=== PATIENT | male | born 1935 | race Caucasian/White ===

== ENCOUNTER → 2016-07-23 | Outpatient (CLI) | payer MEDICARE, BC ==
[2016-07-23 14:28] LABS: INR 2.2 (<1.1)
== END | disposition home or self-care (01) ==
LOC: LABWHC1 14:07
PROVIDERS: ATTEND Internal Medicine Cardiovascular Disease
DX: I48.91 Unspecified atrial fibrillation (principal)
CPT/HCPCS: 36415; 85610

== ENCOUNTER → 2016-08-02 | Outpatient (CLI) | payer MEDICARE, BC ==
--- NOTE | 2016-08-02 09:42 | US ---
EXAMINATION TYPE: US renals and bladder DATE OF EXAM: 08/02/2016 9:26 AM COMPARISON: NONE CLINICAL HISTORY: R31.9 hematuria. EXAM MEASUREMENTS: Right Kidney: 11.2 x 6.1 x 5.9 cm Left Kidney: 9.7 x 4.7 x 5.2 cm Right Kidney: 2 cysts seen small lower pole measuring 0.8 x 0.7 x 0.8 cm and upper pole measuring 1.2 x 1.3 x 1.3 cm Left Kidney: No hydronephrosis or masses seen, not well visualized due to surrounding bowel gas Bladder: wnl Bilateral Jets seen: Yes There is a 1.3 cm simple appearing cyst in the upper pole of the right kidney. There is an exophytic 8 mm lesion arising from the mid to lower pole of the right kidney. This does not meet the requiremen ts of a simple cyst. IMPRESSION: 1. 8MM EXOPHYTIC LESION ARISING FROM THE MID TO LOWER POLE OF THE RIGHT KIDNEY. THIS SHOULD BE FURTHE R ASSESSED WITH CT OR MR. 2. 1.3 CM SIMPLE APPEARING CYST ARISING FROM THE UPPER POLE OF THE RIGHT KIDNEY.
== END | disposition home or self-care (01) ==
LOC: RADUSMAIN 08:50
PROVIDERS: ATTEND Family Medicine
DX: N28.1 Cyst of kidney, acquired (principal); N28.9 Disorder of kidney and ureter, unspecified
CPT/HCPCS: 76770

== ENCOUNTER → 2016-08-15 | Outpatient (CLI) | payer MEDICARE, BC ==
[2016-08-15 12:04] LABS: INR 3.2 (<1.1); Prothrombin Time 31.2 sec (9.0-12.0)
--- NOTE | 2016-08-15 13:51 | CT ---
EXAMINATION TYPE: CT abdomen wo/w con DATE OF EXAM: 08/15/2016 1:32 PM COMPARISON: Renal ultrasound August 02, 2016. HISTORY: Renal mass CT DLP: 1319.10 mGycm, Automated Exposure Control for Dose Reduction was Utilized. CONTRAST: CT scan of the abdomen and pelvis is performed without oral and without and with IV Contrast, patient injected with 100 ml mL of Visipaque 320. FINDINGS: LUNG BASES: Elevated left hemidiaphragm is noted. There is cardiomegaly with moderate biatrial dilata tion. There is partial visualization of right-sided pacemaker/defibrillator wires. There is dense thr ee-vessel coronary artery calcification. LIVER/GB: No significant abnormality is appreciated. PANCREAS: Some diffuse fat replaced atrophy of the pancreas is seen. SPLEEN: Single small calcification inferior lateral spleen is presumed benign on axial image 21 serie s 5. ADRENALS: No significant abnormality is seen. KIDNEYS: Noncontrast images show 3-4 calculi scattered throughout right kidney measuring up to 5 mm i n size coronal image 90 lower pole level. There are approximately 5 calculi scattered throughout left kidney measuring up to 4 mm in size. Postcontrast images show symmetric cortical medullary uptake wi th slightly poorly visualized excretion bilaterally. No hydronephrosis is evident bilaterally. There is a simple appearing 1 cm cyst laterally upper to mid pole level right kidney on axial image 35 seri es 9 confirmed. No additional suspicious solid or cystic mass in right kidney is seen. Exophytically from the posterior lateral aspect of the left kidney which was felt to reflect shadowing from overlyi ng bowel gas there is a lesion measuring 4.1 x 3.5 cm on axial image 36 x 4.9 cm in craniocaudal dime nsion on coronal image 112, lesion has peripheral rim soft tissue density with central fat and soft t issue density consistent with angiomyolipoma. BOWEL: No significant abnormality is seen. LYMPH NODES: No greater than 1cm abdominal lymph nodes are appreciated. OSSEOUS STRUCTURES: There is multilevel spurring in the visualized thoracolumbar spine. Spine is stra ightened on sagittal images. There is spinal canal stenosis at L3-L4 level on axial image 47. There i s disc space narrowing L4-L5 and L5-S1 levels with grade 1 retrolisthesis of L4 on L5 and L5 on S1 no olivia. OTHER: There is moderate calcified atherosclerotic change of aorta extending into abdominal and pelvi c branch vessels IMPRESSION: No worrisome mass in right kidney. There is exophytic 4.9 cm mass posterior lateral left kidney consistent with angiomyolipoma. Though benign consider surgical or endovascular referral due t o size as there is increased risk for bleed/rupture.
== END | disposition home or self-care (01) ==
LOC: RADCTMAIN 10:59
PROVIDERS: ATTEND Family Medicine
DX: N28.89 Other specified disorders of kidney and ureter (principal)
CPT/HCPCS: 82565; 84520; 85610; 74170; 36415; Q9967

== ENCOUNTER → 2018-03-17 | Outpatient (CLI) | payer MEDICARE ==
[2018-03-17 17:14] LABS: HCT 38.2 % (39.0-53.0); HGB 12.8 gm/dL (13.0-17.5); MCH 34.5 pg (25.0-35.0); MCHC 33.4 g/dL (31.0-37.0); MCV 103.1 fL (80.0-100.0); Macrocytosis Slight; Mean Platelet Volume 8.1; Platelet Count 128 k/uL (150-450); RBC 3.71 m/uL (4.30-5.90); RDW 15.1 % (11.5-15.5); WBC 4.4 k/uL (3.8-10.6)
[2018-03-17 17:31] LABS: INR 2.9 (<1.2)
[2018-03-17 17:37] LABS: Potassium 5.6 mmol/L (3.5-5.1)
== END | disposition home or self-care (01) ==
LOC: LABPAT 16:32
PROVIDERS: ATTEND Internal Medicine Cardiovascular Disease
DX: Z01.812 Encounter for preprocedural laboratory examination (principal); I48.2 Chronic atrial fibrillation; I10 Essential (primary) hypertension; E78.2 Mixed hyperlipidemia
CPT/HCPCS: 80051; 82565; 84520; 85027; 85610

== ENCOUNTER → 2018-03-30 | Outpatient (CLI) | payer MEDICARE ==
[2018-03-30 12:23] LABS: HCT 35.2 % (39.0-53.0); HGB 11.5 gm/dL (13.0-17.5); MCH 34.1 pg (25.0-35.0); MCHC 32.7 g/dL (31.0-37.0); MCV 104.2 fL (80.0-100.0); Macrocytosis Moderate; Mean Platelet Volume 7.6; Platelet Count 132 k/uL (150-450); RBC 3.38 m/uL (4.30-5.90); RDW 15.5 % (11.5-15.5); WBC 5.5 k/uL (3.8-10.6)
[2018-03-30 12:24] LABS: Appearance,Urine Clear (Clear); Bilirubin,Urine Negative (Negative); Blood,Urine Negative (Negative); Color,Urine Yellow; Glucose,Urine (UA) Negative (Negative); Ketones,Urine Negative (Negative); Leukocyte Esterase,Urine Negative (Negative); Nitrite,Urine Negative (Negative); Protein,Urine Trace (Negative); Urobilinogen,Urine <2.0 mg/dL (<2.0)
[2018-03-30 16:19] LABS: Albumin 4.4 g/dL (3.80-4.90); Albumin/Globulin Ratio 2.32 (1.20-2.10); Anion Gap 7.4 mmol/L (4.00-12.00); Calcium 9.7 mg/dL (8.7-10.3); Carbon Dioxide 22.6 mmol/L (21.6-31.8); Globulin 1.9 g/dL (1.6-3.3); Phosphorus 2.6 mg/dL (2.4-5.1); Potassium 4.4 mmol/L (3.5-5.5); Total Bilirubin 1.2 mg/dL (0.3-1.2); Total Protein 6.3 g/dL (6.2-8.2)
== END ==
LOC: LABWHC1 11:40
PROVIDERS: ATTEND Internal Medicine Nephrology
DX: D64.9 Anemia, unspecified (principal); N39.0 Urinary tract infection, site not specified; E83.39 Other disorders of phosphorus metabolism
CPT/HCPCS: 36415; 80053; 81003; 84100; 85027

== ENCOUNTER → 2018-04-15 | Outpatient (CLI) | payer MEDICARE | END | disposition home or self-care (01) | LOC: LABPAT 13:18 | PROVIDERS: ATTEND Internal Medicine Cardiovascular Disease | DX: Z53.9 Procedure and treatment not carried out, unspecified reason (principal) ==

== ENCOUNTER → 2018-04-15 | Outpatient (CLI) | payer MEDICARE ==
[2018-04-15 14:01] LABS: Basophils % (A) 0 %; Eosinophils # (A) 0.1 k/uL (0-0.7); Eosinophils % (A) 2 %; HCT 36.7 % (39.0-53.0); HGB 11.6 gm/dL (13.0-17.5); Lymphocytes # (A) 0.4 k/uL (1.0-4.8); Lymphocytes % (A) 14 %; MCH 33.5 pg (25.0-35.0); MCHC 31.8 g/dL (31.0-37.0); MCV 105.3 fL (80.0-100.0); Macrocytosis Moderate; Mean Platelet Volume 7.6; Monocytes # (A) 0.3 k/uL (0-1.0); Monocytes % (A) 8 %; Neutrophils # (A) 2.4 k/uL (1.3-7.7); Neutrophils % (A) 73 %; RBC 3.48 m/uL (4.30-5.90); RDW 15.4 % (11.5-15.5); WBC 3.2 k/uL (3.8-10.6)
[2018-04-15 14:20] LABS: Platelet Count 95 k/uL (150-450)
[2018-04-15 14:44] LABS: Appearance,Urine Clear (Clear); Bilirubin,Urine Negative (Negative); Blood,Urine Negative (Negative); Color,Urine Yellow; Glucose,Urine (UA) Negative (Negative); Ketones,Urine Negative (Negative); Leukocyte Esterase,Urine Negative (Negative); Nitrite,Urine Negative (Negative); PH, Urine 5.5 (5.0-8.0); Protein,Urine Trace (Negative); Specific Gravity,Urine 1.008 (1.001-1.035); Urobilinogen,Urine <2.0 mg/dL (<2.0)
[2018-04-15 20:11] LABS: Anion Gap 12.6 mmol/L (4.00-12.00); Calcium 9.8 mg/dL (8.7-10.3); Carbon Dioxide 20.4 mmol/L (21.6-31.8)
[2018-04-15 20:12] LABS: Iron Saturation 10.68 (15.00-50.00); Protein, Total 6.1 g/dL (6.2-8.2)
[2018-04-15 20:13] LABS: Albumin 4.5 g/dL (3.80-4.90); Magnesium 1.8 mg/dL (1.5-2.4); Phosphorus 3.3 mg/dL (2.4-5.1); Uric Acid 4.9 mg/dL (3.7-8.7)
[2018-04-15 20:21] LABS: Vitamin D 25 Hydroxy 39.4 ng/mL (30.0-100.0)
[2018-04-15 21:22] LABS: Creatinine,Urine Random 55.7 mg/dL
[2018-04-15 21:58] LABS: Total Protein,Urine Random 29.1 mg/dL (0.0-13.5)
[2018-04-16 14:06] LABS: Albumin 3.67 g/dL (3.80-4.90); Gamma Globulin 0.69 g/dL (0.70-1.50)
== END | disposition home or self-care (01) ==
LOC: LABWHC1 13:26
PROVIDERS: ATTEND Internal Medicine Nephrology
DX: N18.3 Chronic kidney disease, stage 3 (moderate) (principal); D63.1 Anemia in chronic kidney disease; M10.9 Gout, unspecified; E55.9 Vitamin D deficiency, unspecified
CPT/HCPCS: 36415; 80048; 81003; 82040; 82306; 82570; 82728; 83540; 83550; 83735; 83970; 84100; 84156; 84165; 84550; 85025; 86335

== ENCOUNTER → 2018-04-20 | Outpatient (CLI) | payer MEDICARE ==
--- NOTE | 2018-04-20 16:46 | US ---
EXAMINATION TYPE: US kidneys/renal and bladder DATE OF EXAM: 04/20/2018 COMPARISON: CT 08/15/2016, US 08/02/2016 CLINICAL HISTORY: 83-year-old male N198.3 chronic kidney disease stage 3. TECHNIQUE: Multiple sonographic images of the kidneys and bladder are obtained. FINDINGS: EXAM MEASUREMENTS: Right Kidney: 11.3 x 6.0 x 6.3 cm with 2 cysts, largest in the upper pole measures 1.4 cm. Left Kidney: 9.1 x 4.3 x 5.7 cm with a lower pole cyst measuring 1.9 cm. Psychiatry Teacher notes: Difficu lt visualization due to surrounding bowel gas. Unable to visualize the exophytic angiomyolipoma as se en on prior CT There is no hydronephrosis on either side. Bladder: wnl Bilateral Jets seen: No IMPRESSION: 1. No hydronephrosis. Renal measurements as above. 2. 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
== END | disposition home or self-care (01) ==
LOC: RADUSWWP 14:42
PROVIDERS: ATTEND Internal Medicine Nephrology
DX: N18.3 Chronic kidney disease, stage 3 (moderate) (principal)
CPT/HCPCS: 76770

== ENCOUNTER 2018-04-24 06:29 | Day surgery (SDC) | payer MEDICARE ==
[2018-04-22 16:27] VITALS: BMI 27.1
[~2018-04-24 06:29] MED LIST: ALPRAZolam 0.25 MG TAB PO PRN; ALPRAZolam 0.5 MG TAB PO PRN; NITROGLYCERIN SL TABS 0.4 MG TAB SUBLINGUAL PRN; SODIUM CHLORIDE 0.9% 1,000 ML in EMPTY BAG 1 BAG IV ONE
[2018-04-24] MEDS ORDERED: ASPIRIN 325 MG TAB PO ONE (07:00)
[2018-04-24] MEDS ORDERED: ATORVASTATIN 80 MG TAB PO ONE (07:00)
[2018-04-24] MEDS ORDERED: SODIUM CHLORIDE 0.9% 1,000 ML IV ONE (07:08)
[2018-04-24 07:40] LABS: Glucose,Whole Blood 96 mg/dL (75-99)
[2018-04-24] MEDS ORDERED: LIDOCAINE 1% INJ 10MG/ML (20 ML MDV) ONE (07:42)
[2018-04-24 07:46] VITALS: TEMP 97.7
[2018-04-24] MEDS ORDERED: fentaNYL (PF) 50 MCG/ML 2 ML AMP ONE (07:56)
[2018-04-24 08:01] LABS: INR 1.3 (<1.2); Prothrombin Time 13.2 sec (9.0-12.0)
[2018-04-24 08:02] LABS: Basophils % (A) 1 %; Eosinophils # (A) 0.3 k/uL (0-0.7); Eosinophils % (A) 5 %; HCT 37.1 % (39.0-53.0); HGB 12.3 gm/dL (13.0-17.5); Lymphocytes # (A) 1.2 k/uL (1.0-4.8); Lymphocytes % (A) 22 %; MCH 34.6 pg (25.0-35.0); MCHC 33.2 g/dL (31.0-37.0); MCV 104.2 fL (80.0-100.0); Macrocytosis Moderate; Monocytes # (A) 0.4 k/uL (0-1.0); Monocytes % (A) 8 %; Neutrophils # (A) 3.4 k/uL (1.3-7.7); Neutrophils % (A) 62 %; RBC 3.56 m/uL (4.30-5.90); RDW 15.3 % (11.5-15.5); WBC 5.4 k/uL (3.8-10.6)
[2018-04-24 08:05] LABS: Platelet Count 179 k/uL (150-450)
[2018-04-24] MEDS ORDERED: MIDAZOLAM 2 MG/2 ML VIAL IV ONE (08:08)
[2018-04-24] MEDS ORDERED: fentaNYL (PF) 50 MCG/ML 2 ML AMP IV ONE (08:08)
[2018-04-24] MEDS ORDERED: LIDOCAINE 1% INJ 10MG/ML (20 ML MDV) SQ ONE (08:11)
[2018-04-24 08:14] LABS: Calcium 10.6 mg/dL (8.4-10.2); Potassium 4.7 mmol/L (3.5-5.1)
[2018-04-24] MEDS ORDERED: IOPAMIDOL-370 125ML BTL INJ ONE (08:40)
[2018-04-24] MEDS ORDERED: RX INFO: IV CONTRAST WAS GIVEN 1 EACH MISC MISCELLANE PRN (08:55)
[2018-04-24] MEDS ORDERED: SODIUM CHLORIDE 0.9% 1,000 ML IV SCH (09:00)
[2018-04-24] MEDS ORDERED: VERAPAMIL 2.5 MG/ML 2 ML AMP ONE (09:09)
[2018-04-24 10:43] VITALS: BP 139/66; RESP 18
[2018-04-24 18:15] VITALS: PULSE 60
--- NOTE | 2018-04-25 11:54 | P.CARDCATH ---
Date of Procedure: 04/25/18 Preoperative Diagnosis: positive stress test and symptoms of chest pain and fatigue Postoperative Diagnosis: multivessel coronary artery disease with critical lesions in the circumflex and also distal RCA with moderate disease in the mid LAD Procedure(s) Performed: left heart catheterization without left ventriculography Operative Findings: HISTORY: This is a 83-year-old gentleman with history of chronic atrial fibrillation who was recently evaluated by stress test. Because of symptoms of chest pain and fatigue. Patient was found to have evidence of ischemia and advised to have cardiac catheterization. Patient also has renal failure with creatinine up to 2.1. However creatinine has improved to 1.4 before the procedure. CONSENT:I have discussed the risks, benefits and alternative therapies for the above-mentioned procedure and for both sedation/analgesia as well as necessary blood product administration, if indicated, as they pertain to this patient. The patient has indicated understanding and acceptance of the risks and procedures discussed. [] PROCEDURE: Patient was brought to the lab in a fasting state. Patient was given some IV sedation. The right groin is infiltrated with lidocaine and right femoral artery was entered using Seldinger technique. A 6-Arabic catheter was left in place and selective coronary arteriography was performed. Patient tolerated the procedure well. Femoral angiogram was performed and Angio-Seal was notapplied for hemostasis. Manual compression was applied for hemostasis No immediate complications were noted and patient was transferred to [facility] in a stable condition Conscious Sedation: Versed 0.5mg Fentanyl 12.5 g Duration 20minutes HEMODYNAMICS: The aortic pressure is about 140/70. The left ventricular end- diastolic pressure is 8-12. There was no gradient across the aortic valve SELECTIVE CORONARY ARTERIOGRAPHY: LEFT MAIN: Entire left coronary system and dried: The system is heavily calcified.left main coronary artery has mild diffuse disease THE LEFT ANTERIOR DESCENDING CORONARY ARTERY:this is a moderate caliber vessel with heavy calcification and diffuse plaque. There is moderate disease in the mid LAD with about 50-60% stenosis. THE LEFT CIRCUMFLEX AND IS CORONARY ARTERY: This is a relatively this small caliber vessel. There appears to be about 70percent stenosis of the proximal circumflex THE RIGHT CORONARY ARTERY: this is a good caliber vessel with multiple lesions. There is heavily calcified, ectatic lesion in the mid LAD, followed by multiple lesions in the distal RCA with critical lesion before bifurcation into PDA and PLV. The vessel is heavily calcified LEFT VENTRICULOGRAPHY: not performed FINAL IMPRESSION:Multivessel disease with critical lesions in the mid and distal RCA, probably critical lesion in the proximal circumflex and moderate disease in the mid LAD. Entire coronary system is heavily calcified. PLAN: Maximal medical therapy. Dr. Weaver evaluated the patient and would like to bring back patient for atherectomy and stent placement of the mid and distal RCA. PROGNOSIS: guarded
== END 2018-04-24 14:12 | disposition home or self-care (01) ==
LOC: CATHCVL 06:29
PROVIDERS: ATTEND Internal Medicine Cardiovascular Disease
DX: I25.10 Atherosclerotic heart disease of native coronary artery without angina pectoris (principal); I48.2 Chronic atrial fibrillation; E78.00 Pure hypercholesterolemia, unspecified; E78.5 Hyperlipidemia, unspecified; I10 Essential (primary) hypertension; Z82.49 Family history of ischemic heart disease and other diseases of the circulatory system; Z72.0 Tobacco use; Z79.01 Long term (current) use of anticoagulants; Z79.899 Other long term (current) drug therapy; Z95.0 Presence of cardiac pacemaker
CPT/HCPCS: 93458; 80048; 85025; 85610; C1894; C1769 ×2; J2250; J2001; J3010; Q9967

== ENCOUNTER → 2018-04-27 | Outpatient (CLI) | payer MEDICARE ==
[2018-04-27 17:49] LABS: Anion Gap 10.4 mmol/L (4.00-12.00); Calcium 9.9 mg/dL (8.7-10.3); Carbon Dioxide 22.6 mmol/L (21.6-31.8); Potassium 4.7 mmol/L (3.5-5.5)
== END ==
LOC: LABWHC1 08:39
PROVIDERS: ATTEND Internal Medicine Cardiovascular Disease
DX: I25.10 Atherosclerotic heart disease of native coronary artery without angina pectoris (principal); I48.2 Chronic atrial fibrillation
CPT/HCPCS: 36415; 80048

== ENCOUNTER 2018-04-29 21:06 | Emergency (ER) | payer MEDICARE ==
--- NOTE | 2018-04-29 21:17 | ED ---
Neuro HPI - General Stated Complaint: CVA Time Seen by Provider: 04/29/18 21:11 - History of Present Illness Is the patient presenting with stroke symptoms?: Yes Last Known Well Date: 04/29/18 Last Known Well Time: 20:40 Initial Comments: Is an 83-year-old male with a history of Afib, CAD status post heart cath last week on Coumadin who presents to the ED for right-sided weakness. Per EMS the were called around 8 PM for right-sided deficits. Upon their arrival at 840 the patient had no symptoms and was going to refuse transport however at that time the patient suddenly had return of his right-sided weakness and he was brought to the emergency department. In route the patient had a blood sugar of 170. Blood pressure was 140/70. He did not take his night dose of warfarin per the EMS providers. The patient is unable to provide any history secondary to severe aphasia. - Related Data Home Medications: Home Medications Medication Instructions Recorded Confirmed Allopurinol [Zyloprim] 300 mg PO DAILY 01/27/14 04/29/18 Multivitamins, Thera [Multivitamin 1 tab PO DAILY 01/27/14 04/29/18 (formulary)] Warfarin [Coumadin] 5 mg PO TUSA 01/27/14 04/29/18 Warfarin [Coumadin] 7.5 mg PO SUMOWETHFR 01/27/14 04/29/18 Cholecalciferol (Vitamin D3) 2,000 unit PO DAILY 04/22/18 04/29/18 [Vitamin D3] Fish Oil/Dha/Epa [Fish Oil 1,200 1 cap PO BID 04/22/18 04/29/18 mg Fish Oil] Metoprolol Succinate [Toprol Xl] 100 mg PO DAILY 04/22/18 04/29/18 Atorvastatin Calcium [Lipitor] 20 mg PO HS 04/24/18 04/29/18 Previous Rx's Medication Instructions Recorded amLODIPine BESYLATE [Norvasc] 5 mg PO DAILY #30 tab 01/28/14 Isosorbide Mononitrate ER [Imdur] 15 mg PO DAILY #30 dose 04/24/18 Nitroglycerin Sl Tabs [Nitrostat] 0.4 mg SUBLINGUAL Q5M PRN #25 tab 04/24/18 Allergies/Adverse Reactions: Allergies Allergy/AdvReac Type Severity Reaction Status Date / Time No Known Allergies Allergy Verified 04/29/18 21:26 Review of Systems ROS Statement: Those systems with pertinent positive or pertinent negative responses have been documented in the HPI. ROS Other: All systems not noted in ROS Statement are negative. Stroke MDM - Lab Data Result diagrams: 04/29/18 21:11 04/29/18 21:11 Lab Results 04/29/18 04/29/18 04/29/18 Range/Units 21:10 21:11 21:11 WBC 4.9 (3.8-10.6) k/uL RBC 3.51 L (4.30-5.90) m/uL Hgb 12.2 L (13.0-17.5) gm/dL Hct 36.7 L (39.0-53.0) % MCV 104.5 H (80.0-100.0) fL MCH 34.8 (25.0-35.0) pg MCHC 33.3 (31.0-37.0) g/dL RDW 15.5 (11.5-15.5) % Plt Count 189 (150-450) k/uL Neutrophils % 63 % Lymphocytes % 21 % Monocytes % 8 % Eosinophils % 4 % Basophils % 1 % Neutrophils # 3.1 (1.3-7.7) k/uL Lymphocytes # 1.0 (1.0-4.8) k/uL Monocytes # 0.4 (0-1.0) k/uL Eosinophils # 0.2 (0-0.7) k/uL Basophils # 0.0 (0-0.2) k/uL Macrocytosis Moderate Sodium (137-145) mmol/L Potassium (3.5-5.1) mmol/L Chloride (98-107) mmol/L Carbon Dioxide (22-30) mmol/L Anion Gap mmol/L BUN (9-20) mg/dL Creatinine (0.66-1.25) mg/dL Est GFR (CKD-EPI)AfAm (>60 ml/min/1.73 sqM) Est GFR (CKD-EPI)NonAf (>60 ml/min/1.73 sqM) Glucose (74-99) mg/dL POC Glucose (mg/dL) 157 H (75-99) mg/dL POC Glu Health Assistant ID Dania Kerr Calcium (8.4-10.2) mg/dL Total Bilirubin (0.2-1.3) mg/dL AST (17-59) U/L ALT (21-72) U/L Alkaline Phosphatase (38-126) U/L Total Creatine Kinase 92 (55-170) U/L Total Protein (6.3-8.2) g/dL Albumin (3.5-5.0) g/dL 04/29/18 Range/Units 21:11 WBC (3.8-10.6) k/uL RBC (4.30-5.90) m/uL Hgb (13.0-17.5) gm/dL Hct (39.0-53.0) % MCV (80.0-100.0) fL MCH (25.0-35.0) pg MCHC (31.0-37.0) g/dL RDW (11.5-15.5) % Plt Count (150-450) k/uL Neutrophils % % Lymphocytes % % Monocytes % % Eosinophils % % Basophils % % Neutrophils # (1.3-7.7) k/uL Lymphocytes # (1.0-4.8) k/uL Monocytes # (0-1.0) k/uL Eosinophils # (0-0.7) k/uL Basophils # (0-0.2) k/uL Macrocytosis Sodium 140 (137-145) mmol/L Potassium 4.6 (3.5-5.1) mmol/L Chloride 107 (98-107) mmol/L Carbon Dioxide 24 (22-30) mmol/L Anion Gap 9 mmol/L BUN 36 H (9-20) mg/dL Creatinine 1.28 H (0.66-1.25) mg/dL Est GFR (CKD-EPI)AfAm 59 (>60 ml/min/1.73 sqM) Est GFR (CKD-EPI)NonAf 51 (>60 ml/min/1.73 sqM) Glucose 129 H (74-99) mg/dL POC Glucose (mg/dL) (75-99) mg/dL POC Glu Health Assistant ID Calcium 10.2 (8.4-10.2) mg/dL Total Bilirubin 0.9 (0.2-1.3) mg/dL AST 37 (17-59) U/L ALT 44 (21-72) U/L Alkaline Phosphatase 143 H (38-126) U/L Total Creatine Kinase (55-170) U/L Total Protein 7.2 (6.3-8.2) g/dL Albumin 4.4 (3.5-5.0) g/dL - NIH Stroke Scale 1a. Level of Consciousness: (0) alert 1b. LOC Questions: (2) answers no questions correctly 1c. LOC Commands: (1) performs 1 task correctly 2. Best Gaze: (1) partial gaze palsy 3. Visual: (1) partial hemianopia 4. Facial Palsy: (2) partial paralysis 5a. Motor Arm Left: (0) no drift 5b. Motor Arm Right: (3) no gravity effort 6a. Motor Leg Left: (0) no drift 6b. Motor Leg Right: (3) no gravity effort 7. Limb Ataxia: (0) absent 8. Sensory: (0) normal 9. Best Language: (2) severe aphasia 10. Dysarthria: (1) mild/moderate dysarthria 11. Extinction/Inattention: (1) visual/tactile inattention Past Medical History Past Medical History: Atrial Fibrillation, Cancer, COPD, Hyperlipidemia, Hypertension, Osteoarthritis (OA), Renal Disease, Sleep Apnea/CPAP/BIPAP, Syncope Additional Past Medical History / Comment(s): PT CAME TO ER WITH SYNCOPAL AND NEAR SYNCOPAL EPISODES. PT HAD STRESS TEST YESTERDAY IN [facility] OFFICE AND WHEN HE SAT UP HE "PASSED OUT" X 2. HE WAS TOLD HE COMPLETED STRESS TEST AND IT WAS. NEGATIVE . THIS AM (0200) HE GOT OUT OF BED TO URINATE AND HAD 2 NEAR SYNCOPAL EPISODES. HE FELL BUT LANDED ON HIS BED. HE THEN LAID IN BED AND HAD 2 MORE NEAR SYNCOPAL EPISODES. PT HAS PACEMAKER DUE. TO BRADYCARDA. SKIN CA, KIDNEY STONES, PT HAS SLEEP APNEA AND HAS A CPAP MACHINE IN JUST THE LAST 2 MONTHS. History of Any Multi-Drug Resistant Organisms: None Reported Past Surgical History: Hernia Repair, Orthopedic Surgery, Pacemaker Additional Past Surgical History / Comment(s): R GROIN HERNIA REPAIR. bilateral knee replacement, pacemaker WITH NEWEST DEVICE CHANGE IN 2009. Past Anesthesia/Blood Transfusion Reactions: No Reported Reaction Type of Cardiac Device: Permanent Pacemaker Device Placement Date:: 2009 Smoking Status: Never smoker - Past Family History Father Family Medical History: Cancer, CVA/TIA, Diabetes Mellitus Additional Family Medical History / Comment(s): FATHER OF LUNG CANCER AT AGE 82YRS. Mother Family Medical History: Coronary Artery Disease (CAD) Additional Family Medical History / Comment(s): MOTHER AT AGE 72 YRS. Course Vital Signs 04/29/18 04/29/18 04/29/18 21:09 21:10 21:23 Pulse Rate 63 64 59 L Respiratory 20 20 20 Rate Blood Pressure 143/79 132/74 O2 Sat by Pulse 97 97 Oximetry 04/29/18 04/29/18 21:30 21:40 Pulse Rate 60 60 Respiratory 7 L 7 L Rate Blood Pressure 132/74 136/72 O2 Sat by Pulse 97 Oximetry - Reevaluation(s) Reevaluation #1: 04/29/18 21:37 EKG showing ventricular paced rhythm at a rate of 60. There is no abnormal ST 7 changes or T-wave inversions. QTC is 464. No ectopy. Reevaluation #2: 04/29/18 21:[address] Malhotra on the phone who identified a left MCA clot. States that he is candidate for thrombectomy. Wanted me to set up transfer immediately to [facility] intermixed TPA in the event that the INR was subtherapeutic. There is going to be a delay in TPA administration due to waiting for coagulation studies to return. Dr. Jones accepted the transfer at [facility] 04/29/18 21:41 Reevaluation #3: 04/29/18 21:41 Lab called and stated there is not enough blood in the tube to run the coagulation studies. Redraw sent down to lab. Reevaluation #4: 04/29/18 21:53 I spoke with lab and they stated there was given another 25-30 minutes before we had the coags back. I spoke again with Dr. Malhotra who recommended transferring the patient right now with the TPA dose in hand and they can administer the TPA when he removed arrived at their facility if the INR is subtherapeutic. The patient will be transported right now. Disposition Clinical Impression: Acute CVA (cerebrovascular accident) Disposition: OTHER INSTITUTION NOT DEFINED Condition: Critical Referrals: None,Stated [REFERRING] - 1-2 days - Out of Hospital Transfer - Req. Specs Out of Hospital Transfer - Requested Specifics: Other Emergency Center ([facility])
[2018-04-29 21:25] LABS: Basophils % (A) 1 %; Eosinophils # (A) 0.2 k/uL (0-0.7); Eosinophils % (A) 4 %; HCT 36.7 % (39.0-53.0); HGB 12.2 gm/dL (13.0-17.5); Lymphocytes % (A) 21 %; MCH 34.8 pg (25.0-35.0); MCHC 33.3 g/dL (31.0-37.0); MCV 104.5 fL (80.0-100.0); Macrocytosis Moderate; Monocytes # (A) 0.4 k/uL (0-1.0); Monocytes % (A) 8 %; Neutrophils # (A) 3.1 k/uL (1.3-7.7); Neutrophils % (A) 63 %; Platelet Count 189 k/uL (150-450); RBC 3.51 m/uL (4.30-5.90); RDW 15.5 % (11.5-15.5); WBC 4.9 k/uL (3.8-10.6)
[2018-04-29 21:35] LABS: Albumin 4.4 g/dL (3.5-5.0); Calcium 10.2 mg/dL (8.4-10.2); Potassium 4.6 mmol/L (3.5-5.1); Total Bilirubin 0.9 mg/dL (0.2-1.3); Total Protein 7.2 g/dL (6.3-8.2)
[2018-04-29] MEDS ORDERED: ALTEPLASE 73 MG in EMPTY BAG 1 BAG IV STA (21:37)
[2018-04-29] MEDS ORDERED: ALTEPLASE BOLUS 8 MG in EMPTY SYRINGE 1 SYR IV STA (21:37)
--- NOTE | 2018-04-29 21:44 | CT ---
EXAMINATION TYPE: CT brain wo con for TPA DATE OF EXAM: 04/29/2018 COMPARISON: 01/27/2014 HISTORY: Neuro deficits. CT DLP: 1481 mGycm Automated exposure control for dose reduction was used. FINDINGS: There is cerebral cortical atrophy. There is no mass effect nor midline shift. There is no sign of in tracranial hemorrhage. The calvarium is intact. There is minimal mucosal thickening in the right side ethmoid sinus. IMPRESSION: CEREBRAL ATROPHY. NO ACUTE INTRACRANIAL ABNORMALITY. NO CHANGE.
[2018-04-29 21:52] LABS: Glucose,Whole Blood 157 mg/dL (75-99)
[2018-04-29 21:55] LABS: Creatine Kinase MB 1.1 ng/mL (0.0-2.4); Troponin I 0.019 ng/mL (0.000-0.034)
--- NOTE | 2018-04-29 21:57 | XR ---
EXAMINATION TYPE: XR chest 1V portable DATE OF EXAM: 04/29/2018 COMPARISON: 02/22/2015 HISTORY: Syncope TECHNIQUE: Single frontal view of the chest is obtained. FINDINGS: There is no heart failure nor confluent pneumonic infiltrate. There is some atelectasis at the left lung base. Heart is enlarged. There is left axillary pacemaker with the lead tip in the rig ht ventricle. There are chest leads. IMPRESSION: Cardiomegaly. No heart failure. There is new atelectasis at the left lung base compared to old exam.
[2018-04-29 22:02] VITALS: BP 146/85; PULSE 87; RESP 20
--- NOTE | 2018-04-29 22:35 | CT ---
EXAMINATION TYPE: CT angio head neck DATE OF EXAM: 04/29/2018 HISTORY: Neuro deficits. COMPARISON: None CT DLP: 384.6 mGycm. Automated Exposure Control for Dose Reduction was Utilized. TECHNIQUE: CTA scan of the neck is performed with IV Contrast, patient injected with 65ml mL of Isov ue 370, axial images are obtained, coronal and sagittal reformatted images are reviewed. Three-D luis alberto nstructed images are created on an independent workstation and reviewed. FINDINGS: There are 3-D post processed images. There is normal branching pattern of the great vessels on the aortic arch. There is bilateral arteria l flow in the subclavian arteries. There is arterial flow in both vertebral arteries which are fairly symmetric. There is arterial flow in the common internal and external carotid arteries bilaterally. There is atherosclerotic plaque at the origin right internal carotid artery without significant narro wing. There is similar change at the origin left internal carotid artery. There is no evidence of car otid or vertebral artery aneurysm or dissection. There is arterial flow in the anterior middle and posterior cerebral arteries. There is arterial flow in the vertebrobasilar artery system. There is no definite flow in the posterior communicating arter ies. There is termination of the proximal left middle cerebral artery proximal to the sylvian fissure . There is diminished arterial flow in the left sylvian fissure compared to the right. There is no mass effect. There is no evidence of intracranial aneurysm or neovascularity. There is normal contrast opacification of the venous sinuses. 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 No evidence of hemodynamic stenosis in the neck. No evidence of aneurysm or neovascularity.
== END 2018-04-29 21:59 | disposition other institution (70) ==
LOC: SUPCPDRO 21:06 → EC 21:06
DX: I63.9 Cerebral infarction, unspecified (principal); R29.717 NIHSS score 17; I48.91 Unspecified atrial fibrillation; E78.5 Hyperlipidemia, unspecified; I10 Essential (primary) hypertension; M19.90 Unspecified osteoarthritis, unspecified site; G47.30 Sleep apnea, unspecified; Z95.0 Presence of cardiac pacemaker; Z85.828 Personal history of other malignant neoplasm of skin; Z96.653 Presence of artificial knee joint, bilateral; Z82.3 Family history of stroke; Z79.01 Long term (current) use of anticoagulants; Z79.899 Other long term (current) drug therapy
CPT/HCPCS: 36415; 93005; 80053; 82550; 82553; 84484; 85025; 71045; 70496; 70450; 70498; 99291; Q9967

== ENCOUNTER → 2018-10-15 | Outpatient (CLI) | payer MEDICARE ==
[2018-10-15 14:24] LABS: Basophils % (A) 0 %; Eosinophils # (A) 0.1 k/uL (0-0.7); Eosinophils % (A) 3 %; HCT 33.7 % (39.0-53.0); HGB 10.7 gm/dL (13.0-17.5); Lymphocytes # (A) 0.8 k/uL (1.0-4.8); Lymphocytes % (A) 17 %; MCHC 31.8 g/dL (31.0-37.0); MCV 103.8 fL (80.0-100.0); Macrocytosis Moderate; Mean Platelet Volume 7.3; Monocytes # (A) 0.3 k/uL (0-1.0); Monocytes % (A) 8 %; Neutrophils % (A) 69 %; Platelet Count 148 k/uL (150-450); RBC 3.25 m/uL (4.30-5.90); WBC 4.4 k/uL (3.8-10.6)
[2018-10-15 14:25] LABS: Appearance,Urine Clear (Clear); Bacteria,Urine Rare /hpf; Bilirubin,Urine Negative (Negative); Blood,Urine Negative (Negative); Color,Urine Yellow; Glucose,Urine (UA) Negative (Negative); Hyaline Casts,Urine 1 /lpf (0-2); Ketones,Urine Negative (Negative); Leukocyte Esterase,Urine Negative (Negative); Nitrite,Urine Negative (Negative); Protein,Urine 1+ (Negative); Specific Gravity,Urine 1.013 (1.001-1.035); Squamous Epithelial Cell,Urine <1 /hpf (0-4); Urobilinogen,Urine <2.0 mg/dL (<2.0); WBC,Urine <1 /hpf (0-5)
[2018-10-15 18:56] LABS: Iron Saturation 23.85 (15.00-50.00)
[2018-10-15 18:59] LABS: Albumin 4.2 g/dL (3.80-4.90); Anion Gap 7.1 mmol/L (4.00-12.00); BUN/Creat Ratio 18.33 Ratio (12.00-20.00); Carbon Dioxide 25.9 mmol/L (21.6-31.8); Phosphorus 3.4 mg/dL (2.4-5.1); Potassium 4.6 mmol/L (3.5-5.5); Uric Acid 4.5 mg/dL (3.7-8.7)
[2018-10-15 21:04] LABS: Creatinine,Urine Random 68.4 mg/dL
[2018-10-15 22:11] LABS: Total Protein,Urine Random 48.1 mg/dL (0.0-13.5)
== END | disposition home or self-care (01) ==
LOC: LABWHC1 13:32
PROVIDERS: ATTEND Internal Medicine Nephrology
DX: N39.0 Urinary tract infection, site not specified (principal); M10.9 Gout, unspecified; E55.9 Vitamin D deficiency, unspecified; N18.3 Chronic kidney disease, stage 3 (moderate); D63.1 Anemia in chronic kidney disease; N25.81 Secondary hyperparathyroidism of renal origin; R80.9 Proteinuria, unspecified
CPT/HCPCS: 36415; 80048; 81001; 82040; 82306; 82570; 82728; 83540; 83550; 83735; 83970; 84100; 84156; 84550; 85025

== ENCOUNTER → 2019-03-04 | Outpatient (CLI) | payer MEDICARE ==
[2019-03-04 12:17] LABS: Basophils % (A) 0 %; Eosinophils # (A) 0.1 k/uL (0-0.7); Eosinophils % (A) 3 %; HCT 33.6 % (39.0-53.0); HGB 11.6 gm/dL (13.0-17.5); Lymphocytes # (A) 0.7 k/uL (1.0-4.8); Lymphocytes % (A) 16 %; MCH 36.5 pg (25.0-35.0); MCHC 34.6 g/dL (31.0-37.0); MCV 105.5 fL (80.0-100.0); Macrocytosis Moderate; Mean Platelet Volume 7.1; Monocytes # (A) 0.3 k/uL (0-1.0); Monocytes % (A) 8 %; Neutrophils % (A) 71 %; Platelet Count 139 k/uL (150-450); RBC 3.19 m/uL (4.30-5.90); RDW 14.4 % (11.5-15.5); WBC 4.2 k/uL (3.8-10.6)
[2019-03-04 12:27] LABS: Appearance,Urine Clear (Clear); Bilirubin,Urine Negative (Negative); Blood,Urine Negative (Negative); Color,Urine Yellow; Glucose,Urine (UA) Negative (Negative); Ketones,Urine Negative (Negative); Leukocyte Esterase,Urine Negative (Negative); Mucus,Urine Rare /hpf; Nitrite,Urine Negative (Negative); PH, Urine 6.5 (5.0-8.0); Protein,Urine 1+ (Negative); RBC,Urine <1 /hpf (0-5); Urobilinogen,Urine <2.0 mg/dL (<2.0); WBC,Urine <1 /hpf (0-5)
[2019-03-04 13:10] LABS: Protein/Creatinine Ratio,Urine 1.1
[2019-03-04 20:22] LABS: % Iron Saturation 36.07 (15.00-50.00); African American GFR (CKD) 58.1 (60.0-200.0); Albumin 4.3 g/dL (3.80-4.90); Albumin/Globulin Ratio 2.26 (1.60-3.17); Anion Gap 7.3 mmol/L (4.00-12.00); BUN/Creat Ratio 22.31 Ratio (12.00-20.00); Calcium 9.9 mg/dL (8.7-10.3); Carbon Dioxide 24.7 mmol/L (21.6-31.8); Globulin 1.9 g/dL (1.6-3.3); Magnesium 1.9 mg/dL (1.5-2.4); Non-African American GFR(CKD) 50.1 (60.0-200.0); Phosphorus 2.8 mg/dL (2.4-5.1); Potassium 4.3 mmol/L (3.5-5.5); Total Bilirubin 1.4 mg/dL (0.3-1.2); Total Protein 6.2 g/dL (6.2-8.2); Uric Acid 5.2 mg/dL (3.7-8.7)
[2019-03-04 20:39] LABS: Ferritin 305.5 ng/mL (22.0-322.0)
== END | disposition home or self-care (01) ==
LOC: LABWHC1 11:36
PROVIDERS: ATTEND Internal Medicine Nephrology
DX: E79.0 Hyperuricemia without signs of inflammatory arthritis and tophaceous disease (principal); N18.3 Chronic kidney disease, stage 3 (moderate); D63.1 Anemia in chronic kidney disease; N39.0 Urinary tract infection, site not specified; N25.81 Secondary hyperparathyroidism of renal origin; E55.9 Vitamin D deficiency, unspecified; R80.9 Proteinuria, unspecified
CPT/HCPCS: 36415; 80053; 81001; 82306; 82570; 82728; 83540; 83550; 83735; 83970; 84100; 84156; 84550; 85025

== ENCOUNTER → 2019-08-04 | Outpatient (CLI) | payer MEDICARE ==
[2019-08-04 10:40] LABS: Basophils % (A) 0 %; Eosinophils # (A) 0.2 k/uL (0-0.7); Eosinophils % (A) 4 %; HCT 35.8 % (39.0-53.0); HGB 11.8 gm/dL (13.0-17.5); Lymphocytes # (A) 0.8 k/uL (1.0-4.8); Lymphocytes % (A) 19 %; MCH 35.6 pg (25.0-35.0); MCHC 33.1 g/dL (31.0-37.0); MCV 107.5 fL (80.0-100.0); Macrocytosis Moderate; Monocytes # (A) 0.4 k/uL (0-1.0); Monocytes % (A) 8 %; Neutrophils # (A) 2.9 k/uL (1.3-7.7); Neutrophils % (A) 66 %; Platelet Count 158 k/uL (150-450); RBC 3.33 m/uL (4.30-5.90); RDW 14.6 % (11.5-15.5); WBC 4.4 k/uL (3.8-10.6)
[2019-08-04 15:38] LABS: Potassium 4.5 mmol/L (3.5-5.5)
[2019-08-04 15:39] LABS: African American GFR (CKD) 63.5 (60.0-200.0); Chol/HDL Ratio 2.34; Non-African American GFR(CKD) 54.8 (60.0-200.0)
== END | disposition home or self-care (01) ==
LOC: LABWHC1 09:18
PROVIDERS: ATTEND Internal Medicine Cardiovascular Disease
DX: I10 Essential (primary) hypertension (principal); I25.10 Atherosclerotic heart disease of native coronary artery without angina pectoris
CPT/HCPCS: 36415; 80051; 80061; 82565; 84443; 84450; 84460; 84520; 85025

== ENCOUNTER → 2019-10-06 | Outpatient (CLI) | payer MEDICARE ==
[2019-10-06 16:00] LABS: Basophils % (A) 0 %; Eosinophils # (A) 0.2 k/uL (0-0.7); Eosinophils % (A) 4 %; HCT 35.3 % (39.0-53.0); HGB 11.4 gm/dL (13.0-17.5); Lymphocytes # (A) 0.7 k/uL (1.0-4.8); Lymphocytes % (A) 19 %; MCH 35.5 pg (25.0-35.0); MCHC 32.4 g/dL (31.0-37.0); MCV 109.6 fL (80.0-100.0); Macrocytosis Marked; Mean Platelet Volume 8.4; Monocytes # (A) 0.3 k/uL (0-1.0); Monocytes % (A) 8 %; Neutrophils # (A) 2.7 k/uL (1.3-7.7); Neutrophils % (A) 68 %; Platelet Count 141 k/uL (150-450); RBC 3.22 m/uL (4.30-5.90); RDW 14.4 % (11.5-15.5)
[2019-10-06 16:12] LABS: Appearance,Urine Clear (Clear); Bilirubin,Urine Negative (Negative); Blood,Urine Negative (Negative); Color,Urine Yellow; Glucose,Urine (UA) Negative (Negative); Hyaline Casts,Urine 5 /lpf (0-2); Ketones,Urine Negative (Negative); Leukocyte Esterase,Urine Negative (Negative); Mucus,Urine Rare /hpf; Nitrite,Urine Negative (Negative); PH, Urine 5.5 (5.0-8.0); Protein,Urine 1+ (Negative); Specific Gravity,Urine 1.021 (1.001-1.035); Squamous Epithelial Cell,Urine <1 /hpf (0-4); Urobilinogen,Urine <2.0 mg/dL (<2.0); WBC,Urine 1 /hpf (0-5)
[2019-10-06 16:52] LABS: Protein/Creatinine Ratio,Urine 0.366
[2019-10-06 23:52] LABS: % Iron Saturation 34.44 (15.00-50.00); African American GFR (CKD) 52.7 (60.0-200.0); Albumin 4.1 g/dL (3.80-4.90); Anion Gap 7.8 mmol/L (4.00-12.00); BUN/Creat Ratio 20.71 Ratio (12.00-20.00); Calcium 9.9 mg/dL (8.7-10.3); Carbon Dioxide 25.2 mmol/L (21.6-31.8); Ferritin 323.4 ng/mL (22.0-322.0); Non-African American GFR(CKD) 45.5 (60.0-200.0); Phosphorus 2.5 mg/dL (2.4-5.1); Potassium 4.5 mmol/L (3.5-5.5); Uric Acid 4.5 mg/dL (3.7-8.7)
== END | disposition home or self-care (01) ==
LOC: LABWHC1 13:20
PROVIDERS: ATTEND Internal Medicine Nephrology
DX: N25.81 Secondary hyperparathyroidism of renal origin (principal); M10.9 Gout, unspecified; N39.0 Urinary tract infection, site not specified; D63.1 Anemia in chronic kidney disease; E55.9 Vitamin D deficiency, unspecified; N18.3 Chronic kidney disease, stage 3 (moderate); R80.9 Proteinuria, unspecified
CPT/HCPCS: 36415; 80048; 81001; 82040; 82306; 82570; 82728; 83540; 83550; 83735; 83970; 84100; 84156; 84550; 85025

== ENCOUNTER 2020-01-20 19:05 | Emergency (ER) | payer MEDICARE ==
[2020-01-20 19:13] VITALS: TEMP 97.9
--- NOTE | 2020-01-20 19:43 | ED ---
Fall HPI - General Chief Complaint: Fall Stated Complaint: Fall, Head injury Time Seen by Provider: 01/20/20 19:14 Source: patient Mode of arrival: wheelchair - History of Present Illness Initial Comments: 84-year-old male patient presents to the emergency department today for evaluation after experiencing a fall. Patient states about half an hour ago he lost balance and fell backwards striking his head on cement. Patient states he first landed on his buttocks and then fell backwards hitting his head on the ground. Denies any loss of consciousness. Denies any headache. Denies blurred vision, double vision, nausea, or vomiting. Denies any numbness, tingling, weakness to his extremities. Patient does take Eliquis so is concerned about head injury. Patient denies any neck pain, back pain, chest pain, shortness of breath, dizziness, weakness, abdominal pain, nausea, vomiting, or difficulties with bowel movements or urination. - Related Data Home Medications Medication Instructions Recorded Confirmed Multivitamins, Thera [Multivitamin 1 tab PO DAILY 01/27/14 04/29/18 (formulary)] Warfarin [Coumadin] 5 mg PO TUSA 01/27/14 04/29/18 Warfarin [Coumadin] 7.5 mg PO SUMOWETHFR 01/27/14 04/29/18 allopurinoL [Zyloprim] 300 mg PO DAILY 01/27/14 04/29/18 Cholecalciferol (Vitamin D3) 2,000 unit PO DAILY 04/22/18 04/29/18 [Vitamin D3] Fish Oil/Dha/Epa [Fish Oil 1,200 1 cap PO BID 04/22/18 04/29/18 mg Fish Oil] Metoprolol Succinate [Toprol Xl] 100 mg PO DAILY 04/22/18 04/29/18 Atorvastatin Calcium [Lipitor] 20 mg PO HS 04/24/18 04/29/18 Previous Rx's Medication Instructions Recorded amLODIPine BESYLATE [Norvasc] 5 mg PO DAILY #30 tab 01/28/14 Isosorbide Mononitrate ER [Imdur] 15 mg PO DAILY #30 dose 04/24/18 Nitroglycerin Sl Tabs [Nitrostat] 0.4 mg SUBLINGUAL Q5M PRN #25 tab 04/24/18 Allergies Allergy/AdvReac Type Severity Reaction Status Date / Time No Known Allergies Allergy Verified 01/20/20 19:12 Review of Systems ROS Statement: Those systems with pertinent positive or pertinent negative responses have been documented in the HPI. ROS Other: All systems not noted in ROS Statement are negative. Past Medical History Past Medical History: Atrial Fibrillation, Cancer, COPD, Hyperlipidemia, Hypertension, Osteoarthritis (OA), Renal Disease, Sleep Apnea/CPAP/BIPAP, Syncope Additional Past Medical History / Comment(s): PT CAME TO ER WITH SYNCOPAL AND NEAR SYNCOPAL EPISODES. PT HAD STRESS TEST YESTERDAY IN [facility] OFFICE AND WHEN HE SAT UP HE "PASSED OUT" X 2. HE WAS TOLD HE COMPLETED STRESS TEST AND IT WAS. NEGATIVE . THIS AM (0200) HE GOT OUT OF BED TO URINATE AND HAD 2 NEAR SYNCOPAL EPISODES. HE FELL BUT LANDED ON HIS BED. HE THEN LAID IN BED AND HAD 2 MORE NEAR SYNCOPAL EPISODES. PT HAS PACEMAKER DUE. TO BRADYCARDA. SKIN CA, KIDNEY STONES, PT HAS SLEEP APNEA AND HAS A CPAP MACHINE IN JUST THE LAST 2 MONTHS. History of Any Multi-Drug Resistant Organisms: None Reported Past Surgical History: Hernia Repair, Orthopedic Surgery, Pacemaker Additional Past Surgical History / Comment(s): R GROIN HERNIA REPAIR. bilateral knee replacement, pacemaker WITH NEWE[employer] DEVICE CHANGE IN 2009. Past Anesthesia/Blood Transfusion Reactions: No Reported Reaction Type of Cardiac Device: Permanent Pacemaker Device Placement Date:: 2009 Past Psychological History: No Psychological Hx Reported Smoking Status: Former smoker Past Alcohol Use History: None Reported Past Drug Use History: None Reported - Past Family History Father Family Medical History: Cancer, CVA/TIA, Diabetes Mellitus Additional Family Medical History / Comment(s): FATHER OF LUNG CANCER AT AGE 82YRS. Mother Family Medical History: Coronary Artery Disease (CAD) Additional Family Medical History / Comment(s): MOTHER AT AGE 72 YRS. General Exam Limitations: no limitations General appearance: alert, in no apparent distress, other (This is a well- developed, well-nourished elderly male patient in no acute distress. Vital signs upon presentation are temperature 97.9F, pulse 71, respirations 16, blood pressure 132/76, pulse ox 97% on room air.) Head exam: Present: atraumatic, normocephalic, normal inspection Neck exam: Present: normal inspection, full ROM, other (Nontender, no step-off, no deformity to firm midline palpation of the posterior cervical spine. Full range of motion without pain or limitation.). Absent: tenderness, meningismus, lymphadenopathy Respiratory exam: Present: normal lung sounds bilaterally. Absent: respiratory distress, wheezes, rales, rhonchi, stridor Cardiovascular Exam: Present: regular rate, normal rhythm, normal heart sounds. Absent: systolic murmur, diastolic murmur, rubs, gallop, clicks GI/Abdominal exam: Present: soft, normal bowel sounds. Absent: distended, tenderness, guarding, rebound, rigid Extremities exam: Present: normal inspection, full ROM, normal capillary refill, other (No pelvic tenderness or instability with firm palpation bilaterally.). Absent: tenderness, pedal edema, joint swelling, calf tenderness Back exam: Present: normal inspection, other (Nontender, no step-off, no deformity to firm midline palpation of the thoracic and lumbar vertebrae. Full range of motion without pain or limitation.). Absent: vertebral tenderness Neurological exam: Present: alert, oriented X3, CN II-XII intact Psychiatric exam: Present: normal affect, normal mood Skin exam: Present: warm, dry, intact, normal color. Absent: rash Course Vital Signs 01/20/20 01/20/20 19:09 20:15 Temperature 97.9 F Pulse Rate 71 67 Respiratory 16 18 Rate Blood Pressure 132/76 130/75 O2 Sat by Pulse 97 98 Oximetry Medical Decision Making - Medical Decision Making 84-year-old male patient presented to the emergency department today for evaluation after experiencing a fall with head injury. Patient had no loss of consciousness. Not really having any symptoms but does take Eliquis wanted to get checked out. Physical examination is unremarkable. He is neurologically intact with no focal deficits. There is no open wounds to the scalp. CT brain C-spine was obtained and was negative. He'll be discharged follow up with his primary care physician for recheck in 1-2 days. Return parameters were discussed in detail. He verbalizes understanding and agrees this plan. - Radiology Data Radiology results: report reviewed, image reviewed CT brain C-spine without contrast was obtained. Report was reviewed in its entirety. Impression by Dr. Pedro Virk shows no fracture or dislocation the cervical spine. No acute intracranial hemorrhage, mass effect, or midline shift is seen. Disposition Clinical Impression: Head injury Disposition: HOME SELF-CARE Condition: Good Instructions (If sedation given, give patient instructions): Head Injury (ED) Additional Instructions: Follow-up with the primary care physician for recheck in 1-2 days. Return to the emergency department immediately for any new, worsening, or concerning symptoms. Is patient prescribed a controlled substance at d/c from ED?: No Referrals: Jose Carlos Taylor MD [Primary Care Provider] - 1-2 days Time of Disposition: 20:28
--- NOTE | 2020-01-20 20:15 | CT ---
EXAMINATION TYPE: CT brain alyx wo con DATE OF EXAM: 01/20/2020 COMPARISON: 04/29/2018 HISTORY: Pain after fall, posterior head trauma. CT DLP: 1265.7 mGycm Automated exposure control for dose reduction was used. TECHNIQUE: CT scan of the head and cervical spine are performed without contrast. FINDINGS: There is no acute intracranial hemorrhage, mass effect, or midline shift identified. The ventricles and sulci are within normal limits in size. The globes are intact and the visualized sin uses are clear. Cervical spine is visualized in its entirety from C1 through upper thoracic levels and demonstrates s atisfactory alignment without evidence of acute fracture or dislocation. Prevertebral soft tissue ap pears within normal limits. The C1-C2 articulation is unremarkable. IMPRESSION: 1. There is no acute fracture or dislocation evident in the cervical spine. 2. No acute intracranial hemorrhage, mass effect, or midline shift is seen.
[2020-01-20 20:18] VITALS: BP 130/75; PULSE 67; RESP 18
== END 2020-01-20 20:56 | disposition home or self-care (01) ==
LOC: EC 19:05
DX: S09.90XA Unspecified injury of head, initial encounter (principal); I48.91 Unspecified atrial fibrillation; E78.5 Hyperlipidemia, unspecified; I10 Essential (primary) hypertension; M19.90 Unspecified osteoarthritis, unspecified site; G47.30 Sleep apnea, unspecified; Z79.01 Long term (current) use of anticoagulants; Z79.899 Other long term (current) drug therapy; Z99.89 Dependence on other enabling machines and devices; Z85.828 Personal history of other malignant neoplasm of skin; Z96.653 Presence of artificial knee joint, bilateral; Z95.0 Presence of cardiac pacemaker; Z87.891 Personal history of nicotine dependence; W18.39XA Other fall on same level, initial encounter
CPT/HCPCS: 70450; 72125; 99283

== ENCOUNTER → 2020-06-08 | Outpatient (CLI) | payer MEDICARE ==
[2020-06-08 15:23] LABS: HCT 34.7 % (39.6-50.0); HGB 11.4 g/dL (13.0-17.0); MCH 34.9 pg (27.0-32.0); MCHC 32.9 g/dL (32.0-37.0); MCV 106.1 fL (80.0-97.0); Mean Platelet Volume 10.9 fL (9.5-12.2); Platelet Count 154 X 10*3/uL (140-440); RBC 3.27 X 10*6/uL (4.40-5.60); RDW 13.8 % (11.5-14.5); WBC 4.38 X 10*3/uL (4.50-10.00)
[2020-06-08 17:11] LABS: Basophils # (A) 0.02 X 10*3/uL (0.00-0.10); Basophils % (A) 0.5 %; Eosinophils # (A) 0.14 X 10*3/uL (0.04-0.35); Eosinophils % (A) 3.2 %; Lymphocytes # (A) 1.01 X 10*3/uL (0.90-5.00); Lymphocytes % (A) 23.1 %; Monocytes # (A) 0.43 X 10*3/uL (0.20-1.00); Monocytes % (A) 9.8 %; Neutrophils # (A) 2.76 X 10*3/uL (1.80-7.70); Neutrophils % (A) 62.9 %
[2020-06-08 17:12] LABS: Crenated RBC 2+
[2020-06-08 21:55] LABS: African American GFR (CKD) 63.1 (60.0-200.0); Albumin 4.5 g/dL (3.80-4.90); Albumin/Globulin Ratio 2.05 (1.60-3.17); Anion Gap 10.4 mmol/L (4.00-12.00); BUN/Creat Ratio 23.33 Ratio (12.00-20.00); Carbon Dioxide 20.6 mmol/L (21.6-31.8); Chol/HDL Ratio 2.43; Globulin 2.2 g/dL (1.6-3.3); Non-African American GFR(CKD) 54.4 (60.0-200.0); Potassium 4.4 mmol/L (3.5-5.5); Total Bilirubin 1.2 mg/dL (0.3-1.2); Total Protein 6.7 g/dL (6.2-8.2)
== END | disposition home or self-care (01) ==
LOC: LABWHC1 08:37
PROVIDERS: ATTEND Physician Assistant
DX: N18.31 Chronic kidney disease, stage 3a (principal); I25.10 Atherosclerotic heart disease of native coronary artery without angina pectoris; I48.91 Unspecified atrial fibrillation; R10.11 Right upper quadrant pain
CPT/HCPCS: 36415; 80053; 80061; 82977; 85025

== ENCOUNTER → 2020-07-04 | Outpatient (CLI) | payer MEDICARE ==
--- NOTE | 2020-07-04 10:33 | CT ---
EXAMINATION TYPE: CT abdomen pelvis wo con DATE OF EXAM: 07/04/2020 COMPARISON: 08/15/2016 HISTORY: Renal colic CT DLP: 1007 mGycm Examination of the solid and hollow viscera is limited given the lack of contrast. FINDINGS: LUNG BASES: No evidence for nodule. Left lower lobe atelectasis or infiltrate with pleural effusion. Cardiomegaly identified. LIVER/GB: The gallbladder is unremarkable. No space-occupying hepatic lesion. PANCREAS: No pancreatic mass identified. No inflammatory process seen. SPLEEN: No evidence for splenomegaly. No intrasplenic lesions seen. ADRENALS: No adrenal nodules identified. No evidence for thickening. KIDNEYS: Fat-containing mass left kidney currently measures 3.6 x 3.8 cm versus 4.1 x 3.[address] Mural calcifications noted. Lesion compatible with angiomyolipoma. 6 mm nonobstructing calculus l ower pole right kidney. 4 mm nonobstructing calculus mid pole left kidney. Additional smaller calculi seen left kidney. No hydronephrosis. There is a 3 mm calculus within the urinary bladder likely refl ecting recently passed calculus. Intracranially BOWEL: Appendix has a normal appearance. No evidence of bowel obstruction. No inflammatory process. Lymph nodes: No evidence for adenopathy greater than 1 cm. Abdominal aorta: Atheromatous changes seen. No evidence for aneurysm. Genital organs: No significant abnormality. Other: No significant abnormality. IMPRESSION: 1. There is a 3 mm calculus within the urinary bladder likely reflecting recently passed calculus. A dditional nonobstructing renal calculi.
== END | disposition home or self-care (01) ==
LOC: RADCTMAIN 09:55
PROVIDERS: ATTEND Urology
DX: N21.0 Calculus in bladder (principal); N20.0 Calculus of kidney
CPT/HCPCS: 74176

== ENCOUNTER → 2020-07-07 | Outpatient (CLI) | payer MEDICARE ==
--- NOTE | 2020-07-07 15:47 | US ---
EXAMINATION TYPE: US abdomen complete DATE OF EXAM: 07/07/2020 COMPARISON: CT 07/04/[address] 08/15/2016 CLINICAL HISTORY: 85-year-old male R10.11 Right Upper Quad pain. TECHNIQUE: Multiple sonographic images of the abdomen are obtained. FINDINGS: EXAM MEASUREMENTS: Liver Length: 16.4 cm Gallbladder Wall: 0.1 cm CBD: 0.4 cm Spleen: 11.6 cm Right Kidney: 12.8 x 6.1 x 5.7 cm Left Kidney: 10.6 x 5.5 x 5.1 cm Pancreas: Tail obscured by overlying bowel gas Liver: wnl Gallbladder: No stones seen Evidence for sonographic Miner's sign: No CBD: wnl Spleen: wnl Right Kidney: Lateral, upper cystic = 1.8 x 2.0 x 1.6 cm, Lateral, lower cystic area = 1.6 x 1.2 x 1 .1 cm, 0.8 cm calculus lower pole, No hydronephrosis seen Left Kidney: 0.7 cm mid pole calculus. Medial upper pole cyst measures 2.4 x 2.4 x 1 1.8 cm. Exophyt ic round heterogeneous isoechoic mass measuring 4.8 cm from the mid to lower pole of the left kidney. No hydronephrosis. Upper IVC: wnl Abd Aorta: Proximally ectatic measuring 2.8 cm. 4.8 cm long segment of fusiform dilatation distal ab dominal aorta up to 2.9 cm. IMPRESSION: 1. Bilateral nephrolithiasis measuring up to 8 mm. 2. Exophytic round heterogeneous mass measuring 4.8 cm from the mid to lower pole left kidney. This l esion appears to have been present back to 08/15/2016. This favors a benign etiology. Continued annual surveillance recommended. 3. 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
== END | disposition home or self-care (01) ==
LOC: RADUSWWP 09:12
PROVIDERS: ATTEND Family Medicine
DX: N20.0 Calculus of kidney (principal); I71.4 Abdominal aortic aneurysm, without rupture
CPT/HCPCS: 76700

== ENCOUNTER 2021-01-05 09:59 | Emergency (ER) | payer MEDICARE ==
--- NOTE | 2021-01-05 12:27 | XR ---
EXAMINATION TYPE: XR chest 2V DATE OF EXAM: 01/05/2021 COMPARISON: Chest x-ray 04/29/2018 HISTORY: Cough TECHNIQUE: Frontal and lateral views of the chest are obtained. FINDINGS: There is no focal air space opacity, pleural effusion, or pneumothorax seen. The cardiac silhouette size is stable and enlarged, there are coronary artery calcifications and likely stent. P ersistent elevation of left hemidiaphragm is noted. Aorta is dense. There is some mild interstitial p rominence. Patchy basilar density noted at the level of the left hemidiaphragm. There is a generator in the left pectoral region, lead in the right ventricle. The osseous structures are intact, arthropa thy changes present in the left shoulder greater than right.. IMPRESSION: Cardiomegaly, basilar atelectasis versus scarring. Difficult to exclude a component of i nterstitial edema, correlate.
--- NOTE | 2021-01-05 12:28 | ED ---
GI Bleed HPI - General Chief complaint: GI Bleed Stated complaint: Black Stool Time Seen by Provider: 01/05/21 10:56 Source: patient, family, RN notes reviewed, old records reviewed Mode of arrival: ambulatory Limitations: no limitations - History of Present Illness Initial comments: Patient is an 85-year-old male with history of A. fib on Eliquis, COPD, hypertension, kidney disease, presenting to the emergency department with concerns of black stools. He did have a virtual visit with his PCP today, and they sent him in for evaluation. Patient has been having mild upper respiratory symptoms over the past couple days, he was also having some mild diarrhea so took Pepto-Bismol about 3 days ago. He took a couple doses of it, over a few days. Over the past 3-4 days he's been having dark stools. He has been having some mild diarrhea. He denies abdominal pain, no nausea or vomiting. No chest pain or shortness of breath. He denies ever having a GI bleed in the past. His last colonoscopy was about 3-4 years ago, no abnormal findings. He denies any hematuria. He has no further complaints. Upon arrival to the ER his vitals are stable. - Related Data Home Medications Medication Instructions Recorded Confirmed allopurinoL [Zyloprim] 300 mg PO DAILY 01/27/14 01/05/21 Metoprolol Succinate [Toprol Xl] 100 mg PO DAILY 04/22/18 01/05/21 Atorvastatin Calcium [Lipitor] 20 mg PO HS 04/24/18 01/05/21 Apixaban [Eliquis] 5 mg PO BID 01/05/21 01/05/21 Tamsulosin HCl [Flomax] 0.4 mg PO DAILY@1200 01/05/21 01/05/21 Previous Rx's Medication Instructions Recorded amLODIPine BESYLATE [Norvasc] 5 mg PO DAILY #30 tab 01/28/14 Nitroglycerin Sl Tabs [Nitrostat] 0.4 mg SUBLINGUAL Q5M PRN #25 tab 04/24/18 Azithromycin [Zithromax Z-pack (6 0 mg PO DIRECTED #6 tab 01/05/21 tabs)] Allergies Allergy/AdvReac Type Severity Reaction Status Date / Time No Known Allergies Allergy Verified 01/05/21 13:09 Review of Systems ROS Statement: Those systems with pertinent positive or pertinent negative responses have been documented in the HPI. ROS Other: All systems not noted in ROS Statement are negative. Past Medical History Past Medical History: Atrial Fibrillation, Cancer, COPD, Hyperlipidemia, Hypertension, Osteoarthritis (OA), Renal Disease, Sleep Apnea/CPAP/BIPAP, Syncope Additional Past Medical History / Comment(s): PT CAME TO ER WITH SYNCOPAL AND NEAR SYNCOPAL EPISODES. PT HAD STRESS TEST YESTERDAY IN [facility] OFFICE AND WHEN HE SAT UP HE "PASSED OUT" X 2. HE WAS TOLD HE COMPLETED STRESS TEST AND IT WAS. NEGATIVE . THIS AM (0200) HE GOT OUT OF BED TO URINATE AND HAD 2 NEAR SYNCOPAL EPISODES. HE FELL BUT LANDED ON HIS BED. HE THEN LAID IN BED AND HAD 2 MORE NEAR SYNCOPAL EPISODES. PT HAS PACEMAKER DUE. TO BRADYCARDA. SKIN CA, KIDNEY STONES, PT HAS SLEEP APNEA AND HAS A CPAP MACHINE IN JUST THE LAST 2 MONTHS. History of Any Multi-Drug Resistant Organisms: None Reported Past Surgical History: Hernia Repair, Orthopedic Surgery, Pacemaker Additional Past Surgical History / Comment(s): R GROIN HERNIA REPAIR. bilateral knee replacement, pacemaker WITH NEWEST DEVICE CHANGE IN 2009. Past Anesthesia/Blood Transfusion Reactions: No Reported Reaction Type of Cardiac Device: Permanent Pacemaker Device Placement Date:: 2009 Past Psychological History: No Psychological Hx Reported Smoking Status: Former smoker Past Alcohol Use History: None Reported Past Drug Use History: None Reported - Past Family History Father Family Medical History: Cancer, CVA/TIA, Diabetes Mellitus Additional Family Medical History / Comment(s): FATHER OF LUNG CANCER AT AGE 82YRS. Mother Family Medical History: Coronary Artery Disease (CAD) Additional Family Medical History / Comment(s): MOTHER AT AGE 72 YRS. General Exam - General Exam Comments Initial Comments: GENERAL: Patient is well-developed and well-nourished. Patient is nontoxic and in no acute distress. HEAD: Atraumatic, normocephalic. EYES: Pupils equal round and reactive to light, extraocular movements intact, sclera anicteric, conjunctiva are normal. Eyelids were unremarkable. ENT: Nares patent, oropharynx clear without exudates. Moist mucous membranes. NECK: Normal range of motion, supple without lymphadenopathy or JVD. LUNGS: Unlabored respirations. Breath sounds clear to auscultation bilaterally and equal. No wheezes rales or rhonchi. HEART: Regular rate and rhythm without murmurs, rubs or gallops. ABDOMEN: Soft, nontender, normoactive bowel sounds. No guarding, no rebound. No masses appreciated. : Deferred MUSCULOSKELETAL: Normal extremities with adequate strength and normal range of motion, no pitting or edema. No clubbing or cyanosis. NEUROLOGICAL: Patient is alert and oriented x 3. Motor and sensory are also intact. Cranial nerves II through XII grossly intact. Symmetrical smile. Normal speech, normal gait. PSYCH: Normal mood, normal affect. SKIN: Warm, Dry, normal turgor, no rashes or lesions noted. Limitations: no limitations Rectal exam: Present: normal inspection, normal rectal tone, heme (-) stool, other (dark stools, not black) Course Vital Signs 01/05/21 01/05/21 10:07 13:00 Temperature 98.5 F Pulse Rate 70 88 Respiratory 20 16 Rate Blood Pressure 129/70 125/62 O2 Sat by Pulse 95 99 Oximetry Medical Decision Making - Medical Decision Making Patient is an 85-year-old male with history of A. fib, on Eliquis, COPD, renal disease, presenting for dark stools over the past few days. PCP and concerns for possible GI bleed. He has no abdominal pain, no nausea or vomiting. Has been having mild respiratory symptoms were last few days. His vitals are stable. Exam revealing no acute findings. Labs are showing a stable hemoglobin 11.8, normal white count, kidney function is stable. Urine shows evidence of infection, no hematuria, stool occult is negative. I did do a chest x-ray secondary upper respiratory symptoms, no signs of pneumonia. Difficult to exclude a component of interstitial edema. Patient has a resting comfortable, no acute distress. Discussed with him these findings. I do not feel like he is having a GI bleed, dark stools are most likely secondary to the Pepto-Bismol. I recommended Imodium for the diarrhea symptoms persist. He can follow-up with his primary care physician. Patient is agreeable to this. Return parameters were discussed with him and he verbalized understanding. Case discussed with Dr. Mclean. - Lab Data Result diagrams: 01/05/21 12:10 01/05/21 12:10 Lab Results 01/05/21 01/05/21 01/05/21 Range/Units 12:00 12:10 12:10 WBC 3.7 L (3.8-10.6) k/uL RBC 3.19 L (4.30-5.90) m/uL Hgb 11.8 L (13.0-17.5) gm/dL Hct 34.4 L (39.0-53.0) % MCV 107.7 H (80.0-100.0) fL MCH 36.8 H (25.0-35.0) pg MCHC 34.2 (31.0-37.0) g/dL RDW 14.7 (11.5-15.5) % Plt Count 113 L (150-450) k/uL MPV 8.3 Neutrophils % 67 % Lymphocytes % 16 % Monocytes % 10 % Eosinophils % 3 % Basophils % 0 % Neutrophils # 2.5 (1.3-7.7) k/uL Lymphocytes # 0.6 L (1.0-4.8) k/uL Monocytes # 0.4 (0-1.0) k/uL Eosinophils # 0.1 (0-0.7) k/uL Basophils # 0.0 (0-0.2) k/uL Manual Slide Review Performed Macrocytosis Marked A PT (9.0-12.0) sec INR (<1.2) APTT (22.0-30.0) sec Sodium (137-145) mmol/L Potassium (3.5-5.1) mmol/L Chloride (98-107) mmol/L Carbon Dioxide (22-30) mmol/L Anion Gap mmol/L BUN (9-20) mg/dL Creatinine (0.66-1.25) mg/dL Est GFR (CKD-EPI)AfAm (>60 ml/min/1.73 sqM) Est GFR (CKD-EPI)NonAf (>60 ml/min/1.73 sqM) Glucose (74-99) mg/dL Calcium (8.4-10.2) mg/dL Magnesium (1.6-2.3) mg/dL Total Bilirubin (0.2-1.3) mg/dL AST (17-59) U/L ALT (4-49) U/L Alkaline Phosphatase (38-126) U/L Troponin I (0.000-0.034) ng/mL Total Protein (6.3-8.2) g/dL Albumin (3.5-5.0) g/dL Urine Color Urine Appearance (Clear) Urine pH (5.0-8.0) Ur Specific [place] (1.001-1.035) Urine Protein (Negative) Urine Glucose (UA) (Negative) Urine Ketones (Negative) Urine Blood (Negative) Urine Nitrite (Negative) Urine Bilirubin (Negative) Urine Urobilinogen (<2.0) mg/dL Ur Leukocyte Esterase (Negative) Stool Occult Blood Negative (Negative) Blood Type Blood Type Confirm O Negative Blood Type Recheck Bld Type Recheck Status Antibody Screen Spec Expiration Date 01/05/21 01/05/21 01/05/21 Range/Units 12:10 12:10 12:10 WBC (3.8-10.6) k/uL RBC (4.30-5.90) m/uL Hgb (13.0-17.5) gm/dL Hct (39.0-53.0) % MCV (80.0-100.0) fL MCH (25.0-35.0) pg MCHC (31.0-37.0) g/dL RDW (11.5-15.5) % Plt Count (150-450) k/uL MPV Neutrophils % % Lymphocytes % % Monocytes % % Eosinophils % % Basophils % % Neutrophils # (1.3-7.7) k/uL Lymphocytes # (1.0-4.8) k/uL Monocytes # (0-1.0) k/uL Eosinophils # (0-0.7) k/uL Basophils # (0-0.2) k/uL Manual Slide Review Macrocytosis PT 11.2 (9.0-12.0) sec INR 1.1 (<1.2) APTT 27.9 (22.0-30.0) sec Sodium 138 (137-145) mmol/L Potassium 4.9 (3.5-5.1) mmol/L Chloride 107 (98-107) mmol/L Carbon Dioxide 24 (22-30) mmol/L Anion Gap 7 mmol/L BUN 22 H (9-20) mg/dL Creatinine 1.16 (0.66-1.25) mg/dL Est GFR (CKD-EPI)AfAm 66 (>60 ml/min/1.73 sqM) Est GFR (CKD-EPI)NonAf 57 (>60 ml/min/1.73 sqM) Glucose 97 (74-99) mg/dL Calcium 10.2 (8.4-10.2) mg/dL Magnesium 2.1 (1.6-2.3) mg/dL Total Bilirubin 1.4 H (0.2-1.3) mg/dL AST 47 (17-59) U/L ALT 54 H (4-49) U/L Alkaline Phosphatase 124 (38-126) U/L Troponin I 0.030 (0.000-0.034) ng/mL Total Protein 6.7 (6.3-8.2) g/dL Albumin 4.0 (3.5-5.0) g/dL Urine Color Urine Appearance (Clear) Urine pH (5.0-8.0) Ur Specific [place] (1.001-1.035) Urine Protein (Negative) Urine Glucose (UA) (Negative) Urine Ketones (Negative) Urine Blood (Negative) Urine Nitrite (Negative) Urine Bilirubin (Negative) Urine Urobilinogen (<2.0) mg/dL Ur Leukocyte Esterase (Negative) Stool Occult Blood (Negative) Blood Type Blood Type Confirm Blood Type Recheck Bld Type Recheck Status Antibody Screen Spec Expiration Date 01/05/21 01/05/21 Range/Units 12:10 12:10 WBC (3.8-10.6) k/uL RBC (4.30-5.90) m/uL Hgb (13.0-17.5) gm/dL Hct (39.0-53.0) % MCV (80.0-100.0) fL MCH (25.0-35.0) pg MCHC (31.0-37.0) g/dL RDW (11.5-15.5) % Plt Count (150-450) k/uL MPV Neutrophils % % Lymphocytes % % Monocytes % % Eosinophils % % Basophils % % Neutrophils # (1.3-7.7) k/uL Lymphocytes # (1.0-4.8) k/uL Monocytes # (0-1.0) k/uL Eosinophils # (0-0.7) k/uL Basophils # (0-0.2) k/uL Manual Slide Review Macrocytosis PT (9.0-12.0) sec INR (<1.2) APTT (22.0-30.0) sec Sodium (137-145) mmol/L Potassium (3.5-5.1) mmol/L Chloride (98-107) mmol/L Carbon Dioxide (22-30) mmol/L Anion Gap mmol/L BUN (9-20) mg/dL Creatinine (0.66-1.25) mg/dL Est GFR (CKD-EPI)AfAm (>60 ml/min/1.73 sqM) Est GFR (CKD-EPI)NonAf (>60 ml/min/1.73 sqM) Glucose (74-99) mg/dL Calcium (8.4-10.2) mg/dL Magnesium (1.6-2.3) mg/dL Total Bilirubin (0.2-1.3) mg/dL AST (17-59) U/L ALT (4-49) U/L Alkaline Phosphatase (38-126) U/L Troponin I (0.000-0.034) ng/mL Total Protein (6.3-8.2) g/dL Albumin (3.5-5.0) g/dL Urine Color Yellow Urine Appearance Clear (Clear) Urine pH 6.0 (5.0-8.0) Ur Specific [place] 1.015 (1.001-1.035) Urine Protein Trace H (Negative) Urine Glucose (UA) Negative (Negative) Urine Ketones Negative (Negative) Urine Blood Negative (Negative) Urine Nitrite Negative (Negative) Urine Bilirubin Negative (Negative) Urine Urobilinogen <2.0 (<2.0) mg/dL Ur Leukocyte Esterase Negative (Negative) Stool Occult Blood (Negative) Blood Type O Negative Blood Type Confirm Blood Type Recheck No Previous Record Bld Type Recheck Status CABO Indicated Antibody Screen NEGATIVE Spec Expiration Date 01/08/20212309 Disposition Clinical Impression: URI (upper respiratory infection), Diarrhea Disposition: HOME SELF-CARE Condition: Stable Instructions (If sedation given, give patient instructions): Upper Respiratory Infection (ED), Acute Diarrhea (ED) Additional Instructions: Please return to the Emergency Department if symptoms worsen or any other concerns. Take antibiotics as prescribed. May start taking Imodium if diarrhea persists without any improvement. Follow-up with your primary care. Prescriptions: Azithromycin [Zithromax Z-pack (6 tabs)] 0 mg PO DIRECTED #6 tab Is patient prescribed a controlled substance at d/c from ED?: No Referrals: Anna Cameron MD [Primary Care Provider] - 1-2 days Time of Disposition: 14:29
[2021-01-05 12:47] LABS: Calcium 10.2 mg/dL (8.4-10.2); Magnesium 2.1 mg/dL (1.6-2.3); Potassium 4.9 mmol/L (3.5-5.1); Total Bilirubin 1.4 mg/dL (0.2-1.3); Total Protein 6.7 g/dL (6.3-8.2)
[2021-01-05 13:04] LABS: INR 1.1 (<1.2); Partial Thromboplastin Time 27.9 sec (22.0-30.0); Prothrombin Time 11.2 sec (9.0-12.0)
[2021-01-05 13:14] LABS: Basophils % (A) 0 %; Eosinophils # (A) 0.1 k/uL (0-0.7); Eosinophils % (A) 3 %; HCT 34.4 % (39.0-53.0); HGB 11.8 gm/dL (13.0-17.5); Lymphocytes # (A) 0.6 k/uL (1.0-4.8); Lymphocytes % (A) 16 %; MCH 36.8 pg (25.0-35.0); MCHC 34.2 g/dL (31.0-37.0); MCV 107.7 fL (80.0-100.0); Macrocytosis Marked; Mean Platelet Volume 8.3; Monocytes # (A) 0.4 k/uL (0-1.0); Monocytes % (A) 10 %; Neutrophils # (A) 2.5 k/uL (1.3-7.7); Neutrophils % (A) 67 %; Platelet Count 113 k/uL (150-450); RBC 3.19 m/uL (4.30-5.90); RDW 14.7 % (11.5-15.5); WBC 3.7 k/uL (3.8-10.6)
[2021-01-05 13:29] LABS: Appearance,Urine Clear (Clear); Bilirubin,Urine Negative (Negative); Blood,Urine Negative (Negative); Color,Urine Yellow; Glucose,Urine (UA) Negative (Negative); Ketones,Urine Negative (Negative); Leukocyte Esterase,Urine Negative (Negative); Nitrite,Urine Negative (Negative); Protein,Urine Trace (Negative); Specific Gravity,Urine 1.015 (1.001-1.035); Urobilinogen,Urine <2.0 mg/dL (<2.0)
[2021-01-05 15:39] VITALS: BP 128/72; PULSE 96; RESP 18; TEMP 97.8
== END 2021-01-05 15:40 | disposition home or self-care (01) ==
LOC: EC 09:59
DX: J06.9 Acute upper respiratory infection, unspecified (principal); K92.1 Melena; E78.5 Hyperlipidemia, unspecified; I10 Essential (primary) hypertension; I48.91 Unspecified atrial fibrillation; J44.9 Chronic obstructive pulmonary disease, unspecified; Z79.01 Long term (current) use of anticoagulants; Z87.891 Personal history of nicotine dependence; Z95.0 Presence of cardiac pacemaker; Z79.899 Other long term (current) drug therapy
CPT/HCPCS: 36415; 71046; 80053; 81003; 82272; 83735; 84484; 85025; 85610; 85730; 86850; 86900; 86901; 99285

== ENCOUNTER → 2021-01-31 | Outpatient (CLI) | payer MEDICARE ==
--- NOTE | 2021-01-31 12:00 | US ---
EXAMINATION TYPE: US abdomen complete DATE OF EXAM: 01/31/2021 COMPARISON: 07/07/2020 CLINICAL HISTORY: 85-year-old male R94.5 Abn LFT R94.4 Abn RFT. TECHNIQUE: Multiple sonographic images of abdomen are obtained. FINDINGS: EXAM MEASUREMENTS: Liver Length: 14.4 cm Gallbladder Wall: 0.1 cm CBD: 0.4 cm Spleen: 11.1 cm Right Kidney: 11.3x5.7x7.1 cm Left Kidney: 9.2x4.9x4.7 cm Pancreas: Most of the pancreas is visualized and shows no gross abnormal. Liver: wnl Gallbladder: wnl Evidence for sonographic Miner's sign: No CBD: wnl Spleen: Echogenic foci 0.5cm suggesting a small calcified granuloma. Right Kidney: Upper right cyst= 1.5x2.1x1.9cm, Lower exophytic cyst =1.6x1.7x1.2cm, Inferior stone = 0.4cm. No hydronephrosis seen. Left Kidney: Mid stone = 0.9cm, Mid stone 0.5cm, Superior cyst measures 2.8 cm. No hydronephrosis. B ilateral round heterogenous solid lesion measuring 5.0x3.9x3.5cm (versus 4.8 cm on the 07/04/2020 CT). Upper IVC: wnl Abd Aorta: Ectatic measuring up to 2.6 cm, slightly tortuous IMPRESSION: 1. Bilateral renal cortical cysts measuring up to 2.8 cm and bilateral nonobstructive renal calculi m easuring up to 9 mm. 2. No hydronephrosis. 3. A solid mass lateral left kidney measures 5.0 cm versus 4.8 cm on the 07/04/2020 CT. 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 Continued annual surveillance recommended. 4. Mildly ectatic abdominal aorta at 2.6 cm. 5. No gallstones or biliary ductal dilatation.
== END | disposition home or self-care (01) ==
LOC: RADUSWWP 08:18
PROVIDERS: ATTEND Family Medicine
DX: N20.0 Calculus of kidney (principal); N28.1 Cyst of kidney, acquired
CPT/HCPCS: 76700

== ENCOUNTER 2021-02-02 22:54 | Observation (INO) | payer MEDICARE ==
--- NOTE | 2021-02-02 23:58 | CT ---
EXAMINATION TYPE: CT brain alyx alex con DATE OF EXAM: 02/02/2021 COMPARISON: 01/20/2020 HISTORY: fall, head injury CT DLP: 1359.3 mGycm Automated exposure control for dose reduction was used. There is cerebral cortical atrophy. There is no mass effect nor midline shift. There is no sign of in tracranial hemorrhage. Calvarium is intact. Skull base is intact. There is normal aeration of the mas toid sinuses. Cervical vertebra have normal alignment. There is some degenerative disc space narrowing throughout t he cervical spine with spurring of the endplates. Facet joints are intact. There is no compression fr acture. There is mild anterior subluxation of C7 in relation to T1. IMPRESSION: Cerebral atrophy. No acute intracranial abnormality. No change. Multilevel cervical spondylotic changes. Degenerative first-degree C7-T1 spondylolisthesis. No fractu re seen. No change compared to old exam. No significant spinal stenosis.
--- NOTE | 2021-02-03 00:04 | ED ---
Fall HPI - General Chief Complaint: Fall Stated Complaint: Fall, head injury Time Seen by Provider: 02/02/21 23:21 Source: patient, EMS, RN notes reviewed, old records reviewed Mode of arrival: EMS Limitations: no limitations - History of Present Illness Initial Comments: This is a 85-year-old male to the ER status post fall. Patient supple fall prior to arrival so backwards didn't hit head. Patient states he also severe leg pain was unable to ambulate had difficulty and waning forward backwards. No feeling of the left leg having trouble moving left leg. Patient has otherwise no bowel pain no back pain. Again did hit his head is on [place]. Fall from ground-level MD Complaint: fall -: minutes(s) Fall From: standing When Fall Occurred: 1 hour [employer] Fall Witnessed: yes, by family Place Fall Occurred: home Loss of Consciousness: none Prolonged Down Time?: no Symptoms Prior to Fall: none Location: head, pelvis Location - Extremities: Left: Leg Severity: severe Severity scale (1-10): 10 Quality: dull, stabbing Context: tripped/slipped Associated Symptoms: denies - Related Data Home Medications Medication Instructions Recorded Confirmed allopurinoL [Zyloprim] 300 mg PO DAILY 01/27/14 01/05/21 Metoprolol Succinate [Toprol Xl] 100 mg PO DAILY 04/22/18 01/05/21 Atorvastatin Calcium [Lipitor] 20 mg PO HS 04/24/18 01/05/21 Apixaban [Eliquis] 5 mg PO BID 01/05/21 01/05/21 Tamsulosin HCl [Flomax] 0.4 mg PO DAILY@1200 01/05/21 01/05/21 Previous Rx's Medication Instructions Recorded amLODIPine BESYLATE [Norvasc] 5 mg PO DAILY #30 tab 01/28/14 Nitroglycerin Sl Tabs [Nitrostat] 0.4 mg SUBLINGUAL Q5M PRN #25 tab 04/24/18 Azithromycin [Zithromax Z-pack (6 0 mg PO DIRECTED #6 tab 01/05/21 tabs)] Allergies Allergy/AdvReac Type Severity Reaction Status Date / Time No Known Allergies Allergy Verified 01/05/21 13:09 Review of Systems ROS Statement: Those systems with pertinent positive or pertinent negative responses have been documented in the HPI. ROS Other: All systems not noted in ROS Statement are negative. Past Medical History Past Medical History: Atrial Fibrillation, Cancer, COPD, Hyperlipidemia, Hypertension, Osteoarthritis (OA), Renal Disease, Sleep Apnea/CPAP/BIPAP, Syncope Additional Past Medical History / Comment(s): PT CAME TO ER WITH SYNCOPAL AND NEAR SYNCOPAL EPISODES. PT HAD STRESS TEST YESTERDAY IN [facility] OFFICE AND WHEN HE SAT UP HE "PASSED OUT" X 2. HE WAS TOLD HE COMPLETED STRESS TEST AND IT WAS. NEGATIVE . THIS AM (0200) HE GOT OUT OF BED TO URINATE AND HAD 2 NEAR SYNCOPAL EPISODES. HE FELL BUT LANDED ON HIS BED. HE THEN LAID IN BED AND HAD 2 MORE NEAR SYNCOPAL EPISODES. PT HAS PACEMAKER DUE. TO BRADYCARDA. SKIN CA, KIDNEY STONES, PT HAS SLEEP APNEA AND HAS A CPAP MACHINE IN JUST THE LAST 2 MONTHS. History of Any Multi-Drug Resistant Organisms: None Reported Past Surgical History: Hernia Repair, Orthopedic Surgery, Pacemaker Additional Past Surgical History / Comment(s): R GROIN HERNIA REPAIR. bilateral knee replacement, pacemaker WITH NEWEST DEVICE CHANGE IN 2009. Past Anesthesia/Blood Transfusion Reactions: No Reported Reaction Type of Cardiac Device: Permanent Pacemaker Device Placement Date:: 2009 Past Psychological History: No Psychological Hx Reported Smoking Status: Former smoker Past Alcohol Use History: None Reported Past Drug Use History: None Reported - Past Family History Father Family Medical History: Cancer, CVA/TIA, Diabetes Mellitus Additional Family Medical History / Comment(s): FATHER OF LUNG CANCER AT AGE 82YRS. Mother Family Medical History: Coronary Artery Disease (CAD) Additional Family Medical History / Comment(s): MOTHER AT AGE 72 YRS. General Exam General appearance: alert, in no apparent distress Head exam: Present: atraumatic, normocephalic, normal inspection Eye exam: Present: normal appearance, PERRL, EOMI. Absent: scleral icterus, conjunctival injection, periorbital swelling ENT exam: Present: normal exam, mucous membranes moist Neck exam: Present: normal inspection. Absent: tenderness, meningismus, lymphadenopathy Respiratory exam: Present: normal lung sounds bilaterally. Absent: respiratory distress, wheezes, rales, rhonchi, stridor Cardiovascular Exam: Present: regular rate, normal rhythm, normal heart sounds. Absent: systolic murmur, diastolic murmur, rubs, gallop, clicks GI/Abdominal exam: Present: soft, normal bowel sounds. Absent: distended, tende rness, guarding, rebound, rigid Extremities exam: Present: normal inspection, full ROM, normal capillary refill, other (Patient is unable to move his left leg severe pain in the anterior thigh medial thigh area). Absent: tenderness, pedal edema, joint swelling, calf tenderness Back exam: Present: normal inspection Neurological exam: Present: alert, oriented X3, CN II-XII intact Psychiatric exam: Present: normal affect, normal mood Skin exam: Present: warm, dry, intact, normal color. Absent: rash Course Vital Signs 02/02/21 02/03/21 23:11 03:50 Temperature 97.0 F L 98.1 F Pulse Rate 70 75 Respiratory 16 18 Rate Blood Pressure 132/78 139/76 O2 Sat by Pulse 98 98 Oximetry - Reevaluation(s) Reevaluation #1: 02/03/21 05:46 Medical record is reviewed Reevaluation #2: 02/03/21 05:46 Patient is unable to have pain control here in the ER Reevaluation #3: 02/03/21 05:46 patient informed of results and questions answered Reevaluation #4: 02/03/21 05:46 patient still unable to ambulate - Consultations Consultation #1: spoke with sound who agrees to admit this patient Medical Decision Making - Medical Decision Making 85 male DF status post fall no triadic injury noted from fall but unable to move his left leg. A she'll be admitted for PTOT further evaluation and pain control - Lab Data Result diagrams: 02/03/21 01:22 02/03/21 01:22 Lab Results 02/03/21 02/03/21 02/03/21 Range/Units 01:22 01:22 01:22 WBC 5.0 (3.8-10.6) k/uL RBC 3.25 L (4.30-5.90) m/uL Hgb 11.6 L (13.0-17.5) gm/dL Hct 35.6 L (39.0-53.0) % MCV 109.4 H (80.0-100.0) fL MCH 35.8 H (25.0-35.0) pg MCHC 32.7 (31.0-37.0) g/dL RDW 14.0 (11.5-15.5) % Plt Count 115 L (150-450) k/uL MPV 8.3 Neutrophils % 76 % Lymphocytes % 13 % Monocytes % 6 % Eosinophils % 3 % Basophils % 0 % Neutrophils # 3.8 (1.3-7.7) k/uL Lymphocytes # 0.6 L (1.0-4.8) k/uL Monocytes # 0.3 (0-1.0) k/uL Eosinophils # 0.2 (0-0.7) k/uL Basophils # 0.0 (0-0.2) k/uL Macrocytosis Marked A PT 12.8 H (9.0-12.0) sec INR 1.2 H (<1.2) APTT 30.8 H (22.0-30.0) sec Sodium 137 (137-145) mmol/L Potassium 4.8 (3.5-5.1) mmol/L Chloride 105 (98-107) mmol/L Carbon Dioxide 22 (22-30) mmol/L Anion Gap 10 mmol/L BUN 26 H (9-20) mg/dL Creatinine 1.12 (0.66-1.25) mg/dL Est GFR (CKD-EPI)AfAm 69 (>60 ml/min/1.73 sqM) Est GFR (CKD-EPI)NonAf 59 (>60 ml/min/1.73 sqM) Glucose 108 H (74-99) mg/dL Calcium 10.2 (8.4-10.2) mg/dL Phosphorus 3.4 (2.5-4.5) mg/dL Magnesium 2.1 (1.6-2.3) mg/dL Total Bilirubin 1.0 (0.2-1.3) mg/dL AST 46 (17-59) U/L ALT 48 (4-49) U/L Alkaline Phosphatase 157 H (38-126) U/L Troponin I (0.000-0.034) ng/mL NT-Pro-B Natriuret Pep pg/mL Total Protein 7.2 (6.3-8.2) g/dL Albumin 4.3 (3.5-5.0) g/dL Blood Type Blood Type Recheck Bld Type Recheck Status Antibody Screen Spec Expiration Date 02/03/21 02/03/21 02/03/21 Range/Units 01:22 01:22 01:22 WBC (3.8-10.6) k/uL RBC (4.30-5.90) m/uL Hgb (13.0-17.5) gm/dL Hct (39.0-53.0) % MCV (80.0-100.0) fL MCH (25.0-35.0) pg MCHC (31.0-37.0) g/dL RDW (11.5-15.5) % Plt Count (150-450) k/uL MPV Neutrophils % % Lymphocytes % % Monocytes % % Eosinophils % % Basophils % % Neutrophils # (1.3-7.7) k/uL Lymphocytes # (1.0-4.8) k/uL Monocytes # (0-1.0) k/uL Eosinophils # (0-0.7) k/uL Basophils # (0-0.2) k/uL Macrocytosis PT (9.0-12.0) sec INR (<1.2) APTT (22.0-30.0) sec Sodium (137-145) mmol/L Potassium (3.5-5.1) mmol/L Chloride (98-107) mmol/L Carbon Dioxide (22-30) mmol/L Anion Gap mmol/L BUN (9-20) mg/dL Creatinine (0.66-1.25) mg/dL Est GFR (CKD-EPI)AfAm (>60 ml/min/1.73 sqM) Est GFR (CKD-EPI)NonAf (>60 ml/min/1.73 sqM) Glucose (74-99) mg/dL Calcium (8.4-10.2) mg/dL Phosphorus (2.5-4.5) mg/dL Magnesium (1.6-2.3) mg/dL Total Bilirubin (0.2-1.3) mg/dL AST (17-59) U/L ALT (4-49) U/L Alkaline Phosphatase (38-126) U/L Troponin I 0.047 H* (0.000-0.034) ng/mL NT-Pro-B Natriuret Pep 1190 pg/mL Total Protein (6.3-8.2) g/dL Albumin (3.5-5.0) g/dL Blood Type O Negative Blood Type Recheck O Neg Bld Type Recheck Status No Antibody Screen NEGATIVE Spec Expiration Date 02/06/20212321 - EKG Data -: EKG Interpreted by Me (EKG paced 70 QRS 176 QTC 496) - Radiology Data Radiology results: report reviewed (CT brain C-spine and left hip as well as x- rays are negative for traumatic injury), image reviewed Disposition Clinical Impression: Fall, Left leg pain, Inability to ambulate due to hip Disposition: ADMITTED IP TO THIS HOSP Condition: Fair Is patient prescribed a controlled substance at d/c from ED?: No
--- NOTE | 2021-02-03 00:35 | XR ---
EXAMINATION TYPE: XR Hip LT and AP Pelvis DATE OF EXAM: 02/03/2021 COMPARISON: NONE HISTORY: Hip pain TECHNIQUE: 3 views FINDINGS: Pelvic ring is intact. Proximal left femur and hip joint are intact. There is mild acetabul ar spurring. IMPRESSION: No acute abnormality of the pelvis and left hip.
[2021-02-03] MEDS ORDERED: SODIUM CHLORIDE 0.9% 1,000 ML IV STA (01:05)
[2021-02-03] MEDS ORDERED: ONDANSETRON 4 MG/2 ML VIAL IVP STA (01:05)
[2021-02-03] MEDS ORDERED: MORPHINE SULFATE 4 MG/ML SYRINGE IV STA (01:05)
[2021-02-03 01:46] LABS: Basophils % (A) 0 %; Eosinophils # (A) 0.2 k/uL (0-0.7); Eosinophils % (A) 3 %; HCT 35.6 % (39.0-53.0); HGB 11.6 gm/dL (13.0-17.5); Lymphocytes # (A) 0.6 k/uL (1.0-4.8); Lymphocytes % (A) 13 %; MCH 35.8 pg (25.0-35.0); MCHC 32.7 g/dL (31.0-37.0); MCV 109.4 fL (80.0-100.0); Macrocytosis Marked; Mean Platelet Volume 8.3; Monocytes # (A) 0.3 k/uL (0-1.0); Monocytes % (A) 6 %; Neutrophils # (A) 3.8 k/uL (1.3-7.7); Neutrophils % (A) 76 %; Platelet Count 115 k/uL (150-450); RBC 3.25 m/uL (4.30-5.90)
[2021-02-03 01:59] LABS: Albumin 4.3 g/dL (3.5-5.0); Calcium 10.2 mg/dL (8.4-10.2); Magnesium 2.1 mg/dL (1.6-2.3); Phosphorus 3.4 mg/dL (2.5-4.5); Potassium 4.8 mmol/L (3.5-5.1); Total Protein 7.2 g/dL (6.3-8.2)
[2021-02-03 02:08] LABS: INR 1.2 (<1.2); Partial Thromboplastin Time 30.8 sec (22.0-30.0); Prothrombin Time 12.8 sec (9.0-12.0)
--- NOTE | 2021-02-03 02:28 | CT ---
EXAMINATION TYPE: CT hip LT wo con DATE OF EXAM: 02/03/2021 COMPARISON: None HISTORY: fall CT DLP: 558.60 mGycm Automated exposure control for dose reduction was used. Images obtained from the mid ileum to the mid shaft of the femur with no contrast. The acetabulum is intact. Visualized sacroiliac joint is intact. The proximal femur is intact. There is no evidence of femoral fracture. There is mild spurring on the femoral head. There is mild acetabu lar spurring. There is no evidence of a soft tissue mass. There is no free fluid in the pelvis. IMPRESSION: There is some mild osteoarthritis. Otherwise negative exam. No fracture seen.
[2021-02-03] MEDS ORDERED: KETOROLAC 15 MG/ML 1 ML VIAL IVP STA (02:50)
[2021-02-03] MEDS ORDERED: NALOXONE 0.4 MG/ML 1 ML VIAL IV PRN (03:12)
[2021-02-03] MEDS ORDERED: ONDANSETRON 4 MG/2 ML VIAL IVP PRN (03:12)
[2021-02-03] MEDS ORDERED: MORPHINE SULFATE 4 MG/ML SYRINGE IV PRN (03:12)
[2021-02-03] MEDS ORDERED: ACETAMINOPHEN TAB 325 MG TAB PO PRN (03:12)
[2021-02-03] MEDS ORDERED: KETOROLAC 15 MG/ML 1 ML VIAL IVP PRN (03:12)
[2021-02-03] MEDS: SODIUM CHLORIDE 0.9% 1,000 ML IV SCH ×2 (03:43→11:58)
--- NOTE | 2021-02-03 03:58 | P.HPIM ---
History of Present Illness H&P Date: 02/03/21 The patient is an 85-year-old male with a PMH of Jody barlow on Eliquis, status post pacemaker, history of CVA, hypertension, and hyperlipidemia who presents to the emergency room after a fall. The patient reports that he was at his home by himself when he lost his balance, falling backwards and hitting his head on the. The patient reports that during the fall, he felt as though he heard something in his left hip, and has been unable to raise his leg since then. He notes that due to the pain, he is able to walk sideways and backwards but is not able to walk forward. He denied any pain elsewhere. Denied losing consciousness, dizziness, or visual disturbances. Denied chest pain, shortness of breath, fever, chills, cough. Denied abdominal pain, diarrhea, nausea, vomiting. In the emergency room had/cervical spine CT revealed no acute abnormalities. Left hip x-ray was unremarkable. A left hip CT was also unremarkable aside from mild osteoarthritis. EKG was a V paced rhythm at 70 bpm. Laboratory evaluation was remarkable for troponin 0.047, hemoglobin 11.6, and MCV 109.4 with platelet count 115. Review of systems: Pertinent positives and negatives as discussed in HPI, a complete review of systems was performed and all other systems are negative. Physical examination: General: non toxic, no distress, appears at stated age, overweight Derm: no unusual rashes/lesions no unusual ecchymoses, warm, dry Head: atraumatic, normocephalic, symmetric Eyes: EOMI, no lid lag, anicteric sclera, pupils equal round reactive to light ENT: Nose and ears atraumatic, no thrush, no pharyngeal erythema Neck: No thyromegaly, no cervical lymphadenopathy, trachea midline, supple Mouth: no lip lesion, mucus membranes moist Cardiovascular: S1S2 reg, no murmur, positive posterior tibial pulse bilateral, no edema, capillary refill less than 2 seconds Lungs: CTA bilateral, no rhonchi, no rales , no accessory muscle use Abdominal: soft, nontender to palpation, no guarding, no appreciable orga nomegaly, normal bowel sounds Ext: no gross muscle atrophy, muscle strength 5 out of 5 in all extremities grossly except left lower extremity with hip flexion severely limited due to pain, left lower extremity distal strength 5 out of 5 at the knee and the ankle no contractures, Neuro: CN II-XI grossly intact, light touch intact all 4 extremities, finger to nose within normal limits Psych: Alert, oriented, appropriate affect Assessment/plan Fall and left hip pain, suspected muscle strain -PT consult -Fall precautions -Bedrest for now Troponin elevation, low suspicion for NV as patient denying chest discomfort, shortness of breath, or palpitations -Trend for now -Cardiac monitoring Macrocytic anemia -At baseline Chronic conditions: A. fib, hypertension, hyperlipidemia, history of CVA -Continue with home medications DVT prophylaxis -Eliquis The patient is admitted with an anticipated less than 2 midnight stay for evaluation of fall CODE STATUS: Full Code Discussed with: Patient Anticipated discharge date: in am Anticipated discharge place: Home Past Medical History Past Medical History: Atrial Fibrillation, Cancer, COPD, Hyperlipidemia, Hypertension, Osteoarthritis (OA), Renal Disease, Sleep Apnea/CPAP/BIPAP, Syncope Additional Past Medical History / Comment(s): PT CAME TO ER WITH SYNCOPAL AND NEAR SYNCOPAL EPISODES. PT HAD STRESS TEST YESTERDAY IN [facility] OFFICE AND WHEN HE SAT UP HE "PASSED OUT" X 2. HE WAS TOLD HE COMPLETED STRESS TEST AND IT WAS. NEGATIVE . THIS AM (0200) HE GOT OUT OF BED TO URINATE AND HAD 2 NEAR SYNCOPAL EPISODES. HE FELL BUT LANDED ON HIS BED. HE THEN LAID IN BED AND HAD 2 MORE NEAR SYNCOPAL EPISODES. PT HAS PACEMAKER DUE. TO BRADYCARDA. SKIN CA, KIDNEY STONES, PT HAS SLEEP APNEA AND HAS A CPAP MACHINE IN JUST THE LAST 2 MONTHS. History of Any Multi-Drug Resistant Organisms: None Reported Past Surgical History: Hernia Repair, Orthopedic Surgery, Pacemaker Additional Past Surgical History / Comment(s): R GROIN HERNIA REPAIR. bilateral knee replacement, pacemaker WITH NEWEST DEVICE CHANGE IN 2009. Past Anesthesia/Blood Transfusion Reactions: No Reported Reaction Type of Cardiac Device: Permanent Pacemaker Device Placement Date:: 2009 Past Psychological History: No Psychological Hx Reported Smoking Status: Former smoker Past Alcohol Use History: None Reported Past Drug Use History: None Reported - Past Family History Father Family Medical History: Cancer, CVA/TIA, Diabetes Mellitus Additional Family Medical History / Comment(s): FATHER OF LUNG CANCER AT AGE 82YRS. Mother Family Medical History: Coronary Artery Disease (CAD) Additional Family Medical History / Comment(s): MOTHER AT AGE 72 YRS. Medications and Allergies Home Medications Medication Instructions Recorded Confirmed Type allopurinoL [Zyloprim] 300 mg PO DAILY 01/27/14 01/05/21 History amLODIPine BESYLATE [Norvasc] 5 mg PO DAILY #30 tab 01/28/14 01/05/21 Rx Metoprolol Succinate [Toprol Xl] 100 mg PO DAILY 04/22/18 01/05/21 History Atorvastatin Calcium [Lipitor] 20 mg PO HS 04/24/18 01/05/21 History Nitroglycerin Sl Tabs [Nitrostat] 0.4 mg SUBLINGUAL Q5M PRN #25 tab 04/24/18 01/05/21 Rx Apixaban [Eliquis] 5 mg PO BID 01/05/21 01/05/21 History Azithromycin [Zithromax Z-pack (6 0 mg PO DIRECTED #6 tab 01/05/21 Rx tabs)] Tamsulosin HCl [Flomax] 0.4 mg PO DAILY@1200 01/05/21 01/05/21 History Allergies Allergy/AdvReac Type Severity Reaction Status Date / Time No Known Allergies Allergy Verified 01/05/21 13:09 Physical Exam Vitals: Vital Signs Temp Pulse Resp BP Pulse Ox 02/02/21 23:11 97.0 F L 70 16 132/78 98 Intake and Output 02/02/21 02/02/21 02/03/21 14:59 22:59 06:59 Other: Weight 94.6 kg Results CBC & Chem 7: 02/03/21 01:22 02/03/21 01:22 Labs: Abnormal Lab Results - Last 24 Hours (Table) 02/03/21 02/03/21 02/03/21 Range/Units 01:22 01:22 01:22 RBC 3.25 L (4.30-5.90) m/uL Hgb 11.6 L (13.0-17.5) gm/dL Hct 35.6 L (39.0-53.0) % MCV 109.4 H (80.0-100.0) fL MCH 35.8 H (25.0-35.0) pg Plt Count 115 L (150-450) k/uL Lymphocytes # 0.6 L (1.0-4.8) k/uL Macrocytosis Marked A PT 12.8 H (9.0-12.0) sec INR 1.2 H (<1.2) APTT 30.8 H (22.0-30.0) sec BUN 26 H (9-20) mg/dL Glucose 108 H (74-99) mg/dL Alkaline Phosphatase 157 H (38-126) U/L Troponin I (0.000-0.034) ng/mL 02/03/21 Range/Units 01:22 RBC (4.30-5.90) m/uL Hgb (13.0-17.5) gm/dL Hct (39.0-53.0) % MCV (80.0-100.0) fL MCH (25.0-35.0) pg Plt Count (150-450) k/uL Lymphocytes # (1.0-4.8) k/uL Macrocytosis PT (9.0-12.0) sec INR (<1.2) APTT (22.0-30.0) sec BUN (9-20) mg/dL Glucose (74-99) mg/dL Alkaline Phosphatase (38-126) U/L Troponin I 0.047 H* (0.000-0.034) ng/mL
[2021-02-03 05:52] LABS: Appearance,Urine Clear (Clear); Bilirubin,Urine Negative (Negative); Blood,Urine Negative (Negative); Color,Urine Yellow; Glucose,Urine (UA) Negative (Negative); Ketones,Urine Negative (Negative); Leukocyte Esterase,Urine Negative (Negative); Nitrite,Urine Negative (Negative); PH, Urine 6.5 (5.0-8.0); Protein,Urine Trace (Negative); Specific Gravity,Urine 1.017 (1.001-1.035); Urobilinogen,Urine <2.0 mg/dL (<2.0)
--- NOTE | 2021-02-03 14:30 | P.PN ---
<Denzel Singh - Last Filed: 02/03/21 14:01> Subjective Progress Note Date: 02/03/21 Hospital course: The patient is a very pleasant 85-year-old male with a with a past medical his tory of atrial fibrillation on Eliquis, status post pacemaker, history of CVA, hypertension, and hyperlipidemia. He presented to the emergency room with the chief complaint of left hip pain status post mechanical fall. The patient reports that he lives at home by himself and he was getting dressed in his pajamas when his legs got tangled up resulting in him falling backwards from a standing position hitting his head and left hip on the ground during fall. Patient states he thought he actually heard something pop in his left hip and has been unable to raise his leg since. Patient was seen and fully evaluated in the emergency department. CT head and cervical spine completed negative for ac [place] intercranial or cervical changes. CT did reveal multilevel cervical spondylitic changes and degenerative first-degree C7 through T1 spondylolisthesis. X-ray left hip and pelvis negative for acute fracture or abnormality. CT left hip showing mild osteoarthritis otherwise normal exam. EKG revealing a ventricular paced rhythm at 70 bpm labs reviewed and CBC revealing mild macrocytic microchromic anemia with hemoglobin of 11.6, prerenal azotemia BUN of 26, an elevated troponin at 0.047, 0.048, and 0.038. Urinalysis negative for blood or infection and Covid PCR negative. Patient was admitted under our services and PT/OT consulted. Physical examination: Patient was seen and fully evaluated at bedside this morning. He reports continued inability to lift left leg. Upon assessment patient able to lift left leg approximately 1-2 inches off of bed resulting in increased left groin pain. Upon assessment no noted bruising or swelling to left hip/groin region. Patient reports pain in left hip radiating anteriorly into left groin persistent. He denies experiencing any involuntary loss of bowel or bladder, or experiencing any numbness/tingling in his lower extremities. At this time we will place consult for leasing specialist to assess, as patient still unable to lift leg. PT/OT following. Patient otherwise reports feeling great denies having any headache, lightheadedness, dizziness, chest pain, palpitations, shortness of breath, abdominal pain, nausea, or experiencing any numbness/tingling/swelling in his extremities. General: non toxic, no distress, appears at stated age Derm: warm, dry Head: atraumatic, normocephalic, symmetric Eyes: EOMI, no lid lag, anicteric sclera Mouth: no lip lesion, mucus membranes moist Cardiovascular: S1S2 reg, Systolic Murmur, positive posterior tibial pulse bilaterally, trace bilateral lower extremity edema Lungs: CTA bilateral, no rhonchi, no rales , no accessory muscle use Abdominal: soft, nontender to palpation, no guarding, no appreciable organomegaly Ext: no gross muscle atrophy, trace bilateral lower extremity edema, no contractures. Patient unable to lift left leg off of bed >2 in, left hip flexion also greatly impaired secondary to significant pain reported in left gr oin and hip. Neuro: CN II-XI grossly intact, no focal neuro deficits Psych: Alert, oriented, appropriate affect Assessment and plan of care: Left hip pain and weakness status post mechanical fall, suspected muscle strain -X-ray left hip and pelvis negative for acute fracture or abnormality. -CT left hip showing mild osteoarthritis otherwise normal exam. -PT/OT following, appreciate recommendations -health and safety specialist consulted due to continued inability to lift leg, appreciate further recommendations -Fall precautions -Bedrest for now Elevated troponin, flat, acute coronary event ruled out Telemetry monitoring Patient denies cardiac complaints Continue daily medication regimen with Eliquis., atorvastatin, metoprolol, and amlodipine Macrocytic anemia -At baseline, no need for intervention. Will continue to monitor with repeat a.m. labs. Atrial fibrillation Continue anticoagulation with Eliquis. Hypertension Monitor vital signs and continue daily medication regimen with metoprolol and amlodipine. Hyperlipidemia -Continue daily medication regimen with atorvastatin. CODE STATUS: Full Code DVT prophylaxis: Eliquis. Discussed with: Patient Anticipated discharge date: in am Anticipated discharge place: Home Objective - Vital Signs Vital signs: Vital Signs Temp 98.1 F 02/03/21 03:50 Pulse 70 02/03/21 09:00 Resp 18 02/03/21 09:00 BP 134/70 02/03/21 09:00 Pulse Ox 98 02/03/21 09:00 Intake & Output 02/02/21 02/03/21 02/03/21 18:59 06:59 18:59 Weight 94.6 kg 94.6 kg - Labs CBC & Chem 7: 02/03/21 01:02/03/21 01:22 Labs: Abnormal Lab Results - Last 24 Hours (Table) 02/03/21 02/03/21 02/03/21 Range/Units 01: 01: 01:22 RBC 3.25 L (4.30-5.90) m/uL Hgb 11.6 L (13.0-17.5) gm/dL Hct 35.6 L (39.0-53.0) % MCV 109.4 H (80.0-100.0) fL MCH 35.8 H (25.0-35.0) pg Plt Count 115 L (150-450) k/uL Lymphocytes # 0.6 L (1.0-4.8) k/uL Macrocytosis Marked A PT 12.8 H (9.0-12.0) sec INR 1.2 H (<1.2) APTT 30.8 H (22.0-30.0) sec BUN (9-20) mg/dL Glucose (74-99) mg/dL Alkaline Phosphatase (38-126) U/L Troponin I (0.000-0.034) ng/mL Urine Protein Trace H (Negative) 02/03/21 02/03/21 02/03/21 Range/Units 01:21 04: 12:00 RBC (4.30-5.90) m/uL Hgb (13.0-17.5) gm/dL Hct (39.0-53.0) % MCV (80.0-100.0) fL MCH (25.0-35.0) pg Plt Count (150-450) k/uL Lymphocytes # (1.0-4.8) k/uL Macrocytosis PT (9.0-12.0) sec INR (<1.2) APTT (22.0-30.0) sec BUN 26 H (9-20) mg/dL Glucose 108 H (74-99) mg/dL Alkaline Phosphatase 157 H (38-126) U/L Troponin I 0.047 H* 0.048 H* (0.000-0.034) ng/mL Urine Protein (Negative) <Chely Dickinson - Last Filed: 02/03/21 19:10> Subjective Denzel Singh NP rendered care for this patient independently, reviewed the findings and plan as documented in the note above. I did not physically speak with or examine the patient on this date. Objective - Vital Signs Vital signs: Vital Signs Temp 97.9 F 02/03/21 17:48 Pulse 70 02/03/21 17:48 Resp 16 02/03/21 17:48 BP 149/69 02/03/21 17:48 Pulse Ox 95 02/03/21 17:48 Intake & Output 02/03/21 02/03/21 02/04/21 06:59 18:59 05:59 Weight 94.6 kg 94.6 kg - Labs CBC & Chem 7: 02/03/21 01:22 02/03/21 01:22 Labs: Abnormal Lab Results - Last 24 Hours (Table) 02/03/21 02/03/21 02/03/21 Range/Units 01:22 01:22 01:22 RBC 3.25 L (4.30-5.90) m/uL Hgb 11.6 L (13.0-17.5) gm/dL Hct 35.6 L (39.0-53.0) % MCV 109.4 H (80.0-100.0) fL MCH 35.8 H (25.0-35.0) pg Plt Count 115 L (150-450) k/uL Lymphocytes # 0.6 L (1.0-4.8) k/uL Macrocytosis Marked A PT 12.8 H (9.0-12.0) sec INR 1.2 H (<1.2) APTT 30.8 H (22.0-30.0) sec BUN (9-20) mg/dL Glucose (74-99) mg/dL Alkaline Phosphatase (38-126) U/L Troponin I (0.000-0.034) ng/mL Urine Protein Trace H (Negative) 02/03/21 02/03/21 02/03/21 Range/Units 01:21 04: 12:00 RBC (4.30-5.90) m/uL Hgb (13.0-17.5) gm/dL Hct (39.0-53.0) % MCV (80.0-100.0) fL MCH (25.0-35.0) pg Plt Count (150-450) k/uL Lymphocytes # (1.0-4.8) k/uL Macrocytosis PT (9.0-12.0) sec INR (<1.2) APTT (22.0-30.0) sec BUN 26 H (9-20) mg/dL Glucose 108 H (74-99) mg/dL Alkaline Phosphatase 157 H (38-126) U/L Troponin I 0.047 H* 0.048 H* (0.000-0.034) ng/mL Urine Protein (Negative) 02/03/21 Range/Units 12:15 RBC (4.30-5.90) m/uL Hgb (13.0-17.5) gm/dL Hct (39.0-53.0) % MCV (80.0-100.0) fL MCH (25.0-35.0) pg Plt Count (150-450) k/uL Lymphocytes # (1.0-4.8) k/uL Macrocytosis PT (9.0-12.0) sec INR (<1.2) APTT (22.0-30.0) sec BUN (9-20) mg/dL Glucose (74-99) mg/dL Alkaline Phosphatase (38-126) U/L Troponin I 0.038 H* (0.000-0.034) ng/mL Urine Protein (Negative)
[2021-02-03] MEDS: ATORVASTATIN 20 MG TAB PO SCH (19:34)
[2021-02-03] MEDS: APIXABAN 5 MG TAB PO SCH (19:34)
[2021-02-04] MEDS: allopurinoL 300 MG TAB PO SCH (08:14)
[2021-02-04] MEDS: APIXABAN 5 MG TAB PO SCH ×2 (08:14→20:29)
[2021-02-04] MEDS: amLODIPine 5 MG TAB PO SCH (08:14)
[2021-02-04] MEDS: METOPROLOL SUCCINATE (ER) 50 MG TAB.ER.24H PO SCH (08:14)
--- NOTE | 2021-02-04 10:22 | P.CNOR ---
<Terence Harden - Last Filed: 02/04/21 10:14> History of Present Illness - HPI Consult date: 02/04/21 Requesting physician: Denzel Singh Consult reason: other (left hip and groin pain, unable to lift left leg, CT and xray negative) History of present illness: Patient is a 85-year-old male with past medical history of A. fib, history of CVA, hypertension who presented to the ER last night with left hip pain status post fall at home. Patient says he was at his house on his own knee tried to put his pajamas on, his leg got caught up and he fell backwards hitting his head as well as his left hip. CT of the brain is negative for any acute bleeds. We have been consult is for left hip pain. X-ray left hip and CT of the pelvis are negative for any hip fractures, pelvic fractures. Patient says most of this hip pain is actually at his thigh as he points to the lateral aspect of the upper leg. He says more so she's feeling very weak on the left leg. He says he is not able to lift his left leg very high off the bed. Patient denies radiation of pain to his feet. Patient denies any previous spine surgeries. Patient says he has had bilateral knee replacements about 10 years ago, one was performed by Dr. Elliott and patient is not sure of the other surgeon. Patient denies increasing chest pain, fever, shortness of breath, nausea, vomiting, change in vision, loss of bowel/bladder control. Past Medical History Past Medical History: Atrial Fibrillation, Cancer, COPD, CVA/TIA, Hyperlipidemia, Hypertension, Osteoarthritis (OA), Renal Disease, Sleep Apnea/CPAP/BIPAP, Syncope Additional Past Medical History / Comment(s): PT CAME TO ER WITH SYNCOPAL AND NEAR SYNCOPAL EPISODES. PT HAS PACEMAKER DUE. TO BRADYCARDA. SKIN CA, KIDNEY STONES, PT HAS SLEEP APNEA AND HAS A CPAP MACHINE THAT HE SAID HE NO LONGER NEEDS. CVA 2019- right side weakness History of Any Multi-Drug Resistant Organisms: None Reported Past Surgical History: Hernia Repair, Orthopedic Surgery, Pacemaker Additional Past Surgical History / Comment(s): R GROIN HERNIA REPAIR. bilateral knee replacement, pacemaker WITH NEWEST DEVICE CHANGE IN 2009. Past Anesthesia/Blood Transfusion Reactions: No Reported Reaction Type of Cardiac Device: Permanent Pacemaker Device Placement Date:: 2009 Past Psychological History: No Psychological Hx Reported Smoking Status: Former smoker Past Alcohol Use History: None Reported Past Drug Use History: None Reported - Past Family History Father Family Medical History: Cancer, CVA/TIA, Diabetes Mellitus Additional Family Medical History / Comment(s): FATHER OF LUNG CANCER AT AGE 82YRS. Mother Family Medical History: Coronary Artery Disease (CAD) Additional Family Medical History / Comment(s): MOTHER AT AGE 72 YRS. Medications and Allergies Home Medications Medication Instructions Recorded Confirmed Type allopurinoL [Zyloprim] 300 mg PO DAILY 01/27/14 02/03/21 History amLODIPine BESYLATE [Norvasc] 5 mg PO DAILY #30 tab 01/28/14 02/03/21 Rx Metoprolol Succinate [Toprol Xl] 100 mg PO DAILY 04/22/18 02/03/21 History Atorvastatin Calcium [Lipitor] 20 mg PO HS 04/24/18 02/03/21 History Nitroglycerin Sl Tabs [Nitrostat] 0.4 mg SUBLINGUAL Q5M PRN #25 tab 04/24/18 02/03/21 Rx Apixaban [Eliquis] 5 mg PO BID 01/05/21 02/03/21 History Tamsulosin HCl [Flomax] 0.4 mg PO DAILY@1200 01/05/21 02/03/21 History Allergies Allergy/AdvReac Type Severity Reaction Status Date / Time No Known Allergies Allergy Verified 01/05/21 13:09 Physical Examination Inspection: Negative for any evidence of open fractures, erythema, ecchymosis, nodules, deformities. Sensation: Sensation is equal, symmetric, bilaterally intact throughout exam. Palpation: Mild tenderness with palpation along the left lateral upper leg. Nontender to palpation throughout the left hip in the greater trochanter region as well as left groin. Nontender to patient rather a fusion Range of motion: Patient is able to flex the left hip about 20 off bed 4 he cannot raise it without assistance. Patient says he does not have pain during this, but he says he feels weak in his leg. Patient is able to flex at the left knee. Full range of motion in dorsi and plantarflexion left ankle. Patient is able to wiggle digits in both feet bilaterally. Full range of motion bilateral upper extremities and right lower extremity Motor: 2/5 in resisted left hip flexion. 5/5 in all other other major motor groups Neurovascular status: Capillary refill below 3 seconds bilateral lower extremities. Radial pulses intact, 2+ bilaterally. Special tests: Negative clonus bilaterally; negative Homans bilaterally Results - Labs Labs: Abnormal Lab Results - Last 24 Hours (Table) 02/03/21 Range/Units 12:15 Troponin I 0.038 H* (0.000-0.034) ng/mL H & H 02/03/21 Range/Units 01:22 Hgb 11.6 L (13.0-17.5) gm/dL Hct 35.6 L (39.0-53.0) % Coagulation 02/03/21 Range/Units 01:22 INR 1.2 H (<1.2) Result Diagrams: 02/03/21 01:22 02/03/21:22 Assessment and Plan Assessment: 1. Left leg pain status post fall 2. Multiple medical comorbidities Plan: 1. Left leg pain status post fall - x-ray and CT of left hip and pelvis have been reviewed. No acute hip fracture/pelvic fractures. Patient does have some left leg pain in the lateral thigh region. We'll order x-ray of the left femur at this time for further evaluation. At this time we do not recommend any urgent/emergent orthopedic surgical intervention. 2. Appreciate medical management 3. Pain management - Tylenol 650 4. DVT prophylaxis - Eliquis 5. GI prophylaxis 6. Appreciate consult Time with Patient: Less than 30 <Hugh Campbell - Last Filed: 02/04/21 19:49> Physical Examination Osteopathic Statement: *. No significant issues noted on an osteopathic structural exam other than those noted in the History and Physical/Consult. Results - Labs Labs: H & H 02/03/21 Range/Units 01:22 Hgb 11.6 L (13.0-17.5) gm/dL Hct 35.6 L (39.0-53.0) % Coagulation 02/03/21 Range/Units 01:22 INR 1.2 H (<1.2) Result Diagrams: 02/03/21 01:22 02/03/21 01:22 Assessment and Plan Plan: Agree with above findings. Patient was seen and examined by myself. Xrays of femur and hip along with CT of hip reveal no acute fracture or dislocation. Recommend WBAT with walker. ice, NSAIDs as needed and out patient follow up in 2 weeks.
--- NOTE | 2021-02-04 12:23 | XR ---
EXAMINATION TYPE: XR femur LT DATE OF EXAM: 02/04/2021 CLINICAL HISTORY: Left TECHNIQUE: Two views of the left femur are obtained. COMPARISON: None FINDINGS: There is no acute fracture or dislocation seen in the left femur. There is moderate axial narrowing of the joint space with hypertrophic changes of the acetabulum correlate for arthropathy wi th femoral acetabular impingement. Vascular calcifications noted. Postsurgical change involving the k nee. No definite acute displaced fracture. IMPRESSION: 1. No acute fracture. 2. Arthropathy correlate for femoral acetabular impingement. 3. Postsurgical change involving the knee
--- NOTE | 2021-02-04 13:09 | P.PN ---
<Denzel Singh - Last Filed: 02/04/21 12:58> Subjective Progress Note Date: 02/04/21 Hospital course: The patient is a very pleasant 85-year-old male with a with a past medical his tory of atrial fibrillation on Eliquis, status post pacemaker, history of CVA, hypertension, and hyperlipidemia. He presented to the emergency room with the chief complaint of left hip pain status post mechanical fall. The patient reports that he lives at home by himself and he was getting dressed in his pajamas when his legs got tangled up resulting in him falling backwards from a standing position hitting his head and left hip on the ground during fall. Patient states he thought he actually heard something pop in his left hip and has been unable to raise his leg since. Patient was seen and fully evaluated in the emergency department. CT head and cervical spine completed negative for ac [place] intercranial or cervical changes. CT did reveal multilevel cervical spondylitic changes and degenerative first-degree C7 through T1 spondylolisthesis. X-ray left hip and pelvis negative for acute fracture or abnormality. CT left hip showing mild osteoarthritis otherwise normal exam. EKG revealing a ventricular paced rhythm at 70 bpm labs reviewed and CBC revealing mild macrocytic microchromic anemia with hemoglobin of 11.6, prerenal azotemia BUN of 26, an elevated troponin at 0.047, 0.048, and 0.038. Urinalysis negative for blood or infection and Covid PCR negative. Patient was admitted under our services and PT/OT consulted. Physical examination: Patient was seen and fully evaluated at bedside this morning. He reports continued limitations with lifting left leg. Repeat x-ray of femur showing no acute fracture, arthropathy correlate for femoral a cerebellar hip impingement. Patient reports continued pain in left groin, left lateral thigh and hip. Orthopedic surgery evaluated, recommending safe and supportive care with no need for acute surgical interventions. Awaiting PT/OT to evaluate. Will attempt to arrange inpatient rehabilitation for continued PT/OT upon discharge. Patient otherwise continues to deny having any complaints including headache, lightheadedness, dizziness, chest pain, palpitations, shortness of breath, abdominal pain, nausea, or experiencing any involuntary loss of bowel or bladder or numbness/tingling in his extremities. General: non toxic, no distress, appears at stated age Derm: warm, dry Head: atraumatic, normocephalic, symmetric Eyes: EOMI, no lid lag, anicteric sclera Mouth: no lip lesion, mucus membranes moist Cardiovascular: S1S2 reg, Systolic Murmur, positive posterior tibial pulse bilaterally, trace bilateral lower extremity edema Lungs: CTA bilateral, no rhonchi, no rales , no accessory muscle use Abdominal: soft, nontender to palpation, no guarding, no appreciable organomegaly Ext: no gross muscle atrophy, trace bilateral lower extremity edema, no contractures. Patient unable to lift left leg off of bed >2 in, left hip flexion also greatly impaired secondary to significant pain reported in left groin, left lateral thigh and hip. Neuro: CN II-XI grossly intact, no focal neuro deficits Psych: Alert, oriented, appropriate affect Assessment and plan of care: Left hip pain and weakness status post mechanical fall Femoral Acetabular Hip Impingement -X-ray left hip and pelvis negative for acute fracture or abnormality. -CT left hip showing mild osteoarthritis otherwise normal exam. -X-ray left femur showing no acute fracture, arthropathy correlate for femoral acetabular hip impingement -PT/OT following, appreciate recommendations -medical front desk specialist consulted due to continued inability to lift leg, appreciate further recommendations -Fall precautions -Ambulatory with assistance, likely require shelter placement. Elevated troponin, flat, acute coronary event ruled out Telemetry monitoring Patient denies cardiac complaints Continue daily medication regimen with Eliquis., atorvastatin, metoprolol, and amlodipine Macrocytic anemia -At baseline, no need for intervention. Will continue to monitor with repeat a.m. labs. Atrial fibrillation Continue anticoagulation with Eliquis. Hypertension Monitor vital signs and continue daily medication regimen with metoprolol and amlodipine. Hyperlipidemia -Continue daily medication regimen with atorvastatin. CODE STATUS: Full Code DVT prophylaxis: Eliquis. Discussed with: Patient Anticipated discharge date: to be determined, patient will likely need inpatient rehab Anticipated discharge place: Inpatient rehabilitation Center A total of 45 minutes was spent on the care of this complex patient more than 50% of the time was spent in counseling and care coordination. Objective - Vital Signs Vital signs: Vital Signs Temp 97.6 F 02/04/21 05:00 Pulse 69 02/04/21 05:00 Resp 20 02/04/21 05:00 BP 151/66 02/04/21 05:00 Pulse Ox 92 L 02/04/21 00:00 Intake & Output 02/03/21 02/04/21 02/04/21 19:59 06:59 18:59 Intake Total Output Total 700 Balance -700 Weight Intake: Intake, IV Titration Amount Sodium Chloride 0.9% 1, 000 ml @ 130 mls/hr IV . Q7H42M [facility] Rx#:[id number] Oral Output: Urine 700 Other: Voiding Method Urinal # Voids - Labs CBC & Chem 7: 02/03/21 01:22 02/03/21 01:22 <Chely Dickinson - Last Filed: 02/04/21 21:48> Subjective Denzel Singh NP rendered care for this patient independently, reviewed the findings and plan as documented in the note above. I did not physically speak with or examine the patient on this date. Objective - Vital Signs Vital signs: Vital Signs Temp 98.3 F 02/04/21 21:00 Pulse 68 02/04/21 21:00 Resp 16 02/04/21 21:00 BP 126/71 02/04/21 21:00 Pulse Ox 95 02/04/21 21:00 Intake & Output 02/04/21 02/04/21 02/05/21 06:59 18:59 06:59 Intake Total Output Total 700 Balance -700 Weight Intake: Intake, IV Titration Amount Sodium Chloride 0.9% 1, 000 ml @ 130 mls/hr IV . Q7H42M [facility] Rx#:[id number] Oral Output: Urine 700 Other: Voiding Method Urinal # Voids 4 - Labs CBC & Chem 7: 02/03/21 01:22 02/03/21 01:22
[2021-02-04] MEDS: TAMSULOSIN 0.4 MG CAP.ER.24H PO SCH (13:19)
[2021-02-04] MEDS: ATORVASTATIN 20 MG TAB PO SCH (20:29)
[2021-02-05 06:18] LABS: HCT 33.8 % (39.0-53.0); HGB 11.2 gm/dL (13.0-17.5); MCH 36.4 pg (25.0-35.0); MCHC 33.2 g/dL (31.0-37.0); MCV 109.6 fL (80.0-100.0); Macrocytosis Marked; Mean Platelet Volume 8.1; Platelet Count 118 k/uL (150-450); RBC 3.08 m/uL (4.30-5.90); RDW 14.1 % (11.5-15.5); WBC 5.7 k/uL (3.8-10.6)
[2021-02-05] MEDS: amLODIPine 5 MG TAB PO SCH (08:31)
[2021-02-05] MEDS: METOPROLOL SUCCINATE (ER) 50 MG TAB.ER.24H PO SCH (08:31)
[2021-02-05] MEDS: APIXABAN 5 MG TAB PO SCH ×2 (08:31→20:24)
[2021-02-05] MEDS: allopurinoL 300 MG TAB PO SCH (08:31)
[2021-02-05 10:33] LABS: African American GFR (CKD) 63.1 (60.0-200.0); Anion Gap 8.3 mmol/L (4.00-12.00); BUN/Creat Ratio 15.5 Ratio (12.00-20.00); Blood Urea Nitrogen 18.6 mg/dL (9.0-27.0); Calcium 9.7 mg/dL (8.7-10.3); Carbon Dioxide 23.7 mmol/L (21.6-31.8); Magnesium 2.2 mg/dL (1.5-2.4); Non-African American GFR(CKD) 54.4 (60.0-200.0); Potassium 4.7 mmol/L (3.5-5.5)
[2021-02-05] MEDS: TAMSULOSIN 0.4 MG CAP.ER.24H PO SCH (12:14)
--- NOTE | 2021-02-05 13:33 | P.PN ---
<Denzel Singh - Last Filed: 02/05/21 13:28> Subjective Progress Note Date: 02/05/21 Hospital course: The patient is a very pleasant 85-year-old male with a with a past medical his tory of atrial fibrillation on Eliquis, status post pacemaker, history of CVA, hypertension, and hyperlipidemia. He presented to the emergency room with the chief complaint of left hip pain status post mechanical fall. The patient reports that he lives at home by himself and he was getting dressed in his pajamas when his legs got tangled up resulting in him falling backwards from a standing position hitting his head and left hip on the ground during fall. Patient states he thought he actually heard something pop in his left hip and has been unable to raise his leg since. Patient was seen and fully evaluated in the emergency department. CT head and cervical spine completed negative for ac [place] intercranial or cervical changes. CT did reveal multilevel cervical spondylitic changes and degenerative first-degree C7 through T1 spondylolisthesis. X-ray left hip and pelvis negative for acute fracture or abnormality. CT left hip showing mild osteoarthritis otherwise normal exam. EKG revealing a ventricular paced rhythm at 70 bpm labs reviewed and CBC revealing mild macrocytic microchromic anemia with hemoglobin of 11.6, prerenal azotemia BUN of 26, an elevated troponin at 0.047, 0.048, and 0.038. Urinalysis negative for blood or infection and Covid PCR negative. Patient was admitted under our services and PT/OT consulted. Physical examination: Patient was seen and fully evaluated at bedside this morning. He reports continued limitations with lifting left leg. PT/OT evaluated, recommending inpatient rehab as well. Case management notified and orders placed for consult to Dr. Quan for inpatient rehab evaluation. Patient's condition is stable. Vital signs unremarkable and labs showing no significant abnormalities with the exception of macrocytic macrochromic anemia with hemoglobin of 11.2 and thrombocytopenia with platelet count of 118. Patient reports pain and left leg/groin is currently controlled but elevates quickly to 10 at a time with movement. Patient otherwise continues to deny having any complaints including headache, lightheadedness, dizziness, chest pain, palpitations, shortness of breath, abdominal pain, nausea, or experiencing any involuntary loss of bowel or bladder or numbness/tingling in his extremities. General: non toxic, no distress, appears at stated age Derm: warm, dry Head: atraumatic, normocephalic, symmetric Eyes: EOMI, no lid lag, anicteric sclera Mouth: no lip lesion, mucus membranes moist Cardiovascular: S1S2 reg, Systolic Murmur, positive posterior tibial pulse bilaterally, trace bilateral lower extremity edema Lungs: CTA bilateral, no rhonchi, no rales , no accessory muscle use Abdominal: soft, nontender to palpation, no guarding, no appreciable organomegaly Ext: no gross muscle atrophy, trace bilateral lower extremity edema, no contractures. Patient unable to lift left leg off of bed >4 in, left hip flexion also greatly impaired secondary to significant pain reported in left groin, left lateral thigh and hip. Neuro: CN II-XI grossly intact, no focal neuro deficits Psych: Alert, oriented, appropriate affect Assessment and plan of care: Left hip pain and weakness status post mechanical fall Femoral Acetabular Hip Impingement -X-ray left hip and pelvis negative for acute fracture or abnormality. -CT left hip showing mild osteoarthritis otherwise normal exam. -X-ray left femur showing no acute fracture, arthropathy correlate for femoral acetabular hip impingement -PT/OT following, appreciate recommendations -underwriting support specialist consulted due to continued inability to lift leg, appreciate further recommendations -Fall precautions -Ambulatory with assistance, likely require assisted placement. Elevated troponin, flat, acute coronary event ruled out Telemetry monitoring Patient denies cardiac complaints Continue daily medication regimen with Eliquis., atorvastatin, metoprolol, and amlodipine Macrocytic macrochromic anemia Thrombocytopenia -At baseline, no need for intervention. Will continue to monitor with repeat a.m. labs. Atrial fibrillation Continue anticoagulation with Eliquis. Hypertension Monitor vital signs and continue daily medication regimen with metoprolol and a mlodipine. Hyperlipidemia -Continue daily medication regimen with atorvastatin. CODE STATUS: Full Code DVT prophylaxis: Eliquis. Discussed with: Patient Anticipated discharge date: Patient stable for discharge once bed available at inpatient rehabilitation Center. Anticipated discharge place: Inpatient rehabilitation Center A total of 45 minutes was spent on the care of this complex patient more than 50% of the time was spent in counseling and care coordination. Objective - Vital Signs Vital signs: Vital Signs Temp 98.2 F 02/05/21 05:00 Pulse 70 02/05/21 08:30 Resp 16 02/05/21 05:00 BP 161/74 02/05/21 08:30 Pulse Ox 96 02/05/21 05:00 Intake & Output 02/04/21 02/05/21 02/05/21 18:59 06:59 18:59 Intake Total 540 300 Output Total 700 1000 Balance -700 -460 300 Weight 65.5 kg Intake: Oral 540 300 Output: Urine 700 1000 Other: Voiding Method Urinal Urinal Urinal # Voids 4 3 # Bowel Movements 0 - Labs CBC & Chem 7: 02/05/21 05:53 02/05/21 05:53 Labs: Abnormal Lab Results - Last 24 Hours (Table) 02/05/21 Range/Units 05:53 RBC 3.08 L (4.30-5.90) m/uL Hgb 11.2 L (13.0-17.5) gm/dL Hct 33.8 L (39.0-53.0) % MCV 109.6 H (80.0-100.0) fL MCH 36.4 H (25.0-35.0) pg Plt Count 118 L (150-450) k/uL Macrocytosis Marked A <Herb Rodriguez - Last Filed: 02/05/21 14:12> Objective - Vital Signs Vital signs: Vital Signs Temp 98.0 F 02/05/21 13:08 Pulse 70 02/05/21 13:08 Resp 18 02/05/21 13:08 BP 142/73 02/05/21 13:08 Pulse Ox 99 02/05/21 13:08 Intake & Output 02/04/21 02/05/21 02/05/21 18:59 06:59 18:59 Intake Total 540 300 Output Total 700 1000 Balance -700 -460 300 Weight 65.5 kg Intake: Oral 540 300 Output: Urine 700 1000 Other: Voiding Method Urinal Urinal Urinal # Voids 4 3 # Bowel Movements 0 - Labs CBC & Chem 7: 02/05/21 05:53 02/05/21 05:53 Labs: Abnormal Lab Results - Last 24 Hours (Table) 02/05/21 02/05/21 Range/Units 05:53 05:53 RBC 3.08 L (4.30-5.90) m/uL Hgb 11.2 L (13.0-17.5) gm/dL Hct 33.8 L (39.0-53.0) % MCV 109.6 H (80.0-100.0) fL MCH 36.4 H (25.0-35.0) pg Plt Count 118 L (150-450) k/uL Macrocytosis Marked A Est GFR (CKD-EPI)NonAf 54.4 L (60.0-200.0) Assessment and Plan Plan: Patient seen and examined independently. Patient was also seen by Denzel Singh NP and case was discussed. I am in agreement with subjective, physical exam, assessment and plan as written above and amended below. General: [non toxic], [no distress], [appears at stated age] Derm: [warm], [dry] Head: [atraumatic], [normocephalic], [symmetric] Eyes: [EOMI], [no lid lag], [anicteric sclera] Mouth: [no lip lesion], [mucus membranes moist] Cardiovascular: [S1S2 reg], [no murmur], [positive posterior tibial pulse bilateral], Lungs: [CTA bilateral], [no rhonchi, no rales] , [no accessory muscle use] + Thoravent in left chest. Abdominal: [soft], [ nontender to palpation], [no guarding], [no appreciable organomegaly] Ext: [no gross muscle atrophy], [no edema], [no contractures] Neuro: [ CN II-XI grossly intact], [no focal neuro deficits] Psych: [Alert], [oriented], [appropriate affect]
--- NOTE | 2021-02-05 13:38 | P.PN ---
Subjective Progress Note Date: 02/05/21 Principal diagnosis: Left hip/leg pain Patient says he did get up with physical therapy this morning already and was walking around the room and into the hallway without pain in hip area and patient still states that he has some weakness when he tries to lift his leg. Patient denies chest pain, fever, shortness of breath, nausea, vomiting, change in vision, loss of bowel/ bladder control. Objective - Vital Signs Vital signs: Vital Signs Temp 98.0 F 02/05/21 13:08 Pulse 70 02/05/21 13:08 Resp 18 02/05/21 13:08 BP 142/73 02/05/21 13:08 Pulse Ox 99 02/05/21 13:08 Intake & Output 02/04/21 02/05/21 02/05/21 18:59 06:59 18:59 Intake Total 540 300 Output Total 700 1000 Balance -700 -460 300 Weight 65.5 kg Intake: Oral 540 300 Output: Urine 700 1000 Other: Voiding Method Urinal Urinal Urinal # Voids 4 3 # Bowel Movements 0 - Exam Inspection: Negative for any evidence of open fractures, erythema, ecchymosis, nodules, deformities. Sensation: Sensation is equal, symmetric, bilaterally intact throughout exam. Palpation: Mild tenderness with palpation along the left lateral upper leg. No ntender to palpation throughout the left hip in the greater trochanter region as well as left groin. Nontender to patient rather a fusion Range of motion: Patient is able to flex the left hip about 20 off bed 4 he cannot raise it without assistance. Patient says he does not have pain during this, but he says he feels weak in his leg. Patient is able to flex at the left knee. Full range of motion in dorsi and plantarflexion left ankle. Patient is able to wiggle digits in both feet bilaterally. Full range of motion bilateral upper extremities and right lower extremity Motor: 2/5 in resisted left hip flexion. 5/5 in all other other major motor groups Neurovascular status: Capillary refill below 3 seconds bilateral lower extremities. Radial pulses intact, 2+ bilaterally. Special tests: Negative clonus bilaterally; negative Homans bilaterally - Labs CBC & Chem 7: 02/05/21 05:53 02/05/21 05:53 Labs: Abnormal Lab Results - Last 24 Hours (Table) 02/05/21 02/05/21 Range/Units 05:53 05:53 RBC 3.08 L (4.30-5.90) m/uL Hgb 11.2 L (13.0-17.5) gm/dL Hct 33.8 L (39.0-53.0) % MCV 109.6 H (80.0-100.0) fL MCH 36.4 H (25.0-35.0) pg Plt Count 118 L (150-450) k/uL Macrocytosis Marked A Est GFR (CKD-EPI)NonAf 54.4 L (60.0-200.0) Assessment and Plan Assessment: 1. Left leg pain status post fall 2. Multiple medical comorbidities Plan: 1. Left leg/hip pain status post fall - x-ray and CT of left hip and pelvis have been reviewed. No acute hip fracture/pelvic fractures. Patient does have some left leg pain in the lateral thigh region. xray left femure negative for any fractures. At this time we do not recommend any urgent/emergent orthopedic surgical intervention. Patient is stable for discharge from orthopedic standpoint. Recommend patient to follow up in outpatient setting for follow-up of his hip if he is still having issues. Orthopedics is signing off at this time. Please do not hesitate to contact us for any further questions. 2. Appreciate medical management 3. Pain management - Tylenol 650 4. DVT prophylaxis - Eliquis 5. GI prophylaxis 6. Appreciate consult 7. PT/OT - WBAT w/walker Time with Patient: Less than 30
[2021-02-05] MEDS ORDERED: DOCUSATE 100 MG CAP PO STA (20:22)
[2021-02-05] MEDS ORDERED: bisacodyL 5 MG TABLET.DR PO STA (20:22)
[2021-02-05] MEDS: ATORVASTATIN 20 MG TAB PO SCH (20:23)
--- NOTE | 2021-02-06 05:52 | P.CONS ---
History of Present Illness - Chief Complaint Walking difficulty, left hip pain - History of Present Illness I had the opportunity to see patient for inpatient rehab consultation with regard to walking difficulty. Patient admitted to [facility] February 03 status post fall and left leg or hip pain. Patient points to his proximal thigh. Seen by orthopedics. C-spine CT demonstrated mild subluxation C7/T1. Head CT demonstrates cerebral atrophy. Pelvic x-ray negative for left hip. Left hip CT with osteoarthritis only. Left femur x-ray with femoral acetabular arthropathy and status post left knee replacement. His started therapy. PT reports minimal assistance bed mobility, transfers, gait total 116 feet with roller walker. OT reports supervision for upper dressing and minimal assist for lower dressing, bathing, toileting and functional mobility. Previous functional history as elicited from patient: 85-year-old right-handed white male who is lives in one floor condo alone. Retired. Describes independent with own cooking, laundry, driving, standing shower and gait without device. PCP Dr. Shell. Denies tobacco or alcohol. Review of Systems Review of systems: ENT: Denies sneezes or discharge. Eyes: Denies discharge or photophobia. Cardiac: Denies chest pain or palpitation. Pulmonary: Denies cough or shortness of breath. Gastrointestinal: Denies nausea, emesis, constipation, diarrhea. Genitourinary: Denies discharge or frequency. Musculoskeletal: Left hip or proximal thigh discomfort. Neurologic: Denies motor or sensory change. Endocrine: Denies shakes or sweats. Oncology: Denies cancers. Dermatologic: Denies rash, itching, pruritus. ALLERGY/immunology: Denies sneezes, rashes. Past Medical History Past Medical History: Atrial Fibrillation, Cancer, COPD, CVA/TIA, Hyperlipidemia, Hypertension, Osteoarthritis (OA), Renal Disease, Sleep Apnea/CPAP/BIPAP, Syncope Additional Past Medical History / Comment(s): PT CAME TO ER WITH SYNCOPAL AND NEAR SYNCOPAL EPISODES. PT HAS PACEMAKER DUE. TO BRADYCARDA. SKIN CA, KIDNEY STONES, PT HAS SLEEP APNEA AND HAS A CPAP MACHINE THAT HE SAID HE NO LONGER NEEDS. CVA 2019- right side weakness History of Any Multi-Drug Resistant Organisms: None Reported Past Surgical History: Hernia Repair, Orthopedic Surgery, Pacemaker Additional Past Surgical History / Comment(s): R GROIN HERNIA REPAIR. bilateral knee replacement, pacemaker WITH NEWEST DEVICE CHANGE IN 2009. Past Anesthesia/Blood Transfusion Reactions: No Reported Reaction Type of Cardiac Device: Permanent Pacemaker Device Placement Date:: 2009 Past Psychological History: No Psychological Hx Reported Smoking Status: Former smoker Past Alcohol Use History: None Reported Past Drug Use History: None Reported - Past Family History Father Family Medical History: Cancer, CVA/TIA, Diabetes Mellitus Additional Family Medical History / Comment(s): FATHER OF LUNG CANCER AT AGE 82YRS. Mother Family Medical History: Coronary Artery Disease (CAD) Additional Family Medical History / Comment(s): MOTHER AT AGE 72 YRS. Medications and Allergies Home Medications Medication Instructions Recorded Confirmed Type allopurinoL [Zyloprim] 300 mg PO DAILY 01/27/14 02/03/21 History amLODIPine BESYLATE [Norvasc] 5 mg PO DAILY #30 tab 01/28/14 02/03/21 Rx Metoprolol Succinate [Toprol Xl] 100 mg PO DAILY 04/22/18 02/03/21 History Atorvastatin Calcium [Lipitor] 20 mg PO HS 04/24/18 02/03/21 History Nitroglycerin Sl Tabs [Nitrostat] 0.4 mg SUBLINGUAL Q5M PRN #25 tab 04/24/18 02/03/21 Rx Apixaban [Eliquis] 5 mg PO BID 01/05/21 02/03/21 History Tamsulosin HCl [Flomax] 0.4 mg PO DAILY@1200 01/05/21 02/03/21 History Allergies Allergy/AdvReac Type Severity Reaction Status Date / Time No Known Allergies Allergy Verified 01/05/21 13:09 Physical Exam Vitals: Vital Signs Temp Pulse Resp BP BP Pulse Ox 02/06/21 04:33 98.5 F 71 16 143/74 95 02/05/21 20:00 98.5 F 69 16 125/64 95 02/05/21 13:08 98.0 F 70 18 142/73 99 02/05/21 08:30 70 161/74 Intake and Output 02/05/21 02/05/21 02/06/21 14:59 22:59 06:59 Intake Total 300 Balance 300 Intake: Oral 300 Other: Voiding Method Urinal Urinal # Voids 5 # Bowel Movements 0 Skin: Atrophic, intact. General: Thin build and comfortable appearance. Head: Normocephalic, atraumatic. Eyes: Symmetric. Pupils equal round. Ears: Symmetric. Hearing within normal limits. Mouth: Clear. Neck: Supple. Carotid without bruit. Cardiac: Regular rate and rhythm. Lungs: Clear anteriorly and posteriorly. Abdomen: Soft active nontender. Extremities: Normal tone. Neurological: Mental status: Alert, cooperative, pleasant. Cranial nerves: Symmetric facial tone and trapezius. Motor: Normal strength and isolation both arms. Can actively elevate right leg off of bed. Can actively move left leg but unable to get off of bed due to hip/thigh discomfort. Sensation: Intact throughout. DTRs: Symmetric and equal throughout. Mobility: Did not attempt to sit or stand this early a.m. Results CBC & Chem 7: 02/05/21 05:53 02/05/21 05:53 Labs: Abnormal Lab Results - Last 24 Hours (Table) 02/05/21 02/05/21 Range/Units 05:53 05:53 RBC 3.08 L (4.30-5.90) m/uL Hgb 11.2 L (13.0-17.5) gm/dL Hct 33.8 L (39.0-53.0) % MCV 109.6 H (80.0-100.0) fL MCH 36.4 H (25.0-35.0) pg Plt Count 118 L (150-450) k/uL Macrocytosis Marked A Est GFR (CKD-EPI)NonAf 54.4 L (60.0-200.0) Assessment and Plan (1) Inability to ambulate due to hip Current Visit: Yes Status: Acute Code(s): R26.2 - DIFFICULTY IN WALKING, NOT ELSEWHERE CLASSIFIED SNOMED Code(s): 727500678 Plan: Impression: 1. Walking only due to left hip pain. 2. Hypertension. 3. Disability. 4. Osteoarthritis. 5. History of stroke and cancer. 6. Sleep apnea. 7. Atrial fibrillation. 8. Chronic kidney disease. Comments and plan: At this time PT and OT are ongoing. Safety concerns noted. Did discuss possible inpatient rehab with patient. He is already discussed that is made decision for transferred to [facility].
[2021-02-06] MEDS: METOPROLOL SUCCINATE (ER) 50 MG TAB.ER.24H PO SCH (08:35)
[2021-02-06] MEDS: APIXABAN 5 MG TAB PO SCH ×2 (08:35→20:29)
[2021-02-06] MEDS: amLODIPine 5 MG TAB PO SCH (08:36)
[2021-02-06] MEDS: allopurinoL 300 MG TAB PO SCH (08:36)
[2021-02-06] MEDS: TAMSULOSIN 0.4 MG CAP.ER.24H PO SCH (11:29)
--- NOTE | 2021-02-06 12:42 | P.DS ---
Providers Date of admission: 02/05/21 14:51 Expected date of discharge: 02/06/21 Attending physician: Prosper Horn MD Consults: 02/03/21 14:12 Consult Physician Routine Consulting Provider: Hugh Campbell Consult Reason/Comments: left hip and groin pain, unable to lift left leg, CT and xray negative Do you want consulting provider notified?: Yes 02/05/21 13:27 Consult Physician Routine Consulting Provider: Tacos Quan Consult Reason/Comments: in patient rehab, pt with femoral acetabular hip impingement Do you want consulting provider notified?: Yes Primary care physician: [facility] Course: 85-year-old male with a PMH of AJuan barlow on Eliquis, status post pacemaker, history of CVA, hypertension, and hyperlipidemia who presents to the emergency room after a fall. The patient reports that he was at his home by himself when he lost his balance, falling backwards and hitting his head on the. The patient reports that during the fall, he felt as though he heard something in his left hip, and has been unable to raise his leg since then. He notes that due to the pain, he is able to walk sideways and backwards but is not able to walk forward. He denied any pain elsewhere. Denied losing consciousness, dizziness, or visual disturbances. Denied chest pain, shortness of breath, fever, chills, cough. Denied abdominal pain, diarrhea, nausea, vomiting. In the emergency room had/cervical spine CT revealed no acute abnormalities. Left hip x-ray was unremarkable. A left hip CT was also unremarkable aside from mild osteoarthritis. EKG was a V paced rhythm at 70 bpm. Laboratory evaluation was remarkable for troponin 0.047, hemoglobin 11.6, and MCV 109.4 with platelet count 115. Patient was admitted, was seen by orthopedics who did not think that patient needed any surgical intervention. Follow up left hip Xray showed hip impingement syndrome. The pain was relieved by Tylenol, morphine IV. He was seen by physical therapy and was referred to rehab. He'll be discharged to rehab in stable condition. He was initiated on Motrin 10 day course to reduce inflammation. In addition will be treated with tramadol when necessary for pain. Patient Condition at Discharge: Fair Plan - Discharge Summary Discharge Rx Participant: No New Discharge Prescriptions: New Acetaminophen Tab [Tylenol] 650 mg PO Q6HR PRN tab PRN Reason: Mild Pain Or Fever > 100.5 traMADol HCl [Ultram] 50 mg PO Q4-6H PRN 3 Days #15 tab PRN Reason: Pain Ibuprofen [Motrin] 400 mg PO Q8HR PRN 10 Days #30 tab PRN Reason: Pain Continue allopurinoL [Zyloprim] 300 mg PO DAILY amLODIPine BESYLATE [Norvasc] 5 mg PO DAILY #30 tab Metoprolol Succinate [Toprol Xl] 100 mg PO DAILY Atorvastatin Calcium [Lipitor] 20 mg PO HS Nitroglycerin Sl Tabs [Nitrostat] 0.4 mg SUBLINGUAL Q5M PRN #25 tab PRN Reason: Chest Pain Apixaban [Eliquis] 5 mg PO BID Tamsulosin HCl [Flomax] 0.4 mg PO DAILY@1200 Discharge Medication List allopurinoL [Zyloprim] 300 mg PO DAILY 01/27/14 [History] amLODIPine BESYLATE [Norvasc] 5 mg PO DAILY #30 tab 01/28/14 [Rx] Metoprolol Succinate [Toprol Xl] 100 mg PO DAILY 04/22/18 [History] Atorvastatin Calcium [Lipitor] 20 mg PO HS 04/24/18 [History] Nitroglycerin Sl Tabs [Nitrostat] 0.4 mg SUBLINGUAL Q5M PRN #25 tab 04/24/18 [Rx] Apixaban [Eliquis] 5 mg PO BID 01/05/21 [History] Tamsulosin HCl [Flomax] 0.4 mg PO DAILY@1200 01/05/21 [History] Acetaminophen Tab [Tylenol] 650 mg PO Q6HR PRN tab 02/06/21 [Rx] Ibuprofen [Motrin] 400 mg PO Q8HR PRN 10 Days #30 tab 02/06/21 [Rx] traMADol HCl [Ultram] 50 mg PO Q4-6H PRN 3 Days #15 tab 02/06/21 [Rx] Follow up Appointment(s)/Referral(s): Anna Cameron MD [Primary Care Provider] - 1-2 days Lucas Pace MD [STAFF PHYSICIAN] - As Needed
[2021-02-06] MEDS: ATORVASTATIN 20 MG TAB PO SCH (20:29)
[2021-02-06 20:42] VITALS: RESP 16
[2021-02-06] MEDS ORDERED: DOCUSATE 100 MG CAP PO PRN (22:00)
[2021-02-07] MEDS: METOPROLOL SUCCINATE (ER) 50 MG TAB.ER.24H PO SCH (09:10)
[2021-02-07] MEDS: amLODIPine 5 MG TAB PO SCH (09:10)
[2021-02-07] MEDS: APIXABAN 5 MG TAB PO SCH (09:10)
[2021-02-07] MEDS: allopurinoL 300 MG TAB PO SCH (09:10)
--- NOTE | 2021-02-07 10:05 | P.PN ---
Subjective Progress Note Date: 02/06/21 Principal diagnosis: hip pain Still having severe pain and limited ROM of the left hip tony with anterior movements of the hip. Objective - Vital Signs Vital signs: Vital Signs Temp 98 F 02/07/21 05:00 Pulse 70 02/07/21 05:00 Resp 16 02/07/21 05:00 BP 116/65 02/07/21 05:00 Pulse Ox 96 02/07/21 05:00 Intake & Output 02/06/21 02/07/21 02/07/21 18:59 06:59 18:59 Intake Total 600 Output Total 500 Balance 600 -500 Intake: Oral 600 Output: Urine 500 Other: Voiding Method Urinal # Bowel Movements 1 - Exam Constitutional: No acute distress, conversant, pleasant Eyes:Anicteric sclerae, moist conjunctiva, no lid-lag, PERRLA, ENMT: Oropharynx clear, no erythema, exudates Neck: Supple, FROM, no masses, or JVD, No carotid bruits, No thyromegaly Lungs: Clear to auscultation, Clear to percussion, Normal respiratory effort, no accessory muscle use Cardiovascular: Heart regular in rate and rhythm, No murmurs, gallops, or rubs, No peripheral edema Abdominal: Soft, Nontender, no guarding, rebound or rigidity, Normoactive bowel sounds, No hepatomegaly, No splenomegaly, No palpable mass Skin: Normal temperature, tone, texture, turgor, no induration, No subcutaneous nodules, No rash, lesions, No ulcers Extremities: No digital cyanosis, No clubbing, Pedal pulses intact and symmetrical, Radial pulses intact and symmetrical, No calf tenderness Psychiatric: Alert and oriented to person, place and time, appropriate affect, intact judgement Neuro: Muscles Strength 5/5 in all 4 extremities, Sensation to light touch grossly present throughout, Cranial nerves II-XII grossly intact, no focal sen nuvia deficits - Labs CBC & Chem 7: 02/05/21 05:53 02/05/21 05:53 Assessment and Plan Plan: Left hip pain and weakness status post mechanical fall Femoral Acetabular Hip Impingement -X-ray left hip and pelvis negative for acute fracture or abnormality. -CT left hip showing mild osteoarthritis otherwise normal exam. -X-ray left femur showing no acute fracture, arthropathy correlate for femoral acetabular hip impingement -PT/OT following, appreciate recommendations -adult health clinical nurse specialist consulted --no surgical recommendations -Fall precautions -Ambulatory with assistance, likely require group home placement. Elevated troponin, flat, acute coronary event ruled out Telemetry monitoring Patient denies cardiac complaints Continue daily medication regimen with Eliquis., atorvastatin, metoprolol, and amlodipine Macrocytic macrochromic anemia Thrombocytopenia -At baseline, no need for intervention. Will continue to monitor with repeat a.m. labs. Atrial fibrillation Continue anticoagulation with Eliquis. Hypertension Monitor vital signs and continue daily medication regimen with metoprolol and amlodipine. Hyperlipidemia -Continue daily medication regimen with atorvastatin. CODE STATUS: Full Code DVT prophylaxis: Eliquis. Discussed with: Patient Anticipated discharge date: Patient stable for discharge once bed available at inpatient rehabilitation Center. Anticipated discharge place: Inpatient rehabilitation Center A total of 45 minutes was spent on the care of this complex patient more than 50% of the time was spent in counseling and care coordination.
[2021-02-07] MEDS: TAMSULOSIN 0.4 MG CAP.ER.24H PO SCH (11:18)
[2021-02-07 13:13] VITALS: BP 121/67; PULSE 71; TEMP 97.5
== END 2021-02-07 13:47 ==
LOC: EC 22:54 → 3SCARD 02-03 03:12 → 5NMEDONC 02-03 11:07 → OBSVTOIN 02-05 14:51 → INTOOBSV 02-05 14:51 → UNDODISIN 02-07 13:47
PROVIDERS: ADMIT Internal Medicine; ATTEND Internal Medicine
DX: M25.852 Other specified joint disorders, left hip (principal); S13.180A Subluxation of C7/T1 cervical vertebrae, initial encounter; R55 Syncope and collapse; I48.91 Unspecified atrial fibrillation; E78.5 Hyperlipidemia, unspecified; Z20.822 Contact with and (suspected) exposure to COVID-19; D53.1 Other megaloblastic anemias, not elsewhere classified; D64.9 Anemia, unspecified; J44.9 Chronic obstructive pulmonary disease, unspecified; M47.893 Other spondylosis, cervicothoracic region; M43.14 Spondylolisthesis, thoracic region; M47.812 Spondylosis without myelopathy or radiculopathy, cervical region; M43.13 Spondylolisthesis, cervicothoracic region; R79.89 Other specified abnormal findings of blood chemistry; I12.9 Hypertensive chronic kidney disease with stage 1 through stage 4 chronic kidney disease, or unspecified chronic kidney disease; S09.90XA Unspecified injury of head, initial encounter; G31.89 Other specified degenerative diseases of nervous system; M16.12 Unilateral primary osteoarthritis, left hip; W01.0XXA Fall on same level from slipping, tripping and stumbling without subsequent striking against object, initial encounter; G47.30 Sleep apnea, unspecified; Z79.01 Long term (current) use of anticoagulants; Z79.899 Other long term (current) drug therapy; N18.9 Chronic kidney disease, unspecified; Z95.0 Presence of cardiac pacemaker; Z87.442 Personal history of urinary calculi; Z87.891 Personal history of nicotine dependence; Z96.653 Presence of artificial knee joint, bilateral; Z87.19 Personal history of other diseases of the digestive system; Z86.73 Personal history of transient ischemic attack (TIA), and cerebral infarction without residual deficits; Z80.1 Family history of malignant neoplasm of trachea, bronchus and lung; Z82.49 Family history of ischemic heart disease and other diseases of the circulatory system; Z83.3 Family history of diabetes mellitus
CPT/HCPCS: 99285; 96361; 96374; 96375; 36415; 93005; 97530 ×2; 97162; 97535; 97166; 86900; 86901; 83880; 80053; 80048; 83735 ×2; 84100; 84484; 85025; 85027; 85610; 85730; 86850; 81003; 87635 ×2; 73502; 73552; 72125; 70450; 73700; G0378 ×7; J2270; J2405; J1885

== ENCOUNTER → 2022-01-03 | Outpatient (CLI) | payer MEDICARE ==
--- NOTE | 2022-01-03 13:06 | US ---
EXAMINATION TYPE: US kidneys/renal and bladder DATE OF EXAM: 01/03/2022 COMPARISON: Abdominal ultrasound 01/31/2021, CT abdomen pelvis 07/04/2020. CLINICAL HISTORY: N20.1 kidney stone. History of kidney stones EXAM MEASUREMENTS: Right Kidney: 11.1 x 6.0 x 4.6 cm Left Kidney: 9.0 x 4.7 x 4.0 cm Right Kidney: cystic areas noted, largest = 2.0cm. These most consistent with simple cysts. Dense ech ogenic focus lower pole = 0.6cm with shadowing consistent with a renal calculus. Left Kidney: cystic area upper= 2.7 x 2.3 x 2.6 cm. This is most consistent with simple cyst. Heterog eneous solid lesion = 4.4 x 4.3 x 4.0cm without internal color flow. Unchanged in appearance from p rior exam. Bladder: wnl Bilateral Jets seen: no IMPRESSION: 1. Slight decrease in size of solid mass in the left lateral kidney measuring up to 4.4 cm with jesus lar morphology. Previously 5.0 cm. 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 Continued annual surveillance is recommended. 2. Bilateral renal cortical cyst redemonstrated. 3. Nonobstructive right renal calculus.
== END | disposition home or self-care (01) ==
LOC: RADUSWWP 12:05
PROVIDERS: ATTEND Urology
DX: N20.1 Calculus of ureter (principal)
CPT/HCPCS: 76770

== ENCOUNTER → 2022-03-05 | Outpatient (CLI) | payer MEDICARE ==
[2022-03-05 15:17] LABS: HCT 30.7 % (39.6-50.0); MCHC 32.6 g/dL (32.0-37.0); MCV 110.4 fL (80.0-97.0); NRBC Per 100 WBC 0 /100 WBCS (0.0-0.0); Platelet Count 136 X 10*3/uL (140-440); RBC 2.78 X 10*6/uL (4.40-5.60); RDW 15.3 % (11.5-14.5)
[2022-03-05 16:16] LABS: Basophils # (A) 0.01 X 10*3/uL (0.00-0.10); Basophils % (A) 0.3 %; Eosinophils # (A) 0.11 X 10*3/uL (0.04-0.35); Eosinophils % (A) 2.8 %; Immature Grans, Automated 0.3 %; Lymphocytes # (A) 0.63 X 10*3/uL (0.90-5.00); Lymphocytes % (A) 16.2 %; Macrocytosis (M) 2+; Monocytes # (A) 0.31 X 10*3/uL (0.20-1.00); Monocytes % (A) 7.9 %; Neutrophils # (A) 2.83 X 10*3/uL (1.80-7.70); Neutrophils % (A) 72.5 %
[2022-03-05 18:03] LABS: ALT 45 U/L (10-49); AST 34 U/L (14-35); African American GFR (CKD) 56.9 (60.0-200.0); Albumin 4.1 g/dL (3.8-4.9); Albumin/Globulin Ratio 1.86 (1.60-3.17); Alkaline Phosphatase 119 U/L (41-126); BUN/Creat Ratio 22.23 Ratio (12.00-20.00); Blood Urea Nitrogen 28.9 mg/dL (9.0-27.0); Calcium 10.6 mg/dL (8.7-10.3); Carbon Dioxide 23.4 mmol/L (20.0-27.5); Chloride 104 mmol/L (96-109); Chol/HDL Ratio 1.93 Ratio; Globulin 2.2 g/dL (1.6-3.3); Glucose 93 mg/dL (70-110); LDL Cholesterol,Calculated 35.7 mg/dL (0.0-131.0); Non-African American GFR(CKD) 49.1 (60.0-200.0); Potassium 4.9 mmol/L (3.5-5.5); Sodium 139 mmol/L (135-145); Total Protein 6.3 g/dL (6.2-8.2); VLDL Calculation 11.72 mg/dL (5.00-40.00)
== END | disposition home or self-care (01) ==
LOC: LABWHC1 10:09
PROVIDERS: ATTEND Family Medicine
DX: Z00.00 Encounter for general adult medical examination without abnormal findings (principal)
CPT/HCPCS: 36415; 80053; 80061; 85025

== ENCOUNTER → 2022-04-02 | Outpatient (CLI) | payer MEDICARE ==
[2022-04-02 15:59] LABS: African American GFR (CKD) 50.3 (60.0-200.0); Anion Gap 11.5 mmol/L (10.00-18.00); BUN/Creat Ratio 18.39 Ratio (12.00-20.00); Blood Urea Nitrogen 26.3 mg/dL (9.0-27.0); Calcium 9.8 mg/dL (8.7-10.3); Non-African American GFR(CKD) 43.4 (60.0-200.0); Potassium 4.2 mmol/L (3.5-5.5)
== END | disposition home or self-care (01) ==
LOC: LABWHC1 10:34
PROVIDERS: ATTEND Nurse Practitioner Adult Health
DX: I10 Essential (primary) hypertension (principal); R60.9 Edema, unspecified
CPT/HCPCS: 36415; 80048; 83880

== ENCOUNTER 2023-03-31 00:47 | Emergency (ER) | payer MEDICARE ==
[2023-03-31 01:10] VITALS: PULSE 70; RESP 18; TEMP 98.1
--- NOTE | 2023-03-31 01:14 | ED ---
Fall HPI - General Source: patient, EMS Mode of arrival: EMS <Jocelyn Adams - Last Filed: 03/31/23 03:31> <Rufus Quiroga - Last Filed: 03/31/23 03:52> - General Chief Complaint: Fall Stated Complaint: Fall Time Seen by Provider: 03/31/23 00:57 - History of Present Illness Initial Comments: 88-year-old male presenting for evaluation post fall. Patient arrives via EMS from senior care [facility]. History of dementia. Patient tells us that he was going to the bathroom and went to grab the bar attached to the wall but missed and fell down. He is unsure if he hit his head. No loss of consciousness. According to his chart patient takes Eliquis. He is complaining of left-sided thoracic and lumbar back pain. No nausea, vomiting, dizziness, headache, neck pain, numbness, tingling, vision or hearing changes, abdominal pain, chest pain, difficulty breathing. He was placed in c-collar by EMS. (Jocelyn Adams) - Related Data Home Medications Medication Instructions Recorded Confirmed allopurinoL [Zyloprim] 300 mg PO DAILY 01/27/14 02/03/21 Metoprolol Succinate [Toprol Xl] 100 mg PO DAILY 04/22/18 02/03/21 Atorvastatin Calcium [Lipitor] 20 mg PO HS 04/24/18 02/03/21 Apixaban [Eliquis] 5 mg PO BID 01/05/21 02/03/21 Tamsulosin HCl [Flomax] 0.4 mg PO DAILY@1200 01/05/21 02/03/21 Previous Rx's Medication Instructions Recorded amLODIPine BESYLATE [Norvasc] 5 mg PO DAILY #30 tab 01/28/14 Nitroglycerin Sl Tabs [Nitrostat] 0.4 mg SUBLINGUAL Q5M PRN #25 tab 04/24/18 Acetaminophen Tab [Tylenol] 650 mg PO Q6HR PRN tab 02/06/21 Ibuprofen [Motrin] 400 mg PO Q8HR PRN 10 Days #30 tab 02/06/21 traMADol HCl [Ultram] 50 mg PO Q4-6H PRN 3 Days #15 tab 02/06/21 Allergies Allergy/AdvReac Type Severity Reaction Status Date / Time No Known Allergies Allergy Verified 03/31/23 00:56 Review of Systems ROS Other: All systems not noted in ROS Statement are negative. <Jocelyn Adams - Last Filed: 03/31/23 03:31> ROS Other: All systems not noted in ROS Statement are negative. <Rufus Quiroga - Last Filed: 03/31/23 03:52> ROS Statement: Those systems with pertinent positive or pertinent negative responses have been documented in the HPI. Past Medical History Past Medical History: Atrial Fibrillation, Cancer, COPD, CVA/TIA, Hyperlipidemia, Hypertension, Osteoarthritis (OA), Renal Disease, Sleep Apnea/CPAP/BIPAP, Syncope Additional Past Medical History / Comment(s): PT CAME TO ER WITH SYNCOPAL AND NEAR SYNCOPAL EPISODES. PT HAS PACEMAKER DUE. TO BRADYCARDA. SKIN CA, KIDNEY STONES, PT HAS SLEEP APNEA AND HAS A CPAP MACHINE THAT HE SAID HE NO LONGER NEEDS. CVA 2019- right side weakness History of Any Multi-Drug Resistant Organisms: None Reported Past Surgical History: Hernia Repair, Orthopedic Surgery, Pacemaker Additional Past Surgical History / Comment(s): R GROIN HERNIA REPAIR. bilateral knee replacement, pacemaker WITH NEWEST DEVICE CHANGE IN 2009. Past Anesthesia/Blood Transfusion Reactions: No Reported Reaction Type of Cardiac Device: Permanent Pacemaker Device Placement Date:: 2009 Past Psychological History: No Psychological Hx Reported Smoking Status: Former smoker Past Alcohol Use History: None Reported Past Drug Use History: None Reported - Past Family History Father Family Medical History: Cancer, CVA/TIA, Diabetes Mellitus Additional Family Medical History / Comment(s): FATHER OF LUNG CANCER AT AGE 82YRS. Mother Family Medical History: Coronary Artery Disease (CAD) Additional Family Medical History / Comment(s): MOTHER AT AGE 72 YRS. <Jocelyn Adams - Last Filed: 03/31/23 03:31> General Exam Limitations: no limitations General appearance: alert, in no apparent distress Head exam: Present: atraumatic, normocephalic Eye exam: Present: normal appearance, PERRL, EOMI. Absent: periorbital swelling Neck exam: Present: normal inspection (In c-collar) Respiratory exam: Present: normal lung sounds bilaterally. Absent: respiratory distress, wheezes, rales, rhonchi, stridor Cardiovascular Exam: Present: regular rate, normal rhythm, normal heart sounds. Absent: systolic murmur, diastolic murmur, rubs, gallop, clicks Extremities exam: Present: normal inspection, full ROM Neurological exam: Present: alert, oriented X3 Expanded Speech: Present: fluid speech Cranial nerves: EOM's Intact: Normal Motor strength exam: RUE: 5, LUE: 5, RLE: 5, LLE: 5 Eye Response: (4) open spontaneously Motor Response: (6) obeys commands Verbal Response: (5) oriented Wyatt Total: 15 Psychiatric exam: Present: normal affect, normal mood Skin exam: Present: warm, dry <Jocelyn Adams - Last Filed: 03/31/23 03:31> Course Vital Signs 03/31/23 03/31/23 00:48 02:00 Temperature 98.1 F Pulse Rate 70 70 Respiratory 18 18 Rate Blood Pressure 129/67 118/61 O2 Sat by Pulse 96 94 L Oximetry Medical Decision Making <Jocelyn Adams - Last Filed: 03/31/23 03:31> <Rufus Quiroga - Last Filed: 03/31/23 03:52> - Medical Decision Making Was pt. sent in by a medical professional or institution (, PA, ASP NET PROGRAMMER, urgent care, hospital, or senior care...) When possible be specific @ -No Did you speak to anyone other than the patient for history (EMS, parent, family, police, friend...)? What history was obtained from this source @ -No Did you review nursing and triage notes (agree or disagree)? Why? @ -I reviewed and agree with nursing and triage notes Were old charts reviewed (outside hosp., previous admission, EMS record, old EKG, old radiological studies, urgent care reports/EKG's, senior care records)? Report findings @ -No old charts were reviewed Differential Diagnosis (chest pain, altered mental status, abdominal pain women, abdominal pain men, vaginal bleeding, weakness, fever, dyspnea, syncope, headache, dizziness, GI bleed, back pain, seizure, CVA, palpatations, mental health, musculoskeletal)? @ -Differential includes fracture, intracranial hemorrhage, concussion, this is not a nonocclusive last EKG interpreted by me (3pts min.). @ -As above X-rays interpreted by me (1pt min.). @ -None done CT interpreted by me (1pt min.). @ -CTs are pending U/S interpreted by me (1pt. min.). @ -None done What testing was considered but not performed or refused? (CT, X-rays, U/S, labs)? Why? @ -None What meds were considered but not given or refused? Why? @ -None Did you discuss the management of the patient with other professionals (professionals i.e. DrJuan, PA, ASP NET PROGRAMMER, lab, RT, psych nurse, geriatric social work professor, sprayer hand, teacher, attendance officer, outsole caser)? Give summary @ -No Was smoking cessation discussed for >3mins.? @ -No Was critical care preformed (if so, how long)? @ -No Were there social determinants of health that impacted care today? How? (Homelessness, low income, unemployed, alcoholism, drug addiction, transportation, low edu. Level, literacy, decrease access to med. care, care home, rehab)? @ -No Was there de-escalation of care discussed even if they declined (Discuss DNR or withdrawal of care, Hospice)? DNR status @ -No What co-morbidities impacted this encounter? (DM, HTN, Smoking, COPD, CAD, Cancer, CVA, ARF, Chemo, Hep., AIDS, mental health diagnosis, sleep apnea, morbid obesity)? @ -None Was patient admitted / discharged? Hospital course, mention meds given and route, prescriptions, significant lab abnormalities, going to OR and other pertinent info. @ -88-year-old male presenting for evaluation post fall. He comes from the senior care. He denies loss of consciousness, he is on eliquis. No focal neurological deficits, GCS 15, CTs are pending at this time. Patient is signed out to my attending for further management and disposition. (Jocelyn Adams) CT brain negative for intracranial hemorrhage, CT cervical spine negative for fracture or subluxation, CT of the thoracic and lumbar spine is negative for acute fracture. Patient stable for discharge back to senior care. (Rufus Quiroga) Disposition <Jocelyn Adams - Last Filed: 03/31/23 03:31> Is patient prescribed a controlled substance at d/c from ED?: No Time of Disposition: 03:52 <Rufus Quiroga - Last Filed: 03/31/23 03:52> Clinical Impression: Fall Disposition: HOME SELF-CARE Condition: Fair Instructions (If sedation given, give patient instructions): Fall Prevention for Older Adults (ED) Referrals: None,Stated [Primary Care Provider] - 1-2 days
[2023-03-31] MEDS ORDERED: DIPH,PERTUS(ACELL)TETVAC-LF 0.5 ML VIAL IM ONE (02:10)
[2023-03-31] MEDS ORDERED: MORPHINE SULFATE 2 MG/ML SYRINGE IVP STA (02:22)
--- NOTE | 2023-03-31 03:35 | CT ---
EXAM: CT Head Without Intravenous Contrast CLINICAL HISTORY: ITS.REASON CT Reason: fall TECHNIQUE: Axial computed tomography images of the head/brain without intravenous contrast. CTDI is 45.2 mGy and DLP is 1125 mGy-cm. This CT exam was performed using one or more of the following dose reduction techniques: automated exposure control, adjustment of the mA and/or kV according to patient size, and/or use of iterative reconstruction technique. COMPARISON: 02/02/2021 FINDINGS: Brain: Moderate ischemic microangiopathy. Age appropriate cerebral volume loss. No hemorrhage. Ventricles: Unremarkable. No ventriculomegaly. Bones/joints: Unremarkable. No acute fracture. Soft tissues: Unremarkable. Sinuses: Unremarkable as visualized. No acute sinusitis. Mastoid air cells: Unremarkable as visualized. No mastoid effusion. IMPRESSION: 1. Chronic senescent changes as described above. 2. Head CT negative for acute intracranial abnormality EXAM: CT Cervical Spine Without Intravenous Contrast CLINICAL HISTORY: ITS.REASON CT Reason: fall TECHNIQUE: Axial computed tomography images of the cervical spine without intravenous contrast. CTDI is 8.7 mGy and DLP is 286.9 mGy-cm. This CT exam was performed using one or more of the following dose reduction techniques: automated exposure control, adjustment of the mA and/or kV according to patient size, and/or use of iterative reconstruction technique. COMPARISON: No relevant prior studies available. FINDINGS: Vertebrae: No acute fracture. Discs/spinal canal/neural foramina: Multilevel cervical spondylopathy resulting in varying degrees of canal and foraminal. . Soft tissues: Unremarkable. Pleural space: Large bilateral pleural effusions. IMPRESSION: 1. Large bilateral pleural effusions 2. CT of cervical spine negative for acute traumatic abnormality
--- NOTE | 2023-03-31 03:39 | CT ---
EXAM: CT Thoracic Spine Without Intravenous Contrast CLINICAL HISTORY: ITS.REASON CT Reason: fall TECHNIQUE: Axial computed tomography images of the thoracic spine without intravenous contrast. CTDI is 11.8 mGy and DLP is 678 mGy-cm. This CT exam was performed using one or more of the following dose reduction techniques: automated exposure control, adjustment of the mA and/or kV according to patient size, and/or use of iterative reconstruction technique. COMPARISON: No relevant prior studies available. FINDINGS: Vertebrae: See below. Discs/spinal canal/neural foramina: No acute findings. No spinal canal stenosis. Soft tissues: Unremarkable. Pleural space: Large bilateral pleural effusions with cardiomegaly. Diffuse osteopenia. IMPRESSION: No acute findings in the thoracic spine. Large bilateral pleural effusions with cardiomegaly EXAM: CT Lumbar Spine Without Intravenous Contrast CLINICAL HISTORY: ITS.REASON CT Reason: fall TECHNIQUE: Axial computed tomography images of the lumbar spine without intravenous contrast. CTDI is 11.8 mGy and DLP is 678 mGy-cm. This CT exam was performed using one or more of the following dose reduction techniques: automated exposure control, adjustment of the mA and/or kV according to patient size, and/or use of iterative reconstruction technique. COMPARISON: No relevant prior studies available. FINDINGS: Vertebrae: Unremarkable. No acute fracture. Discs/spinal canal/neural foramina: Discogenic disc disease resulting in bilateral neural foraminal stenosis at Narrowing at L5-S1 L4-5 and L3- L4 due to a degenerative disc bulge and bony hypertrophy. Soft tissues: Unremarkable. Diffuse osteopenia. IMPRESSION: Discogenic disc disease resulting in bilateral neural foraminal stenosis at Narrowing at L5-S1 L4-5 and L3-L4 due to a degenerative disc bulge and bony hypertrophy.
[2023-03-31 04:59] VITALS: BP 116/58
== END 2023-03-31 05:45 | disposition home or self-care (01) ==
LOC: EC 00:47
DX: M54.50 Low back pain, unspecified (principal); E78.5 Hyperlipidemia, unspecified; G47.30 Sleep apnea, unspecified; I48.91 Unspecified atrial fibrillation; J44.9 Chronic obstructive pulmonary disease, unspecified; M19.90 Unspecified osteoarthritis, unspecified site; I10 Essential (primary) hypertension; Z79.01 Long term (current) use of anticoagulants; Z79.899 Other long term (current) drug therapy; Z87.891 Personal history of nicotine dependence; Z95.0 Presence of cardiac pacemaker; Z23 Encounter for immunization; W18.30XA Fall on same level, unspecified, initial encounter; Y92.002 Bathroom of unspecified non-institutional (private) residence as the place of occurrence of the external cause
CPT/HCPCS: 93005; 72128; 72125; 72131; 70450; 90715; 99285; 90471; 96374; J2270

== ENCOUNTER 2023-03-31 11:33 | Inpatient (IN) | payer MEDICARE ==
[2023-03-31] MEDS ORDERED: SODIUM CHLORIDE 0.9% 1,000 ML IV STA (12:07)
--- NOTE | 2023-03-31 12:10 | ED ---
General Adult HPI - General Chief complaint: Syncope Stated complaint: Syncope Time Seen by Provider: 03/31/23 11:35 Source: patient, EMS, RN notes reviewed Mode of arrival: EMS Limitations: no limitations - History of Present Illness Initial comments: Patient is a pleasant 88-year-old male presenting to the emergency department for possible syncopal episode. Patient was in the emergency department earlier for fall. Patient does not believe he passed out however EMS reported that patient passed out. Patient states he is just too weak to get out of bed. Patient is a poor historian. - Related Data Home Medications Medication Instructions Recorded Confirmed allopurinoL [Zyloprim] 300 mg PO DAILY 01/27/14 02/03/21 Metoprolol Succinate [Toprol Xl] 100 mg PO DAILY 04/22/18 02/03/21 Atorvastatin Calcium [Lipitor] 20 mg PO HS 04/24/18 02/03/21 Apixaban [Eliquis] 5 mg PO BID 01/05/21 02/03/21 Tamsulosin HCl [Flomax] 0.4 mg PO DAILY@1200 01/05/21 02/03/21 Previous Rx's Medication Instructions Recorded amLODIPine BESYLATE [Norvasc] 5 mg PO DAILY #30 tab 01/28/14 Nitroglycerin Sl Tabs [Nitrostat] 0.4 mg SUBLINGUAL Q5M PRN #25 tab 04/24/18 Acetaminophen Tab [Tylenol] 650 mg PO Q6HR PRN tab 02/06/21 Ibuprofen [Motrin] 400 mg PO Q8HR PRN 10 Days #30 tab 02/06/21 traMADol HCl [Ultram] 50 mg PO Q4-6H PRN 3 Days #15 tab 02/06/21 Allergies Allergy/AdvReac Type Severity Reaction Status Date / Time No Known Allergies Allergy Verified 03/31/23 00:56 Review of Systems ROS Statement: Those systems with pertinent positive or pertinent negative responses have been documented in the HPI. ROS Other: All systems not noted in ROS Statement are negative. Constitutional: Denies: fever Eyes: Denies: eye pain ENT: Denies: ear pain Respiratory: Denies: cough, dyspnea Cardiovascular: Denies: chest pain Endocrine: Denies: fatigue Gastrointestinal: Denies: abdominal pain Genitourinary: Denies: dysuria Neurological: Reports: as per HPI, weakness. Denies: headache Past Medical History Past Medical History: Atrial Fibrillation, Cancer, COPD, CVA/TIA, Dementia, Hyperlipidemia, Hypertension, Osteoarthritis (OA), Renal Disease, Sleep Apnea/CPAP/BIPAP, Syncope Additional Past Medical History / Comment(s): PT CAME TO ER WITH SYNCOPAL AND NEAR SYNCOPAL EPISODES. PT HAS PACEMAKER DUE. TO BRADYCARDA. SKIN CA, KIDNEY STONES, PT HAS SLEEP APNEA AND HAS A CPAP MACHINE THAT HE SAID HE NO LONGER NEEDS. CVA 2019- right side weakness History of Any Multi-Drug Resistant Organisms: None Reported Past Surgical History: Hernia Repair, Orthopedic Surgery, Pacemaker Additional Past Surgical History / Comment(s): R GROIN HERNIA REPAIR. bilateral knee replacement, pacemaker WITH NEWEST DEVICE CHANGE IN 2009. Past Anesthesia/Blood Transfusion Reactions: No Reported Reaction Type of Cardiac Device: Permanent Pacemaker Device Placement Date:: 2009 Past Psychological History: No Psychological Hx Reported Smoking Status: Former smoker Past Alcohol Use History: None Reported Past Drug Use History: None Reported - Past Family History Father Family Medical History: Cancer, CVA/TIA, Diabetes Mellitus Additional Family Medical History / Comment(s): FATHER OF LUNG CANCER AT AGE 82YRS. Mother Family Medical History: Coronary Artery Disease (CAD) Additional Family Medical History / Comment(s): MOTHER AT AGE 72 YRS. General Exam Limitations: no limitations General appearance: alert, in no apparent distress Head exam: Present: normocephalic Eye exam: Present: normal appearance, PERRL, EOMI ENT exam: Present: mucous membranes dry Neck exam: Present: normal inspection Respiratory exam: Present: normal lung sounds bilaterally Cardiovascular Exam: Present: regular rate, normal rhythm GI/Abdominal exam: Present: soft. Absent: tenderness Extremities exam: Present: normal inspection, full ROM. Absent: tenderness Neurological exam: Present: alert, CN II-XII intact. Absent: motor sensory deficit Expanded Neurological exam: Present: protecting the airway Cranial nerves: EOM's Intact: Normal Motor strength exam: RUE: 5, LUE: 5, RLE: 5, LLE: 5 Psychiatric exam: Present: normal affect, normal mood Skin exam: Present: normal color Course Vital Signs 03/31/23 03/31/23 03/31/23 11:34 12:07 12:10 Temperature 97.6 F Pulse Rate 68 Pulse Rate [ 71 70 Plate Mill Hand ] Respiratory 18 18 20 Rate Blood Pressure 96/57 Blood Pressure 110/61 [Left Arm Sitting] Blood Pressure [Left Arm Standing] Blood Pressure 110/59 [Left Arm Supine] O2 Sat by Pulse 92 L 89 L Oximetry 03/31/23 03/31/23 12:11 13:45 Temperature Pulse Rate 73 Pulse Rate [ Plate Mill Hand ] Respiratory 20 Rate Blood Pressure 115/63 Blood Pressure [Left Arm Sitting] Blood Pressure 78/44 [Left Arm Standing] Blood Pressure [Left Arm Supine] O2 Sat by Pulse 90 L Oximetry EKG Findings - EKG Results: EKG: interpreted by JOSE ARMANDOD (Paced rhythm with a rate of 70. Left axis. Wide Complex QRS.) Medical Decision Making - Medical Decision Making Was pt. sent in by a medical professional or institution (, PA, NUCLEAR SCIENTIST, urgent care, hospital, or detention...) When possible be specific @ -No Did you speak to anyone other than the patient for history (EMS, parent, family, police, friend...)? What history was obtained from this source @ -Family states patient did get up and become unresponsive Did you review nursing and triage notes (agree or disagree)? Why? @ -I reviewed and agree with nursing and triage notes Were old charts reviewed (outside hosp., previous admission, EMS record, old EKG, old radiological studies, urgent care reports/EKG's, detention records)? Report findings @ -Old chest x-ray reviewed Differential Diagnosis (chest pain, altered mental status, abdominal pain women, abdominal pain men, vaginal bleeding, weakness, fever, dyspnea, syncope, headache, dizziness, GI bleed, back pain, seizure, CVA, palpatations, mental health, musculoskeletal)? @ -Differential Syncope: Valvular disease, hypertrophic cardiomyopathy, pulmonary embolism, tamponade, tachycardia, bradycardia, KS, hypovolemia, hemorrhage, dissection, anemia, intracranial hemorrhage, seizure, hypoglycemia, carbon monoxide poisoning, this is not meant to be an all-inclusive list. EKG interpreted by me (3pts min.). @ -As above X-rays interpreted by me (1pt min.). @ -Chest x-ray shows cardiomegaly. Moderate left effusion. Mild right effusion. CT interpreted by me (1pt min.). @ -CT brain without obvious acute abnormality. U/S interpreted by me (1pt. min.). @ -None done What testing was considered but not performed or refused? (CT, X-rays, U/S, labs)? Why? @ -None What meds were considered but not given or refused? Why? @ -None Did you discuss the management of the patient with other professionals (professionals i.e. , PA, NUCLEAR SCIENTIST, lab, RT, psych nurse, social and human services assistant, hardwood flooring specialist, teacher, food safety officer, case management social worker)? Give summary @ -Case was discussed with Dr. Gerber, who will admit covering Dr. Domingo Was smoking cessation discussed for >3mins.? @ -No Was critical care preformed (if so, how long)? @ -No Were there social determinants of health that impacted care today? How? (Homelessness, low income, unemployed, alcoholism, drug addiction, transportation, low edu. Level, literacy, decrease access to med. care, usp, rehab)? @ -No Was there de-escalation of care discussed even if they declined (Discuss DNR or withdrawal of care, Hospice)? DNR status @ -No What co-morbidities impacted this encounter? (DM, HTN, Smoking, COPD, CAD, Cancer, CVA, ARF, Chemo, Hep., AIDS, mental health diagnosis, sleep apnea, morbid obesity)? @ -None Was patient admitted / discharged? Hospital course, mention meds given and rou te, prescriptions, significant lab abnormalities, going to OR and other pertinent info. @ -Patient reevaluated. Patient and family updated and results and plan. Patient will be admitted. Cardiology will be placed on consult. Admission orders written. Undiagnosed new problem with uncertain prognosis? @ -No Drug Therapy requiring intensive monitoring for toxicity (Heparin, Nitro, Insulin, Cardizem)? @ -No Were any procedures done? @ -No Diagnosis/symptom? @ -Syncope, orthostatic hypotension Acute, or Chronic, or Acute on Chronic? @ -Acute, acute Uncomplicated (without systemic symptoms) or Complicated (systemic symptoms)? @ -default Side effects of treatment? @ -No Exacerbation, Progression, or Severe Exacerbation? @ -No Poses a threat to life or bodily function? How? (Chest pain, USA, KS, pneumonia, PE, COPD, DKA, ARF, appy, cholecystitis, CVA, Diverticulitis, Homicidal, Suicidal, threat to staff... and all critical care pts) @ -No - Lab Data Result diagrams: 03/31/23 12:19 03/31/23 12:19 Lab Results 03/31/23 03/31/23 03/31/23 Range/Units 12:19 12:19 12:19 WBC 5.0 (3.8-10.6) k/uL RBC 2.36 L (4.30-5.90) m/uL Hgb 8.5 L (13.0-17.5) gm/dL Hct 27.0 L (39.0-53.0) % MCV 114.3 H (80.0-100.0) fL MCH 35.9 H (25.0-35.0) pg MCHC 31.4 (31.0-37.0) g/dL RDW 16.5 H (11.5-15.5) % Plt Count 99 L (150-450) k/uL MPV 8.0 Neutrophils % 88 % Lymphocytes % 5 % Monocytes % 6 % Eosinophils % 0 % Basophils % 0 % Neutrophils # 4.4 (1.3-7.7) k/uL Lymphocytes # 0.2 L (1.0-4.8) k/uL Monocytes # 0.3 (0-1.0) k/uL Eosinophils # 0.0 (0-0.7) k/uL Basophils # 0.0 (0-0.2) k/uL Manual Slide Review Performed Hypochromasia Marked Anisocytosis Slight Macrocytosis Marked A PT 12.2 (10.0-12.5) sec INR 1.1 (<1.2) APTT 24.4 (22.0-30.0) sec Sodium 138 (137-145) mmol/L Potassium 4.4 (3.5-5.1) mmol/L Chloride 101 (98-107) mmol/L Carbon Dioxide 18 L (22-30) mmol/L Anion Gap 19 mmol/L BUN 27 H (9-20) mg/dL Creatinine 1.13 (0.66-1.25) mg/dL Est GFR (CKD-EPI)AfAm 67 (>60 ml/min/1.73 sqM) Est GFR (CKD-EPI)NonAf 58 (>60 ml/min/1.73 sqM) Glucose 141 H (74-99) mg/dL Calcium 10.1 (8.4-10.2) mg/dL Magnesium 2.1 (1.6-2.3) mg/dL Total Bilirubin 1.5 H (0.2-1.3) mg/dL AST 34 (17-59) U/L ALT 25 (4-49) U/L Alkaline Phosphatase 145 H (38-126) U/L Troponin I (0.000-0.034) ng/mL Total Protein 6.5 (6.3-8.2) g/dL Albumin 3.6 (3.5-5.0) g/dL 03/31/23 Range/Units 12:19 WBC (3.8-10.6) k/uL RBC (4.30-5.90) m/uL Hgb (13.0-17.5) gm/dL Hct (39.0-53.0) % MCV (80.0-100.0) fL MCH (25.0-35.0) pg MCHC (31.0-37.0) g/dL RDW (11.5-15.5) % Plt Count (150-450) k/uL MPV Neutrophils % % Lymphocytes % % Monocytes % % Eosinophils % % Basophils % % Neutrophils # (1.3-7.7) k/uL Lymphocytes # (1.0-4.8) k/uL Monocytes # (0-1.0) k/uL Eosinophils # (0-0.7) k/uL Basophils # (0-0.2) k/uL Manual Slide Review Hypochromasia Anisocytosis Macrocytosis PT (10.0-12.5) sec INR (<1.2) APTT (22.0-30.0) sec Sodium (137-145) mmol/L Potassium (3.5-5.1) mmol/L Chloride (98-107) mmol/L Carbon Dioxide (22-30) mmol/L Anion Gap mmol/L BUN (9-20) mg/dL Creatinine (0.66-1.25) mg/dL Est GFR (CKD-EPI)AfAm (>60 ml/min/1.73 sqM) Est GFR (CKD-EPI)NonAf (>60 ml/min/1.73 sqM) Glucose (74-99) mg/dL Calcium (8.4-10.2) mg/dL Magnesium (1.6-2.3) mg/dL Total Bilirubin (0.2-1.3) mg/dL AST (17-59) U/L ALT (4-49) U/L Alkaline Phosphatase (38-126) U/L Troponin I 0.164 H* (0.000-0.034) ng/mL Total Protein (6.3-8.2) g/dL Albumin (3.5-5.0) g/dL Disposition Clinical Impression: Syncope, Orthostatic hypotension Disposition: ADMITTED IP TO THIS HOSP Is patient prescribed a controlled substance at d/c from ED?: No Referrals: Asher Argueta MD [Primary Care Provider] - 1-2 days Time of Disposition: 14:25
[2023-03-31 12:56] LABS: Anisocytosis Slight; Basophils % (A) 0 %; Eosinophils % (A) 0 %; HGB 8.5 gm/dL (13.0-17.5); Hypochromasia Marked; Lymphocytes # (A) 0.2 k/uL (1.0-4.8); Lymphocytes % (A) 5 %; MCH 35.9 pg (25.0-35.0); MCHC 31.4 g/dL (31.0-37.0); MCV 114.3 fL (80.0-100.0); Macrocytosis Marked; Monocytes # (A) 0.3 k/uL (0-1.0); Monocytes % (A) 6 %; Neutrophils # (A) 4.4 k/uL (1.3-7.7); Neutrophils % (A) 88 %; RBC 2.36 m/uL (4.30-5.90); RDW 16.5 % (11.5-15.5)
[2023-03-31 13:05] LABS: ALT 25 U/L (4-49); AST 34 U/L (17-59); African American GFR (CKD) 67 (>60 ml/min/1.73 sqM); Albumin 3.6 g/dL (3.5-5.0); Alkaline Phosphatase 145 U/L (38-126); Anion Gap 19 mmol/L; Blood Urea Nitrogen 27 mg/dL (9-20); Calcium 10.1 mg/dL (8.4-10.2); Carbon Dioxide 18 mmol/L (22-30); Chloride 101 mmol/L (98-107); Glucose 141 mg/dL (74-99); Magnesium 2.1 mg/dL (1.6-2.3); Non-African American GFR(CKD) 58 (>60 ml/min/1.73 sqM); Sodium 138 mmol/L (137-145); Total Bilirubin 1.5 mg/dL (0.2-1.3); Total Protein 6.5 g/dL (6.3-8.2)
[2023-03-31 13:06] LABS: Potassium 4.4 mmol/L (3.5-5.1)
[2023-03-31] MEDS ORDERED: SODIUM CHLORIDE 0.9% 500 ML 500 ML IV STA (13:07)
--- NOTE | 2023-03-31 13:08 | XR ---
EXAMINATION TYPE: XR chest 2V DATE OF EXAM: 03/31/2023 COMPARISON: 01/05/2021 INDICATION: Syncope TECHNIQUE: Frontal and lateral views of the chest are obtained. FINDINGS: The heart size is enlarged. The pulmonary vasculature is normal. Small right and rionu-ox-hoskypsy left pleural effusions are present. Some adjacent atelectasis is li makenzie present. Electronic device overlies the left chest.. IMPRESSION: 1. Small right and moderate left pleural effusion. 2. Cardiomegaly. 3. Bibasilar infiltrates. Correlate for atelectasis
[2023-03-31 13:21] LABS: Platelet Count 99 k/uL (150-450)
[2023-03-31 13:37] LABS: INR 1.1 (<1.2); Prothrombin Time 12.2 sec (10.0-12.5)
[2023-03-31 13:38] LABS: Partial Thromboplastin Time 24.4 sec (22.0-30.0)
--- NOTE | 2023-03-31 14:01 | CT ---
EXAMINATION TYPE: CT brain wo con DATE OF EXAM: 03/31/2023 COMPARISON: 03/31/2023 INDICATION: Syncope DLP: 1300.9 mGycm, Automated exposure control for dose reduction was used. CONTRAST: None CT of the brain is performed utilizing 3 mm thick sections through the posterior fossa and 3 mm thick sections through the remaining calvarium. Study is performed within 24 hours of arrival to the hosp ital. No abnormal hyperdensity is present to suggest an acute intracranial hemorrhage. No mass lesion is evident. No acute infarcts are evident. Mild periventricular white matter ischemic-type changes may be present Ventricles and sulci are mildly prominent for the patient age. There is a patent cavum septum lucidu m, normal variant. Paranasal sinuses and mastoid air cells within the qmiiz-ak-gryl are clear. IMPRESSION: 1. Stable CT brain from earlier exam. Follow-up MRI can be performed as clinically indicated. 2. Suggestion of mild chronic appearing periventricular white matter ischemic changes with some mild atrophy
[2023-03-31] MEDS ORDERED: NALOXONE 0.4 MG/ML 1 ML VIAL IV PRN (14:26)
[2023-03-31] MEDS ORDERED: ACETAMINOPHEN TAB 325 MG TAB PO PRN (14:26)
[2023-03-31] MEDS: SODIUM CHLORIDE 0.9% 1,000 ML IV SCH (14:36)
--- NOTE | 2023-03-31 15:34 | P.HPIM ---
History of Present Illness H&P Date: 03/31/23 History of Presenting Illness: Patient is a very pleasant 88-year-old mle with a past medical history of CAD with permanent pacemaker secondary to symptomatic bradycardia, hypertension, hyperlipidemia, atrial fibrillation on anticoagulation with Eliquis, COPD not home oxygen dependent and History of CVA with right-sided deficit/mild weakness and mild speech impairment/stuttering. He presented to the emergency department secondary to concerns of syncopal episode/fall. Per ED documentation patient was seen earlier this morning after reports of fall at [facility] and was discharged home. Patient returning to the emergency department now for reports of syncopal episode. Patient reports multiple falls over the past few days, states that he has had diarrhea at least 5-6 times daily ongoing for a couple of weeks and upon grabbing the grab bar in the bathroom he missed it falling onto the floor. Patient adamantly denies hitting his head or having a loss of consciousness per his niece at bedside, [facility]'s staff report patient did lose consciousness. Patient currently reports having upper and mid back pain secondary to skin tears/avulsion obtained in previous fall and reports diarrhea but denies having any headache, lightheadedness, dizziness, changes in vision or hearing, chest pain, palpitations, shortness of breath, cough or congestion, abdominal pain, changes in or difficulties with urination, or experiencing any numbness/tingling/weakness in his extremities. Patient underwent full evaluation upon arrival to the emergency department. Vital signs upon arrival show blood pressure 129/67, heart rate 70, respiratory rate 18, temp 98.1F, SpO2 of 96% on room air. EKG completed showing a ventricular paced per minute. Chest x-ray completed showing cardiomegaly with small right and moderate left pleural effusion and bibasilar infiltrates correlating for atelectasis. CT brain completed showing stable CT of brain when compared to exam completed earlier this morning showing suggestion of mild chronic appearing periventricular white matter ischemic changes with some mild atrophy. Labs completed and reviewed. CBC showing macrocytic anemia with hemoglobin of 8.5 and thrombocytopenia with platelet count of 99 (baseline hemoglobin around 10.5). Coagulation profile normal findings. BMP revealing hypocarbia with bicarb of 18, elevated anion gap of 19, and prerenal azotemia with BUN of 27, creatinine 1.13, GFR 58. Glucose 141. Total bili elevated at 1.5 and alkaline phosphatase of 145. Troponin 0.164. Upon review of imaging completed earlier this morning, CT thoracic and lumbar spine revealing large bilateral pleural effusions with cardiomegaly, negative for acute spinal abnormality of thoracic spine revealing disc disease resulting in bilateral neural foraminal stenosis and narrowing at L5 through S1, L4 through L5, and L3 through L4 due to a degenerative disc bulge and bony hypertrophy. CT cervical spine was negative for acute traumatic abnormality. Patient was admitted under our services with consultation to cardiology. Patient reports he is to follow with Dr. 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 Patient's niece at bedside reports that Mr. Bruce is at his baseline mentation and speech ability. Patient is alert to person, place, and situation and is able to discuss some of his medical history but at times is a poor historian. Review of systems: Pertinent positives and negatives as discussed in HPI, a complete review of systems was performed and all other systems are negative. Physical exam: Vital signs reviewed and stable. General: Nontoxic, no distress and appears stated age. Derm: Skin warm and dry, normal coloration for ethnicity. Patient with multiple bruises on upper and lower extremities in different stages of healing. Large skin tear right arm/elbow, skin tear left arm/wrist, and large skin tear to thoracic region of patient's back. Head: Atraumatic, normocephalic and symmetric. Eyes: EOMs intact, no lid lag, and anicteric sclera Mouth: no lip lesions, mucus membranes moist Cardiovascular: regular rate and rhythm with normal S1S2, systolic murmur, positive posterior tibial pulses bilaterally, and cap refill < 2 seconds. Lungs: Respirations even, regular, and unlabored on room air. Lungs CTA bilaterally, no rhonchi, no rales, no wheezing, and no accessory muscle usage. Abdominal: soft, nontender to palpation, no guarding, no appreciable organomegaly Ext: No gross muscle atrophy, no edema, no contractures. Movement and sensation intact. Neuro: Speech with mild stutter, face symmetrical. Psych: Alert and oriented. Appropriate and pleasant affect. 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 Patient remaining continuous telemetry monitoring. Fall precautions in place. Neuro checks every 4 hours. Orthostatic vitals positive with blood pressure 110/59 lying, 110/61 sitting, and 78/44 standing. Trend troponins every 3 hours 2 Order placed for echocardiogram Order placed for stool culture and C. diff secondary to reports of diarrhea 5-6 times daily x weeks Continue gentle IV fluid hydration with 0.9% normal saline at 75 mL's per hour pending creatinine kinase results. LATRICE freed Continuation of anticoagulation with Eliquis 5 mg twice daily and will review and reorder home medications once medication reconciliation is completed. Could consider giving d-dimer however patient denies having any complaints of dizziness, lightheadedness, chest pain, palpitations, or experiencing any numbness/tingling/weakness/swelling in his extremities. Patient on anticoagulation and reports taking medication as prescribed. Data and imaging reviewed: As stated above in HPI. The patient is admitted with an anticipated greater than 2 midnight stay for evaluation of syncopal episode and elevated troponin CODE STATUS: Full code DVT prophylaxis: Evaqualberta Discussed with: Pt, RN, Pt's leonora, and ED physician. Anticipated discharge date: Likely [address]: Return to assisted living facility at [facility] Patient was seen independently by Nurse Practitioner. This document was prepared using [employer]! dictation software. Please allow for errors in wiring inspector while rare they do occur. Denzel Singh NP rendered care for this patient independently, reviewed the findin gs and plan as documented in the note above. I did not physically speak with or examine the patient on this date. --- Add iron studies, if C diff negative consider fecal occult Past Medical History Past Medical History: Atrial Fibrillation, Cancer, COPD, CVA/TIA, Dementia, Hyperlipidemia, Hypertension, Osteoarthritis (OA), Renal Disease, Sleep Apnea/CPAP/BIPAP, Syncope Additional Past Medical History / Comment(s): PT CAME TO ER WITH SYNCOPAL AND NEAR SYNCOPAL EPISODES. PT HAS PACEMAKER DUE. TO BRADYCARDA. SKIN CA, KIDNEY STONES, PT HAS SLEEP APNEA AND HAS A CPAP MACHINE THAT HE SAID HE NO LONGER NEEDS. CVA 2019- right side weakness History of Any Multi-Drug Resistant Organisms: None Reported Past Surgical History: Hernia Repair, Orthopedic Surgery, Pacemaker Additional Past Surgical History / Comment(s): R GROIN HERNIA REPAIR. bilateral knee replacement, pacemaker WITH NEWEST DEVICE CHANGE IN 2009. Past Anesthesia/Blood Transfusion Reactions: No Reported Reaction Type of Cardiac Device: Permanent Pacemaker Device Placement Date:: 2009 Past Psychological History: No Psychological Hx Reported Smoking Status: Former smoker Past Alcohol Use History: None Reported Past Drug Use History: None Reported - Past Family History Father Family Medical History: Cancer, CVA/TIA, Diabetes Mellitus Additional Family Medical History / Comment(s): FATHER OF LUNG CANCER AT AGE 82YRS. Mother Family Medical History: Coronary Artery Disease (CAD) Additional Family Medical History / Comment(s): MOTHER AT AGE 72 YRS. Medications and Allergies Home Medications Medication Instructions Recorded Confirmed Type allopurinoL [Zyloprim] 300 mg PO DAILY 01/27/14 02/03/21 History amLODIPine BESYLATE [Norvasc] 5 mg PO DAILY #30 tab 01/28/14 02/03/21 Rx Metoprolol Succinate [Toprol Xl] 100 mg PO DAILY 04/22/18 02/03/21 History Atorvastatin Calcium [Lipitor] 20 mg PO HS 04/24/18 02/03/21 History Nitroglycerin Sl Tabs [Nitrostat] 0.4 mg SUBLINGUAL Q5M PRN #25 tab 04/24/18 02/03/21 Rx Apixaban [Eliquis] 5 mg PO BID 01/05/21 02/03/21 History Tamsulosin HCl [Flomax] 0.4 mg PO DAILY@1200 01/05/21 02/03/21 History Acetaminophen Tab [Tylenol] 650 mg PO Q6HR PRN tab 02/06/21 Rx Ibuprofen [Motrin] 400 mg PO Q8HR PRN 10 Days #30 tab 02/06/21 Rx traMADol HCl [Ultram] 50 mg PO Q4-6H PRN 3 Days #15 tab 02/06/21 Rx Allergies Allergy/AdvReac Type Severity Reaction Status Date / Time No Known Allergies Allergy Verified 03/31/23 00:56 Physical Exam Osteopathic Statement: *. No significant issues noted on an osteopathic structural exam other than those noted in the History and Physical/Consult. Vitals: Vital Signs Temp Pulse Pulse Resp BP BP BP 03/31/23 13:45 73 20 115/63 03/31/23 12:11 78/44 03/31/23 12:10 70 20 110/61 03/31/23 12:07 71 18 03/31/23 11:34 97.6 F 68 18 96/57 BP Pulse Ox 03/31/23 13:45 90 L 03/31/23 12:11 03/31/23 12:10 03/31/23 12:07 110/59 89 L 03/31/23 11:34 92 L Intake and Output 03/31/23 03/31/23 03/31/23 06:59 14:59 22:59 Other: Weight 83.915 kg Results CBC & Chem 7: 03/31/23 12:19 03/31/23 12:19 Labs: Abnormal Lab Results - Last 24 Hours (Table) 03/31/23 03/31/23 03/31/23 Range/Units 12:19 12:19 12:19 RBC 2.36 L (4.30-5.90) m/uL Hgb 8.5 L (13.0-17.5) gm/dL Hct 27.0 L (39.0-53.0) % MCV 114.3 H (80.0-100.0) fL MCH 35.9 H (25.0-35.0) pg RDW 16.5 H (11.5-15.5) % Plt Count 99 L (150-450) k/uL Lymphocytes # 0.2 L (1.0-4.8) k/uL Macrocytosis Marked A Carbon Dioxide 18 L (22-30) mmol/L BUN 27 H (9-20) mg/dL Glucose 141 H (74-99) mg/dL Total Bilirubin 1.5 H (0.2-1.3) mg/dL Alkaline Phosphatase 145 H (38-126) U/L Troponin I 0.164 H* (0.000-0.034) ng/mL
[2023-03-31 18:40] LABS: Reticulocyte % 1.9 % (0.5-2.0)
[2023-03-31] MEDS ORDERED: HEPARIN SODIUM 1,000 UN/ML (10ML VL) IV ONE (20:28)
[2023-03-31] MEDS ORDERED: HEPARIN SODIUM 1,000 UN/ML (10ML VL) IV PRN (20:28)
[2023-03-31] MEDS ORDERED: HEPARIN SOD,PORK IN 0.45% NACL 25,000 UNIT in 0.45% NACL 1 250ML.BAG IV SCH (20:30)
[2023-03-31] MEDS ORDERED: APIXABAN 5 MG TAB PO SCH (21:00)
[2023-03-31 21:28] LABS: INR 1.2 (<1.2); Partial Thromboplastin Time 26.2 sec (22.0-30.0); Prothrombin Time 12.5 sec (10.0-12.5)
[2023-03-31 21:39] LABS: Anisocytosis Slight; HCT 26.3 % (39.0-53.0); HGB 8.2 gm/dL (13.0-17.5); Hypochromasia Marked; MCH 34.9 pg (25.0-35.0); MCHC 31.1 g/dL (31.0-37.0); MCV 112.1 fL (80.0-100.0); Macrocytosis Marked; Mean Platelet Volume 8.4; Platelet Count 110 k/uL (150-450); RBC 2.34 m/uL (4.30-5.90); RDW 16.7 % (11.5-15.5); WBC 4.9 k/uL (3.8-10.6)
[2023-03-31] MEDS: ATORVASTATIN 20 MG TAB PO SCH (21:40)
[2023-03-31] MEDS: ASPIRIN 81 MG PO SCH (21:40)
[2023-03-31 22:20] LABS: Hypochromasia (M) Present; Lymphocytes # (M) 0.34 k/uL (1.0-4.8); Monocytes # (M) 0.39 k/uL (0-1.0); Neutrophils # (M) 4.17 k/uL (1.3-7.7); Neutrophils % (M) 85 %; Nucleated Red Blood Cells 0 /100 WBC (0-0); Total Cells Counted 100
[2023-04-01 03:17] LABS: Anisocytosis Slight; Basophils % (A) 0 %; Eosinophils % (A) 0 %; HCT 24.7 % (39.0-53.0); HGB 8.2 gm/dL (13.0-17.5); Hypochromasia Slight; Lymphocytes # (A) 0.5 k/uL (1.0-4.8); Lymphocytes % (A) 9 %; MCH 36.6 pg (25.0-35.0); MCHC 33.2 g/dL (31.0-37.0); MCV 110.3 fL (80.0-100.0); Macrocytosis Marked; Mean Platelet Volume 8.8; Monocytes # (A) 0.4 k/uL (0-1.0); Monocytes % (A) 7 %; Neutrophils # (A) 4.5 k/uL (1.3-7.7); Neutrophils % (A) 81 %; Platelet Count 107 k/uL (150-450); RBC 2.24 m/uL (4.30-5.90); RDW 17.1 % (11.5-15.5); WBC 5.6 k/uL (3.8-10.6)
[2023-04-01 03:30] LABS: ALT 22 U/L (4-49); AST 49 U/L (17-59); African American GFR (CKD) 56 (>60 ml/min/1.73 sqM); Albumin 3.6 g/dL (3.5-5.0); Alkaline Phosphatase 136 U/L (38-126); Anion Gap 13 mmol/L; Blood Urea Nitrogen 32 mg/dL (9-20); Calcium 9.8 mg/dL (8.4-10.2); Carbon Dioxide 22 mmol/L (22-30); Chloride 102 mmol/L (98-107); Glucose 110 mg/dL (74-99); Non-African American GFR(CKD) 48 (>60 ml/min/1.73 sqM); Potassium 4.5 mmol/L (3.5-5.1); Sodium 137 mmol/L (137-145); Total Bilirubin 1.5 mg/dL (0.2-1.3); Total Protein 6.4 g/dL (6.3-8.2)
[2023-04-01 03:42] LABS: INR 1.1 (<1.2); Prothrombin Time 12.3 sec (10.0-12.5)
[2023-04-01] MEDS: SODIUM CHLORIDE 0.9% 1,000 ML IV SCH ×2 (04:16→18:17)
[2023-04-01] MEDS: PANTOPRAZOLE 40 MG/10 ML VIAL IV SCH (08:19)
[2023-04-01] MEDS: DONEPEZIL 5 MG TAB PO SCH (08:20)
[2023-04-01] MEDS: SERTRALINE 50 MG TAB PO SCH (08:20)
[2023-04-01] MEDS: ATORVASTATIN 20 MG TAB PO SCH (08:20)
[2023-04-01] MEDS: TAMSULOSIN 0.4 MG CAP.ER.24H PO SCH (08:20)
[2023-04-01] MEDS: allopurinoL 300 MG TAB PO SCH (08:20)
[2023-04-01] MEDS: ASPIRIN 81 MG PO SCH (08:20)
[2023-04-01] MEDS: MAGNESIUM OXIDE 400 MG TAB PO SCH (08:20)
[2023-04-01] MEDS: POTASSIUM CHLORIDE ER 10 MEQ TAB.ER.PRT PO SCH ×2 (08:20→20:46)
[2023-04-01] MEDS ORDERED: NON FORMULARY DRUG (Ensure 1 CAN Ml) PO SCH (09:00)
[2023-04-01 09:24] LABS: % Iron Saturation 10.26 (15.00-50.00); Iron 28 UG/DL (65-175); Total Iron Binding Capacity 273 UG/DL (228-460)
--- NOTE | 2023-04-01 11:26 | P.CRDCN ---
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 We have been asked to evaluate the patient for syncope. Patient states that he came out of the shower and he had a fall. He denies any lightheadedness or dizz iness prior to. No chest pain no palpitations. He states he has never felt like this before and now his back is significantly painful and making it difficult for him to move. Patient apparently has had multiple falls over the past few days along with diarrhea for a couple of weeks. He does not think he had loss of consciousness. Patient has been started on a heparin drip. EKG ventricularly paced rhythm with underlying atrial fibrillation Chest x-ray: Small right and moderate left pleural effusion. Cardiomegaly. Bibasilar infiltrates correlate for atelectasis. WBC 5.6, hemoglobin 8.2. Platelet count 107. INR 1.1. Electrolytes are normal with potassium of 4.5, BUN 32 initial creatinine 1.13 and now 1.31. Magnesium 2.1. Troponin 0.164, 0.6, 1.19. Home cardiac medications: Aspirin 81 mg daily, atorvastatin 20 mg at bedtime, Lasix 40 mg daily, magnesium oxide 400 mg daily, Nitrostat as needed, K-Dur 10 milligrams once twice daily. Keisha scan Cardiolite stress test performed 05/20/2022 in the office revealed abnormal imaging with prior SD involving the inferior and inferior lateral wall and hypokinesia of the same segment. Those findings are consistent with prior SD involving the RCA territory no evidence of stress-induced ischemia. Echocardiogram performed 02/16/2022 in the office revealed normal EF, moderate TR, moderate MR, moderate AR, mild , RVSP 50 mmHg. Review Of Systems: At the time of my exam: CONSTITUTIONAL: Denies fever or chills. CARDIOVASCULAR: Denies chest pain, Denies shortness of breath, no orthopnea, PND or palpitations. RESPIRATORY: Denies cough. GASTROINTESTINAL: Denies abdominal pain, diarrhea, constipation, nausea or vomiting. MUSCULOSKELETAL: Denies myalgias. NEUROLOGIC: Denies numbness, tingling or weakness. ENDOCRINE: Denies fatigue, weight change, polydipsia or polyurina. GENITOURINARY: Denies burning, hematuria or urgency with micturation. HEMATOLOGIC: Denies history of anemia or bleeding. Physical examination: Gen: This is an 88-year-old male resting in bed appears to be comfortable and in no acute distress. VS: reviewed HEENT: Head is atraumatic, normocephalic. Pupils equal, round. Sclerae is anicteric. NECK: Supple. No JVD. LUNGS: Clear to auscultation. No wheezes or rhonchi. No intercostal retractions. HEART: Regular rate and rhythm. Systolic murmur. ABDOMEN: Soft No tenderness. EXTREMITIES: No pedal edema. No calf tenderness. NEUROLOGICAL: Patient is awake, alert and oriented. Assessment: Fall near syncopal episode most likely due to orthostatic changes Elevated troponin, acute coronary syndrome ruled out Bicytopenia with anemia and thrombocytopenia Chronic permanent atrial fibrillation Coronary artery disease status post stent of the mid RCA Sick sinus syndrome and atrial fibrillation status post single-chamber permanent pacemaker Hypertension Hypercholesterolemia CVA Plan: Resume patient's home cardiac medications Discontinue heparin drip Discontinue Lasix at home Obtain 2-D echocardiogram and Doppler study to assess cardiac structure and function Diarrhea workup per attending Back pain workup per attending Further recommendations to follow based upon clinical course Thank you kindly for this consultation. Nurse practitioner note has been reviewed, I agree with documented findings and plan of care. Patient was seen and examined. Past Medical History Past Medical History: Atrial Fibrillation, Cancer, COPD, CVA/TIA, Dementia, Hyperlipidemia, Hypertension, Osteoarthritis (OA), Renal Disease, Sleep Apnea/CPAP/BIPAP, Syncope Additional Past Medical History / Comment(s): PT CAME TO ER WITH SYNCOPAL AND NEAR SYNCOPAL EPISODES. PT HAS PACEMAKER DUE. TO BRADYCARDA. SKIN CA, KIDNEY STONES, PT HAS SLEEP APNEA AND HAS A CPAP MACHINE THAT HE SAID HE NO LONGER NEEDS. CVA 2019- right side weakness History of Any Multi-Drug Resistant Organisms: None Reported Past Surgical History: Hernia Repair, Orthopedic Surgery, Pacemaker Additional Past Surgical History / Comment(s): R GROIN HERNIA REPAIR. bilateral knee replacement, pacemaker WITH NEWEST DEVICE CHANGE IN 2009. Past Anesthesia/Blood Transfusion Reactions: No Reported Reaction Type of Cardiac Device: Permanent Pacemaker Device Placement Date:: 2009 Past Psychological History: No Psychological Hx Reported Smoking Status: Former smoker Past Alcohol Use History: None Reported Past Drug Use History: None Reported - Past Family History Father Family Medical History: Cancer, CVA/TIA, Diabetes Mellitus Additional Family Medical History / Comment(s): FATHER OF LUNG CANCER AT AGE 82YRS. Mother Family Medical History: Coronary Artery Disease (CAD) Additional Family Medical History / Comment(s): MOTHER AT AGE 72 YRS. Medications and Allergies Home Medications Medication Instructions Recorded Confirmed Type allopurinoL [Zyloprim] 300 mg PO DAILY 01/27/14 03/31/23 History Atorvastatin Calcium [Lipitor] 20 mg PO HS 04/24/18 03/31/23 History Nitroglycerin Sl Tabs [Nitrostat] 0.4 mg SUBLINGUAL Q5M PRN #25 tab 04/24/18 03/31/23 Rx Tamsulosin HCl [Flomax] 0.4 mg PO DAILY 01/05/21 03/31/23 History Acetaminophen Tab [Tylenol Tab] 500 - 1,000 mg PO Q6HR PRN 03/31/23 03/31/23 History Aspirin EC [Ecotrin Low Dose] 81 mg PO DAILY 03/31/23 03/31/23 History Calamine/Zinc Oxide Lotion 1 applic TOPICAL TID 03/31/23 03/31/23 History [Calamine Lotion] Donepezil [Aricept] 5 mg PO DAILY 03/31/23 03/31/23 History Ensure 1 can PO DAILY 03/31/23 03/31/23 History Ferrous Sulfate [Feosol] 325 mg PO Q48H 03/31/23 03/31/23 History Furosemide [Lasix] 40 mg PO DAILY 03/31/23 03/31/23 History Loperamide [Imodium] 2 - 4 mg PO QID PRN 03/31/23 03/31/23 History Magnesium Oxide [Mag-Ox] 400 mg PO DAILY 03/31/23 03/31/23 History Melatonin 5 mg PO HS 03/31/23 03/31/23 History Potassium Chloride ER [K-Dur 10] 10 meq PO BID 03/31/23 03/31/23 History Psyllium Husk 100% [Metamucil 6 gm PO BID PRN 03/31/23 03/31/23 History Packet] Sertraline [Zoloft] 50 mg PO DAILY 03/31/23 03/31/23 History Allergies Allergy/AdvReac Type Severity Reaction Status Date / Time No Known Allergies Allergy Verified 03/31/23 17:30 Physical Exam Vitals: Vital Signs Temp Pulse Pulse Resp BP BP BP 04/01/23 08:18 98.1 F 63 16 154/67 04/01/23 04:00 97.7 F 70 18 04/01/23 00:00 97.9 F 71 16 03/31/23 20:00 98 F 72 16 03/31/23 16:00 98.4 F 79 18 134/66 03/31/23 13:45 73 20 115/63 03/31/23 12:11 78/44 03/31/23 12:10 70 20 110/61 03/31/23 12:07 71 18 03/31/23 11:34 97.6 F 68 18 96/57 BP Pulse Ox 04/01/23 08:18 93 L 04/01/23 04:00 123/74 90 L 04/01/23 00:00 131/77 98 03/31/23 20:00 119/71 88 L 03/31/23 16:00 94 L 03/31/23 13:45 90 L 03/31/23 12:11 03/31/23 12:10 03/31/23 12:07 110/59 89 L 03/31/23 11:34 92 L Intake and Output 03/31/23 04/01/23 04/01/23 22:59 06:59 14:59 Intake Total 658 961.167 57.166 Balance 658 961.167 57.166 Intake: Intake, IV Titration 961.167 57.166 Amount Heparin Sod,Pork in 0.45% 61.167 57.166 NaCl 25,000 unit In 0.45 % NaCl 1 250ml.bag @ 11. 917 UNITS/KG/HR 10 mls/hr IV .Q24H [facility] Rx#: [id number] Sodium Chloride 0.9% 1, 900 000 ml @ 75 mls/hr IV . [id number] [facility] Rx#:[id number] Oral 658 Other: # Voids 1 Weight 72.2 kg Results 04/01/23 02:44 04/01/23 02:44 Cardiac Enzymes 03/31/23 03/31/23 03/31/23 Range/Units 12:19 12:19 15:45 AST 34 (17-59) U/L Troponin I 0.164 H* 0.600 H* (0.000-0.034) ng/mL 03/31/23 04/01/23 Range/Units 18:18 02:44 AST 49 (17-59) U/L Troponin I 1.190 H* (0.000-0.034) ng/mL Coagulation 03/31/23 03/31/23 04/01/23 Range/Units 12:19 20:51 02:44 PT 12.2 12.5 (10.0-12.5) sec APTT 24.4 26.2 27.7 (22.0-30.0) sec 04/01/23 Range/Units 02:44 PT 12.3 (10.0-12.5) sec APTT (22.0-30.0) sec CBC 03/31/23 03/31/23 04/01/23 Range/Units 12:19 20:51 02:44 WBC 5.0 4.9 5.6 (3.8-10.6) k/uL RBC 2.36 L 2.34 L 2.24 L (4.30-5.90) m/uL Hgb 8.5 L 8.2 L 8.2 L (13.0-17.5) gm/dL Hct 27.0 L 26.3 L 24.7 L (39.0-53.0) % Plt Count 99 L 110 L 107 L (150-450) k/uL Comprehensive Metabolic Panel 03/31/23 04/01/23 Range/Units 12:19 02:44 Sodium 138 137 (137-145) mmol/L Potassium 4.4 4.5 (3.5-5.1) mmol/L Chloride 101 102 (98-107) mmol/L Carbon Dioxide 18 L 22 (22-30) mmol/L BUN 27 H 32 H (9-20) mg/dL Creatinine 1.13 1.31 H (0.66-1.25) mg/dL Glucose 141 H 110 H (74-99) mg/dL Calcium 10.1 9.8 (8.4-10.2) mg/dL AST 34 49 (17-59) U/L ALT 25 22 (4-49) U/L Alkaline Phosphatase 145 H 136 H (38-126) U/L Total Protein 6.5 6.4 (6.3-8.2) g/dL Albumin 3.6 3.6 (3.5-5.0) g/dL Current Medications Generic Name Dose Route Start Last Admin Trade Name Freq PRN Reason Stop Dose Admin Acetaminophen 650 mg 03/31/23 14:26 Acetaminophen Tab 325 Mg Tab PO Q6HR PRN Mild Pain or Fever > 100.5 Allopurinol 300 mg 04/01/23 09:00 04/01/23 08:20 Allopurinol 300 Mg Tab PO 300 mg DAILY LY[facility] Administration Aspirin 81 mg 03/31/23 20:30 04/01/23 08:20 Aspirin 81 Mg PO 81 mg DAILY LY[facility] Administration Atorvastatin Calcium 40 mg 03/31/23 20:30 04/01/23 08:20 Atorvastatin 20 Mg Tab PO 40 mg DAILY [facility] Administration Donepezil HCl 5 mg 04/01/23 09:00 04/01/23 08:20 Donepezil 5 Mg Tab PO 5 mg DAILY L[facility] Administration Ferrous Sulfate 325 mg 04/02/23 09:00 Ferrous Sulfate 325 Mg Tab PO Q48H L[facility] Sodium Chloride 1,000 mls @ 75 mls/hr 03/31/23 14:30 04/01/23 04:16 Saline 0.9% IV Not Given .[id number] [facility] Magnesium Oxide 400 mg 04/01/23 09:00 04/01/23 08:20 Magnesium Oxide 400 Mg Tab PO 400 mg DAILY [facility] Administration Melatonin 5 mg 04/01/23 21:00 Melatonin 5 Mg Tablet PO HS [facility] Naloxone HCl 0.2 mg 03/31/23 14:26 Naloxone 0.4 Mg/Ml 1 Ml Vial IV Q2M PRN Opioid Reversal Pantoprazole Sodium 40 mg 04/01/23 09:00 04/01/23 08:19 Pantoprazole 40 Mg/10 Ml Vial IV 40 mg DAILY [facility] Administration Potassium Chloride 10 meq 04/01/23 09:00 04/01/23 08:20 Potassium Chloride Er 10 Meq Tab.Er.Prt PO 10 meq BID L[facility] Administration Sertraline HCl 50 mg 04/01/23 09:00 04/01/23 08:20 Sertraline 50 Mg Tab PO 50 mg DAILY [facility] Administration Tamsulosin HCl 0.4 mg 04/01/23 09:00 04/01/23 08:20 Tamsulosin 0.4 Mg Cap.Er.24h PO 0.4 mg DAILY L[facility] Administration Intake and Output 03/31/23 04/01/23 04/01/23 22:59 06:59 14:59 Intake Total 658 961.167 57.166 Balance 658 961.167 57.166 Intake: Intake, IV Titration 961.167 57.166 Amount Heparin Sod,Pork in 0.45% 61.167 57.166 NaCl 25,000 unit In 0.45 % NaCl 1 250ml.bag @ 11. 917 UNITS/KG/HR 10 mls/hr IV .Q24H [facility] Rx#: [id number] Sodium Chloride 0.9% 1, 900 000 ml @ 75 mls/hr IV . [id number] [facility] Rx#:[id number] Oral 658 Other: # Voids 1 Weight 72.2 kg 04/01/23 02:44 04/01/23 02:44
--- NOTE | 2023-04-01 11:59 | CA ---
Transthoracic Echo Report Name: Dawson Bruce Age: 88 Gender: M : 1935 Exam Date: 04/01/2023 10:48 Exam Location: [place] [facility] Ht (in): 72 Wt (lb): 185 Ordering Physician: Denzel Singh Attending/Referring Phys: Automotive Sales Representative Antelmo Enamorado Procedure CPT: Indications: syncopal episode Cardiac Hx: Technical Quality: Fair Contrast 1: Total Dose (mL): Contrast 2: Total Dose (mL): MEASUREMENTS (Male / Female) Normal Values 2D ECHO LV Diastolic Diameter PLAX 4.5 cm 4.2 - 5.9 / 3.9 - 5.3 cm LV Systolic Diameter PLAX 3.3 cm IVS Diastolic Thickness 1.3 cm 0.6 - 1.0 / 0.6 - 0.9 cm LVPW Diastolic Thickness 1.2 cm 0.6 - 1.0 / 0.6 - 0.9 cm LV Relative Wall Thickness 0.6 RV Internal Dim ED PLAX 4.1 cm LVOT Diameter 2.4 cm Aortic Root Diameter 3.4 cm LA Systolic Diameter LX 4.6 cm 3.0 - 4.0 / 2.7 - 3.8 cm LV Diastolic Volume MOD BP 93.6 cm??? 67 - 155 / 56 - 104 cm??? LV Systolic Volume MOD BP 48.7 cm??? - 58 / 19 - 49 cm??? LV Ejection Fraction MOD BP 47.9 % >= 55 % LV Cardiac Index MOD BP 1537.0 cm???/min???m??? LV Diastolic Volume MOD 4C 81.3 cm??? LV Systolic Volume MOD 4C 47.4 cm??? LV Ejection Fraction MOD 4C 41.7 % LV Cardiac Index MOD 4C 1163.4 cm???/min???m??? LV Diastolic Length 4C 8.0 cm LV Systolic Length 4C 6.9 cm LV Diastolic Volume MOD 2C 92.4 cm??? LV Systolic Volume MOD 2C 42.6 cm??? LV Ejection Fraction MOD 2C 53.9 % LV Cardiac Index MOD 2C 1706.0 cm???/min???m??? LV Diastolic Length 2C 6.8 cm LV Systolic Length 2C 5.8 cm LA Volume 126.9 cm??? 18 - 58 / 22 - 52 cm??? LA Volume Index 61.2 cm???/m??? 16 - 28 cm???/m??? DOPPLER AV Peak Velocity 256.9 cm/s AV Peak Gradient 26.4 mmHg AV Mean Velocity 195.4 cm/s AV Mean Gradient 17.5 mmHg AV Velocity Time Integral 50.7 cm LVOT Peak Velocity 80.6 cm/s LVOT Peak Gradient 2.6 mmHg LVOT Velocity Time Integral 15.0 cm LVOT Stroke Volume 67.2 cm??? LVOT Stroke Volume Index 32.6 ml/m??? LVOT Cardiac Index 2303.5 cm???/min???m??? AV Area Cont Eq vti 1.3 cm??? AV Area Cont Eq pk 1.4 cm??? MV Peak Velocity 165.0 cm/s MV Peak Gradient 10.9 mmHg MV Mean Velocity 78.2 cm/s MV Mean Gradient 3.3 mmHg MV Velocity Time Integral 41.9 cm MR Peak Velocity 481.1 cm/s MR Peak Gradient 92.6 mmHg Mitral E Point Velocity 150.6 cm/s Mitral A Point Velocity 35.5 cm/s Mitral E to A Ratio 4.2 MV Deceleration Time 314.9 ms MV E' Velocity 4.8 cm/s Mitral E to MV E' Ratio 31.4 TR Peak Velocity 258.9 cm/s TR Peak Gradient 26.8 mmHg Right Ventricular Systolic Press 36.8 mmHg PV Peak Velocity 76.2 cm/s PV Peak Gradient 2.3 mmHg FINDINGS Left Ventricle Mildly increased septal wall thickness. Mildly decreased left ventricular ejection fraction. Normal LV size. Ejection fraction is about 50-55% Right Ventricle Moderately enlarged right ventricle. RVSP= not well quantified cannot exclude pulmonary hypertension Right Atrium Moderate to severe right atrial dilatation. RA Area= 25.0cm2 Left Atrium Mildly increased left atrial diameter. Severely increased left atrial volume. Moderately increased left atrial area. LA volume index= 62ml/m2. Mitral Valve Mitral valve thickened. Aortic Valve Moderate to severe AV calcification. Mild AI. AV peak gradient= 26mmHg. Mean gradient = 17.5mmHg. Tricuspid Valve Structurally normal tricuspid valve. Moderate to severe TR. Pulmonic Valve Pulmonic valve not well visualized. No pulmonic regurgitation. Pericardium There is a question of a small pericardial effusion in short axis views. Aorta Normal size aortic root. CONCLUSIONS Large pleural effusion. LV size is normal with mild to moderate concentric LVH preserved contractility with ejection fraction of 50-55% range. Both atria are enlarged right ventricle is enlarged right-sided pressures are not well quantified possible pulmonary hypertension but on calculation pressures are in the range of 40 mmHg. This could be underestimated. There is aortic valve sclerosis with mild restriction mild stenosis. Mitral annular calcification noted. Small pericardial effusion and large pleural effusion Previewed by: Dr. Olegario Hoover MD (Electronically Signed) Final Date: 01 April 2023 11:58
--- NOTE | 2023-04-01 13:12 | P.PN ---
Subjective Progress Note Date: 04/01/23 History of Presenting Illness: Patient is a very pleasant 88-year-old mle with a past medical history of CAD with permanent pacemaker secondary to symptomatic bradycardia, hypertension, hyperlipidemia, atrial fibrillation, COPD not home oxygen dependent and History of CVA with right-sided deficit/mild weakness and mild speech impairment/stuttering. He presented to the emergency department secondary to concerns of recurrent syncopal episodes/falls. Patient underwent full evaluation upon arrival to the emergency department. Vital signs upon arrival show blood pressure 129/67, heart rate 70, respiratory rate 18, temp 98.1F, SpO2 of 96% on room air. EKG completed showing a ventricular paced per minute. Chest x-ray completed showing cardiomegaly with small right and moderate left pleural effusion and bibasilar infiltrates correlating for atelectasis. CT brain completed showing stable CT of brain when compared to exam completed earlier this morning showing suggestion of mild chronic appearing periventricular white matter ischemic changes with some mild atrophy. Labs completed and reviewed. CBC showing macrocytic anemia with hemoglobin of 8.5 and thrombocytopenia with platelet count of 99 (baseline hemoglobin around 10.5). Coagulation profile normal findings. BMP revealing hypocarbia with bicarb of 18, elevated anion gap of 19, and prerenal azotemia with BUN of 27, creatinine 1.13, GFR 58. Glucose 141. Total bili elevated at 1.5 and alkaline phosphatase of 145. Troponin 0.164. Upon review of imaging completed earlier this morning, CT thoracic and lumbar spine revealing large bilateral pleural effusions with cardiomegaly, negative for acute spinal abnormality of thoracic spine revealing disc disease resulting in bilateral neural foraminal stenosis and narrowing at L5 through S1, L4 through L5, and L3 through L4 due to a degenerative disc bulge and bony hypertrophy. CT cervical spine was negative for acute traumatic abnormality. Patient was admitted under our services with consultation to cardiology. Patient reports he is to follow with Dr. Campa but has not been evaluated since his admission discharge rn retired. Patient's niece at bedside reports that Mr. Bruce is at his baseline mentation and speech ability. Patient is alert to person, place, and situation and is able to discuss some of his medical history but at times is a poor historian. Physical exam: Vital signs reviewed and stable. General: Nontoxic, no distress and appears stated age. Derm: Skin warm and dry, normal coloration for ethnicity. Patient with multiple bruises on upper and lower extremities in different stages of healing. Large skin tear right arm/elbow, skin tear left arm/wrist, and large skin tear to thoracic region of patient's back. Head: Atraumatic, normocephalic and symmetric. Eyes: EOMs intact, no lid lag, and anicteric sclera Mouth: no lip lesions, mucus membranes moist Cardiovascular: regular rate and rhythm with normal S1S2, systolic murmur, positive posterior tibial pulses bilaterally, and cap refill < [address] left anterior chest. Lungs: Respirations even, regular, and unlabored on room air. Lungs CTA bilaterally, no rhonchi, no rales, no wheezing, and no accessory muscle usage. Abdominal: soft, nontender to palpation, no guarding, no appreciable organomegaly Ext: No gross muscle atrophy, no edema, no contractures. Movement and sensation intact. Neuro: Speech with mild stutter, face symmetrical. Psych: Alert and oriented. Appropriate and pleasant affect. Assessment and Plan of Care: Recurrent Syncopal episodes/falls, likely resulting from orthostatic hypotension secondary to dehydration NSTEMI, likely type II demand ischemia secondary to dehydration due to persisten t diarrhea Diarrhea Orthostatic hypotension, possibly resulting from dehydration from persistent harriet rrhea 2 weeks vs adverse medication effect (flomax) versus cardiogenic origin History of CAD with permanent pacemaker secondary to symptomatic bradycardia Hypertension Hyperlipidemia Paroxysmal atrial fibrillation COPD not home oxygen dependent History of CVA with right-sided deficit/mild weakness Bicytopenia with Anemia and thrombocytopenia Cardiology consulted, started patient on IV heparin infusion. Patient remaining continuous telemetry monitoring. Fall precautions in place. Neuro checks every 4 hours. Orthostatic vitals positive with blood pressure 110/59 lying, 110/61 sitting, and 78/44 standing. Troponins trended throughout the night resulting in further elevation from 0.1642 0.600, to 1.190. He was started on heparin infusion by admission discharge rn. Echocardiogram completed pending results. Order placed for stool culture and C. diff secondary to reports of diarrhea 5-6 times daily x weeks Continue gentle IV fluid hydration with 0.9% normal saline at 75 mL's per hour pending creatinine kinase results. LATRICE freed Iron profile pending. Data and imaging reviewed: CBC showing stable macrocytic anemia with hemoglobin of 8.2 and thrombocytopenia with platelet count of 107. Troponins trended throughout the night resulting in further elevation from 0.1642 0.600, to 1.190. Vital signs reviewed. Blood pressure 154/67, heart rate 63, respiratory rate 16, temp 98.1 breath, SpO2 of 93% on room air. CODE STATUS: Full code DVT prophylaxis: Eliquia Discussed with: Pt, RN, Pt's leonora, and ED physician. Anticipated discharge date: Likely [address]: Return to assisted living facility at [facility] Patient was seen independently by Nurse Practitioner. This document was prepared using Appl[employer] dictation software. Please allow for errors in building services technician while rare they do occur. Denzel Singh NP rendered care for this patient independently, reviewed the findings and plan as documented in the note above. I did not physically speak with or examine the patient on this date. Objective - Vital Signs Vital signs: Vital Signs Temp 98.1 F 04/01/23 08:18 Pulse 63 04/01/23 08:18 Resp 16 04/01/23 08:18 BP 154/67 04/01/23 08:18 Pulse Ox 93 L 04/01/23 08:18 FiO2 Intake & Output 03/31/23 04/01/23 04/01/23 18:59 06:59 18:59 Intake Total 118 1501.167 57.166 Balance 118 1501.167 57.166 Weight 83.915 kg 72.2 kg Intake: Intake, IV Titration 961.167 57.166 Amount Heparin Sod,Pork in 0.45% 61.167 57.166 NaCl 25,000 unit In 0.45 % NaCl 1 250ml.bag @ 11. 917 UNITS/KG/HR 10 mls/hr IV .Q24H [facility] Rx#: [id number] Sodium Chloride 0.9% 1, 900 000 ml @ 75 mls/hr IV . [id number] [facility] Rx#:[id number] Oral 118 540 Other: # Voids 1 - Labs CBC & Chem 7: 04/02/23 05:44 04/02/23 05:44 Labs: Abnormal Lab Results - Last 24 Hours (Table) 03/31/23 03/31/23 03/31/23 Range/Units 12:19 12:19 12:19 RBC 2.36 L (4.30-5.90) m/uL Hgb 8.5 L (13.0-17.5) gm/dL Hct 27.0 L (39.0-53.0) % MCV 114.3 H (80.0-100.0) fL MCH 35.9 H (25.0-35.0) pg RDW 16.5 H (11.5-15.5) % Plt Count 99 L (150-450) k/uL Lymphocytes # 0.2 L (1.0-4.8) k/uL Lymphocytes # (Manual) (1.0-4.8) k/uL Macrocytosis Marked A INR (<1.2) Carbon Dioxide 18 L (22-30) mmol/L BUN 27 H (9-20) mg/dL Creatinine (0.66-1.25) mg/dL Glucose 141 H (74-99) mg/dL Total Bilirubin 1.5 H (0.2-1.3) mg/dL Alkaline Phosphatase 145 H (38-126) U/L Troponin I 0.164 H* (0.000-0.034) ng/mL 03/31/23 03/31/23 03/31/23 Range/Units 15:45 18:18 20:51 RBC 2.34 L (4.30-5.90) m/uL Hgb 8.2 L (13.0-17.5) gm/dL Hct 26.3 L (39.0-53.0) % MCV 112.1 H (80.0-100.0) fL MCH (25.0-35.0) pg RDW 16.7 H (11.5-15.5) % Plt Count 110 L (150-450) k/uL Lymphocytes # (1.0-4.8) k/uL Lymphocytes # (Manual) 0.34 L (1.0-4.8) k/uL Macrocytosis Marked A INR (<1.2) Carbon Dioxide (22-30) mmol/L BUN (9-20) mg/dL Creatinine (0.66-1.25) mg/dL Glucose (74-99) mg/dL Total Bilirubin (0.2-1.3) mg/dL Alkaline Phosphatase (38-126) U/L Troponin I 0.600 H* 1.190 H* (0.000-0.034) ng/mL 03/31/23 04/01/23 04/01/23 Range/Units 20:51 02:44 02:44 RBC 2.24 L (4.30-5.90) m/uL Hgb 8.2 L (13.0-17.5) gm/dL Hct 24.7 L (39.0-53.0) % MCV 110.3 H (80.0-100.0) fL MCH 36.6 H (25.0-35.0) pg RDW 17.1 H (11.5-15.5) % Plt Count 107 L (150-450) k/uL Lymphocytes # 0.5 L (1.0-4.8) k/uL Lymphocytes # (Manual) (1.0-4.8) k/uL Macrocytosis Marked A INR 1.2 H (<1.2) Carbon Dioxide (22-30) mmol/L BUN 32 H (9-20) mg/dL Creatinine 1.31 H (0.66-1.25) mg/dL Glucose 110 H (74-99) mg/dL Total Bilirubin 1.5 H (0.2-1.3) mg/dL Alkaline Phosphatase 136 H (38-126) U/L Troponin I (0.000-0.034) ng/mL
[2023-04-01] MEDS: MELATONIN 5 MG TABLET PO SCH (20:46)
[2023-04-02 06:41] LABS: Anisocytosis Slight; HCT 24.8 % (39.0-53.0); HGB 7.9 gm/dL (13.0-17.5); Hypochromasia Moderate; MCH 35.5 pg (25.0-35.0); MCHC 31.9 g/dL (31.0-37.0); MCV 111.5 fL (80.0-100.0); Platelet Count 105 k/uL (150-450); RBC 2.22 m/uL (4.30-5.90); RDW 16.8 % (11.5-15.5); WBC 7.1 k/uL (3.8-10.6)
[2023-04-02 06:48] LABS: Macrocytosis Marked
[2023-04-02 06:49] LABS: African American GFR (CKD) 57 (>60 ml/min/1.73 sqM); Anion Gap 10 mmol/L; Blood Urea Nitrogen 40 mg/dL (9-20); Calcium 9.7 mg/dL (8.4-10.2); Carbon Dioxide 22 mmol/L (22-30); Chloride 102 mmol/L (98-107); Glucose 106 mg/dL (74-99); Non-African American GFR(CKD) 49 (>60 ml/min/1.73 sqM); Potassium 4.9 mmol/L (3.5-5.1); Sodium 134 mmol/L (137-145)
--- NOTE | 2023-04-02 07:29 | P.CNPUL ---
History of Present Illness Consult date: 04/02/23 Requesting physician: Nemesio Graham Reason for consult: pleural effusion Chief complaint: Fall History of present illness: I am seeing this patient in consultation today 04/02/2023 after he was admitted back on March for a fall and possible syncope. Patient is an 88-year-old white male with past medical history significant for atrial fibrillation previously on Eliquis, permanent pacemaker implantation, coronary artery disease, hyperlipidemia, hypertension, previous CVA/TIA. Patient was brought into the emergency room back on March after reportedly falling in the shower. He reportedly lives at home alone. He states that he slipped and fell, however, EMS reported a possible syncopal event. Patient has been very weak. He ambulates with a walker. He is technically a poor historian. CT of the brain and C-spine without contrast on arrival did not show any acute intracranial abnormality or C-spine fracture. EKG on arrival showed a ventricular paced rhythm. He does have a permanent pacemaker. Echocardiogram shows preserved left ventricular ejection fraction of 50-55% with [id number] concentric LVH. There is enlargement/dilation of the right ventricle and atrium with an estimated RVSP of 36.8. Moderate to severe tricuspid regurg. Small pericardial effusion. Large pleural effusion reported. We were not consulted until earlier this morning. Patient is currently lying in bed, on 3 L/m nasal cannula, in no acute distress. He is not short of breath at rest, however, reports shortness of breath and heart palpitations with any exertion. Denies chest pain. Denies syncopal episodes or losing consciousness. Does admit becoming lightheaded on standing. Denies any infectious symptoms. He has had significant diarrhea over the last 6 weeks. Denies any abdominal pain, fevers, bloody bowel mvmts, or [place] stools. Chest x-ray shows cardiomegaly with bilateral small to moderate sized pleural effusions, left greater than right. Most recent CBC is a WBC count of 5.6, hemoglobin 8.2, hematocrit 24.7, platelets 107. BMP from yesterday demonstrates a sodium 137, potassium 4.5, chloride 102, serum bicarbonate 22, BUN 32, creatinine 1.31, glucose 110. Troponins are elevated at 0.164, 0.6, and 1.19. Patient was temporarily on heparin infusion per protocol, this has been discontinued. This has been evaluated by cardiology, and felt not to reflect ACS. Vital signs are stable. Review of Systems REVIEW OF SYSTEMS: CONSTITUTIONAL: Denies any recent significant weight loss or weight gain. EYES: Denies change in vision. EARS, NOSE, MOUTH, THROAT: Denies headaches, denies sore throat. CARDIOVASCULAR: Denies chest pain or syncopal episodes. Admits lightheadedness on standing and palpitations. RESPIRATORY: Denies cough, congestion or hemoptysis. Admits exertional shortness of breath. GASTROINTESTINAL: Denies change in appetite, abdominal pain, nausea and vomiting. Admits diarrhea with 5-6 episodes per day for the last 6 weeks. GENITOURINARY: Denies hematuria, denies infections. MUSKULOSKELETAL: Denies pain, denies swelling. Reports history of right rotator cuff tear and limited ROM. INTEGUMENTARY: Denies rash, denies eczema. States that he tore his skin on both of his arms when falling. NEUROLOGICAL: Denies recent memory loss, no recent seizure activity. PSYCHIATRIC: Denies anxiety, denies depression. HEMATOLOGIC/LYMPHATIC: Denies anemia, denies enlarged lymph node Past Medical History Past Medical History: Atrial Fibrillation, Cancer, COPD, CVA/TIA, Dementia, Hyperlipidemia, Hypertension, Osteoarthritis (OA), Renal Disease, Sleep Apnea/CPAP/BIPAP, Syncope Additional Past Medical History / Comment(s): PT CAME TO ER WITH SYNCOPAL AND NEAR SYNCOPAL EPISODES. PT HAS PACEMAKER DUE. TO BRADYCARDA. SKIN CA, KIDNEY STONES, PT HAS SLEEP APNEA AND HAS A CPAP MACHINE THAT HE SAID HE NO LONGER NEED S. CVA 2019- right side weakness History of Any Multi-Drug Resistant Organisms: None Reported Past Surgical History: Hernia Repair, Orthopedic Surgery, Pacemaker Additional Past Surgical History / Comment(s): R GROIN HERNIA REPAIR. bilateral knee replacement, pacemaker WITH NEWEST DEVICE CHANGE IN 2009. Past Anesthesia/Blood Transfusion Reactions: No Reported Reaction Type of Cardiac Device: Permanent Pacemaker Device Placement Date:: 2009 Past Psychological History: No Psychological Hx Reported Smoking Status: Former smoker Past Alcohol Use History: None Reported Past Drug Use History: None Reported - Past Family History Father Family Medical History: Cancer, CVA/TIA, Diabetes Mellitus Additional Family Medical History / Comment(s): FATHER OF LUNG CANCER AT AGE 82YRS. Mother Family Medical History: Coronary Artery Disease (CAD) Additional Family Medical History / Comment(s): MOTHER AT AGE 72 YRS. Medications and Allergies Home Medications Medication Instructions Recorded Confirmed Type allopurinoL [Zyloprim] 300 mg PO DAILY 01/27/14 03/31/23 History Atorvastatin Calcium [Lipitor] 20 mg PO HS 04/24/18 03/31/23 History Nitroglycerin Sl Tabs [Nitrostat] 0.4 mg SUBLINGUAL Q5M PRN #25 tab 04/24/18 03/31/23 Rx Tamsulosin HCl [Flomax] 0.4 mg PO DAILY 01/05/21 03/31/23 History Acetaminophen Tab [Tylenol Tab] 500 - 1,000 mg PO Q6HR PRN 03/31/23 03/31/23 History Aspirin EC [Ecotrin Low Dose] 81 mg PO DAILY 03/31/23 03/31/23 History Calamine/Zinc Oxide Lotion 1 applic TOPICAL TID 03/31/23 03/31/23 History [Calamine Lotion] Donepezil [Aricept] 5 mg PO DAILY 03/31/23 03/31/23 History Ensure 1 can PO DAILY 03/31/23 03/31/23 History Ferrous Sulfate [Feosol] 325 mg PO Q48H 03/31/23 03/31/23 History Loperamide [Imodium] 2 - 4 mg PO QID PRN 03/31/23 03/31/23 History Magnesium Oxide [Mag-Ox] 400 mg PO DAILY 03/31/23 03/31/23 History Melatonin 5 mg PO HS 03/31/23 03/31/23 History Potassium Chloride ER [K-Dur 10] 10 meq PO BID 03/31/23 03/31/23 History Psyllium Husk 100% [Metamucil 6 gm PO BID PRN 03/31/23 03/31/23 History Packet] Sertraline [Zoloft] 50 mg PO DAILY 03/31/23 03/31/23 History Allergies Allergy/AdvReac Type Severity Reaction Status Date / Time No Known Allergies Allergy Verified 03/31/23 17:30 Physical Exam Vitals: Vital Signs Temp Pulse Resp BP BP Pulse Ox 04/02/23 04:00 98.3 F 77 18 161/87 96 04/02/23 02:00 76 18 04/02/23 00:00 98.3 F 76 18 141/78 92 L 04/01/23 20:00 98.2 F 74 16 128/67 94 L 04/01/23 16:40 98.3 F 76 18 144/80 94 L 04/01/23 12:18 73 16 147/72 99 04/01/23 08:18 98.1 F 63 16 154/67 93 L Intake and Output 04/01/23 04/01/23 04/02/23 14:59 22:59 06:59 Intake Total 297.166 540 200 Output Total 400 Balance -102.834 540 200 Intake: Intake, IV Titration 57.166 Amount Heparin Sod,Pork in 0.45% 57.166 NaCl 25,000 unit In 0.45 % NaCl 1 250ml.bag @ 11. 917 UNITS/KG/HR 10 mls/hr IV .Q24H [facility] Rx#: [id number] Oral 240 540 200 Output: Urine 400 Other: Voiding Method Urinal Urinal Urinal # Voids 1 2 Weight 71.5 kg GENERAL EXAM: Alert, 88-year-old white male, comfortable in no apparent distress. HEAD: Normocephalic and atraumatic EYES: Normal reaction of pupils, equal size. NOSE: Clear with pink turbinates. THROAT: No erythema or exudates. NECK: No masses, no JVD. CHEST: No chest wall deformity. LUNGS: Equal air entry with diminished bibasilar lung sounds. no crackles, wheeze, rhonchi. On 3 L per nasal cannula. No conversational dyspnea or accessory muscle use.. CVS: S1 and S2 normal with grade 1 or 2 systolic murmur, regular rhythm. No other extra heart sounds ABDOMEN: No hepatosplenomegaly, active bowel sounds, no guarding or rigidity. SPINE: No scoliosis or deformity SKIN: Bilateral upper extremity ecchymosis and skin tears. CENTRAL NERVOUS SYSTEM: No focal deficits, tone is normal in all 4 extremities. There is moderate to severe dysarthria. EXTREMITIES: There is no peripheral edema, clubbing, or cyanosis. Upper extremity peripheral pulses are intact and palpable. Lower extremity dorsalis pedis pulses only found with Doppler. Palpable popliteal pulses are present bilaterally. Right upper extremity active ROM limited. Results - Laboratory Findings CBC and BMP: 04/02/23 05:44 04/02/23 05:44 PT/INR, D-dimer PT 12.3 sec (10.0-12.5) 04/01/23 02:44 INR 1.1 (<1.2) 04/01/23 02:44 Abnormal lab findings: Abnormal Labs 03/31/23 03/31/23 03/31/23 12:19 12:19 12:19 RBC 2.36 L Hgb 8.5 L Hct 27.0 L MCV 114.3 H MCH 35.9 H RDW 16.5 H Plt Count 99 L Lymphocytes # 0.2 L Lymphocytes # (Manual) Macrocytosis Marked A INR Carbon Dioxide 18 L BUN 27 H Creatinine Glucose 141 H Iron % Saturation Transferrin Ferritin Total Bilirubin 1.5 H Alkaline Phosphatase 145 H Troponin I 0.164 H* 03/31/23 03/31/23 03/31/23 15:45 18:18 20:51 RBC 2.34 L Hgb 8.2 L Hct 26.3 L MCV 112.1 H MCH RDW 16.7 H Plt Count 110 L Lymphocytes # Lymphocytes # (Manual) 0.34 L Macrocytosis Marked A INR Carbon Dioxide BUN Creatinine Glucose Iron % Saturation Transferrin Ferritin Total Bilirubin Alkaline Phosphatase Troponin I 0.600 H* 1.190 H* 03/31/23 04/01/23 04/01/23 20:51 02:44 02:44 RBC 2.24 L Hgb 8.2 L Hct 24.7 L MCV 110.3 H MCH 36.6 H RDW 17.1 H Plt Count 107 L Lymphocytes # 0.5 L Lymphocytes # (Manual) Macrocytosis Marked A INR 1.2 H Carbon Dioxide BUN 32 H Creatinine 1.31 H Glucose 110 H Iron 28 L % Saturation 10.26 L Transferrin 195.0 L Ferritin 379.0 H Total Bilirubin 1.5 H Alkaline Phosphatase 136 H Troponin I - Diagnostic Findings Chest x-ray: image reviewed Assessment and Plan Assessment: Recurrent falls, possible near-syncope Acute hypoxemic respiratory failure, possibly secondary to mild diastolic CHF exacerbation. Chest x-ray demonstrates cardiomegaly with small to moderate size bilateral pleural effusions. Echocardiogram done this admission shows preser meena left ventricular ejection fraction of 50-55% with [id number] concentric LVH. There is enlargement/dilation of the right ventricle and atrium with an estimated RVSP of 36.8. Moderate to severe tricuspid regurg. Small pericardial effusion. Elevated troponins, worked up by cardiology, not felt to reflect ACS Severe diarrhea and dehydration, no further episodes and patient Prerenal azotemia Bicytopenia, with anemia and thrombocytopenia Macrocytic anemia History of atrial fibrillation and sick sinus syndrome, status post permanent pacemaker implantation, currently V paced History of coronary artery disease Hyperlipidemia Hypertension History of previous CVA/TIA Gait disturbance, ambulates with walker Brief history of tobacco use Plan: Patient's medications, labs, chest x-ray reviewed. Admission chest x-ray showed small to moderate sized bilateral pleural effusions. Will obtain chest ultrasound for possible thoracentesis. Not currently on any anticoagulants, al though, he states he was previously on Eliquis. No prior history of thoracentesis. Continue supplemental O2 Obtain orthostatics. Fall precautions. Cardiology is also following. No further diarrhea at the moment. Receiving gentle IV hydration We will continue to follow, and further recommendations are forthcoming. I have personally seen and examined the patient, performed the documentation and the assessment and plan as written. Number of minutes spent on the visit:20 Time with Patient: Greater than 30
--- NOTE | 2023-04-02 07:55 | US ---
EXAMINATION TYPE: US chest DATE OF EXAM: 04/02/2023 COMPARISON: NONE CLINICAL INDICATION: Male, 88 years old with history of bilateral pleural effusions; small right and moderate left effusion TECHNIQUE: Targeted ultrasound of the posterior lower bilateral hemithoraces EXAM MEASUREMENTS: Right Pleural Effusion pocket size: 6.2 cm Right skin surface to fluid distance: 2.0 cm Left Pleural Effusion pocket size: 6.6 cm Left skin surface to fluid distance: 2.8 cm Right side marked for possible thoracentesis outside the dept. Left side marked for possible thoracentesis outside the dept. Pulmonologists are able to review the images in the patient?s EMR. Patient scanner semi-erect, exam slightly limited due to limited patient mobility, left side difficul t due to bandages and tight rib spaces IMPRESSIONS: 1. Bilateral pleural effusions
[2023-04-02] MEDS: MAGNESIUM OXIDE 400 MG TAB PO SCH (08:45)
[2023-04-02] MEDS: allopurinoL 300 MG TAB PO SCH (08:45)
[2023-04-02] MEDS: ATORVASTATIN 20 MG TAB PO SCH (08:45)
[2023-04-02] MEDS: TAMSULOSIN 0.4 MG CAP.ER.24H PO SCH (08:45)
[2023-04-02] MEDS: FERROUS SULFATE 325 MG TAB PO SCH (08:45)
[2023-04-02] MEDS: SERTRALINE 50 MG TAB PO SCH (08:45)
[2023-04-02] MEDS: POTASSIUM CHLORIDE ER 10 MEQ TAB.ER.PRT PO SCH ×2 (08:45→20:57)
[2023-04-02] MEDS: DONEPEZIL 5 MG TAB PO SCH (08:54)
[2023-04-02] MEDS: PANTOPRAZOLE 40 MG/10 ML VIAL IV SCH (08:54)
--- NOTE | 2023-04-02 11:02 | XR ---
EXAMINATION TYPE: XR chest 1V portable DATE OF EXAM: 04/02/2023 10:54 AM CLINICAL INDICATION:Male, 88 years old with history of s/p rt thoracentesis; [facility] COMPARISON: Chest radiographs from 03/31/2023 TECHNIQUE: XR chest 1V portable Frontal view of the chest. FINDINGS: Lungs/Pleura: Blunting of the costophrenic angles is present. Reduction in right pleural fluid withou t evidence of pneumothorax. There remains large left pleural effusion. Pulmonary vascularity: Pulmonary vascular congestion. Heart/mediastinum: Cardiomediastinal silhouette is enlarged and stable. Atherosclerotic calcificatio ns are seen in the aorta. Single-lead cardiac conduction device overlying the left hemithorax with le ad projecting over the right ventricle. Musculoskeletal: No acute osseous pathology. Other findings: None IMPRESSION: 1. Decreased but persistent right pleural fluid. No pneumothorax visualized. 2. Cardiomegaly, pulmonary vascular congestion and bilateral pleural effusions. Correlate with BNP f or congestive heart failure.
--- NOTE | 2023-04-02 11:02 | P.PN ---
Subjective Progress Note Date: 04/02/23 Patient is a very pleasant 88-year-old mle with a past medical history of CAD with permanent pacemaker secondary to symptomatic bradycardia, hypertension, hyperlipidemia, atrial fibrillation, COPD not home oxygen dependent and History of CVA with right-sided deficit/mild weakness and mild speech impairmen t/stuttering. He presented to the emergency department secondary to concerns of recurrent syncopal episodes/falls. Patient underwent full evaluation upon arrival to the emergency department. Vital signs upon arrival show blood pressure 129/67, heart rate 70, respiratory rate 18, temp 98.1F, SpO2 of 96% on room air. EKG showed a ventricular paced rhythm. Chest x-ray completed showing cardiomegaly with small right and moderate left pleural effusion and bibasilar infiltrates correlating for atelectasis. CT brain completed showing mild chronic appearing periventricular white matter ischemic changes with some mild atrophy. CBC showing hemoglobin of 8.5 and platelet count of 99 (baseline hemoglobin around 10.5). Coagulation profile normal findings. BMP shows bicarb of 18, anion gap of 19, BUN of 27, creatinine 1.13, GFR 58, glu 141, T Bili 1.5 and alkaline phosphatase of 145. Troponin 0.164, 0.6, 1.19. CT T and L spine bilateral pleural effusions with cardiomegaly, bilateral neural foraminal stenosis and narrowing at L5 through S1, L4 through L5, and L3 through L4 due to a degenerative disc bulge and bony hypertrophy. CT C spine was negative for acute traumatic abnormality. Patient was started on Heparin drip for NSTEMI. Cardiology consulted, heparin drip discontinued, Echocardiogram showed large pleural effusion, EF 50-55% with mild to mod LVH, small pericardial effusion. 1/3 Patient was seen and examined. Hard of hearing. Denies any dizziness or shortness of breath. Appears short of breath when talking. CBC Hg 7.9 MCV 111.5 Plt 105. BMP Na 134, BUN 40, Cr 1.28, glu 106. CXR shows L > R pleural effusion. Chest US shows bilateral pleural effusions. General: non toxic, no distress, appears at stated age, appears dyspneic speaking in 2 word sentences. Derm: warm, dry, multiple bruises on upper and lower extremities in different stages of healing. Skin tear RU and LUE, and thoracic region of patient's back. Head: atraumatic, normocephalic, symmetric Eyes: EOMI, no lid lag, anicteric sclera Mouth: no lip lesion, mucus membranes moist Cardiovascular: S1S2 reg, no murmur, pacemaker in place left anterior chest. Lungs: Decreased BS bilateral L > R, no rhonchi, no rales , no accessory muscle use Abdominal: soft, nontender to palpation, no guarding, no appreciable organomegaly Ext: no gross muscle atrophy, no edema, no contractures Neuro: no focal neuro deficits Psych: Alert, oriented, appropriate affect Based on my assessment of this patient, this patient meets a high complexity level of care. Patient has an acute diagnosis of syncope that poses a threat to life or bodily function. Recurrent syncopal episodes/falls: Orthostatic +. Dehydration from diarrhea versus cardiac cause. Troponin elevated. Continue NS at 75 cc/hr. Telemetry monitoring. Fall precautions. PT and OT consult. Acute hypoxic respiratory failure due to large pleural effusion: Likely cardiac. Pulmonology consulted, discussed with Dr. Jordan, plans for L thoracentesis today and R thoracentesis tomorrow. Elevated troponin: Trending up. Cardiology consulted, heparin drip discontinued, Echocardiogram showed large pleural effusion, EF 50-55% with mild to mod LVH, small pericardial effusion. ASA 81 mg PO QD. Lipitor 40 mg PO QD. Acute kidney injury: Dehydration. IV hydration as above. Diarrhea: Obtain C. diff. History of CAD with permanent pacemaker secondary to symptomatic bradycardia: ASA and Lipitor as above. No beta mario due to h/o bradycardia. Hyperlipidemia: Lipitor as above. Paroxysmal atrial fibrillation: Patient would benefit from AC. COPD not home oxygen dependent: Not in acute exacerbation. History of CVA with right-sided deficit/mild weakness: ASA and Lipitor as above. Bicytopenia with Anemia and thrombocytopenia: Iron studies consistent with AOCD. Transfuse if Hg < 7. Transfuse if Plt < 10. CODE STATUS: FULL CODE. DVT Prophylaxis: Heparin SQ GI Prophylaxis: Protonix IV Designated medical POA if patient is not able to make medical decisions for themselves: Anticipated discharge: 1-2 days. Return to assisted living facility at [facility] I have reviewed the following siebel consultant notes: Cardiology, Pulmonology note. I have reviewed the results of the following tests: CBC, BMP, Chest US I have ordered the following tests: CBC, BMP I have discussed the care of this patient with the following independent historian: I have independently interpreted the following test below: CXR. I have discussed the management of this patient with the following physician: Dr. Jordan Objective - Vital Signs Vital signs: Vital Signs Temp 98.3 F 04/02/23 00:00 Pulse 76 04/02/23 02:00 Resp 18 04/02/23 02:00 BP 141/78 04/02/23 00:00 Pulse Ox 92 L 04/02/23 00:00 FiO2 Intake & Output 04/01/23 04/01/23 04/02/23 06:59 18:59 06:59 Intake Total 1501.167 837.166 Output Total 100 400 Balance 1401.167 437.166 Weight 72.2 kg Intake: Intake, IV Titration 961.167 57.166 Amount Heparin Sod,Pork in 0.45% 61.167 57.166 NaCl 25,000 unit In 0.45 % NaCl 1 250ml.bag @ 11. 917 UNITS/KG/HR 10 mls/hr IV .Q24H [facility] Rx#: [id number] Sodium Chloride 0.9% 1, 900 000 ml @ 75 mls/hr IV . [id number] [facility] Rx#:[id number] Oral 540 780 Output: Urine 100 400 Other: Voiding Method Urinal Urinal # Voids 1 1 - Labs CBC & Chem 7: 04/02/23 05:44 04/02/23 05:44 Labs: Abnormal Lab Results - Last 24 Hours (Table) 04/01/23 Range/Units 02:44 Iron 28 L (65-175) UG/DL % Saturation 10.26 L (15.00-50.00) Transferrin 195.0 L (204.0-354.0) mg/dL Ferritin 379.0 H (22.0-322.0) ng/mL
[2023-04-02] MEDS: ASPIRIN 81 MG PO SCH (11:32)
[2023-04-02] MEDS: HEPARIN SODIUM,PORCINE 5,000 UNIT/ML 1 ML VIAL SQ SCH ×2 (11:32→20:57)
[2023-04-02 12:02] LABS: Total Protein 6.5 g/dL (6.3-8.2)
--- NOTE | 2023-04-02 12:07 | OP ---
OPERATIVE REPORT DATE OF SERVICE : PROCEDURE PERFORMED: Right-sided thoracentesis. PREOPERATIVE DIAGNOSIS: Right-sided pleural effusion. POSTOPERATIVE DIAGNOSIS: Right-sided pleural effusion. ANESTHESIA USED: 2 mL of 1% lidocaine. DESCRIPTION OF PROCEDURE: The patient was placed in a sitting upright position, the area of the fluid was earlier localized by ultrasound, and it correlated to be at the level of the 8th intercostal space and tip of the scapula. The area was then locally anesthetized with lidocaine, and prior to that was prepared in a sterile fashion. Drapes were applied while the patient was sitting in an upright position. At that same site, a 26-gauge needle was inserted at the same site, advanced into the pleural space, fluid was localized with the needle, then a standard thoracentesis catheter and needle were used, advanced at the same site into the pleural space, fluid was obtained and I drained 1200 mL of pedro- colored fluid from the right pleural space. Fluid was free flowing, and it was sent for different diagnostic studies. The procedure was well tolerated, and chest x-ray postoperatively showed no complications. MMODL / IJN: [id number] /
--- NOTE | 2023-04-02 13:34 | P.PN ---
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 We have been asked to evaluate the patient for syncope. Patient states that he came out of the shower and he had a fall. He denies any lightheadedness or dizziness prior to. No chest pain no palpitations. He states he has never felt like this before and now his back is significantly painful and making it difficult for him to move. Patient apparently has had multiple falls over the past few days along with diarrhea for a couple of weeks. He does not think he h ad loss of consciousness. Patient has been started on a heparin drip. EKG ventricularly paced rhythm with underlying atrial fibrillation Chest x-ray: Small right and moderate left pleural effusion. Cardiomegaly. Bibasilar infiltrates correlate for atelectasis. WBC 5.6, hemoglobin 8.2. Platelet count 107. INR 1.1. Electrolytes are normal with potassium of 4.5, BUN 32 initial creatinine 1.13 and now 1.31. Magnesium 2.1. Troponin 0.164, 0.6, 1.19. Home cardiac medications: Aspirin 81 mg daily, atorvastatin 20 mg at bedtime, Lasix 40 mg daily, magnesium oxide 400 mg daily, Nitrostat as needed, K-Dur 10 milligrams once twice daily. Keisha scan Cardiolite stress test performed 05/20/2022 in the office revealed abnormal imaging with prior WA involving the inferior and inferior lateral wall and hypokinesia of the same segment. Those findings are consistent with prior WA involving the RCA territory no evidence of stress-induced ischemia. Echocardiogram performed 02/16/2022 in the office revealed normal EF, moderate TR, moderate MR, moderate AR, mild , RVSP 50 mmHg. 1/3 Patient is seen today in follow-up. Echocardiogram reveals large pleural effusion. Mild to moderate concentric left hypertrophy, EF 50-55%. Possible pulmonary hypertension blood pressures appear to be in the range of 40 mmHg. This could be underestimated. Mild aortic stenosis. This morning, patient underwent right-sided thoracentesis with Dr. Nikki with removal of 1200 ML's of pedro-colored fluid. Heart rate is in the 70s, blood pressure 176/84 and repeat manual 152/86. Repeat blood work reveals hemoglobin is 7.9 and platelet count 105. BUN 40, creatinine 1.28. Physical examination: Gen: This is an 88-year-old male resting in bed appears to be comfortable and in no acute distress. VS: reviewed HEENT: Head is atraumatic, normocephalic. Pupils equal, round. Sclerae is anicteric. NECK: Supple. No JVD. LUNGS: Diminished No intercostal retractions. HEART: Regular rate and rhythm. Systolic murmur. ABDOMEN: Soft No tenderness. EXTREMITIES: No pedal edema. No calf tenderness. NEUROLOGICAL: Patient is awake, alert and oriented. Assessment: Fall near syncopal episode most likely due to orthostatic changes Elevated troponin, acute coronary syndrome ruled out Bicytopenia with anemia and thrombocytopenia Large pleural effusion status post thoracentesis Chronic permanent atrial fibrillation Coronary artery disease status post stent of the mid RCA Sick sinus syndrome and atrial fibrillation status post single-chamber permanent pacemaker Hypertension Hypercholesterolemia CVA Plan: Continue patient's home cardiac medications Discontinue Lasix at home Add amlodipine 2.5 mg daily Diarrhea workup per attending Back pain workup per attending Further recommendations to follow based upon clinical course Nurse practitioner note has been reviewed, I agree with documented findings and plan of care. Patient was seen and examined. Objective - Vital Signs Vital signs: Vital Signs Temp 97.3 F L 04/02/23 08:44 Pulse 72 04/02/23 11:31 Resp 16 04/02/23 11:31 BP 152/86 04/02/23 11:31 Pulse Ox 97 04/02/23 11:31 FiO2 Intake & Output 04/01/23 04/02/23 04/02/23 18:59 06:59 18:59 Intake Total 837.166 200 Output Total 400 Balance 437.166 200 Weight 71.5 kg Intake: Intake, IV Titration 57.166 Amount Heparin Sod,Pork in 0.45% 57.166 NaCl 25,000 unit In 0.45 % NaCl 1 250ml.bag @ 11. 917 UNITS/KG/HR 10 mls/hr IV .Q24H LYLY Rx#: [id number] Oral 780 200 Output: Urine 400 Other: Voiding Method Urinal Urinal Urinal # Voids 1 2 - Labs CBC & Chem 7: 04/02/23 05:44 04/02/23 05:44 Labs: Abnormal Lab Results - Last 24 Hours (Table) 04/02/23 04/02/23 04/02/23 Range/Units 05:44 05:44 05:44 RBC 2.22 L (4.30-5.90) m/uL Hgb 7.9 L (13.0-17.5) gm/dL Hct 24.8 L (39.0-53.0) % MCV 111.5 H (80.0-100.0) fL MCH 35.5 H (25.0-35.0) pg RDW 16.8 H (11.5-15.5) % Plt Count 105 L (150-450) k/uL Macrocytosis Marked A Sodium 134 L (137-145) mmol/L BUN 40 H (9-20) mg/dL Creatinine 1.28 H (0.66-1.25) mg/dL Glucose 106 H (74-99) mg/dL Lactate Dehydrogenase 252 H (120-246) U/L
[2023-04-02] MEDS: SODIUM CHLORIDE 0.9% 1,000 ML IV SCH ×2 (13:38→21:00)
[2023-04-02] MEDS: amLODIPine 2.5 MG TAB PO SCH (15:43)
[2023-04-02 16:29] LABS: Appearance,BF Clear (Clear)
[2023-04-02 17:47] LABS: Appearance,Urine Clear (Clear); Bilirubin,Urine Negative (Negative); Blood,Urine Negative (Negative); Color,Urine Yellow; Glucose,Urine (UA) Negative (Negative); Ketones,Urine Negative (Negative); Leukocyte Esterase,Urine Negative (Negative); Mucus,Urine Rare /hpf; Nitrite,Urine Negative (Negative); PH, Urine 5.5 (5.0-8.0); Protein,Urine 1+ (Negative); RBC,Urine 1 /hpf (0-5); Specific Gravity,Urine 1.018 (1.001-1.035); Squamous Epithelial Cell,Urine <1 /hpf (0-4); Urobilinogen,Urine <2.0 mg/dL (<2.0); WBC,Urine 1 /hpf (0-5)
[2023-04-02 18:50] LABS: LDH, Body Fluid Source Pleural Fluid; T. Protein, Body Fluid Source Pleural Fluid; Total Protein, Body Fluid 2890 mg/dL
[2023-04-02] MEDS: MELATONIN 5 MG TABLET PO SCH (20:57)
--- NOTE | 2023-04-03 08:50 | US ---
EXAMINATION TYPE: US renals and bladder DATE OF EXAM: 04/03/2023 COMPARISON: NONE CLINICAL INDICATION: Male, 88 years old with history of JOHN on CKD; elderly male with CKD and JOHN EXAM MEASUREMENTS: Right Kidney: 10.1 x 4.4 x 6.0 cm Left Kidney: unable to view Right Kidney: 1.8 x 1.7 x 1.7cm inferior pole simple cyst Left Kidney: not seen due to bowel gas Bladder: wnl Urinary bladder is sonolucent. The posterior wall is normal Incidental note is made of a left pleural effusion IMPRESSION: 1. Simple cyst right kidney. 2. Nonvisualization of the left kidney due to bowel gas
[2023-04-03] MEDS: PANTOPRAZOLE 40 MG/10 ML VIAL IV SCH (09:17)
[2023-04-03] MEDS: TAMSULOSIN 0.4 MG CAP.ER.24H PO SCH (09:17)
[2023-04-03] MEDS: ASPIRIN 81 MG PO SCH (09:17)
[2023-04-03] MEDS: DONEPEZIL 5 MG TAB PO SCH (09:17)
[2023-04-03] MEDS: FUROSEMIDE 10 MG/ML 2 ML VIAL IV SCH ×2 (09:17→20:48)
[2023-04-03] MEDS: ATORVASTATIN 20 MG TAB PO SCH (09:18)
[2023-04-03] MEDS: MAGNESIUM OXIDE 400 MG TAB PO SCH (09:18)
[2023-04-03] MEDS: POTASSIUM CHLORIDE ER 10 MEQ TAB.ER.PRT PO SCH ×2 (09:18→20:48)
[2023-04-03] MEDS: amLODIPine 2.5 MG TAB PO SCH (09:18)
[2023-04-03] MEDS: SERTRALINE 50 MG TAB PO SCH (09:18)
[2023-04-03] MEDS: HEPARIN SODIUM,PORCINE 5,000 UNIT/ML 1 ML VIAL SQ SCH (09:18)
[2023-04-03] MEDS: allopurinoL 300 MG TAB PO SCH (09:18)
[2023-04-03 09:29] LABS: Anisocytosis Slight; HCT 26.3 % (39.0-53.0); HGB 8.4 gm/dL (13.0-17.5); Hypochromasia Moderate; MCH 35.6 pg (25.0-35.0); MCHC 31.9 g/dL (31.0-37.0); MCV 111.3 fL (80.0-100.0); Macrocytosis Marked; Mean Platelet Volume 8.9; Platelet Count 108 k/uL (150-450); RBC 2.36 m/uL (4.30-5.90); RDW 16.9 % (11.5-15.5); WBC 5.2 k/uL (3.8-10.6)
[2023-04-03 09:30] LABS: African American GFR (CKD) 70 (>60 ml/min/1.73 sqM); Anion Gap 11 mmol/L; Blood Urea Nitrogen 38 mg/dL (9-20); Calcium 9.7 mg/dL (8.4-10.2); Carbon Dioxide 22 mmol/L (22-30); Chloride 105 mmol/L (98-107); Glucose 112 mg/dL (74-99); Non-African American GFR(CKD) 61 (>60 ml/min/1.73 sqM); Potassium 4.3 mmol/L (3.5-5.1); Sodium 138 mmol/L (137-145)
--- NOTE | 2023-04-03 10:51 | P.NPCON ---
History of Present Illness - Reason for Consult chronic renal failure - History of Present Illness Reason for consultation: Chronic kidney disease next History of present illness: Patient is a 88-year-old male seen in renal consultation for chronic kidney disease. Patient has chronic kidney disease stage IIIA with baseline creatinine 1.1-1.3. GFR is near baseline. Patient came to the hospital on 03/31/2023 due to possible syncopal episode. Patient states he sustained a fall when he came at the shower. Patient denies losing consciousness. Patient has history of coronary artery disease with cardiac stenting, pacemaker placement as well as history of CVA. He admits to good urine output. Denies gross hematuria or dysuria. Denies history of diabetes. Denies use of nonsteroidals. Patient was receiving IV fluids but was started on IV Lasix this morning. Chest x-ray from yesterday did show evidence of vascular congestion and pleural effusions. Kidney ultrasound showed no evidence of hydronephrosis. However left kidney was not visualized. Patient did undergo right-sided thoracentesis on 04/02/2023 with 1200 mL drained. Vital signs are stable. General: No acute distress. HEENT: Head exam is unremarkable. On nasal cannula. LUNGS: No audible rhonchi or wheezes. HEART: Rate and Rhythm are regular. ABDOMEN: Nontender. EXTREMITITES: No edema. Past Medical History Past Medical History: Atrial Fibrillation, Cancer, COPD, CVA/TIA, Dementia, Hy perlipidemia, Hypertension, Osteoarthritis (OA), Renal Disease, Sleep Apnea/CPAP/BIPAP, Syncope Additional Past Medical History / Comment(s): PT CAME TO ER WITH SYNCOPAL AND N EAR SYNCOPAL EPISODES. PT HAS PACEMAKER DUE. TO BRADYCARDA. SKIN CA, KIDNEY STONES, PT HAS SLEEP APNEA AND HAS A CPAP MACHINE THAT HE SAID HE NO LONGER NEEDS. CVA 2019- right side weakness History of Any Multi-Drug Resistant Organisms: None Reported Past Surgical History: Hernia Repair, Orthopedic Surgery, Pacemaker Additional Past Surgical History / Comment(s): R GROIN HERNIA REPAIR. bilateral knee replacement, pacemaker WITH NEWEST DEVICE CHANGE IN 2009. Past Anesthesia/Blood Transfusion Reactions: No Reported Reaction Type of Cardiac Device: Permanent Pacemaker Device Placement Date:: 2009 Past Psychological History: No Psychological Hx Reported Smoking Status: Former smoker Past Alcohol Use History: None Reported Past Drug Use History: None Reported - Past Family History Father Family Medical History: Cancer, CVA/TIA, Diabetes Mellitus Additional Family Medical History / Comment(s): FATHER OF LUNG CANCER AT AGE 82YRS. Mother Family Medical History: Coronary Artery Disease (CAD) Additional Family Medical History / Comment(s): MOTHER AT AGE 72 YRS. Medications and Allergies Home Medications Medication Instructions Recorded Confirmed Type allopurinoL [Zyloprim] 300 mg PO DAILY 01/27/14 03/31/23 History Atorvastatin Calcium [Lipitor] 20 mg PO HS 04/24/18 03/31/23 History Nitroglycerin Sl Tabs [Nitrostat] 0.4 mg SUBLINGUAL Q5M PRN #25 tab 04/24/18 03/31/23 Rx Tamsulosin HCl [Flomax] 0.4 mg PO DAILY 01/05/21 03/31/23 History Acetaminophen Tab [Tylenol Tab] 500 - 1,000 mg PO Q6HR PRN 03/31/23 03/31/23 History Aspirin EC [Ecotrin Low Dose] 81 mg PO DAILY 03/31/23 03/31/23 History Calamine/Zinc Oxide Lotion 1 applic TOPICAL TID 03/31/23 03/31/23 History [Calamine Lotion] Donepezil [Aricept] 5 mg PO DAILY 03/31/23 03/31/23 History Ensure 1 can PO DAILY 03/31/23 03/31/23 History Ferrous Sulfate [Feosol] 325 mg PO Q48H 03/31/23 03/31/23 History Loperamide [Imodium] 2 - 4 mg PO QID PRN 03/31/23 03/31/23 History Magnesium Oxide [Mag-Ox] 400 mg PO DAILY 03/31/23 03/31/23 History Melatonin 5 mg PO HS 03/31/23 03/31/23 History Potassium Chloride ER [K-Dur 10] 10 meq PO BID 03/31/23 03/31/23 History Psyllium Husk 100% [Metamucil 6 gm PO BID PRN 03/31/23 03/31/23 History Packet] Sertraline [Zoloft] 50 mg PO DAILY 03/31/23 03/31/23 History Allergies Allergy/AdvReac Type Severity Reaction Status Date / Time No Known Allergies Allergy Verified 03/31/23 17:30 Physical Exam Vitals: Vital Signs Temp Pulse Resp BP Pulse Ox 04/03/23 08:00 98.2 F 74 18 128/67 98 04/03/23 03:52 97.8 F 69 19 135/78 99 04/02/23 23:43 98.0 F 70 19 140/73 96 04/02/23 21:28 97.9 F 70 19 126/73 96 04/02/23 15:43 97.8 F 70 16 150/82 96 04/02/23 11:31 72 16 152/86 97 Intake and Output 04/02/23 04/03/23 04/03/23 22:59 06:59 14:59 Intake Total 360 Output Total 200 Balance -200 360 Intake: Oral 360 Output: Urine 200 Other: Voiding Method Urinal Urinal Urinal # Voids 1 Weight 72.5 kg Results - Lab Results Most recent lab results Calcium 9.7 mg/dL (8.4-10.2) 04/03/23 08:40 Magnesium 2.1 mg/dL (1.6-2.3) 03/31/23 12:19 04/03/23 08:40 04/03/23 08:40 Assessment and Plan Plan: Assessment: 1. Chronic kidney disease stage IIIa with baseline creatinine 1.1-1.3. GFR near baseline. No hydronephrosis noted on a kidney ultrasound. Left kidney wasn't visualized. UA 1+ protein and no blood. 2. Acute on chronic diastolic CHF. 3. Volume overload. Status post right-sided thoracentesis with 1.2 L drained 04/02/2023. 4. Bicytopenia. 5. Coronary disease with cardiac stenting. 6. History of CVA. 7. Hypertension with chronic kidney disease. Plan: Maintain IV Lasix. Low-salt diet. Check iron studies. Avoid nephrotoxins. Continue to monitor renal function and urine output. Thank you for the consultation. I will continue to follow the patient with you during his hospital stay.
--- NOTE | 2023-04-03 11:41 | P.PN ---
Subjective Progress Note Date: 04/03/23 Patient is a very pleasant 88-year-old mle with a past medical history of CAD with permanent pacemaker secondary to symptomatic bradycardia, hypertension, hyperlipidemia, atrial fibrillation, COPD not home oxygen dependent and History of CVA with right-sided deficit/mild weakness and mild speech impairmen t/stuttering. He presented to the emergency department secondary to concerns of recurrent syncopal episodes/falls. Patient underwent full evaluation upon arrival to the emergency department. Vital signs upon arrival show blood pressure 129/67, heart rate 70, respiratory rate 18, temp 98.1F, SpO2 of 96% on room air. EKG showed a ventricular paced rhythm. Chest x-ray completed showing cardiomegaly with small right and moderate left pleural effusion and bibasilar infiltrates correlating for atelectasis. CT brain completed showing mild chronic appearing periventricular white matter ischemic changes with some mild atrophy. CBC showing hemoglobin of 8.5 and platelet count of 99 (baseline hemoglobin around 10.5). Coagulation profile normal findings. BMP shows bicarb of 18, anion gap of 19, BUN of 27, creatinine 1.13, GFR 58, glu 141, T Bili 1.5 and alkaline phosphatase of 145. Troponin 0.164, 0.6, 1.19. CT T and L spine bilateral pleural effusions with cardiomegaly, bilateral neural foraminal stenosis and narrowing at L5 through S1, L4 through L5, and L3 through L4 due to a degenerative disc bulge and bony hypertrophy. CT C spine was negative for acute traumatic abnormality. Patient was started on Heparin drip for NSTEMI. Cardiology consulted, heparin drip discontinued, Echocardiogram showed large pleural effusion, EF 50-55% with mild to mod LVH, small pericardial effusion. 04/02 Patient was seen and examined. Hard of hearing. Denies any dizziness or shortness of breath. Appears short of breath when talking. CBC Hg 7.9 MCV 111.5 Plt 105. BMP Na 134, BUN 40, Cr 1.28, glu 106. CXR shows L > R pleural effusion. Chest US shows bilateral pleural effusions. 04/03 Patient was seen and examined. Underwent right thoracentesis yesterday, 1.2L drained. Repeat CXR showed mild improvement in his right pleural effusion. I stopped his normal saline today. Started on Lasix 20 mg IV BID. He is + 637 cc fluid balance over the past 24H. Weight 71.5-72.5kg over the past 24H. CBC Hg 8.4 MCV 111.3 Plt 108. BMP BUN 38, glu 112. General: non toxic, no distress, appears at stated age, appears dyspneic speaking in 2 word sentences. Derm: warm, dry, multiple bruises on upper and lower extremities in different stages of healing. Skin tear RU and LUE, and thoracic region of patient's back. Head: atraumatic, normocephalic, symmetric Eyes: EOMI, no lid lag, anicteric sclera Mouth: no lip lesion, mucus membranes moist Cardiovascular: S1S2 reg, no murmur, pacemaker in place left anterior chest. Lungs: Decreased BS bilateral L > R, no rhonchi, no rales , no accessory muscle use Abdominal: soft, nontender to palpation, no guarding, no appreciable organomegaly Ext: no gross muscle atrophy, no edema, no contractures Neuro: no focal neuro deficits Psych: Alert, oriented, appropriate affect Based on my assessment of this patient, this patient meets a high complexity level of care. Patient has an acute diagnosis of syncope that poses a threat to life or bodily function. Recurrent syncopal episodes/falls: Orthostatic +. Dehydration from diarrhea versus cardiac cause. Troponin elevated. IVF discontinued 04/03. Telemetry monitoring. Fall precautions. PT and OT consult. Acute hypoxic respiratory failure due to large pleural effusion and HFpEF exacerbation: Likely cardiac. Pulmonology consulted, status post R thoracentesis 1.2L on 04/03. Start Lasix 20 mg IV BID. Strick intake and outtake. Daily weights. Obtain BNP. Elevated troponin: Trending up. Cardiology consulted, heparin drip discontinued, Echocardiogram showed large pleural effusion, EF 50-55% with mild to mod LVH, small pericardial effusion. ASA 81 mg PO QD. Lipitor 40 mg PO QD. Obtain Troponin. Acute kidney injury on CKD: Worsened with dehydration. Watch electrolytes carefully while on Lasix. Obtain Renal and Bladder US. Nephrology consulted. Diarrhea: Obtain C. diff. None while hospitalized so far. Appears to be resolving. History of CAD with permanent pacemaker secondary to symptomatic bradycardia: ASA and Lipitor as above. No beta mario due to h/o bradycardia. Hyperlipidemia: Lipitor as above. Paroxysmal atrial fibrillation: Risk vs benefit with AC due to frequent falls. COPD not home oxygen dependent: Not in acute exacerbation. History of CVA with right-sided deficit/mild weakness: ASA and Lipitor as above. Bicytopenia with Anemia and thrombocytopenia: Iron studies consistent with AOCD. Transfuse if Hg < 7. Transfuse if Plt < 10. CODE STATUS: FULL CODE. DVT Prophylaxis: Heparin SQ GI Prophylaxis: Protonix IV Designated medical POA if patient is not able to make medical decisions for themselves: Anticipated discharge: Return to assisted living facility at [facility] I have reviewed the following change management consultant notes: Cardiology, Pulmonology, procedure note. I have reviewed the results of the following tests: CBC, BMP I have ordered the following tests: CBC, BMP, BNP, Renal US, Troponin. I have discussed the care of this patient with the following independent historian: I have independently interpreted the following test below: CXR. I have discussed the management of this patient with the following physician: Objective - Vital Signs Vital signs: Vital Signs Temp 97.8 F 04/03/23 03:52 Pulse 69 04/03/23 03:52 Resp 19 04/03/23 03:52 BP 135/78 04/03/23 03:52 Pulse Ox 99 04/03/23 03:52 FiO2 Intake & Output 04/02/23 04/03/23 04/03/23 18:59 06:59 18:59 Output Total 200 Balance -200 Weight 72.5 kg Output: Urine 200 Other: Voiding Method Urinal Urinal # Voids 1 - Labs CBC & Chem 7: 04/03/23 08:40 04/03/23 08:40 Labs: Abnormal Lab Results - Last 24 Hours (Table) 04/02/23 04/02/23 Range/Units 05:44 17:13 Lactate Dehydrogenase 252 H (120-246) U/L Urine Protein 1+ H (Negative) Urine Mucus Rare H (None) /hpf
--- NOTE | 2023-04-03 11:47 | P.PN ---
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 We have been asked to evaluate the patient for syncope. Patient states that he came out of the shower and he had a fall. He denies any lightheadedness or dizziness prior to. No chest pain no palpitations. He states he has never felt like this before and now his back is significantly painful and making it difficult for him to move. Patient apparently has had multiple falls over the past few days along with diarrhea for a couple of weeks. He does not think he h ad loss of consciousness. Patient has been started on a heparin drip. EKG ventricularly paced rhythm with underlying atrial fibrillation Chest x-ray: Small right and moderate left pleural effusion. Cardiomegaly. Bibasilar infiltrates correlate for atelectasis. WBC 5.6, hemoglobin 8.2. Platelet count 107. INR 1.1. Electrolytes are normal with potassium of 4.5, BUN 32 initial creatinine 1.13 and now 1.31. Magnesium 2.1. Troponin 0.164, 0.6, 1.19. Home cardiac medications: Aspirin 81 mg daily, atorvastatin 20 mg at bedtime, Lasix 40 mg daily, magnesium oxide 400 mg daily, Nitrostat as needed, K-Dur 10 milligrams once twice daily. Keisha scan Cardiolite stress test performed 05/20/2022 in the office revealed abnormal imaging with prior DE involving the inferior and inferior lateral wall and hypokinesia of the same segment. Those findings are consistent with prior DE involving the RCA territory no evidence of stress-induced ischemia. Echocardiogram performed 02/16/2022 in the office revealed normal EF, moderate TR, moderate MR, moderate AR, mild , RVSP 50 mmHg. 1/3 Patient is seen today in follow-up. Echocardiogram reveals large pleural effusion. Mild to moderate concentric left hypertrophy, EF 50-55%. Possible pulmonary hypertension blood pressures appear to be in the range of 40 mmHg. This could be underestimated. Mild aortic stenosis. This morning, patient underwent right-sided thoracentesis with Dr. Nikki with removal of 1200 ML's of pedro-colored fluid. Heart rate is in the 70s, blood pressure 176/84 and repeat manual 152/86. Repeat blood work reveals hemoglobin is 7.9 and platelet count 105. BUN 40, creatinine 1.28. 1/ The patient is seen today in follow-up. Patient denies having any chest pain and no shortness of breath, no dizziness or lightheadedness. A repeat troponin was obtained this morning which came back at 3.67. ProBNP 10,200. Electrolytes are normal. BUN 38 creatinine 1.08. WBC 5.2, heme hemoglobin 8.4, platelet count 108. Renal ultrasound revealed simple cyst right kidney. Nonvisualization of the left kidney due to bowel gas. Nephrology is following patient for chronic kidney disease. The patient has been started on IV Lasix per attending. Reviewed office notes and patient was on eliquis 5 mg twice daily which is not captured on his hospital records. Physical examination: Gen: This is an 88-year-old male resting in bed appears to be comfortable and in no acute distress. VS: reviewed HEENT: Head is atraumatic, normocephalic. Pupils equal, round. Sclerae is anicteric. NECK: Supple. No JVD. LUNGS: Diminished No intercostal retractions. HEART: Regular rate and rhythm. Systolic murmur. ABDOMEN: Soft No tenderness. EXTREMITIES: No pedal edema. No calf tenderness. NEUROLOGICAL: Patient is awake, alert and oriented. Assessment: Fall near syncopal episode most likely due to orthostatic changes Elevated troponin, likely non-Q-wave DE with plan for medical management Bicytopenia with anemia and thrombocytopenia Large pleural effusion status post thoracentesis Chronic permanent atrial fibrillation Coronary artery disease status post stent of the mid RCA Sick sinus syndrome and atrial fibrillation status post single-chamber permanent pacemaker Hypertension Hypercholesterolemia CVA Plan: Continue patient's home cardiac medications Lasix per attending/nephrology Patient will be resumed on eliquis but a lower dose of 2.5 mg twice daily as we will also start him on Plavix 75 mg daily Discontinue aspirin Continue statin which is been increased to 40 mg daily and add Toprol-XL 12.5 mg daily Patient will follow up with Dr. Hinkle in one to 2 weeks. Nurse practitioner note has been reviewed, I agree with documented findings and plan of care. Patient was seen and examined. Objective - Vital Signs Vital signs: Vital Signs Temp 97.8 F 04/03/23 03:52 Pulse 69 04/03/23 03:52 Resp 19 04/03/23 03:52 BP 135/78 04/03/23 03:52 Pulse Ox 99 04/03/23 03:52 FiO2 Intake & Output 04/02/23 04/03/23 04/03/23 18:59 06:59 18:59 Intake Total 360 Output Total 200 Balance -200 360 Weight 72.5 kg Intake: Oral 360 Output: Urine 200 Other: Voiding Method Urinal Urinal # Voids 1 - Labs CBC & Chem 7: 04/03/23 08:40 04/03/23 08:40 Labs: Abnormal Lab Results - Last 24 Hours (Table) 04/02/23 04/02/23 Range/Units 05:44 17:13 Lactate Dehydrogenase 252 H (120-246) U/L Urine Protein 1+ H (Negative) Urine Mucus Rare H (None) /hpf
[2023-04-03] MEDS: METOPROLOL SUCCINATE (ER) 25 MG TAB.ER.24H PO SCH (12:34)
--- NOTE | 2023-04-03 14:25 | P.PN ---
Subjective Progress Note Date: 04/03/23 Principal diagnosis: Acute hypoxic respiratory failure with acute diastolic congestive heart failure and bilateral pleural effusions I am seeing this patient in consultation today 04/02/2023 after he was admitted back on March for a fall and possible syncope. Patient is an 88-year-old white male with past medical history significant for atrial fibrillation previously on Eliquis, permanent pacemaker implantation, coronary artery disease, hyperlipidemia, hypertension, previous CVA/TIA. Patient was brought into the emergency room back on March after reportedly falling in the shower. He reportedly lives at home alone. He states that he slipped and fell, however, EMS reported a possible syncopal event. Patient has been very weak. He ambulates with a walker. He is technically a poor historian. CT of the brain and C-spine without contrast on arrival did not show any acute intracranial abnormality or C-spine fracture. EKG on arrival showed a ventricular paced rhythm. He does have a permanent pacemaker. Echocardiogram shows preserved left ventricular ejection fraction of 50-55% with [id number] concentric LVH. There is enlargement/dilation of the right ventricle and atrium with an estimated RVSP of 36.8. Moderate to severe tricuspid regurg. Small pericardial effusion. Large pleural effusion reported. We were not consulted until earlier t his morning. Patient is currently lying in bed, on 3 L/m nasal cannula, in no acute distress. He is not short of breath at rest, however, reports shortness of breath and heart palpitations with any exertion. Denies chest pain. Denies syncopal episodes or losing consciousness. Does admit becoming lightheaded on standing. Denies any infectious symptoms. He has had significant diarrhea over the last 6 weeks. Denies any abdominal pain, fevers, bloody bowel mvmts, or [place] stools. Chest x-ray shows cardiomegaly with bilateral small to moderate sized pleural effusions, left greater than right. Most recent CBC is a WBC count of 5.6, hemoglobin 8.2, hematocrit 24.7, platelets 107. BMP from yesterday demonstrates a sodium 137, potassium 4.5, chloride 102, serum bicarbonate 22, BUN 32, creatinine 1.31, glucose 110. Troponins are elevated at 0.164, 0.6, and 1.19. Patient was temporarily on heparin infusion per protocol, this has been discontinued. This has been evaluated by cardiology, and felt not to reflect ACS. Vital signs are stable. Reevaluated today on 04/03/23, patient underwent a right sided thoracentesis yesterday, feeling much better today, breathing easier. Fluid seems to be transudative in nature with relatively low LDH, and borderline protein. Cytology is pending however is expected to be negative. Diuretics remain on hold, patient was seen by nephrology and recommending that the patient remains on Lasix, low-salt diet, and avoiding nephrotoxins. I did review the patient's ultrasound yesterday, and I am planning another thoracentesis on the left side possibly tomorrow clinically the patient is feeling better, breathing easier, and considering that the patient has transudative pleural effusion, I believe the patient was definitely need more diuretics otherwise his fluids will build up and will definitely cause more shortness of breath. Creatinine today is better 1.08 basic metabolic profile is normal bicarb is 22, CBC is relatively normal hemoglobin is 8.4 however continues to have elevated troponin and elevated BNP level. Objective - Vital Signs Vital signs: Vital Signs Temp 97.8 F 04/03/23 12:00 Pulse 63 04/03/23 12:00 Resp 18 04/03/23 12:00 BP 116/65 04/03/23 12:00 Pulse Ox 95 04/03/23 12:00 FiO2 Intake & Output 04/02/23 04/03/23 04/03/23 18:59 06:59 18:59 Intake Total 718 Output Total 200 Balance -200 718 Weight 72.5 kg Intake: Oral 718 Output: Urine 200 Other: Voiding Method Urinal Urinal Urinal # Voids 1 - Exam Physical Exam: Revealed an 88-year-old white male in no distress on 2 L nasal cannula with O2 saturations were 95% Head: Atraumatic, normocephalic HEENT:[Neck is supple.] [No neck masses.] [No thyromegaly.] [No JVD.] Chest: [Clear throughout, no crackles, no rhonchi, no wheezes.] Cardiac Exam: [Normal S1 and S2, no S3 gallop, 2/6 systolic murmur thought the precordium Abdomen: [Soft, nontender, no megaly, no rebound, no guarding, normal bowel sounds.] Extremities: [No clubbing, no edema, no cyanosis.] Multiple areas of ecchymosis noted in upper and lower extremities and on the back. Neurological Exam: [No focal neurologic deficit.] Alert and oriented 3 but seems to be generally weak. Skin multiple areas of ecchymosis and skin tears noted. - Labs CBC & Chem 7: 04/03/23 08:40 04/03/23 08:40 Labs: Abnormal Lab Results - Last 24 Hours (Table) 04/02/23 04/03/23 04/03/23 Range/Units 17:13 08:40 08:40 RBC 2.36 L (4.30-5.90) m/uL Hgb 8.4 L (13.0-17.5) gm/dL Hct 26.3 L (39.0-53.0) % MCV 111.3 H (80.0-100.0) fL MCH 35.6 H (25.0-35.0) pg RDW 16.9 H (11.5-15.5) % Plt Count 108 L (150-450) k/uL Macrocytosis Marked A BUN 38 H (9-20) mg/dL Glucose 112 H (74-99) mg/dL Troponin I (0.000-0.034) ng/mL Urine Protein 1+ H (Negative) Urine Mucus Rare H (None) /hpf 04/03/23 Range/Units 08:40 RBC (4.30-5.90) m/uL Hgb (13.0-17.5) gm/dL Hct (39.0-53.0) % MCV (80.0-100.0) fL MCH (25.0-35.0) pg RDW (11.5-15.5) % Plt Count (150-450) k/uL Macrocytosis BUN (9-20) mg/dL Glucose (74-99) mg/dL Troponin I 3.670 H* (0.000-0.034) ng/mL Urine Protein (Negative) Urine Mucus (None) /hpf Assessment and Plan Assessment: Impression: Acute hypoxic respiratory failure Acute on chronic diastolic congestive heart failure Bilateral pleural effusions Recurrent falls, possible near-syncope Severe diarrhea and dehydration Bicytopenia, with anemia and thrombocytopenia Macrocytic anemia History of atrial fibrillation and sick sinus syndrome, status post permanent pacemaker implantation, currently V paced History of coronary artery disease Hyperlipidemia Hypertension History of previous CVA/TIA Gait disturbance, ambulates with walker Brief history of tobacco use Recommendation: Continue oxygen and titrate accordingly Continue fall precautions Continue and resume cardiac meds including diuretics We'll consider left sided thoracentesis in a.m. Continue to hold eliquis Patient is agreeable to proceed with thoracentesis on the other side tomorrow Will follow. Time with Patient: Less than 30
[2023-04-03 17:13] LABS: % Iron Saturation 14.1 (15.00-50.00)
[2023-04-03] MEDS: MELATONIN 5 MG TABLET PO SCH (20:48)
[2023-04-03] MEDS ORDERED: APIXABAN 2.5 MG TABLET PO SCH (21:00)
[2023-04-04 07:49] LABS: Anisocytosis Slight; HCT 26.2 % (39.0-53.0); HGB 8.3 gm/dL (13.0-17.5); Hypochromasia Moderate; MCH 35.2 pg (25.0-35.0); MCHC 31.7 g/dL (31.0-37.0); MCV 111.2 fL (80.0-100.0); Macrocytosis Marked; Mean Platelet Volume 8.6; Platelet Count 114 k/uL (150-450); RBC 2.35 m/uL (4.30-5.90); RDW 16.6 % (11.5-15.5)
[2023-04-04 08:06] LABS: African American GFR (CKD) 65 (>60 ml/min/1.73 sqM); Anion Gap 9 mmol/L; Blood Urea Nitrogen 39 mg/dL (9-20); Calcium 9.5 mg/dL (8.4-10.2); Carbon Dioxide 24 mmol/L (22-30); Chloride 103 mmol/L (98-107); Glucose 97 mg/dL (74-99); Magnesium 2.2 mg/dL (1.6-2.3); Non-African American GFR(CKD) 56 (>60 ml/min/1.73 sqM); Potassium 4.2 mmol/L (3.5-5.1); Sodium 136 mmol/L (137-145)
[2023-04-04] MEDS: POTASSIUM CHLORIDE ER 10 MEQ TAB.ER.PRT PO SCH ×2 (09:29→20:56)
[2023-04-04] MEDS: allopurinoL 300 MG TAB PO SCH (09:29)
[2023-04-04] MEDS: TAMSULOSIN 0.4 MG CAP.ER.24H PO SCH (09:29)
[2023-04-04] MEDS: SERTRALINE 50 MG TAB PO SCH (09:29)
[2023-04-04] MEDS: MAGNESIUM OXIDE 400 MG TAB PO SCH (09:29)
[2023-04-04] MEDS: FERROUS SULFATE 325 MG TAB PO SCH (09:29)
[2023-04-04] MEDS: amLODIPine 2.5 MG TAB PO SCH (09:29)
[2023-04-04] MEDS: DONEPEZIL 5 MG TAB PO SCH (09:29)
[2023-04-04] MEDS: FUROSEMIDE 10 MG/ML 2 ML VIAL IV SCH ×2 (09:29→20:56)
[2023-04-04] MEDS: CLOPIDOGREL 75 MG TAB PO SCH (09:29)
[2023-04-04] MEDS: ATORVASTATIN 20 MG TAB PO SCH (09:29)
[2023-04-04] MEDS: PANTOPRAZOLE 40 MG/10 ML VIAL IV SCH (09:30)
[2023-04-04] MEDS: METOPROLOL SUCCINATE (ER) 25 MG TAB.ER.24H PO SCH (09:30)
--- NOTE | 2023-04-04 10:49 | P.PN ---
Subjective Patient is seen in follow-up for acute kidney injury on chronic kidney disease. Renal function stable. Admits to good urine output. No hematuria or dysuria. Oral intake fair. Vital signs are stable. General: No acute distress. HEENT: Head exam is unremarkable. On nasal cannula. LUNGS: No audible rhonchi or wheezes. HEART: Rate and Rhythm are regular. ABDOMEN: Nontender. EXTREMITITES: No edema. Objective - Vital Signs Vital signs: Vital Signs Temp 97.0 F L 04/04/23 09:44 Pulse 70 04/04/23 09:44 Resp 18 04/04/23 09:44 BP 113/57 04/04/23 09:44 Pulse Ox 98 04/04/23 09:44 FiO2 Intake & Output 04/03/23 04/04/23 04/04/23 18:59 06:59 18:59 Intake Total 1198 480 Output Total 125 Balance 1198 355 Intake: Oral 1198 480 Output: Urine 125 Other: Voiding Method Urinal Urinal Urinal # Voids 1 # Bowel Movements 1 - Labs CBC & Chem 7: 04/04/23 06:50 04/04/23 06:50 Labs: Abnormal Lab Results - Last 24 Hours (Table) 04/03/23 04/04/23 04/04/23 Range/Units 11:20 06:50 06:50 RBC 2.35 L (4.30-5.90) m/uL Hgb 8.3 L (13.0-17.5) gm/dL Hct 26.2 L (39.0-53.0) % MCV 111.2 H (80.0-100.0) fL MCH 35.2 H (25.0-35.0) pg RDW 16.6 H (11.5-15.5) % Plt Count 114 L (150-450) k/uL Macrocytosis Marked A Sodium 136 L (137-145) mmol/L BUN 39 H (9-20) mg/dL Iron 32 L (65-175) UG/DL TIBC 227 L (228-460) UG/DL % Saturation 14.10 L (15.00-50.00) Transferrin 162.0 L (204.0-354.0) mg/dL Ferritin 601.0 H (22.0-322.0) ng/mL Microbiology - Last 24 Hours (Table) 04/02/23 10:30 Gram Stain - Preliminary Pleural Fluid Body Fluid Culture - Preliminary Assessment and Plan Plan: Assessment: 1. Chronic kidney disease stage IIIa with baseline creatinine 1.1-1.3. GFR near baseline. No hydronephrosis noted on a kidney ultrasound. Left kidney wasn't visualized. UA 1+ protein and no blood. 2. Acute on chronic diastolic CHF. 3. Volume overload. Status post right-sided thoracentesis with 1.2 L drained 04/02/2023. Left thoracentesis being considered. Pulmonology following 4. Bicytopenia. Iron deficiency noted. 5. Coronary disease with cardiac stenting. 6. History of CVA. 7. Hypertension with chronic kidney disease. Controlled. 8. Acute hypoxic respiratory failure. Plan: Maintain IV Lasix. Low-salt diet. Add IV iron. Avoid nephrotoxins. Continue to monitor renal function and urine output. Hold amlodipine for systolic blood pressure less than 120.
[2023-04-04] MEDS: SODIUM FERRIC GLUCONAT-SUCROSE 125 MG in SODIUM CHLORIDE 0.9% 100 ML IVPB SCH (11:45)
--- NOTE | 2023-04-04 11:51 | XR ---
EXAMINATION TYPE: XR chest 1V portable DATE OF EXAM: 04/04/2023 11:26 AM CLINICAL INDICATION:Male, 88 years old with history of s/p lt thoracentesis; COMPARISON: 04/02/2023 TECHNIQUE: XR chest 1V portable Frontal view of the chest. FINDINGS: Lungs/Pleura: Postthoracentesis changes on the left. No evidence for pneumothorax. There is persisten t blunting of the costophrenic angles. No evidence of focal consolidation or pneumothorax. Blunting o f the costophrenic angles is present. Pulmonary vascularity: Pulmonary vascular congestion. Heart/mediastinum: Cardiomediastinal silhouette is enlarged and stable. Atherosclerotic calcificatio ns are seen in the aorta. Single-lead cardiac conduction device overlying the left hemithorax with le ad projecting over the right ventricle. Musculoskeletal: No acute osseous pathology. Other findings: None IMPRESSION: 1. Decrease in left pleural effusion. No evidence for pneumothorax. 2. Cardiomegaly, pulmonary vascular congestion and bilateral pleural effusions. Correlate with BNP f or congestive heart failure.
--- NOTE | 2023-04-04 12:11 | P.PN ---
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 We have been asked to evaluate the patient for syncope. Patient states that he came out of the shower and he had a fall. He denies any lightheadedness or dizziness prior to. No chest pain no palpitations. He states he has never felt like this before and now his back is significantly painful and making it difficult for him to move. Patient apparently has had multiple falls over the past few days along with diarrhea for a couple of weeks. He does not think he h ad loss of consciousness. Patient has been started on a heparin drip. EKG ventricularly paced rhythm with underlying atrial fibrillation Chest x-ray: Small right and moderate left pleural effusion. Cardiomegaly. Bibasilar infiltrates correlate for atelectasis. WBC 5.6, hemoglobin 8.2. Platelet count 107. INR 1.1. Electrolytes are normal with potassium of 4.5, BUN 32 initial creatinine 1.13 and now 1.31. Magnesium 2.1. Troponin 0.164, 0.6, 1.19. Home cardiac medications: Aspirin 81 mg daily, atorvastatin 20 mg at bedtime, Lasix 40 mg daily, magnesium oxide 400 mg daily, Nitrostat as needed, K-Dur 10 milligrams once twice daily. Keisha scan Cardiolite stress test performed 05/20/2022 in the office revealed abnormal imaging with prior WI involving the inferior and inferior lateral wall and hypokinesia of the same segment. Those findings are consistent with prior WI involving the RCA territory no evidence of stress-induced ischemia. Echocardiogram performed 02/16/2022 in the office revealed normal EF, moderate TR, moderate MR, moderate AR, mild , RVSP 50 mmHg. 1/3 Patient is seen today in follow-up. Echocardiogram reveals large pleural effusion. Mild to moderate concentric left hypertrophy, EF 50-55%. Possible pulmonary hypertension blood pressures appear to be in the range of 40 mmHg. This could be underestimated. Mild aortic stenosis. This morning, patient underwent right-sided thoracentesis with Dr. Nikki with removal of 1200 ML's of pedro-colored fluid. Heart rate is in the 70s, blood pressure 176/84 and repeat manual 152/86. Repeat blood work reveals hemoglobin is 7.9 and platelet count 105. BUN 40, creatinine 1.28. 04/03 The patient is seen today in follow-up. Patient denies having any chest pain and no shortness of breath, no dizziness or lightheadedness. A repeat troponin was obtained this morning which came back at 3.67. ProBNP 10,200. Electrolytes are normal. BUN 38 creatinine 1.08. WBC 5.2, heme hemoglobin 8.4, platelet count 108. Renal ultrasound revealed simple cyst right kidney. Nonvisualization of the left kidney due to bowel gas. Nephrology is following patient for chronic kidney disease. The patient has been started on IV Lasix per attending. Reviewed office notes and patient was on eliquis 5 mg twice daily which is not captured on his hospital records. 04/04 Patient denies having any shortness of breath, no chest pain. He states he has not had either for the past 3 days but states he may have had some chest press ure when he came into the hospital. Blood pressure 113/57, heart rate 70. BUN 39 and creatinine 1.16, potassium 4.2. Hemoglobin 8.3 and nephrology has ordered Ferrlecit infusion. Physical examination: Gen: This is an 88-year-old male resting in bed appears to be comfortable and in no acute distress. VS: reviewed HEENT: Head is atraumatic, normocephalic. Pupils equal, round. Sclerae is anicteric. NECK: Supple. No JVD. LUNGS: Diminished No intercostal retractions. HEART: Regular rate and rhythm. Systolic murmur. ABDOMEN: Soft No tenderness. EXTREMITIES: No pedal edema. No calf tenderness. NEUROLOGICAL: Patient is awake, alert and oriented. Assessment: Fall near syncopal episode most likely due to orthostatic changes Elevated troponin, likely non-Q-wave WI with plan for medical management Bicytopenia with anemia and thrombocytopenia Large pleural effusion status post thoracentesis Chronic permanent atrial fibrillation Coronary artery disease status post stent of the mid RCA Sick sinus syndrome and atrial fibrillation status post single-chamber permanent pacemaker Hypertension Hypercholesterolemia CVA Plan: Continue patient's home cardiac medications Lasix per attending/nephrology Continue patient on eliquis but a lower dose of 2.5 mg twice daily as we will also start him on Plavix 75 mg daily as well and discontinue aspirin. Continue statin which is been increased to 40 mg daily and continue Toprol-XL 12.5 mg daily Patient will follow up with Dr. Hinkle in one to 2 weeks. Nurse practitioner note has been reviewed, I agree with documented findings and plan of care. Patient was seen and examined. Objective - Vital Signs Vital signs: Vital Signs Temp 97.0 F L 04/04/23 09:44 Pulse 70 04/04/23 09:44 Resp 18 04/04/23 09:44 BP 113/57 04/04/23 09:44 Pulse Ox 98 04/04/23 09:44 FiO2 Intake & Output 04/03/23 04/04/23 04/04/23 18:59 06:59 18:59 Intake Total 1198 480 Output Total 125 Balance 1198 355 Intake: Oral 1198 480 Output: Urine 125 Other: Voiding Method Urinal Urinal Urinal # Voids 1 # Bowel Movements 1 - Labs CBC & Chem 7: 04/04/23 06:50 04/04/23 06:50 Labs: Abnormal Lab Results - Last 24 Hours (Table) 04/03/23 04/04/23 04/04/23 Range/Units 11:20 06:50 06:50 RBC 2.35 L (4.30-5.90) m/uL Hgb 8.3 L (13.0-17.5) gm/dL Hct 26.2 L (39.0-53.0) % MCV 111.2 H (80.0-100.0) fL MCH 35.2 H (25.0-35.0) pg RDW 16.6 H (11.5-15.5) % Plt Count 114 L (150-450) k/uL Macrocytosis Marked A Sodium 136 L (137-145) mmol/L BUN 39 H (9-20) mg/dL Iron 32 L (65-175) UG/DL TIBC 227 L (228-460) UG/DL % Saturation 14.10 L (15.00-50.00) Transferrin 162.0 L (204.0-354.0) mg/dL Ferritin 601.0 H (22.0-322.0) ng/mL Microbiology - Last 24 Hours (Table) 04/02/23 10:30 Gram Stain - Preliminary Pleural Fluid Body Fluid Culture - Preliminary
--- NOTE | 2023-04-04 12:20 | P.PN ---
Subjective Progress Note Date: 04/04/23 Patient is a very pleasant 88-year-old mle with a past medical history of CAD with permanent pacemaker secondary to symptomatic bradycardia, hypertension, hyperlipidemia, atrial fibrillation, COPD not home oxygen dependent and History of CVA with right-sided deficit/mild weakness and mild speech impairmen t/stuttering. He presented to the emergency department secondary to concerns of recurrent syncopal episodes/falls. Patient underwent full evaluation upon arrival to the emergency department. Vital signs upon arrival show blood pressure 129/67, heart rate 70, respiratory rate 18, temp 98.1F, SpO2 of 96% on room air. EKG showed a ventricular paced rhythm. Chest x-ray completed showing cardiomegaly with small right and moderate left pleural effusion and bibasilar infiltrates correlating for atelectasis. CT brain completed showing mild chronic appearing periventricular white matter ischemic changes with some mild atrophy. CBC showing hemoglobin of 8.5 and platelet count of 99 (baseline hemoglobin around 10.5). Coagulation profile normal findings. BMP shows bicarb of 18, anion gap of 19, BUN of 27, creatinine 1.13, GFR 58, glu 141, T Bili 1.5 and alkaline phosphatase of 145. Troponin 0.164, 0.6, 1.19. CT T and L spine bilateral pleural effusions with cardiomegaly, bilateral neural foraminal stenosis and narrowing at L5 through S1, L4 through L5, and L3 through L4 due to a degenerative disc bulge and bony hypertrophy. CT C spine was negative for acute traumatic abnormality. Patient was started on Heparin drip for NSTEMI. Cardiology consulted, heparin drip discontinued, Echocardiogram showed large pleural effusion, EF 50-55% with mild to mod LVH, small pericardial effusion. 04/02 Patient was seen and examined. Hard of hearing. Denies any dizziness or shortness of breath. Appears short of breath when talking. CBC Hg 7.9 MCV 111.5 Plt 105. BMP Na 134, BUN 40, Cr 1.28, glu 106. CXR shows L > R pleural effusion. Chest US shows bilateral pleural effusions. 04/03 Patient was seen and examined. Underwent right thoracentesis yesterday, 1.2L drained. Repeat CXR showed mild improvement in his right pleural effusion. I stopped his normal saline today. Started on Lasix 20 mg IV BID. He is + 637 cc fluid balance over the past 24H. Weight 71.5-72.5kg over the past 24H. CBC Hg 8.4 MCV 111.3 Plt 108. BMP BUN 38, glu 112. 04/04 Patient was seen and examined. Pulmonology recommends possible left thoracentesis today. Started on Lasix 20 mg IV BID yesterday. Repeat troponin 3.67, BNP 77975, Cardiology recommends no further cardiac intervention. Renal US shows simple right cyst. Nephrology consulted, recommends maintaining IV lasix and continuing to monitoring renal function and urine output. CBC Hg 8.3, MCV 111.2, Plt 114. BMP Na 136, BUN 39. Iron studies Iron 32, Ferritin 601. C. diff is negative. General: non toxic, no distress, appears at stated age, appears dyspneic speaking in 2 word sentences. Derm: warm, dry, multiple bruises on upper and lower extremities in different stages of healing. Skin tear RU and LUE, and thoracic region of patient's back. Head: atraumatic, normocephalic, symmetric Eyes: EOMI, no lid lag, anicteric sclera Mouth: no lip lesion, mucus membranes moist Cardiovascular: S1S2 reg, no murmur, pacemaker in place left anterior chest. Lungs: Decreased BS bilateral L > R, no rhonchi, no rales , no accessory muscle use Ext: no gross muscle atrophy, no edema, no contractures Neuro: no focal neuro deficits Psych: Alert, oriented, appropriate affect Based on my assessment of this patient, this patient meets a high complexity level of care. Patient has an acute diagnosis of syncope that poses a threat to life or bodily function. Recurrent syncopal episodes/falls: Orthostatic +. Dehydration from diarrhea versus cardiac cause. Troponin elevated. IVF discontinued 04/03. Telemetry monitoring. Fall precautions. PT and OT consult. Acute hypoxic respiratory failure due to large pleural effusion and HFpEF exacerbation: Likely cardiac. Pulmonology consulted, status post R thoracentesis 1.2L on 04/03. Continue Lasix 20 mg IV BID. Strick intake and outtake. Daily weights. Elevated troponin: Trending up. Echocardiogram showed large pleural effusion, EF 50-55% with mild to mod LVH, small pericardial effusion. ASA 81 mg PO QD. Lipitor 40 mg PO QD. Cardiology recommends no further cardiac intervention. Acute kidney injury on CKD: Worsened with dehydration. Watch electrolytes carefully while on Lasix. Renal and Bladder US no obstruction. Nephrology on board. Diarrhea: C. diff negative. None while hospitalized so far. Appears to be resolving. History of CAD with permanent pacemaker secondary to symptomatic bradycardia: ASA and Lipitor as above. Metoprolol 12.5 mg PO QD. Hyperlipidemia: Lipitor as above. Paroxysmal atrial fibrillation: Metoprolol as above. Start Eliquis 2.5 mg PO BID after thoracentesis per Cardiology. COPD not home oxygen dependent: Not in acute exacerbation. History of CVA with right-sided deficit/mild weakness: ASA and Lipitor as above. Bicytopenia with Anemia and thrombocytopenia: Iron studies consistent with AOCD. Transfuse if Hg < 7. Transfuse if Plt < 10. CODE STATUS: FULL CODE. DVT Prophylaxis: SCDs GI Prophylaxis: Protonix IV Designated medical POA if patient is not able to make medical decisions for themselves: Anticipated discharge: Return to assisted living facility at [facility] I have reviewed the following regulatory consultant notes: Cardiology, Pulmonology note. I have reviewed the results of the following tests: CBC, BMP, Troponin, BNP, Renal US, Iron studies. I have ordered the following tests: CBC, BMP I have discussed the care of this patient with the following independent historian: I have independently interpreted the following test below: I have discussed the management of this patient with the following physician: Objective - Vital Signs Vital signs: Vital Signs Temp 97.6 F 04/04/23 04:00 Pulse 70 04/04/23 04:00 Resp 18 04/04/23 04:00 BP 118/72 04/04/23 04:00 Pulse Ox 96 04/04/23 04:00 FiO2 Intake & Output 04/03/23 04/04/23 04/04/23 18:59 06:59 18:59 Intake Total 1198 Balance 1198 Intake: Oral 1198 Other: Voiding Method Urinal Urinal # Bowel Movements 1 - Labs CBC & Chem 7: 04/04/23 06:50 04/04/23 06:50 Labs: Abnormal Lab Results - Last 24 Hours (Table) 04/03/23 04/03/23 04/03/23 Range/Units 08:40 08:40 08:40 RBC 2.36 L (4.30-5.90) m/uL Hgb 8.4 L (13.0-17.5) gm/dL Hct 26.3 L (39.0-53.0) % MCV 111.3 H (80.0-100.0) fL MCH 35.6 H (25.0-35.0) pg RDW 16.9 H (11.5-15.5) % Plt Count 108 L (150-450) k/uL Macrocytosis Marked A Sodium (137-145) mmol/L BUN 38 H (9-20) mg/dL Glucose 112 H (74-99) mg/dL Iron (65-175) UG/DL TIBC (228-460) UG/DL % Saturation (15.00-50.00) Transferrin (204.0-354.0) mg/dL Ferritin (22.0-322.0) ng/mL Troponin I 3.670 H* (0.000-0.034) ng/mL 04/03/23 04/04/23 04/04/23 Range/Units 11:20 06:50 06:50 RBC 2.35 L (4.30-5.90) m/uL Hgb 8.3 L (13.0-17.5) gm/dL Hct 26.2 L (39.0-53.0) % MCV 111.2 H (80.0-100.0) fL MCH 35.2 H (25.0-35.0) pg RDW 16.6 H (11.5-15.5) % Plt Count 114 L (150-450) k/uL Macrocytosis Marked A Sodium 136 L (137-145) mmol/L BUN 39 H (9-20) mg/dL Glucose (74-99) mg/dL Iron 32 L (65-175) UG/DL TIBC 227 L (228-460) UG/DL % Saturation 14.10 L (15.00-50.00) Transferrin 162.0 L (204.0-354.0) mg/dL Ferritin 601.0 H (22.0-322.0) ng/mL Troponin I (0.000-0.034) ng/mL Microbiology - Last 24 Hours (Table) 04/02/23 10:30 Gram Stain - Preliminary Pleural Fluid
--- NOTE | 2023-04-04 13:20 | OP ---
OPERATIVE REPORT DATE OF SERVICE : PROCEDURE PERFORMED: Left-sided thoracentesis. PREOPERATIVE DIAGNOSIS: Left pleural effusion. POSTOPERATIVE DIAGNOSIS: Large left-sided hemothorax. DESCRIPTION OF PROCEDURE: The patient was placed in a sitting upright position, the area of the fluid was earlier localized by ultrasound guidance, and a marking was placed at the posterior axillary line and the 8th intercostal space. The patient was placed in a sitting upright position, and the area was prepared in a sterile fashion, drapes were applied, and at the same site where the marking was placed, which is the posterior axillary line and the 8th intercostal space, the area was locally anesthetized with lidocaine, and a 26- gauge needle inserted into the pleural space until fluid was obtained. The fluid was grossly bloody. Then a small tiny incision was made and a standard thoracentesis catheter and needle used, advanced into the pleural space and as the fluid was obtained the catheter was advanced over the needle and the needle was pulled out of the pleural space. Roughly 2000 mL of gross blood was removed from the left pleural space. The procedure was well tolerated, no complications. Fluid was sent for different diagnostic studies. Chest x-ray postoperatively showed significant improvement in the left-sided pleural effusion, there was no evidence of pneumothorax, and no complications. Again procedures were well tolerated. MMODL / IJN: [id number] /
--- NOTE | 2023-04-04 15:30 | P.PN ---
Subjective Progress Note Date: 04/04/23 Principal diagnosis: Acute hypoxic respiratory failure with acute diastolic congestive heart failure and bilateral pleural effusions I am seeing this patient in consultation today 04/02/2023 after he was admitted back on March for a fall and possible syncope. Patient is an 88-year-old white male with past medical history significant for atrial fibrillation previously on Eliquis, permanent pacemaker implantation, coronary artery disease, hyperlipidemia, hypertension, previous CVA/TIA. Patient was brought into the emergency room back on March after reportedly falling in the shower. He reportedly lives at home alone. He states that he slipped and fell, however, EMS reported a possible syncopal event. Patient has been very weak. He ambulates with a walker. He is technically a poor historian. CT of the brain and C-spine without contrast on arrival did not show any acute intracranial abnormality or C-spine fracture. EKG on arrival showed a ventricular paced rhythm. He does have a permanent pacemaker. Echocardiogram shows preserved left ventricular ejection fraction of 50-55% with [id number] concentric LVH. There is enlargement/dilation of the right ventricle and atrium with an estimated RVSP of 36.8. Moderate to severe tricuspid regurg. Small pericardial effusion. Large pleural effusion reported. We were not consulted until earlier t his morning. Patient is currently lying in bed, on 3 L/m nasal cannula, in no acute distress. He is not short of breath at rest, however, reports shortness of breath and heart palpitations with any exertion. Denies chest pain. Denies syncopal episodes or losing consciousness. Does admit becoming lightheaded on standing. Denies any infectious symptoms. He has had significant diarrhea over the last 6 weeks. Denies any abdominal pain, fevers, bloody bowel mvmts, or melantic stools. Chest x-ray shows cardiomegaly with bilateral small to moderate sized pleural effusions, left greater than right. Most recent CBC is a WBC count of 5.6, hemoglobin 8.2, hematocrit 24.7, platelets 107. BMP from yesterday demonstrates a sodium 137, potassium 4.5, chloride 102, serum bicarbonate 22, BUN 32, creatinine 1.31, glucose 110. Troponins are elevated at 0.164, 0.6, and 1.19. Patient was temporarily on heparin infusion per protocol, this has been discontinued. This has been evaluated by cardiology, and felt not to reflect ACS. Vital signs are stable. Reevaluated today on 04/03/23, patient underwent a right sided thoracentesis yesterday, feeling much better today, breathing easier. Fluid seems to be transudative in nature with relatively low LDH, and borderline protein. Cytology is pending however is expected to be negative. Diuretics remain on hold, patient was seen by nephrology and recommending that the patient remains on Lasix, low-salt diet, and avoiding nephrotoxins. I did review the patient's ultrasound yesterday, and I am planning another thoracentesis on the left side possibly tomorrow clinically the patient is feeling better, breathing easier, and considering that the patient has transudative pleural effusion, I believe the patient was definitely need more diuretics otherwise his fluids will build up and will definitely cause more shortness of breath. Creatinine today is better 1.08 basic metabolic profile is normal bicarb is 22, CBC is relatively normal hemoglobin is 8.4 however continues to have elevated troponin and elevated BNP level. Patient was reevaluated today on 04/04/23, patient is feeling better, breathing easier, however he is not back to baseline. Today I recommended left sided thoracentesis, patient agreed to proceed with the thoracentesis, and this was done at bedside, I was able to remove at least 2000 mL of gross blood from the left pleural space. Apparently the patient had a recent fall and I believe the patient must have sustained a left sided hemothorax. At any rate significant improvement noted on the chest x-ray post thoracentesis, and the fluid was sent for different diagnostic studies. WBC count is 4 hemoglobin 8.3 basic metabolic profile is normal renal profile showed a creatinine of 1.16 today. Last BNP was over 10 2000 and last troponin was 3.6 Objective - Vital Signs Vital signs: Vital Signs Temp 97.6 F 04/04/23 15:13 Pulse 70 04/04/23 15:13 Resp 18 04/04/23 15:13 BP 118/72 04/04/23 15:13 Pulse Ox 100 04/04/23 15:13 FiO2 Intake & Output 04/03/23 04/04/23 04/04/23 18:59 06:59 18:59 Intake Total 1198 780 Output Total 2400 Balance 1198 -1620 Intake: IV 20 Invasive Line 1 20 Intake, IV Titration 100 Amount Sodium Ferric Gluconat- 100 Sucrose 125 mg In Sodium Chloride 0.9% 100 ml @ 100 mls/hr IVPB DAILY [facility] Rx#:[id number] Oral 1198 660 Output: Drainage 2150 Left Posterior 2150 Urine 250 Other: Voiding Method Urinal Urinal Urinal # Voids 1 # Bowel Movements 1 - Exam Physical Exam: Revealed an 88-year-old white male in no distress on 2 L nasal cannula with O2 saturations 100% Head: Atraumatic, normocephalic HEENT:[Neck is supple.] [No neck masses.] [No thyromegaly.] [No JVD.] Chest: [Diminished breath sounds at the left base clear on the right side Cardiac Exam: [Normal S1 and S2, no S3 gallop, 2/6 systolic murmur thought the precordium Abdomen: [Soft, nontender, no megaly, no rebound, no guarding, normal bowel sounds.] Extremities: [No clubbing, no edema, no cyanosis.] Multiple areas of ecchymosis noted in upper and lower extremities and on the back. Neurological Exam: [No focal neurologic deficit.] Alert and oriented 3 but seems to be generally weak. Skin multiple areas of ecchymosis and skin tears noted. - Labs CBC & Chem 7: 04/04/23 06:50 04/04/23 06:50 Labs: Abnormal Lab Results - Last 24 Hours (Table) 04/03/23 04/04/23 04/04/23 Range/Units 11:20 06:50 06:50 RBC 2.35 L (4.30-5.90) m/uL Hgb 8.3 L (13.0-17.5) gm/dL Hct 26.2 L (39.0-53.0) % MCV 111.2 H (80.0-100.0) fL MCH 35.2 H (25.0-35.0) pg RDW 16.6 H (11.5-15.5) % Plt Count 114 L (150-450) k/uL Macrocytosis Marked A Sodium 136 L (137-145) mmol/L BUN 39 H (9-20) mg/dL Iron 32 L (65-175) UG/DL TIBC 227 L (228-460) UG/DL % Saturation 14.10 L (15.00-50.00) Transferrin 162.0 L (204.0-354.0) mg/dL Ferritin 601.0 H (22.0-322.0) ng/mL Microbiology - Last 24 Hours (Table) 04/02/23 10:30 Gram Stain - Preliminary Pleural Fluid Body Fluid Culture - Preliminary Assessment and Plan Assessment: Impression: Acute hypoxic respiratory failure Acute on chronic diastolic congestive heart failure Bilateral pleural effusions, the right sided pleural effusion seems to be related to CHF however the left-sided pleural effusion seems to be a hemothorax related to recent fall and trauma. Recurrent falls, possible near-syncope Severe diarrhea and dehydration Bicytopenia, with anemia and thrombocytopenia Macrocytic anemia History of atrial fibrillation and sick sinus syndrome, status post permanent pa cemaker implantation, currently V paced History of coronary artery disease Hyperlipidemia Hypertension History of previous CVA/TIA Gait disturbance, ambulates with walker Brief history of tobacco use Status post thoracentesis 2, one done on the right side and one done on the left side, today the patient had left sided thoracentesis and the pneumothorax was noted again related to recent trauma/fall Recommendation: Continue oxygen and titrate accordingly Continue fall precautions Continue and resume cardiac meds including diuretics We'll consider left sided thoracentesis in a.m. Continue to hold eliquis, considering the findings of left sided hemothorax today. Will follow. Time with Patient: Less than 30
[2023-04-04 19:51] LABS: LDH, Body Fluid Source Pleural Fluid; T. Protein, Body Fluid Source Pleural Fluid; Total Protein, Body Fluid 3390 mg/dL
[2023-04-04] MEDS: MELATONIN 5 MG TABLET PO SCH (20:56)
[2023-04-05 09:20] LABS: African American GFR (CKD) 68 (>60 ml/min/1.73 sqM); Anion Gap 13 mmol/L; Blood Urea Nitrogen 41 mg/dL (9-20); Calcium 9.5 mg/dL (8.4-10.2); Carbon Dioxide 22 mmol/L (22-30); Chloride 99 mmol/L (98-107); Glucose 90 mg/dL (74-99); Non-African American GFR(CKD) 59 (>60 ml/min/1.73 sqM); Sodium 134 mmol/L (137-145)
[2023-04-05] MEDS: MAGNESIUM OXIDE 400 MG TAB PO SCH (09:56)
[2023-04-05] MEDS: POTASSIUM CHLORIDE ER 10 MEQ TAB.ER.PRT PO SCH ×2 (09:56→20:32)
[2023-04-05] MEDS: amLODIPine 2.5 MG TAB PO SCH (09:56)
[2023-04-05] MEDS: DONEPEZIL 5 MG TAB PO SCH (09:56)
[2023-04-05] MEDS: METOPROLOL SUCCINATE (ER) 25 MG TAB.ER.24H PO SCH (09:57)
[2023-04-05] MEDS: ATORVASTATIN 20 MG TAB PO SCH (09:57)
[2023-04-05] MEDS: SERTRALINE 50 MG TAB PO SCH (09:57)
[2023-04-05] MEDS: allopurinoL 300 MG TAB PO SCH (09:57)
[2023-04-05] MEDS: TAMSULOSIN 0.4 MG CAP.ER.24H PO SCH (09:57)
[2023-04-05] MEDS: PANTOPRAZOLE 40 MG/10 ML VIAL IV SCH (09:57)
[2023-04-05] MEDS: CLOPIDOGREL 75 MG TAB PO SCH (09:57)
[2023-04-05] MEDS: FUROSEMIDE 10 MG/ML 2 ML VIAL IV SCH ×2 (09:57→20:32)
[2023-04-05] MEDS: SODIUM FERRIC GLUCONAT-SUCROSE 125 MG in SODIUM CHLORIDE 0.9% 100 ML IVPB SCH (09:58)
--- NOTE | 2023-04-05 11:23 | P.PN ---
Subjective Patient is seen in follow-up for acute kidney injury on chronic kidney disease. Renal function stable. Admits to good urine output. No hematuria or dysuria. Oral intake fair. No changes overnight. Vital signs are stable. General: No acute distress. HEENT: Head exam is unremarkable. On nasal cannula. LUNGS: No audible rhonchi or wheezes. HEART: Rate and Rhythm are regular. ABDOMEN: Nontender. EXTREMITITES: No edema. Objective - Vital Signs Vital signs: Vital Signs Temp 97.5 F L 04/05/23 09:52 Pulse 70 04/05/23 09:52 Resp 18 04/05/23 09:52 BP 107/64 04/05/23 09:52 Pulse Ox 99 04/05/23 09:52 FiO2 Intake & Output 04/04/23 04/05/23 04/05/23 18:59 06:59 18:59 Intake Total 960 240 350 Output Total 2400 825 125 Balance -1440 -585 225 Weight 72.5 kg Intake: IV 20 10 Invasive Line 1 20 Invasive Line 2 10 Intake, IV Titration 100 100 Amount Sodium Ferric Gluconat- 100 100 Sucrose 125 mg In Sodium Chloride 0.9% 100 ml @ 100 mls/hr IVPB DAILY [facility] Rx#:[id number] Oral 840 240 240 Output: Drainage 2150 Left Posterior 2150 Urine 250 825 125 Other: Voiding Method Urinal Urinal Urinal # Voids 1 2 1 - Labs CBC & Chem 7: 04/04/23 06:50 04/05/23 07:29 Labs: Abnormal Lab Results - Last 24 Hours (Table) 04/05/23 Range/Units 07:29 Sodium 134 L (137-145) mmol/L BUN 41 H (9-20) mg/dL Microbiology - Last 24 Hours (Table) 04/04/23 11:00 Gram Stain - Preliminary Pleural Fluid Body Fluid Culture - Preliminary 04/02/23 10:30 Gram Stain - Preliminary Pleural Fluid Body Fluid Culture - Preliminary Assessment and Plan Plan: Assessment: 1. Chronic kidney disease stage IIIa with baseline creatinine 1.1-1.3. GFR near baseline. No hydronephrosis noted on a kidney ultrasound. Left kidney wasn't visualized. UA 1+ protein and no blood. 2. Acute on chronic diastolic CHF. 3. Volume overload. Status post right-sided thoracentesis with 1.2 L drained 04/02/2023. Left thoracentesis being considered. Pulmonology following 4. Bicytopenia. Iron deficiency noted. 5. Coronary disease with cardiac stenting. 6. History of CVA. 7. Hypertension with chronic kidney disease. Controlled. 8. Acute hypoxic respiratory failure. Plan: Maintain IV Lasix. Low-salt diet. Maintain IV iron. Avoid nephrotoxins. Continue to monitor renal function and urine output. Hold amlodipine for systolic blood pressure less than 120.
[2023-04-05 12:31] LABS: Anisocytosis Slight; HCT 26.1 % (39.0-53.0); HGB 8.3 gm/dL (13.0-17.5); Hypochromasia Moderate; MCH 35.4 pg (25.0-35.0); MCHC 31.6 g/dL (31.0-37.0); Macrocytosis Marked; Mean Platelet Volume 10.5; Platelet Count 115 k/uL (150-450); RBC 2.33 m/uL (4.30-5.90); RDW 17.2 % (11.5-15.5); WBC 4.4 k/uL (3.8-10.6)
--- NOTE | 2023-04-05 13:23 | P.PN ---
Subjective Progress Note Date: 04/05/23 This is Demario Morales NP, I'm dictating on behalf of Dr. Khoury's H&P and A&P. Patient was interviewed and examined. The patient is a pleasant 88-year-old male who presented to the hospital with syncope as well as mechanical fall. Patient was found to have pleural effusions on the right and left, and has undergone 2 thoracentesis via pulmonology to the left pleural effusion. Today patient reports that he is feeling better. His blood pressure is stable, heart rate is under control at this time. Patient has not been up and out of bed, so we do recommend physical therapy. GENERAL: Well-appearing, well-nourished and in no acute distress. NECK: Supple without JVD or thyromegaly. LUNGS: Breath sounds clear to auscultation bilaterally. Respiration equal and unlabored. No wheezes, rales or rhonchi. HEART: Regular rate and rhythm without murmurs, rubs or gallops. S1 and S2 heard. EXTREMITIES: Normal range of motion, no edema. No clubbing or cyanosis. Peripheral pulses intact and strong. VITALS: Temp 97.7, pulse 72, respirations 16, blood pressure 127/75, O2 saturation 97% on room air TELEMETRY: Atrial fibrillation with controlled ventricular response LABS: White count 4.4, hemoglobin 8.3, platelets 115, sodium 134, potassium 4.0, B1 41, creatinine 1.11, magnesium 2.0 IMPRESSION: 1. Near syncope secondary to orthostatic hypotension 2. Elevated troponin 3. Large pleural effusion, status post thoracentesis 4. Chronic atrial fibrillation 5. CAD, status post stent of mid RCA 6. Sick sinus syndrome and atrial fibrillation, status post single-chamber permanent pacemaker 7. Hypertension 8. Hypercholesterolemia 9. CVA PLAN: Secondary to the patient's age and other comorbidities, we'll plan to manage elevated troponin medically. Recommend physical therapy to get the patient up and out of bed and moving. From a cardiology standpoint, we have no further recommendations at this time. Continue atorvastatin 40 mg at bedtime, continue Lasix 40 mg daily, metoprolol 12.5 mg daily, and Plavix 75 mg daily. Patient will follow-up with Dr. Hinkle in one to 2 weeks. Thank you for allowing us to participate in the care of this patient. Objective - Vital Signs Vital signs: Vital Signs Temp 97.7 F 04/05/23 11:34 Pulse 72 04/05/23 11:34 Resp 16 04/05/23 11:34 BP 127/75 04/05/23 11:34 Pulse Ox 97 04/05/23 11:34 FiO2 Intake & Output 04/04/23 04/05/23 04/05/23 18:59 06:59 18:59 Intake Total 960 240 590 Output Total 2400 825 125 Balance -1440 -585 465 Weight 72.5 kg Intake: IV 20 10 Invasive Line 1 20 Invasive Line 2 10 Intake, IV Titration 100 100 Amount Sodium Ferric Gluconat- 100 100 Sucrose 125 mg In Sodium Chloride 0.9% 100 ml @ 100 mls/hr IVPB DAILY [facility] Rx#:[id number] Oral 840 240 480 Output: Drainage 2150 Left Posterior 2150 Urine 250 825 125 Other: Voiding Method Urinal Urinal Urinal # Voids 1 2 1 - Labs CBC & Chem 7: 04/05/23 07:29 04/05/23 07:29 Labs: Abnormal Lab Results - Last 24 Hours (Table) 04/05/23 04/05/23 Range/Units 07:29 07:29 RBC 2.33 L (4.30-5.90) m/uL Hgb 8.3 L (13.0-17.5) gm/dL Hct 26.1 L (39.0-53.0) % MCV 112.0 H (80.0-100.0) fL MCH 35.4 H (25.0-35.0) pg RDW 17.2 H (11.5-15.5) % Plt Count 115 L (150-450) k/uL Macrocytosis Marked A Sodium 134 L (137-145) mmol/L BUN 41 H (9-20) mg/dL Microbiology - Last 24 Hours (Table) 04/04/23 11:00 Gram Stain - Preliminary Pleural Fluid Body Fluid Culture - Preliminary 04/02/23 10:30 Gram Stain - Preliminary Pleural Fluid Body Fluid Culture - Preliminary
--- NOTE | 2023-04-05 13:49 | P.PN ---
Subjective Progress Note Date: 04/05/23 Principal diagnosis: Acute hypoxic respiratory failure with acute diastolic congestive heart failure and bilateral pleural effusions I am seeing this patient in consultation today 04/02/2023 after he was admitted back on March for a fall and possible syncope. Patient is an 88-year-old white male with past medical history significant for atrial fibrillation previously on Eliquis, permanent pacemaker implantation, coronary artery disease, hyperlipidemia, hypertension, previous CVA/TIA. Patient was brought into the emergency room back on March after reportedly falling in the shower. He reportedly lives at home alone. He states that he slipped and fell, however, EMS reported a possible syncopal event. Patient has been very weak. He ambulates with a walker. He is technically a poor historian. CT of the brain and C-spine without contrast on arrival did not show any acute intracranial abnormality or C-spine fracture. EKG on arrival showed a ventricular paced rhythm. He does have a permanent pacemaker. Echocardiogram shows preserved left ventricular ejection fraction of 50-55% with [id number] concentric LVH. There is enlargement/dilation of the right ventricle and atrium with an estimated RVSP of 36.8. Moderate to severe tricuspid regurg. Small pericardial effusion. Large pleural effusion reported. We were not consulted until earlier t his morning. Patient is currently lying in bed, on 3 L/m nasal cannula, in no acute distress. He is not short of breath at rest, however, reports shortness of breath and heart palpitations with any exertion. Denies chest pain. Denies syncopal episodes or losing consciousness. Does admit becoming lightheaded on standing. Denies any infectious symptoms. He has had significant diarrhea over the last 6 weeks. Denies any abdominal pain, fevers, bloody bowel mvmts, or melantic stools. Chest x-ray shows cardiomegaly with bilateral small to moderate sized pleural effusions, left greater than right. Most recent CBC is a WBC count of 5.6, hemoglobin 8.2, hematocrit 24.7, platelets 107. BMP from yesterday demonstrates a sodium 137, potassium 4.5, chloride 102, serum bicarbonate 22, BUN 32, creatinine 1.31, glucose 110. Troponins are elevated at 0.164, 0.6, and 1.19. Patient was temporarily on heparin infusion per protocol, this has been discontinued. This has been evaluated by cardiology, and felt not to reflect ACS. Vital signs are stable. Reevaluated today on 04/03/23, patient underwent a right sided thoracentesis yesterday, feeling much better today, breathing easier. Fluid seems to be transudative in nature with relatively low LDH, and borderline protein. Cytology is pending however is expected to be negative. Diuretics remain on hold, patient was seen by nephrology and recommending that the patient remains on Lasix, low-salt diet, and avoiding nephrotoxins. I did review the patient's ultrasound yesterday, and I am planning another thoracentesis on the left side possibly tomorrow clinically the patient is feeling better, breathing easier, and considering that the patient has transudative pleural effusion, I believe the patient was definitely need more diuretics otherwise his fluids will build up and will definitely cause more shortness of breath. Creatinine today is better 1.08 basic metabolic profile is normal bicarb is 22, CBC is relatively normal hemoglobin is 8.4 however continues to have elevated troponin and elevated BNP level. Patient was reevaluated today on 04/04/23, patient is feeling better, breathing easier, however he is not back to baseline. Today I recommended left sided thoracentesis, patient agreed to proceed with the thoracentesis, and this was done at bedside, I was able to remove at least 2000 mL of gross blood from the left pleural space. Apparently the patient had a recent fall and I believe the patient must have sustained a left sided hemothorax. At any rate significant improvement noted on the chest x-ray post thoracentesis, and the fluid was sent for different diagnostic studies. WBC count is 4 hemoglobin 8.3 basic metabolic profile is normal renal profile showed a creatinine of 1.16 today. Last BNP was over 10 2000 and last troponin was 3.6 3:30 today on 04/05/23, patient is feeling much better today, relatively asymptomatic hardly any cough wheezing or shortness of breath. Patient initially presented with near syncope secondary to orthostatic hypotension, I saw him for pleural effusions and he underwent a right-sided thoracentesis showing mostly transudative pleural effusion underwent left sided thoracentesis showing hemothorax pulmonary-crane he is doing great. Cardiology is addressing his other issues, and apparently at this point recommending physical therapy and continuing the same medications including Lasix metoprolol and Plavix. CBC today is relatively normal hemoglobin is low at 8.3 lites are normal renal profile is normal and improving. Objective - Vital Signs Vital signs: Vital Signs Temp 97.7 F 04/05/23 11:34 Pulse 72 04/05/23 11:34 Resp 16 04/05/23 11:34 BP 127/75 04/05/23 11:34 Pulse Ox 97 04/05/23 11:34 FiO2 Intake & Output 04/04/23 04/05/23 04/05/23 18:59 06:59 18:59 Intake Total 960 240 590 Output Total 2400 825 125 Balance -1440 -585 465 Weight 72.5 kg Intake: IV 20 10 Invasive Line 1 20 Invasive Line 2 10 Intake, IV Titration 100 100 Amount Sodium Ferric Gluconat- 100 100 Sucrose 125 mg In Sodium Chloride 0.9% 100 ml @ 100 mls/hr IVPB DAILY [facility] Rx#:[id number] Oral 840 240 480 Output: Drainage 2150 Left Posterior 2150 Urine 250 825 125 Other: Voiding Method Urinal Urinal Urinal # Voids 1 2 1 - Exam Physical Exam: Revealed an 88-year-old white male in no distress on room air family is at bedside. Head: Atraumatic, normocephalic HEENT:[Neck is supple.] [No neck masses.] [No thyromegaly.] [No JVD.] Chest: [Clear bilaterally no crackles or rhonchi or wheezes Cardiac Exam: [Normal S1 and S2, no S3 gallop, 2/6 systolic murmur thought the precordium Abdomen: [Soft, nontender, no megaly, no rebound, no guarding, normal bowel sounds.] Extremities: [No clubbing, no edema, no cyanosis.] Multiple areas of ecchymosis noted in upper and lower extremities and on the back. Neurological Exam: [No focal neurologic deficit.] Alert and oriented 3 but seems to be generally weak. Skin multiple areas of ecchymosis and skin tears noted. - Labs CBC & Chem 7: 04/05/23 07:29 04/05/23 07:29 Labs: Abnormal Lab Results - Last 24 Hours (Table) 04/05/23 04/05/23 Range/Units 07:29 07:29 RBC 2.33 L (4.30-5.90) m/uL Hgb 8.3 L (13.0-17.5) gm/dL Hct 26.1 L (39.0-53.0) % MCV 112.0 H (80.0-100.0) fL MCH 35.4 H (25.0-35.0) pg RDW 17.2 H (11.5-15.5) % Plt Count 115 L (150-450) k/uL Macrocytosis Marked A Sodium 134 L (137-145) mmol/L BUN 41 H (9-20) mg/dL Microbiology - Last 24 Hours (Table) 04/04/23 11:00 Gram Stain - Preliminary Pleural Fluid Body Fluid Culture - Preliminary 04/02/23 10:30 Gram Stain - Preliminary Pleural Fluid Body Fluid Culture - Preliminary Assessment and Plan Assessment: Impression: Near syncope/orthostatic hypotension and recurrent falls Acute hypoxic respiratory failure Acute on chronic diastolic congestive heart failure Bilateral pleural effusions, the right sided pleural effusion seems to be related to CHF however the left-sided pleural effusion seems to be a hemothorax related to recent fall and trauma. Recurrent falls, possible near-syncope Severe diarrhea and dehydration Bicytopenia, with anemia and thrombocytopenia Macrocytic anemia History of atrial fibrillation and sick sinus syndrome, status post permanent pacemaker implantation, currently V paced History of coronary artery disease Hyperlipidemia Hypertension History of previous CVA/TIA Gait disturbance, ambulates with walker Brief history of tobacco use Status post thoracentesis 2, one done on the right side and one done on the left side, today the patient had left sided thoracentesis and the pneumothorax was noted again related to recent trauma/fall Recommendation: Continue present cardiac meds and diuretics Continue fall precautions No need for any further thoracentesis procedures at this point. Continue to hold eliquis, considering the patient to recurrent falls and consid ering his left sided hemothorax I prefer to not to go back on eliquis. Will follow. Time with Patient: Less than 30
--- NOTE | 2023-04-05 14:22 | P.PN ---
Subjective Progress Note Date: 04/05/23 Patient is a very pleasant 88-year-old mle with a past medical history of CAD with permanent pacemaker secondary to symptomatic bradycardia, hypertension, hyperlipidemia, atrial fibrillation, COPD not home oxygen dependent and History of CVA with right-sided deficit/mild weakness and mild speech impairmen t/stuttering. He presented to the emergency department secondary to concerns of recurrent syncopal episodes/falls. Patient underwent full evaluation upon arrival to the emergency department. Vital signs upon arrival show blood pressure 129/67, heart rate 70, respiratory rate 18, temp 98.1F, SpO2 of 96% on room air. EKG showed a ventricular paced rhythm. Chest x-ray completed showing cardiomegaly with small right and moderate left pleural effusion and bibasilar infiltrates correlating for atelectasis. CT brain completed showing mild chronic appearing periventricular white matter ischemic changes with some mild atrophy. CBC showing hemoglobin of 8.5 and platelet count of 99 (baseline hemoglobin around 10.5). Coagulation profile normal findings. BMP shows bicarb of 18, anion gap of 19, BUN of 27, creatinine 1.13, GFR 58, glu 141, T Bili 1.5 and alkaline phosphatase of 145. Troponin 0.164, 0.6, 1.19. CT T and L spine bilateral pleural effusions with cardiomegaly, bilateral neural foraminal stenosis and narrowing at L5 through S1, L4 through L5, and L3 through L4 due to a degenerative disc bulge and bony hypertrophy. CT C spine was negative for acute traumatic abnormality. Patient was started on Heparin drip for NSTEMI. Cardiology consulted, heparin drip discontinued, Echocardiogram showed large pleural effusion, EF 50-55% with mild to mod LVH, small pericardial effusion. 04/02 Patient was seen and examined. Hard of hearing. Denies any dizziness or shortness of breath. Appears short of breath when talking. CBC Hg 7.9 MCV 111.5 Plt 105. BMP Na 134, BUN 40, Cr 1.28, glu 106. CXR shows L > R pleural effusion. Chest US shows bilateral pleural effusions. 04/03 Patient was seen and examined. Underwent right thoracentesis yesterday, 1.2L drained. Repeat CXR showed mild improvement in his right pleural effusion. I stopped his normal saline today. Started on Lasix 20 mg IV BID. He is + 637 cc fluid balance over the past 24H. Weight 71.5-72.5kg over the past 24H. CBC Hg 8.4 MCV 111.3 Plt 108. BMP BUN 38, glu 112. 04/04 Patient was seen and examined. Pulmonology recommends possible left thoracentesis today. Started on Lasix 20 mg IV BID yesterday. Repeat troponin 3.67, BNP 94860, Cardiology recommends no further cardiac intervention. Renal US shows simple right cyst. Nephrology consulted, recommends maintaining IV lasix and continuing to monitoring renal function and urine output. CBC Hg 8.3, MCV 111.2, Plt 114. BMP Na 136, BUN 39. Iron studies Iron 32, Ferritin 601. C. diff is negative. 04/05 Patient was seen and examined. Underwent left thoracentesis yesterday, 2L gross blood removed. Pulmonology recommends stopping Eliquis. Discussed with Dr. Khoury, recommends no further workup, medical management of elevated troponins. PT evaluated the patient yesterday and recommended SNF on discharge prior to going back to [facility]. The plan was discussed with multiple family members. CBC Hg 8.3, Hct 26.1, MCV 112, Plt 115. BMP Na 134, BUN 41. General: non toxic, no distress, appears at stated age Derm: warm, dry, multiple bruises on upper and lower extremities in different stages of healing. Skin tear RU and LUE, and thoracic region of patient's back. Head: atraumatic, normocephalic, symmetric Eyes: EOMI, no lid lag, anicteric sclera Mouth: no lip lesion, mucus membranes moist Cardiovascular: S1S2 reg, no murmur, pacemaker in place left anterior chest. Lungs: Decreased BS bilateral L > R, no rhonchi, no rales , no accessory muscle use Ext: no gross muscle atrophy, no edema, no contractures Neuro: no focal neuro deficits Psych: Alert, oriented, appropriate affect Based on my assessment of this patient, this patient meets a high complexity level of care. Patient has an acute diagnosis of syncope that poses a threat to life or bodily function. Acute blood loss anemia due to hemothorax: Iron studies consistent with AOCD. Transfuse if Hg < 7. Transfuse if Plt < 10. Recurrent syncopal episodes/falls: Orthostatic +. Dehydration from diarrhea versus cardiac cause. Troponin elevated. IVF discontinued 1/4. classroom monitor ing. Fall precautions. PT and OT consult. Plans for SNF. Acute hypoxic respiratory failure due to large pleural effusion and HFpEF exacerbation: Likely cardiac. Pulmonology consulted, status post R thoracentesis 1.2L on 04/03, 2L L thoracentesis on 04/04. Continue Lasix 20 mg IV BID. Strick intake and outtake. Daily weights. Elevated troponin: Trending up. Echocardiogram showed large pleural effusion, EF 50-55% with mild to mod LVH, small pericardial effusion. ASA 81 mg PO QD. Lipitor 40 mg PO QD. Cardiology recommends no further cardiac intervention. Acute kidney injury on CKD: Worsened with dehydration. Watch electrolytes carefully while on Lasix. Renal and Bladder US no obstruction. Nephrology on board. Diarrhea: C. diff negative. None while hospitalized so far. Appears to be resolving. History of CAD with permanent pacemaker secondary to symptomatic bradycardia: ASA and Lipitor as above. Metoprolol 12.5 mg PO QD. Hyperlipidemia: Lipitor as above. Paroxysmal atrial fibrillation: Metoprolol as above. No Eliquis due to hemothorax. COPD not home oxygen dependent: Not in acute exacerbation. History of CVA with right-sided deficit/mild weakness: ASA and Lipitor as above. CODE STATUS: FULL CODE. DVT Prophylaxis: SCDs GI Prophylaxis: Protonix IV Designated medical POA if patient is not able to make medical decisions for themselves: Anticipated discharge: Return to assisted living facility at [facility] I have reviewed the following oracle ebs consultant notes: Cardiology, Pulmonology note. I have reviewed the results of the following tests: CBC, BMP I have ordered the following tests: CBC, BMP I have discussed the care of this patient with the following independent historian: I have independently interpreted the following test below: I have discussed the management of this patient with the following physician: Discussed with Dr. Khoury. Objective - Vital Signs Vital signs: Vital Signs Temp 97.7 F 04/05/23 11:34 Pulse 72 04/05/23 11:34 Resp 16 04/05/23 11:34 BP 127/75 04/05/23 11:34 Pulse Ox 97 04/05/23 11:34 FiO2 Intake & Output 04/04/23 04/05/23 04/05/23 18:59 06:59 18:59 Intake Total 960 240 590 Output Total 2400 825 125 Balance -1440 -585 465 Weight 72.5 kg Intake: IV 20 10 Invasive Line 1 20 Invasive Line 2 10 Intake, IV Titration 100 100 Amount Sodium Ferric Gluconat- 100 100 Sucrose 125 mg In Sodium Chloride 0.9% 100 ml @ 100 mls/hr IVPB DAILY [facility] Rx#:[id number] Oral 840 240 480 Output: Drainage 2150 Left Posterior 2150 Urine 250 825 125 Other: Voiding Method Urinal Urinal Urinal # Voids 1 2 1 - Labs CBC & Chem 7: 04/05/23 07:29 04/05/23 07:29 Labs: Abnormal Lab Results - Last 24 Hours (Table) 04/05/23 04/05/23 Range/Units 07:29 07:29 RBC 2.33 L (4.30-5.90) m/uL Hgb 8.3 L (13.0-17.5) gm/dL Hct 26.1 L (39.0-53.0) % MCV 112.0 H (80.0-100.0) fL MCH 35.4 H (25.0-35.0) pg RDW 17.2 H (11.5-15.5) % Plt Count 115 L (150-450) k/uL Macrocytosis Marked A Sodium 134 L (137-145) mmol/L BUN 41 H (9-20) mg/dL Microbiology - Last 24 Hours (Table) 04/04/23 11:00 Gram Stain - Preliminary Pleural Fluid Body Fluid Culture - Preliminary 04/02/23 10:30 Gram Stain - Preliminary Pleural Fluid Body Fluid Culture - Preliminary
[2023-04-05] MEDS ORDERED: ZINC OXIDE PASTE (Z-GUARD) 1 APPLIC TOPICAL PRN (16:05)
[2023-04-05 16:10] VITALS: RESP 18
[2023-04-05] MEDS: MELATONIN 5 MG TABLET PO SCH (20:32)
--- NOTE | 2023-04-06 08:01 | XR ---
EXAMINATION TYPE: XR chest 1V DATE OF EXAM: 04/06/2023 COMPARISON: 04/04/2023 HISTORY: 88 year-old male shortness of breath, history of left-sided thoracentesis TECHNIQUE: Single frontal view of the chest is obtained. FINDINGS: Left anterior chest wall pacemaker generator with right ventricular lead. Heart mild to mod erately enlarged. [id number] bilateral pleural effusions with adjacent opacity increased in th e interval. Interstitial prominence also increased. IMPRESSION: CHF with worsening pulmonary vascular congestion and increasing [id number] bilate ral pleural effusions. Adjacent atelectasis and/or consolidation.
[2023-04-06] MEDS: CLOPIDOGREL 75 MG TAB PO SCH (09:26)
[2023-04-06] MEDS: MAGNESIUM OXIDE 400 MG TAB PO SCH (09:26)
[2023-04-06] MEDS: DONEPEZIL 5 MG TAB PO SCH (09:26)
[2023-04-06] MEDS: allopurinoL 300 MG TAB PO SCH (09:26)
[2023-04-06] MEDS: amLODIPine 2.5 MG TAB PO SCH (09:26)
[2023-04-06] MEDS: POTASSIUM CHLORIDE ER 10 MEQ TAB.ER.PRT PO SCH ×2 (09:26→21:31)
[2023-04-06] MEDS: SODIUM FERRIC GLUCONAT-SUCROSE 125 MG in SODIUM CHLORIDE 0.9% 100 ML IVPB SCH (09:26)
[2023-04-06] MEDS: FERROUS SULFATE 325 MG TAB PO SCH (09:27)
[2023-04-06] MEDS: TAMSULOSIN 0.4 MG CAP.ER.24H PO SCH (09:27)
[2023-04-06] MEDS: PANTOPRAZOLE 40 MG/10 ML VIAL IV SCH (09:27)
[2023-04-06] MEDS: ATORVASTATIN 20 MG TAB PO SCH (09:27)
[2023-04-06] MEDS: METOPROLOL SUCCINATE (ER) 25 MG TAB.ER.24H PO SCH (09:27)
[2023-04-06] MEDS: FUROSEMIDE 40 MG TAB PO SCH (09:27)
[2023-04-06] MEDS: SERTRALINE 50 MG TAB PO SCH (09:27)
[2023-04-06 09:55] LABS: Anisocytosis Slight; HCT 27.5 % (39.0-53.0); HGB 8.7 gm/dL (13.0-17.5); Hypochromasia Moderate; MCH 35.4 pg (25.0-35.0); MCHC 31.7 g/dL (31.0-37.0); MCV 111.6 fL (80.0-100.0); Macrocytosis Marked; Mean Platelet Volume 8.3; Platelet Count 126 k/uL (150-450); RBC 2.47 m/uL (4.30-5.90); WBC 4.9 k/uL (3.8-10.6)
[2023-04-06 10:15] LABS: African American GFR (CKD) 63 (>60 ml/min/1.73 sqM); Anion Gap 11 mmol/L; Blood Urea Nitrogen 45 mg/dL (9-20); Calcium 9.6 mg/dL (8.4-10.2); Carbon Dioxide 23 mmol/L (22-30); Chloride 101 mmol/L (98-107); Glucose 107 mg/dL (74-99); Non-African American GFR(CKD) 54 (>60 ml/min/1.73 sqM); Potassium 4.2 mmol/L (3.5-5.1); Sodium 135 mmol/L (137-145)
[2023-04-06] MEDS ORDERED: FUROSEMIDE 10 MG/ML 4 ML VIAL IV STA (10:33)
--- NOTE | 2023-04-06 10:47 | P.PN ---
Subjective Patient is seen in follow-up for acute kidney injury on chronic kidney disease. Renal function stable. Admits to good urine output. No hematuria or dysuria. Oral intake fair. No changes overnight. Now on room air. Vital signs are stable. General: No acute distress. HEENT: Head exam is unremarkable. LUNGS: No audible rhonchi or wheezes. HEART: Rate and Rhythm are regular. ABDOMEN: Nontender. EXTREMITITES: No edema. Objective - Vital Signs Vital signs: Vital Signs Temp 98.2 F 04/05/23 20:00 Pulse 71 04/06/23 04:00 Resp 18 04/06/23 04:00 BP 123/64 04/06/23 04:00 Pulse Ox 97 04/06/23 04:00 FiO2 Intake & Output 04/05/23 04/06/23 04/06/23 18:59 06:59 18:59 Intake Total 950 0 240 Output Total 325 475 Balance 625 -475 240 Weight 75 kg Intake: IV 10 Invasive Line 2 10 Intake, IV Titration 100 Amount Sodium Ferric Gluconat- 100 Sucrose 125 mg In Sodium Chloride 0.9% 100 ml @ 100 mls/hr IVPB DAILY [facility] Rx#:[id number] Oral 840 0 240 Output: Urine 325 475 Other: Voiding Method Urinal Urinal # Voids 1 # Bowel Movements 1 1 - Labs CBC & Chem 7: 04/06/23 09:32 04/06/23 09:32 Labs: Abnormal Lab Results - Last 24 Hours (Table) 04/05/23 04/06/23 04/06/23 Range/Units 07:29 09:32 09:32 RBC 2.33 L 2.47 L (4.30-5.90) m/uL Hgb 8.3 L 8.7 L (13.0-17.5) gm/dL Hct 26.1 L 27.5 L (39.0-53.0) % MCV 112.0 H 111.6 H (80.0-100.0) fL MCH 35.4 H 35.4 H (25.0-35.0) pg RDW 17.2 H 17.0 H (11.5-15.5) % Plt Count 115 L 126 L (150-450) k/uL Macrocytosis Marked A Marked A Sodium 135 L (137-145) mmol/L BUN 45 H (9-20) mg/dL Glucose 107 H (74-99) mg/dL Microbiology - Last 24 Hours (Table) 04/04/23 11:00 Gram Stain - Preliminary Pleural Fluid Body Fluid Culture - Preliminary 04/02/23 10:30 Gram Stain - Preliminary Pleural Fluid Body Fluid Culture - Preliminary Assessment and Plan Plan: Assessment: 1. Chronic kidney disease stage IIIa with baseline creatinine 1.1-1.3. GFR near baseline. No hydronephrosis noted on a kidney ultrasound. Left kidney wasn't visualized. UA 1+ protein and no blood. 2. Acute on chronic diastolic CHF. 3. Volume overload. Status post right-sided thoracentesis with 1.2 L drained 04/02/2023. 4. Bicytopenia. Iron deficiency noted. 5. Coronary disease with cardiac stenting. 6. History of CVA. 7. Hypertension with chronic kidney disease. Controlled. 8. Acute hypoxic respiratory failure. Improved. No one room air. Plan: Transitioned from IV to oral Lasix this morning. Now on 40 mg orally once daily. Low-salt diet. Maintain IV iron. Avoid nephrotoxins. Continue to monitor renal function and urine output. Hold amlodipine for systolic blood pressure less than 120. Repeat BMP and magnesium level 2-3 days postdischarge. Follow up outpatient in 1 week
--- NOTE | 2023-04-06 11:46 | P.PN ---
Subjective Progress Note Date: 04/06/23 Patient is a very pleasant 88-year-old mle with a past medical history of CAD with permanent pacemaker secondary to symptomatic bradycardia, hypertension, hyperlipidemia, atrial fibrillation, COPD not home oxygen dependent and History of CVA with right-sided deficit/mild weakness and mild speech impairmen t/stuttering. He presented to the emergency department secondary to concerns of recurrent syncopal episodes/falls. Patient underwent full evaluation upon arrival to the emergency department. Vital signs upon arrival show blood pressure 129/67, heart rate 70, respiratory rate 18, temp 98.1F, SpO2 of 96% on room air. EKG showed a ventricular paced rhythm. Chest x-ray completed showing cardiomegaly with small right and moderate left pleural effusion and bibasilar infiltrates correlating for atelectasis. CT brain completed showing mild chronic appearing periventricular white matter ischemic changes with some mild atrophy. CBC showing hemoglobin of 8.5 and platelet count of 99 (baseline hemoglobin around 10.5). Coagulation profile normal findings. BMP shows bicarb of 18, anion gap of 19, BUN of 27, creatinine 1.13, GFR 58, glu 141, T Bili 1.5 and alkaline phosphatase of 145. Troponin 0.164, 0.6, 1.19. CT T and L spine bilateral pleural effusions with cardiomegaly, bilateral neural foraminal stenosis and narrowing at L5 through S1, L4 through L5, and L3 through L4 due to a degenerative disc bulge and bony hypertrophy. CT C spine was negative for acute traumatic abnormality. Patient was started on Heparin drip for NSTEMI. Cardiology consulted, heparin drip discontinued, Echocardiogram showed large pleural effusion, EF 50-55% with mild to mod LVH, small pericardial effusion. 04/02 Patient was seen and examined. Hard of hearing. Denies any dizziness or shortness of breath. Appears short of breath when talking. CBC Hg 7.9 MCV 111.5 Plt 105. BMP Na 134, BUN 40, Cr 1.28, glu 106. CXR shows L > R pleural effusion. Chest US shows bilateral pleural effusions. 04/03 Patient was seen and examined. Underwent right thoracentesis yesterday, 1.2L drained. Repeat CXR showed mild improvement in his right pleural effusion. I stopped his normal saline today. Started on Lasix 20 mg IV BID. He is + 637 cc fluid balance over the past 24H. Weight 71.5-72.5kg over the past 24H. CBC Hg 8.4 MCV 111.3 Plt 108. BMP BUN 38, glu 112. 04/04 Patient was seen and examined. Pulmonology recommends possible left thoracentesis today. Started on Lasix 20 mg IV BID yesterday. Repeat troponin 3.67, BNP 68127, Cardiology recommends no further cardiac intervention. Renal US shows simple right cyst. Nephrology consulted, recommends maintaining IV lasix and continuing to monitoring renal function and urine output. CBC Hg 8.3, MCV 111.2, Plt 114. BMP Na 136, BUN 39. Iron studies Iron 32, Ferritin 601. C. diff is negative. 04/05 Patient was seen and examined. Underwent left thoracentesis yesterday, 2L gross blood removed. Pulmonology recommends stopping Eliquis. Discussed with Dr. Khoury, recommends no further workup, medical management of elevated troponins. PT evaluated the patient yesterday and recommended SNF on discharge prior to going back to [facility]. The plan was discussed with multiple family members. CBC Hg 8.3, Hct 26.1, MCV 112, Plt 115. BMP Na 134, BUN 41. 04/06 Patient was seen and examined. Appears less SOB. Currently on RA. Pleural fluid analysis is transudative, cultures are negative. Plans for SNF hopefully on Friday. CBC Hg 8.7 Hct 27.5 MCV 111.6. BMP Na 135, BUN 45, glu 107. General: non toxic, no distress, appears at stated age Derm: warm, dry, multiple bruises on upper and lower extremities in different stages of healing. Skin tear RU and LUE, and thoracic region of patient's back. Head: atraumatic, normocephalic, symmetric Eyes: EOMI, no lid lag, anicteric sclera Mouth: no lip lesion, mucus membranes moist Cardiovascular: S1S2 reg, no murmur, pacemaker in place left anterior chest. Lungs: Decreased BS bilateral L > R, no rhonchi, no rales , no accessory muscle use Ext: no gross muscle atrophy, no edema, no contractures Neuro: no focal neuro deficits Psych: Alert, oriented, appropriate affect Based on my assessment of this patient, this patient meets a moderate complexity level of care. Patient has an acute diagnosis of syncope that poses a threat to life or bodily function. Acute blood loss anemia due to hemothorax: Iron studies consistent with AOCD. Ferric gluconate 125 mg IV x 3 days per Nephrology. Transfuse if Hg < 7. Transfuse if Plt < 10. Recurrent syncopal episodes/falls: Orthostatic +. Dehydration from diarrhea versus cardiac cause. Troponin elevated. IVF discontinued 04/03. Telemetry monitoring. Fall precautions. PT and OT consult. Plans for SNF. Acute hypoxic respiratory failure due to large pleural effusion and HFpEF exacerbation: Likely cardiac. Pulmonology consulted, status post R thoracentesis 1.2L on 04/03, 2L L thoracentesis on 04/04. Switch Lasix IV to 40 mg PO QD. Strict intake and outtake. Daily weights. Elevated troponin: Trending up. Echocardiogram showed large pleural effusion, EF 50-55% with mild to mod LVH, small pericardial effusion. ASA 81 mg PO QD. Lipitor 40 mg PO QD. Cardiology recommends no further cardiac intervention. Acute kidney injury on CKD: Worsened with dehydration. Watch electrolytes carefully while on Lasix. Renal and Bladder US no obstruction. Nephrology on board. Diarrhea: C. diff negative. None while hospitalized so far. Appears to be resolving. History of CAD with permanent pacemaker secondary to symptomatic bradycardia: Plavix and Lipitor as above. Metoprolol 12.5 mg PO QD. Hyperlipidemia: Lipitor as above. Paroxysmal atrial fibrillation: Metoprolol as above. Amiodarone 300 mg PO QD. No Eliquis due to hemothorax. COPD not home oxygen dependent: Not in acute exacerbation. History of CVA with right-sided deficit/mild weakness: Plavix and Lipitor as a tiffany. CODE STATUS: FULL CODE. DVT Prophylaxis: SCDs GI Prophylaxis: Protonix IV Designated medical POA if patient is not able to make medical decisions for themselves: Anticipated discharge: SNF I have reviewed the following test consultant notes: Cardiology, Pulmonology note. I have reviewed the results of the following tests: CBC, BMP I have ordered the following tests: CBC, BMP I have discussed the care of this patient with the following independent historian: I have independently interpreted the following test below: I have discussed the management of this patient with the following physician: Objective - Vital Signs Vital signs: Vital Signs Temp 98.2 F 04/05/23 20:00 Pulse 71 04/06/23 04:00 Resp 18 04/06/23 04:00 BP 123/64 04/06/23 04:00 Pulse Ox 97 04/06/23 04:00 FiO2 Intake & Output 04/05/23 04/06/23 04/06/23 18:59 06:59 18:59 Intake Total 950 0 240 Output Total 325 475 Balance 625 -475 240 Weight 75 kg Intake: IV 10 Invasive Line 2 10 Intake, IV Titration 100 Amount Sodium Ferric Gluconat- 100 Sucrose 125 mg In Sodium Chloride 0.9% 100 ml @ 100 mls/hr IVPB DAILY [facility] Rx#:[id number] Oral 840 0 240 Output: Urine 325 475 Other: Voiding Method Urinal Urinal # Voids 1 # Bowel Movements 1 1 - Labs CBC & Chem 7: 04/06/23 09:32 04/06/23 09:32 Labs: Abnormal Lab Results - Last 24 Hours (Table) 04/05/23 04/05/23 Range/Units 07:29 07:29 RBC 2.33 L (4.30-5.90) m/uL Hgb 8.3 L (13.0-17.5) gm/dL Hct 26.1 L (39.0-53.0) % MCV 112.0 H (80.0-100.0) fL MCH 35.4 H (25.0-35.0) pg RDW 17.2 H (11.5-15.5) % Plt Count 115 L (150-450) k/uL Macrocytosis Marked A Sodium 134 L (137-145) mmol/L BUN 41 H (9-20) mg/dL Microbiology - Last 24 Hours (Table) 04/04/23 11:00 Gram Stain - Preliminary Pleural Fluid Body Fluid Culture - Preliminary 04/02/23 10:30 Gram Stain - Preliminary Pleural Fluid Body Fluid Culture - Preliminary
--- NOTE | 2023-04-06 12:53 | P.PN ---
Subjective Progress Note Date: 04/06/23 Principal diagnosis: Acute hypoxic respiratory failure with acute diastolic congestive heart failure and bilateral pleural effusions I am seeing this patient in consultation today 04/02/2023 after he was admitted back on March for a fall and possible syncope. Patient is an 88-year-old white male with past medical history significant for atrial fibrillation previously on Eliquis, permanent pacemaker implantation, coronary artery disease, hyperlipidemia, hypertension, previous CVA/TIA. Patient was brought into the emergency room back on March after reportedly falling in the shower. He reportedly lives at home alone. He states that he slipped and fell, however, EMS reported a possible syncopal event. Patient has been very weak. He ambulates with a walker. He is technically a poor historian. CT of the brain and C-spine without contrast on arrival did not show any acute intracranial abnormality or C-spine fracture. EKG on arrival showed a ventricular paced rhythm. He does have a permanent pacemaker. Echocardiogram shows preserved left ventricular ejection fraction of 50-55% with [id number] concentric LVH. There is enlargement/dilation of the right ventricle and atrium with an estimated RVSP of 36.8. Moderate to severe tricuspid regurg. Small pericardial effusion. Large pleural effusion reported. We were not consulted until earlier t his morning. Patient is currently lying in bed, on 3 L/m nasal cannula, in no acute distress. He is not short of breath at rest, however, reports shortness of breath and heart palpitations with any exertion. Denies chest pain. Denies syncopal episodes or losing consciousness. Does admit becoming lightheaded on standing. Denies any infectious symptoms. He has had significant diarrhea over the last 6 weeks. Denies any abdominal pain, fevers, bloody bowel mvmts, or melantic stools. Chest x-ray shows cardiomegaly with bilateral small to moderate sized pleural effusions, left greater than right. Most recent CBC is a WBC count of 5.6, hemoglobin 8.2, hematocrit 24.7, platelets 107. BMP from yesterday demonstrates a sodium 137, potassium 4.5, chloride 102, serum bicarbonate 22, BUN 32, creatinine 1.31, glucose 110. Troponins are elevated at 0.164, 0.6, and 1.19. Patient was temporarily on heparin infusion per protocol, this has been discontinued. This has been evaluated by cardiology, and felt not to reflect ACS. Vital signs are stable. Reevaluated today on 04/03/23, patient underwent a right sided thoracentesis yesterday, feeling much better today, breathing easier. Fluid seems to be transudative in nature with relatively low LDH, and borderline protein. Cytology is pending however is expected to be negative. Diuretics remain on hold, patient was seen by nephrology and recommending that the patient remains on Lasix, low-salt diet, and avoiding nephrotoxins. I did review the patient's ultrasound yesterday, and I am planning another thoracentesis on the left side possibly tomorrow clinically the patient is feeling better, breathing easier, and considering that the patient has transudative pleural effusion, I believe the patient was definitely need more diuretics otherwise his fluids will build up and will definitely cause more shortness of breath. Creatinine today is better 1.08 basic metabolic profile is normal bicarb is 22, CBC is relatively normal hemoglobin is 8.4 however continues to have elevated troponin and elevated BNP level. Patient was reevaluated today on 04/04/23, patient is feeling better, breathing easier, however he is not back to baseline. Today I recommended left sided thoracentesis, patient agreed to proceed with the thoracentesis, and this was done at bedside, I was able to remove at least 2000 mL of gross blood from the left pleural space. Apparently the patient had a recent fall and I believe the patient must have sustained a left sided hemothorax. At any rate significant improvement noted on the chest x-ray post thoracentesis, and the fluid was sent for different diagnostic studies. WBC count is 4 hemoglobin 8.3 basic metabolic profile is normal renal profile showed a creatinine of 1.16 today. Last BNP was over 10 2000 and last troponin was 3.6 today on 04/05/23, patient is feeling much better today, relatively asymptomatic hardly any cough wheezing or shortness of breath. Patient initially presented with near syncope secondary to orthostatic hypotension, I saw him for pleural effusions and he underwent a right-sided thoracentesis showing mostly transudative pleural effusion underwent left sided thoracentesis showing hemothorax pulmonary-crane he is doing great. Cardiology is addressing his other issues, and apparently at this point recommending physical therapy and continuing the same medications including Lasix metoprolol and Plavix. CBC today is relatively normal hemoglobin is low at 8.3 lites are normal renal profile is normal and improving. Patient was seen today on 04/06/2023, patient is doing well, basically asymptomatic, hardly any pulmonary symptoms, patient is sitting in bed, on room air, chest x-ray today showing slight increase in his bilateral pleural effusions, hence I recommended an extra dose of Lasix to be given today although he is maintained on oral Lasix patient will receive 40 mg of Lasix IV push today. WBC count is 4.9 hemoglobin is 8.7 basic metabolic profile is normal BUN is 45 creatinine 1.18 Objective - Vital Signs Vital signs: Vital Signs Temp 98.2 F 04/05/23 20:00 Pulse 70 04/06/23 12:00 Resp 18 04/06/23 12:00 BP 117/58 04/06/23 12:00 Pulse Ox 93 L 04/06/23 12:00 FiO2 Intake & Output 04/05/23 04/06/23 04/06/23 18:59 06:59 18:59 Intake Total 950 0 240 Output Total 517 335 8093 Balance 380 -053 -7371 Weight 75 kg Intake: IV 10 Invasive Line 2 10 Intake, IV Titration 100 Amount Sodium Ferric Gluconat- 100 Sucrose 125 mg In Sodium Chloride 0.9% 100 ml @ 100 mls/hr IVPB DAILY [facility] Rx#:[id number] Oral 840 0 240 Output: Drainage 2150 Left Posterior 2150 Urine 325 475 Other: Voiding Method Urinal Urinal Urinal # Voids 1 # Bowel Movements 1 1 - Exam Physical Exam: Revealed an 88-year-old white male in no distress on room air Head: Atraumatic, normocephalic HEENT:[Neck is supple.] [No neck masses.] [No thyromegaly.] [No JVD.] Chest: [Likely diminished breath sounds at the bases otherwise lungs are clear Cardiac Exam: [Normal S1 and S2, no S3 gallop, 2/6 systolic murmur thought the precordium Abdomen: [Soft, nontender, no megaly, no rebound, no guarding, normal bowel sounds.] Extremities: [No clubbing, no edema, no cyanosis.] Multiple areas of ecchymosis noted in upper and lower extremities and on the back. Neurological Exam: [No focal neurologic deficit.] Alert and oriented 3 but seems to be generally weak. Skin multiple areas of ecchymosis and skin tears noted. - Labs CBC & Chem 7: 04/06/23 09:32 04/06/23 09:32 Labs: Abnormal Lab Results - Last 24 Hours (Table) 04/06/23 04/06/23 Range/Units 09:32 09:32 RBC 2.47 L (4.30-5.90) m/uL Hgb 8.7 L (13.0-17.5) gm/dL Hct 27.5 L (39.0-53.0) % MCV 111.6 H (80.0-100.0) fL MCH 35.4 H (25.0-35.0) pg RDW 17.0 H (11.5-15.5) % Plt Count 126 L (150-450) k/uL Macrocytosis Marked A Sodium 135 L (137-145) mmol/L BUN 45 H (9-20) mg/dL Glucose 107 H (74-99) mg/dL Microbiology - Last 24 Hours (Table) 04/04/23 11:00 Gram Stain - Preliminary Pleural Fluid Body Fluid Culture - Preliminary 04/02/23 10:30 Gram Stain - Preliminary Pleural Fluid Body Fluid Culture - Preliminary Assessment and Plan Assessment: Impression: Near syncope/orthostatic hypotension and recurrent falls Acute hypoxic respiratory failure, resolved mostly related to bilateral pleural effusions and acute on chronic diastolic congestive heart failure as well as left sided hemothorax secondary to trauma/fall Acute on chronic diastolic congestive heart failure Bilateral pleural effusions, the right sided pleural effusion seems to be r elated to CHF however the left-sided pleural effusion seems to be a hemothorax related to recent fall and trauma. Recurrent falls, possible near-syncope Severe diarrhea and dehydration Bicytopenia, with anemia and thrombocytopenia Macrocytic anemia History of atrial fibrillation and sick sinus syndrome, status post permanent pacemaker implantation, currently V paced History of coronary artery disease Hyperlipidemia Hypertension History of previous CVA/TIA Gait disturbance, ambulates with walker Brief history of tobacco use Status post thoracentesis 2, one done on the right side and one done on the left side, today the patient had left sided thoracentesis and the pneumothorax was noted again related to recent trauma/fall Recommendation: After reviewing the chest x-ray recommended one dose of Lasix to be given today 40 mg of Lasix IV push Continue present cardiac meds and diuretics, patient is on oral Lasix. Continue fall precautions Patient should be considered for placement Continue to hold eliquis, considering the patient to recurrent falls and considering his left sided hemothorax I prefer to not to go back on eliquis. Will follow. Time with Patient: Less than 30
[2023-04-06] MEDS: MELATONIN 5 MG TABLET PO SCH (21:32)
[2023-04-07] MEDS: allopurinoL 300 MG TAB PO SCH (09:01)
[2023-04-07] MEDS: amLODIPine 2.5 MG TAB PO SCH (09:01)
[2023-04-07] MEDS: METOPROLOL SUCCINATE (ER) 25 MG TAB.ER.24H PO SCH (09:01)
[2023-04-07] MEDS: SERTRALINE 50 MG TAB PO SCH (09:01)
[2023-04-07] MEDS: ATORVASTATIN 20 MG TAB PO SCH (09:01)
[2023-04-07] MEDS: MAGNESIUM OXIDE 400 MG TAB PO SCH (09:01)
[2023-04-07] MEDS: DONEPEZIL 5 MG TAB PO SCH (09:02)
[2023-04-07] MEDS: CLOPIDOGREL 75 MG TAB PO SCH (09:02)
[2023-04-07] MEDS: TAMSULOSIN 0.4 MG CAP.ER.24H PO SCH (09:02)
[2023-04-07] MEDS: POTASSIUM CHLORIDE ER 10 MEQ TAB.ER.PRT PO SCH (09:02)
[2023-04-07] MEDS: FUROSEMIDE 40 MG TAB PO SCH (09:02)
[2023-04-07] MEDS: PANTOPRAZOLE 40 MG/10 ML VIAL IV SCH (09:02)
[2023-04-07 09:09] VITALS: TEMP 98
[2023-04-07] MEDS: SODIUM FERRIC GLUCONAT-SUCROSE 125 MG in SODIUM CHLORIDE 0.9% 100 ML IVPB SCH (10:55)
[2023-04-07 11:08] VITALS: BP 125/71; PULSE 69
--- NOTE | 2023-04-07 11:25 | P.DS ---
Providers Date of admission: 04/01/23 18:13 Expected date of discharge: 04/07/23 Attending physician: Chely Dickinson DO Consults: 03/31/23 14:26 Consult Physician Routine Consulting Provider: Raul Garcia Consult Reason/Comments: syncope Do you want consulting provider notified?: Yes 04/02/23 04:33 Consult Physician Routine Consulting Provider: Carlos Jordan Consult Reason/Comments: large pleural effusion Do you want consulting provider notified?: Yes 04/03/23 07:52 Consult Physician Routine Consulting Provider: Jemma Rice Consult Reason/Comments: JOHN on CKD, CHF exacerbation Do you want consulting provider notified?: Yes Primary care physician: Asher Argueta MD Hospital Course: 88-year-old mle with a past medical history of CAD with permanent pacemaker secondary to symptomatic bradycardia, hypertension, hyperlipidemia, atrial fibrillation, COPD not home oxygen dependent and History of CVA with right-sided deficit/mild weakness and mild speech impairment/stuttering. He presented to the emergency department secondary to concerns of recurrent syncopal episodes/falls. Patient underwent full evaluation upon arrival to the emergency department. Blood pressure 129/67, heart rate 70, respiratory rate 18, temp 98.1F, SpO2 of 96% on room air. EKG showed a ventricular paced rhythm. Chest x-ray completed showing cardiomegaly with small right and moderate left pleural effusion and bibasilar infiltrates correlating for atelectasis. CT brain completed showing mild chronic appearing periventricular white matter ischemic changes with some mild atrophy. CBC showing hemoglobin of 8.5 and platelet count of 99. Coagulation profile normal findings. BMP shows bicarb of 18, anion gap of 19, BUN of 27, creatinine 1.13, GFR 58, glu 141, T Bili 1.5 and alkaline phosphatase of 145. Troponin 0.164, 0.6, 1.19. CT T and L spine bilateral pleural effusions with cardiomegaly, bilateral neural foraminal stenosis and narrowing at L5 through S1, L4 through L5, and L3 through L4 due to a degenerative disc bulge and bony hypertrophy. CT C spine was negative for acute traumatic abnormality. Patient was started on Heparin drip for NSTEMI. Cardiology consulted, heparin drip discontinued, Echocardiogram showed large pleural effusion, EF 50-55% with mild to mod LVH, small pericardial effusion. Pulmonology was consulted due to bilateral large pleural effusion. Right thoracentesis, 1.2L transudative fluid drained. Started on Lasix 20 mg IV BID. Left thoracentesis, 2L gross blood removed. Pulmonology recommended stopping Eliquis, hemoglobin remained stable. Discussed with Dr. Khoruy, recommends no further workup, medical management of elevated troponins. Lasix was transitioned to PO. Breathing improved, weaned down to room air. PT evaluated the patient yesterday and recommended SNF on discharge prior to going back to [facility]. Family preferred the patient be discharged to [facility] as he has not done well at SNF in the past. 04/07 Patient was seen and examined. He reports no complaints. Plans for discharge to [facility] today. General: non toxic, no distress, appears at stated age Derm: warm, dry, multiple bruises on upper and lower extremities in different stages of healing. Skin tear RU and LUE, and thoracic region of patient's back. Head: atraumatic, normocephalic, symmetric Eyes: EOMI, no lid lag, anicteric sclera Mouth: no lip lesion, mucus membranes moist Cardiovascular: S1S2 reg, no murmur, pacemaker in place left anterior chest. Lungs: Decreased BS bilateral L > R, no rhonchi, no rales , no accessory muscle use Ext: no gross muscle atrophy, no edema, no contractures Neuro: no focal neuro deficits Psych: Alert, oriented, appropriate affect Discharge Diagnosis: Acute blood loss anemia due to hemothorax Recurrent syncopal episodes/falls Acute hypoxic respiratory failure due to large pleural effusion and HFpEF exacerbation Elevated troponin Acute kidney injury on CKD Diarrhea History of CAD with permanent pacemaker secondary to symptomatic bradycardia Hyperlipidemia Paroxysmal atrial fibrillation COPD not home oxygen dependent History of CVA with right-sided deficit/mild weakness This complex discharge took 35 minutes to complete. Patient Condition at Discharge: Stable Plan - Discharge Summary New Discharge Prescriptions: New Atorvastatin [Lipitor] 40 mg PO DAILY #30 tab amLODIPine [Norvasc] 2.5 mg PO DAILY #30 tab Clopidogrel [Plavix] 75 mg PO DAILY #30 tab Metoprolol Succinate (ER) [Toprol XL] 12.5 mg PO DAILY #30 tab Furosemide [Lasix] 40 mg PO DAILY #30 tab Continue allopurinoL [Zyloprim] 300 mg PO DAILY Nitroglycerin Sl Tabs [Nitrostat] 0.4 mg SUBLINGUAL Q5M PRN #25 tab PRN Reason: Chest Pain Tamsulosin HCl [Flomax] 0.4 mg PO DAILY Donepezil [Aricept] 5 mg PO DAILY Acetaminophen Tab [Tylenol] 500 - 1,000 mg PO Q6HR PRN PRN Reason: Pain Aspirin EC [Ecotrin Low Dose] 81 mg PO DAILY Psyllium Husk 100% [Metamucil Packet] 6 gm PO BID PRN PRN Reason: Diarrhea Melatonin 5 mg PO HS Sertraline [Zoloft] 50 mg PO DAILY Potassium Chloride ER [K-Dur 10] 10 meq PO BID Magnesium Oxide [Mag-Ox] 400 mg PO DAILY Loperamide [Imodium] 2 - 4 mg PO QID PRN PRN Reason: Diarrhea Ferrous Sulfate [Iron (65 MG Elemental)] 325 mg PO Q48H Ensure 1 can PO DAILY Calamine/Zinc Oxide Lotion [Calamine Lotion] 1 applic TOPICAL TID Discontinued Atorvastatin Calcium [Lipitor] 20 mg PO HS Furosemide [Lasix] 40 mg PO DAILY Discharge Medication List allopurinoL [Zyloprim] 300 mg PO DAILY 01/27/14 [History] Nitroglycerin Sl Tabs [Nitrostat] 0.4 mg SUBLINGUAL Q5M PRN #25 tab 04/24/18 [Rx] Tamsulosin HCl [Flomax] 0.4 mg PO DAILY 01/05/21 [History] Acetaminophen Tab [Tylenol] 500 - 1,000 mg PO Q6HR PRN 03/31/23 [History] Aspirin EC [Ecotrin Low Dose] 81 mg PO DAILY 03/31/23 [History] Calamine/Zinc Oxide Lotion [Calamine Lotion] 1 applic TOPICAL TID 03/31/23 [History] Donepezil [Aricept] 5 mg PO DAILY 03/31/23 [History] Ensure 1 can PO DAILY 03/31/23 [History] Ferrous Sulfate [Iron (65 MG Elemental)] 325 mg PO Q48H 03/31/23 [History] Loperamide [Imodium] 2 - 4 mg PO QID PRN 03/31/23 [History] Magnesium Oxide [Mag-Ox] 400 mg PO DAILY 03/31/23 [History] Melatonin 5 mg PO HS 03/31/23 [History] Potassium Chloride ER [K-Dur 10] 10 meq PO BID 03/31/23 [History] Psyllium Husk 100% [Metamucil Packet] 6 gm PO BID PRN 03/31/23 [History] Sertraline [Zoloft] 50 mg PO DAILY 03/31/23 [History] Atorvastatin [Lipitor] 40 mg PO DAILY #30 tab 04/07/23 [Rx] Clopidogrel [Plavix] 75 mg PO DAILY #30 tab 04/07/23 [Rx] Furosemide [Lasix] 40 mg PO DAILY #30 tab 04/07/23 [Rx] Metoprolol Succinate (ER) [Toprol XL] 12.5 mg PO DAILY #30 tab 04/07/23 [Rx] amLODIPine [Norvasc] 2.5 mg PO DAILY #30 tab 04/07/23 [Rx] Follow up Appointment(s)/Referral(s): [facility], [NON-STAFF] - 1 Week Susan Hinkle MD [STAFF PHYSICIAN] - 1 Week Asher Argueta MD [Primary Care Provider] - 1-2 days Activity/Diet/Wound Care/Special Instructions: Resides at [facility] - notify them of discharge - Diet: Low salt, Fluid restriction 1.5L Discharge Disposition: HOME SELF-CARE
--- NOTE | 2023-04-07 12:19 | P.PN ---
Subjective Progress Note Date: 04/07/23 Principal diagnosis: Syncope. I am seeing this patient in consultation today 04/02/2023 after he was admitted back on March for a fall and possible syncope. Patient is an 88-year-old white male with past medical history significant for atrial fibrillation previously on Eliquis, permanent pacemaker implantation, coronary artery disease, hyperlipidemia, hypertension, previous CVA/TIA. Patient was brought into the emergency room back on March after reportedly falling in the shower. He reportedly lives at home alone. He states that he slipped and fell, however, EMS reported a possible syncopal event. Patient has been very weak. He ambulates with a walker. He is technically a poor historian. CT of the brain and C-spine without contrast on arrival did not show any acute intracranial abnormality or C-spine fracture. EKG on arrival showed a ventricular paced rhythm. He does have a permanent pacemaker. Echocardiogram shows preserved left ventricular ejection fraction of 50-55% with [id number] concentric LVH. There is enlargement/dilation of the right ventricle and atrium with an estimated RVSP of 36.8. Moderate to severe tricuspid regurg. Small pericardial effusion. Large pleural effusion reported. We were not consulted until earlier this morning. Patient is currently lying in bed, on 3 L/m nasal cannula, in no acute distress. He is not short of breath at rest, however, reports shortness of breath and heart palpitations with any exertion. Denies chest pain. Denies syncopal episodes or losing consciousness. Does admit becoming lightheaded on standing. Denies any infectious symptoms. He has had significant diarrhea over the last 6 weeks. Denies any abdominal pain, fevers, bloody bowel mvmts, or mel[place] stools. Chest x-ray shows cardiomegaly with bilateral small to moderate sized pleural effusions, left greater than right. Most recent CBC is a WBC count of 5.6, hemoglobin 8.2, hematocrit 24.7, platelets 107. BMP from demonstrates a sodium 137, potassium 4.5, chloride 102, serum bicarbonate 22, BUN 32, creatinine 1.31, glucose 110. Troponins are elevated at 0.164, 0.6, and 1.19. Patient was temporarily on heparin infusion per protocol, this has been discontinued. This has been evaluated by cardiology, and felt not to reflect ACS. Vital signs are stable. Reevaluated today on 04/03/23, patient underwent a right sided thoracentesis yesterday, feeling much better today, breathing easier. Fluid seems to be transudative in nature with relatively low LDH, and borderline protein. Cytology is pending however is expected to be negative. Diuretics remain on hold, patient was seen by nephrology and recommending that the patient remains on Lasix, low-salt diet, and avoiding nephrotoxins. I did review the patient's ultrasound yesterday, and I am planning another thoracentesis on the left side possibly tomorrow clinically the patient is feeling better, breathing easier, and considering that the patient has transudative pleural effusion, I believe the patient was definitely need more diuretics otherwise his fluids will build up and will definitely cause more shortness of breath. Creatinine today is better 1.08 basic metabolic profile is normal bicarb is 22, CBC is relatively normal hemoglobin is 8.4 however continues to have elevated troponin and elevated BNP level. Patient was reevaluated today on 04/04/23, patient is feeling better, breathing easier, however he is not back to baseline. Today I recommended left sided thoracentesis, patient agreed to proceed with the thoracentesis, and this was done at bedside, I was able to remove at least 2000 mL of gross blood from the left pleural space. Apparently the patient had a recent fall and I believe the patient must have sustained a left sided hemothorax. At any rate significant improvement noted on the chest x-ray post thoracentesis, and the fluid was sent for different diagnostic studies. WBC count is 4 hemoglobin 8.3 basic metabolic profile is normal renal profile showed a creatinine of 1.16 today. Last BNP was over 10 2000 and last troponin was 3.6 today on 04/05/23, patient is feeling much better today, relatively asymptomatic hardly any cough wheezing or shortness of breath. Patient initially presented with near syncope secondary to orthostatic hypotension, I saw him for pleural effusions and he underwent a right-sided thoracentesis showing mostly transudative pleural effusion underwent left sided thoracentesis showing hemothorax pulmonary-crane he is doing great. Cardiology is addressing his other issues, and apparently at this point recommending physical therapy and continuing the same medications including Lasix metoprolol and Plavix. CBC today is relatively normal hemoglobin is low at 8.3 lites are normal renal profile is normal and improving. Patient was seen today on 04/06/2023, patient is doing well, basically asymptomatic, hardly any pulmonary symptoms, patient is sitting in bed, on room air, chest x-ray today showing slight increase in his bilateral pleural effusions, hence I recommended an extra dose of Lasix to be given today although he is maintained on oral Lasix patient will receive 40 mg of Lasix IV push today. WBC count is 4.9 hemoglobin is 8.7 basic metabolic profile is normal BUN is 45 creatinine 1.18 Progress note dated 04/07/2023. Patient is seen today in room 352. Currently, the patient's on room air. The patient is not receiving any IV fluids. The patient is hoping to be discharged soon. The patient denies any shortness of breath, cough, wheezing, chest tightness, or phlegm production. The patient also denies any chest pain or pressure. No new labs today. The labs from April 06 have been reviewed. Chest x-ray from April 06 shows changes of CHF. Objective - Vital Signs Vital signs: Vital Signs Temp 98.0 F 04/07/23 08:50 Pulse 69 04/07/23 11:00 Resp 18 04/07/23 11:00 BP 125/71 04/07/23 11:00 Pulse Ox 95 04/07/23 11:00 FiO2 Intake & Output 04/06/23 04/07/23 04/07/23 18:59 06:59 18:59 Intake Total 734 0 400 Output Total 2150 2150 2450 Balance -1416 -2150 -2049 Intake: Oral 734 0 400 Output: Drainage 2150 2150 2150 Left Posterior 2150 2150 2150 Urine 300 Other: Voiding Method Urinal Urinal Urinal # Voids 1 # Bowel Movements 0 - Exam No acute distress, oriented 3. No respiratory distress. The patient is on room air. HEENT examination is grossly unremarkable. Mucous membranes are moist. No oral lesions. Neck supple. Full range of motion. No adenopathy thyromegaly or neck vein distention. Cardiovascular examination reveals regular rhythm rate. S1-S2 normal. No S3 or S4. A 2/6 systolic murmur is noted. Lungs reveal clear breath sounds. Her sounds are equal bilaterally. No adventitious lung sounds including wheezes rhonchi or crackles. Abdomen soft bowel sounds are heard. No masses or tenderness. Extremities are intact. No cyanosis clubbing or edema. Skin reveals multiple areas of ecchymoses. Neurologic examination is brief but nonfocal. - Labs CBC & Chem 7: 04/06/23 09:32 04/06/23 09:32 Labs: Microbiology - Last 24 Hours (Table) 04/04/23 11:00 Gram Stain - Preliminary Pleural Fluid Body Fluid Culture - Preliminary 04/02/23 10:30 Gram Stain - Final Pleural Fluid Body Fluid Culture - Final Assessment and Plan Assessment: Near syncope/orthostatic hypotension, with recurrent falls. Acute hypoxemic respiratory failure, secondary to acute on chronic diastolic CHF, and left-sided hemothorax, secondary to trauma. Acute on chronic diastolic CHF. Bilateral pleural effusions. Left-sided hemothorax. Severe diarrhea and dehydration. Bicytopenia. Macrocytic anemia. History of atrial fibrillation and sick sinus syndrome, status post permanent pacemaker implantation. Coronary artery disease. Hyperlipidemia. Hypertension. History of previous CVA. Gait disturbance. Status post thoracentesis 2, one on either side. Plan: Plan dated 04/07/2023. The patient was given Lasix yesterday based on his chest x-ray. The patient is currently on room air, and receiving IV fluids. The patient is hoping to be discharged soon. Labs, x-rays, and medications are reviewed. The patient's overall prognosis remains guarded. We will continue to follow the patient, make recommendations along the way. Time with Patient: Less than 30
--- NOTE | 2023-04-07 13:18 | P.PN ---
Subjective Patient is seen for follow-up for acute kidney injury and chronic kidney disease. Renal function is fairly stable. No significant complaints. Objective - Vital Signs Vital signs: Vital Signs Temp 98.0 F 04/07/23 08:50 Pulse 69 04/07/23 11:00 Resp 18 04/07/23 11:00 BP 125/71 04/07/23 11:00 Pulse Ox 95 04/07/23 11:00 FiO2 Intake & Output 04/06/23 04/07/23 04/07/23 18:59 06:59 18:59 Intake Total 734 0 400 Output Total 2150 2150 2450 Balance -1415 Intake: Oral 734 0 400 Output: Drainage 2150 2150 2150 Left Posterior 2150 2150 2150 Urine 300 Other: Voiding Method Urinal Urinal Urinal # Voids 1 # Bowel Movements 0 - Exam patient is awake, comfortable, no acute distress Examination of the heart S1 and S2 Examination of the lungs bilateral breath sounds are heard Abdomen is soft nontender Examination of lower extremities shows no significant edema CABLE TELEVISION TECHNICIAN exam grossly intact - Labs CBC & Chem 7: 04/06/23 09:32 04/06/23 09:32 Labs: Microbiology - Last 24 Hours (Table) 04/04/23 11:00 Gram Stain - Preliminary Pleural Fluid Body Fluid Culture - Preliminary 04/02/23 10:30 Gram Stain - Final Pleural Fluid Body Fluid Culture - Final Assessment and Plan Assessment: 1. Chronic kidney disease stage IIIa with baseline creatinine 1.1-1.3. GFR near baseline. No hydronephrosis noted on a kidney ultrasound. Left kidney wasn't visualized. UA 1+ protein and no blood. 2. Acute on chronic diastolic CHF. 3. Volume overload. Status post right-sided thoracentesis with 1.2 L drained 04/02/2023. 4. Bicytopenia. Iron deficiency noted. 5. Coronary disease with cardiac stenting. 6. History of CVA. 7. Hypertension with chronic kidney disease. Controlled. 8. Acute hypoxic respiratory failure. Improved. No one room air. Plan: Continue current dose of Lasix Monitor renal function as outpatient.
== END 2023-04-07 13:00 | DRG 280 ==
LOC: EC 11:33 → 3SCARD 14:26 → OBSVTOIN 04-01 18:13
PROVIDERS: ADMIT Internal Medicine; ATTEND Internal Medicine
PROC: 0W993ZX Drainage of Right Pleural Cavity, Percutaneous Approach, Diagnostic (ICD-10-PCS; principal; 2023-04-02)
PROC: 0W9B30Z Drainage of Left Pleural Cavity with Drainage Device, Percutaneous Approach (ICD-10-PCS; 2023-04-04)
DX: I95.1 Orthostatic hypotension (principal); I21.A1 Myocardial infarction type 2; I50.33 Acute on chronic diastolic (congestive) heart failure; J96.01 Acute respiratory failure with hypoxia; S27.1XXA Traumatic hemothorax, initial encounter; I13.0 Hypertensive heart and chronic kidney disease with heart failure and stage 1 through stage 4 chronic kidney disease, or unspecified chronic kidney disease; S27.0XXA Traumatic pneumothorax, initial encounter; D62 Acute posthemorrhagic anemia; N17.9 Acute kidney failure, unspecified; I48.21 Permanent atrial fibrillation; I69.351 Hemiplegia and hemiparesis following cerebral infarction affecting right dominant side; J98.11 Atelectasis; I31.39 Other pericardial effusion (noninflammatory); D69.6 Thrombocytopenia, unspecified; I49.5 Sick sinus syndrome; D63.1 Anemia in chronic kidney disease; E86.0 Dehydration; F03.90 Unspecified dementia, unspecified severity, without behavioral disturbance, psychotic disturbance, mood disturbance, and anxiety; N18.31 Chronic kidney disease, stage 3a; J44.9 Chronic obstructive pulmonary disease, unspecified; Z66 Do not resuscitate; I69.323 Fluency disorder following cerebral infarction; I25.10 Atherosclerotic heart disease of native coronary artery without angina pectoris; D53.9 Nutritional anemia, unspecified; E61.1 Iron deficiency; E78.00 Pure hypercholesterolemia, unspecified; I08.3 Combined rheumatic disorders of mitral, aortic and tricuspid valves; I25.2 Old myocardial infarction; M48.061 Spinal stenosis, lumbar region without neurogenic claudication; M51.36 Other intervertebral disc degeneration, lumbar region; G47.30 Sleep apnea, unspecified; M19.90 Unspecified osteoarthritis, unspecified site; H91.90 Unspecified hearing loss, unspecified ear; R26.9 Unspecified abnormalities of gait and mobility; R29.6 Repeated falls; Z79.82 Long term (current) use of aspirin; Z79.01 Long term (current) use of anticoagulants; Z79.899 Other long term (current) drug therapy; Z96.653 Presence of artificial knee joint, bilateral; Z95.5 Presence of coronary angioplasty implant and graft; Z95.0 Presence of cardiac pacemaker; Z91.81 History of falling; Z87.891 Personal history of nicotine dependence; Z87.442 Personal history of urinary calculi; W18.2XXA Fall in (into) shower or empty bathtub, initial encounter; Y93.E1 Activity, personal bathing and showering; Y92.099 Unspecified place in other non-institutional residence as the place of occurrence of the external cause
CPT/HCPCS: 36415; 70450; 71045; 71046; 76604; 76770; 80048; 80053; 81001; 82550; 82728; 83540; 83550; 83615; 83735; 83880; 84155; 84157; 84484; 85025; 85027; 85045; 85610; 85730; 87070; 87205; 87324; 88108; 88305; 89050; 93005; 93306; 94760; 96374; 99285

== ENCOUNTER 2023-04-26 19:20 | Emergency (ER) | payer MEDICARE ==
[2023-04-26 19:30] VITALS: TEMP 97.5
--- NOTE | 2023-04-26 20:12 | ED ---
General Adult HPI - General Chief complaint: Weakness Stated complaint: Weakness Time Seen by Provider: 04/26/23 19:36 Source: patient, EMS Mode of arrival: EMS - History of Present Illness Initial comments: 88-year-old male with a past medical history significant for dementia presenting from his assisted living facility secondary to concerns of chronic diarrhea and also notes for the past week patient has had very minimal oral intake. Patient himself at this time only complains of diarrhea and denies chest pain, shortness of breath, abdominal pain, nausea, vomiting, changes in urinary habits. Of note, patient is currently being treated for MRSA. Is scheduled for amputation of the right second toe by Dr. Horton. Denies fever or chills. No worsening of toe pain. No other complaints. - Related Data Home Medications Medication Instructions Recorded Confirmed allopurinoL [Zyloprim] 300 mg PO DAILY 01/27/14 03/31/23 Tamsulosin HCl [Flomax] 0.4 mg PO DAILY 01/05/21 03/31/23 Acetaminophen Tab [Tylenol] 500 - 1,000 mg PO Q6HR PRN 03/31/23 03/31/23 Aspirin EC [Ecotrin Low Dose] 81 mg PO DAILY 03/31/23 03/31/23 Calamine/Zinc Oxide Lotion 1 applic TOPICAL TID 03/31/23 03/31/23 [Calamine Lotion] Donepezil [Aricept] 5 mg PO DAILY 03/31/23 03/31/23 Ensure 1 can PO DAILY 03/31/23 03/31/23 Ferrous Sulfate [Iron (65 MG 325 mg PO Q48H 03/31/23 03/31/23 Elemental)] Loperamide [Imodium] 2 - 4 mg PO QID PRN 03/31/23 03/31/23 Magnesium Oxide [Mag-Ox] 400 mg PO DAILY 03/31/23 03/31/23 Melatonin 5 mg PO HS 03/31/23 03/31/23 Potassium Chloride ER [K-Dur 10] 10 meq PO BID 03/31/23 03/31/23 Psyllium Husk 100% [Metamucil 6 gm PO BID PRN 03/31/23 03/31/23 Packet] Sertraline [Zoloft] 50 mg PO DAILY 03/31/23 03/31/23 Previous Rx's Medication Instructions Recorded Nitroglycerin Sl Tabs [Nitrostat] 0.4 mg SUBLINGUAL Q5M PRN #25 tab 04/24/18 Atorvastatin [Lipitor] 40 mg PO DAILY #30 tab 04/07/23 Clopidogrel [Plavix] 75 mg PO DAILY #30 tab 04/07/23 Furosemide [Lasix] 40 mg PO DAILY #30 tab 04/07/23 Metoprolol Succinate (ER) [Toprol 12.5 mg PO DAILY #30 tab 04/07/23 XL] amLODIPine [Norvasc] 2.5 mg PO DAILY #30 tab 04/07/23 Allergies Allergy/AdvReac Type Severity Reaction Status Date / Time No Known Allergies Allergy Verified 04/26/23 19:26 Review of Systems ROS Statement: Those systems with pertinent positive or pertinent negative responses have been documented in the HPI. ROS Other: All systems not noted in ROS Statement are negative. Past Medical History Past Medical History: Atrial Fibrillation, Cancer, COPD, CVA/TIA, Dementia, Hyperlipidemia, Hypertension, Osteoarthritis (OA), Renal Disease, Sleep Apnea/CPAP/BIPAP, Syncope Additional Past Medical History / Comment(s): PT CAME TO ER WITH SYNCOPAL AND NEAR SYNCOPAL EPISODES. PT HAS PACEMAKER DUE. TO BRADYCARDA. SKIN CA, KIDNEY STONES, PT HAS SLEEP APNEA AND HAS A CPAP MACHINE THAT HE SAID HE NO LONGER NEEDS. 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 bilateral knee replacement, pacemaker WITH NEWEST DEVICE CHANGE IN 2009. Past Anesthesia/Blood Transfusion Reactions: No Reported Reaction Type of Cardiac Device: Permanent Pacemaker Device Placement Date:: 2009 Past Psychological History: No Psychological Hx Reported Smoking Status: Former smoker Past Alcohol Use History: None Reported Past Drug Use History: None Reported - Past Family History Father Family Medical History: Cancer, CVA/TIA, Diabetes Mellitus Additional Family Medical History / Comment(s): FATHER OF LUNG CANCER AT AGE 82YRS. Mother Family Medical History: Coronary Artery Disease (CAD) Additional Family Medical History / Comment(s): MOTHER AT AGE 72 YRS. General Exam General appearance: alert, in no apparent distress Eye exam: Present: normal appearance Respiratory exam: Present: normal lung sounds bilaterally Cardiovascular Exam: Present: regular rate, normal rhythm GI/Abdominal exam: Present: soft (No tenderness to palpation. No rebound guarding or rigidity.) Neurological exam: Present: alert, oriented X3, other (Answers questions appropriately after repeated questioning.) Skin exam: Present: other (Skin does show some tenting.) Course Vital Signs 04/26/23 04/26/23 04/26/23 19:22 20:26 21:26 Temperature 97.5 F L Pulse Rate 70 70 70 Respiratory 16 18 18 Rate Blood Pressure 105/60 110/74 110/64 O2 Sat by Pulse 96 93 L 93 L Oximetry Medical Decision Making - Medical Decision Making Was pt. sent in by a medical professional or institution (, PA, POST ANESTHESIA NURSE, urgent care, hospital, or [place] health care facility...) When possible be specific @ -No Did you speak to anyone other than the patient for history (EMS, parent, family, police, friend...)? What history was obtained from this source @ -Spoke to the patient's friend at bedside who provided most of the history as she and daughter note patient has a history of dementia. Did you review nursing and triage notes (agree or disagree)? Why? @ -I reviewed and agree with nursing and triage notes Were old charts reviewed (outside hosp., previous admission, EMS record, old EKG, old radiological studies, urgent care reports/EKG's, [place] health care facility records)? Report findings @ -No old charts were reviewed Differential Diagnosis (chest pain, altered mental status, abdominal pain women, abdominal pain men, vaginal bleeding, weakness, fever, dyspnea, syncope, headache, dizziness, GI bleed, back pain, seizure, CVA, palpatations, mental health, musculoskeletal)? @ -Not applicable EKG interpreted by me (3pts min.). @ -EKG shows a ventricularly paced rhythm at 69 bpm. MD 113, QRS 162, QT/QTc 442/462. Appears similar to prior. X-rays interpreted by me (1pt min.). @ -X-ray of the right foot interpreted by me showing no osteomyelitis. CT interpreted by me (1pt min.). @ -None done U/S interpreted by me (1pt. min.). @ -None done What testing was considered but not performed or refused? (CT, X-rays, U/S, labs)? Why? @ -None What meds were considered but not given or refused? Why? @ -None Did you discuss the management of the patient with other professionals (professionals i.e. , PA, POST ANESTHESIA NURSE, lab, RT, psych nurse, social welfare research worker, chain tender, teacher, licensed loan officer assistant, continuous pillowcase cutter)? Give summary @ -No Was smoking cessation discussed for >3mins.? @ -No Was critical care preformed (if so, how long)? @ -No Were there social determinants of health that impacted care today? How? (Homelessness, low income, unemployed, alcoholism, drug addiction, transportation, low edu. Level, literacy, decrease access to med. care, snf, rehab)? @ -No Was there de-escalation of care discussed even if they declined (Discuss DNR or withdrawal of care, Hospice)? DNR status @ -No What co-morbidities impacted this encounter? (DM, HTN, Smoking, COPD, CAD, Cancer, CVA, ARF, Chemo, Hep., AIDS, mental health diagnosis, sleep apnea, morbid obesity)? @ -None Was patient admitted / discharged? Hospital course, mention meds given and route, prescriptions, significant lab abnormalities, going to OR and other pertinent info. @ -Discharge 88-year-old male presenting to the ED secondary to concerns for not eating for the past week. Also notes diarrhea which has been chronic for the past couple months. Patient has no other complaints at this time. Laboratory studies reviewed. CBC does show a macrocytic anemia however this appears chronic in nature. Chemistry panel does show a bump in both BUN and creatinine 39 and 2.14 respectively which is slightly increased from baseline. Patient did appear somewhat dry on exam with some minimal skin tenting and therefore provided maintenance and bolus of IV fluids. Urine unremarkable. Serology panel negative. Had thorough discussion with daughter who is patient's power of knurling machine operator. At this time do not want any aggressive measures done such as a feeding tube. Patient's daughter is interested in hospice as she believes that the patient will not return to eating. Patient is currently living at an assisted living facility which she notes has hospice. Patient to be discharged back to his facility and patient's daughter notes that she will inquire about transitioning the patient to hospice at his current facility. Patient was provided gentle IV hydration here in the ED prior to discharge. Undiagnosed new problem with uncertain prognosis? @ -No Drug Therapy requiring intensive monitoring for toxicity (Heparin, Nitro, Insulin, Cardizem)? @ -No Were any procedures done? @ -No Diagnosis/symptom? @ -Diarrhea, failure to thrive Acute, or Chronic, or Acute on Chronic? @ -Acute on chronic Uncomplicated (without systemic symptoms) or Complicated (systemic symptoms)? @ -Uncomplicated Side effects of treatment? @ -No Exacerbation, Progression, or Severe Exacerbation? @ -No Poses a threat to life or bodily function? How? (Chest pain, USA, ID, pneumonia, PE, COPD, DKA, ARF, appy, cholecystitis, CVA, Diverticulitis, Homicidal, Suicidal, threat to staff... and all critical care pts) @ -No - Lab Data Result diagrams: 04/26/23 20:41 04/26/23 20:41 Lab Results 04/26/23 04/26/23 04/26/23 Range/Units 20:41 20:41 20:41 WBC 4.1 (3.8-10.6) k/uL RBC 2.10 L (4.30-5.90) m/uL Hgb 7.9 L (13.0-17.5) gm/dL Hct 23.2 L (39.0-53.0) % MCV 110.6 H (80.0-100.0) fL MCH 37.4 H (25.0-35.0) pg MCHC 33.8 (31.0-37.0) g/dL RDW 17.9 H (11.5-15.5) % Plt Count 120 L (150-450) k/uL MPV 9.1 Neutrophils % 85 % Lymphocytes % 7 % Monocytes % 5 % Eosinophils % 1 % Basophils % 0 % Neutrophils # 3.5 (1.3-7.7) k/uL Lymphocytes # 0.3 L (1.0-4.8) k/uL Monocytes # 0.2 (0-1.0) k/uL Eosinophils # 0.0 (0-0.7) k/uL Basophils # 0.0 (0-0.2) k/uL Hypochromasia Slight Anisocytosis Slight Macrocytosis Marked A Sodium 135 L (137-145) mmol/L Potassium 4.9 (3.5-5.1) mmol/L Chloride 104 (98-107) mmol/L Carbon Dioxide 21 L (22-30) mmol/L Anion Gap 10 mmol/L BUN 39 H (9-20) mg/dL Creatinine 2.14 H (0.66-1.25) mg/dL Est GFR (CKD-EPI)AfAm 31 (>60 ml/min/1.73 sqM) Est GFR (CKD-EPI)NonAf 27 (>60 ml/min/1.73 sqM) Glucose 97 (74-99) mg/dL Plasma Lactic Acid Scott (0.7-2.0) mmol/L Calcium 9.7 (8.4-10.2) mg/dL Total Bilirubin 1.1 (0.2-1.3) mg/dL AST 51 (17-59) U/L ALT 25 (4-49) U/L Alkaline Phosphatase 166 H (38-126) U/L Total Protein 6.1 L (6.3-8.2) g/dL Albumin 3.3 L (3.5-5.0) g/dL Urine Color Light Yellow Urine Appearance Clear (Clear) Urine pH 6.0 (5.0-8.0) Ur Specific [place] 1.013 (1.001-1.035) Urine Protein Trace H (Negative) Urine Glucose (UA) Negative (Negative) Urine Ketones Negative (Negative) Urine Blood Negative (Negative) Urine Nitrite Negative (Negative) Urine Bilirubin Negative (Negative) Urine Urobilinogen <2.0 (<2.0) mg/dL Ur Leukocyte Esterase Negative (Negative) Influenza Type A (PCR) (Not Detectd) Influenza Type B (PCR) (Not Detectd) RSV (PCR) (Not Detectd) SARS-CoV-2 (PCR) (Not Detectd) 04/26/23 04/26/23 Range/Units 20:41 21:28 WBC (3.8-10.6) k/uL RBC (4.30-5.90) m/uL Hgb (13.0-17.5) gm/dL Hct (39.0-53.0) % MCV (80.0-100.0) fL MCH (25.0-35.0) pg MCHC (31.0-37.0) g/dL RDW (11.5-15.5) % Plt Count (150-450) k/uL MPV Neutrophils % % Lymphocytes % % Monocytes % % Eosinophils % % Basophils % % Neutrophils # (1.3-7.7) k/uL Lymphocytes # (1.0-4.8) k/uL Monocytes # (0-1.0) k/uL Eosinophils # (0-0.7) k/uL Basophils # (0-0.2) k/uL Hypochromasia Anisocytosis Macrocytosis Sodium (137-145) mmol/L Potassium (3.5-5.1) mmol/L Chloride (98-107) mmol/L Carbon Dioxide (22-30) mmol/L Anion Gap mmol/L BUN (9-20) mg/dL Creatinine (0.66-1.25) mg/dL Est GFR (CKD-EPI)AfAm (>60 ml/min/1.73 sqM) Est GFR (CKD-EPI)NonAf (>60 ml/min/1.73 sqM) Glucose (74-99) mg/dL Plasma Lactic Acid Scott 1.4 (0.7-2.0) mmol/L Calcium (8.4-10.2) mg/dL Total Bilirubin (0.2-1.3) mg/dL AST (17-59) U/L ALT (4-49) U/L Alkaline Phosphatase (38-126) U/L Total Protein (6.3-8.2) g/dL Albumin (3.5-5.0) g/dL Urine Color Urine Appearance (Clear) Urine pH (5.0-8.0) Ur Specific [place] (1.001-1.035) Urine Protein (Negative) Urine Glucose (UA) (Negative) Urine Ketones (Negative) Urine Blood (Negative) Urine Nitrite (Negative) Urine Bilirubin (Negative) Urine Urobilinogen (<2.0) mg/dL Ur Leukocyte Esterase (Negative) Influenza Type A (PCR) Not Detected (Not Detectd) Influenza Type B (PCR) Not Detected (Not Detectd) RSV (PCR) Not Detected (Not Detectd) SARS-CoV-2 (PCR) Not Detected (Not Detectd) Disposition Clinical Impression: Failure to thrive, Diarrhea Disposition: HOME SELF-CARE Condition: Good Additional Instructions: Please return to the Emergency Department if symptoms worsen or any other concerns. Please follow-up with your primary care provider. Is patient prescribed a controlled substance at d/c from ED?: No Referrals: Asher Argueta MD [Primary Care Provider] - 1-2 days Time of Disposition: 23:12
[2023-04-26] MEDS ORDERED: SODIUM CHLORIDE 0.9% 1,000 ML IV STA ×2 (20:36)
[2023-04-26 21:01] LABS: Anisocytosis Slight; Basophils % (A) 0 %; Eosinophils % (A) 1 %; HCT 23.2 % (39.0-53.0); HGB 7.9 gm/dL (13.0-17.5); Hypochromasia Slight; Lymphocytes # (A) 0.3 k/uL (1.0-4.8); Lymphocytes % (A) 7 %; MCH 37.4 pg (25.0-35.0); MCHC 33.8 g/dL (31.0-37.0); MCV 110.6 fL (80.0-100.0); Macrocytosis Marked; Mean Platelet Volume 9.1; Monocytes # (A) 0.2 k/uL (0-1.0); Monocytes % (A) 5 %; Neutrophils # (A) 3.5 k/uL (1.3-7.7); Neutrophils % (A) 85 %; Platelet Count 120 k/uL (150-450); RDW 17.9 % (11.5-15.5); WBC 4.1 k/uL (3.8-10.6)
[2023-04-26 21:16] LABS: ALT 25 U/L (4-49); AST 51 U/L (17-59); African American GFR (CKD) 31 (>60 ml/min/1.73 sqM); Albumin 3.3 g/dL (3.5-5.0); Alkaline Phosphatase 166 U/L (38-126); Anion Gap 10 mmol/L; Blood Urea Nitrogen 39 mg/dL (9-20); Calcium 9.7 mg/dL (8.4-10.2); Carbon Dioxide 21 mmol/L (22-30); Chloride 104 mmol/L (98-107); Glucose 97 mg/dL (74-99); Non-African American GFR(CKD) 27 (>60 ml/min/1.73 sqM); Potassium 4.9 mmol/L (3.5-5.1); Sodium 135 mmol/L (137-145); Total Bilirubin 1.1 mg/dL (0.2-1.3); Total Protein 6.1 g/dL (6.3-8.2)
[2023-04-26 21:27] LABS: Appearance,Urine Clear (Clear); Bilirubin,Urine Negative (Negative); Blood,Urine Negative (Negative); Color,Urine Light Yellow; Glucose,Urine (UA) Negative (Negative); Ketones,Urine Negative (Negative); Leukocyte Esterase,Urine Negative (Negative); Nitrite,Urine Negative (Negative); Protein,Urine Trace (Negative); Specific Gravity,Urine 1.013 (1.001-1.035); Urobilinogen,Urine <2.0 mg/dL (<2.0)
--- NOTE | 2023-04-26 21:47 | XR ---
EXAMINATION TYPE: XR foot complete RT DATE OF EXAM: 04/26/2023 COMPARISON: None HISTORY: Infection second digit TECHNIQUE: 3 view right foot FINDINGS: No acute displaced fractures evident. Hammertoes are present. Large plantar calcaneal heel spur is present. Achilles tendon calcaneal heel spur is present. There may be some mild increased soft tissue over the ball of the foot. No suspicious cortical erosio n is identified. Second digit proximal interphalangeal joint somewhat difficult to evaluate due to po sitioning. IMPRESSION: 1. No definite osteomyelitis. There is some limitation of evaluation of the proximal interphalangeal joint space second digit. Follow-up can be performed as clinically indicated. 2. Calcaneal heel spurs. 3. There may be some mild soft tissue prominence over the ball of the foot
[2023-04-26 22:25] VITALS: RESP 18
[2023-04-26] MEDS ORDERED: SODIUM CHLORIDE 0.9% 500 ML 500 ML IV STA (23:13)
[2023-04-27 00:43] VITALS: BP 109/63; PULSE 71
== END 2023-04-27 00:43 | disposition home or self-care (01) ==
LOC: EC 19:20
DX: R62.7 Adult failure to thrive (principal); R19.7 Diarrhea, unspecified; I48.91 Unspecified atrial fibrillation; J44.9 Chronic obstructive pulmonary disease, unspecified; I10 Essential (primary) hypertension; G47.30 Sleep apnea, unspecified; Z20.822 Contact with and (suspected) exposure to COVID-19; Z87.891 Personal history of nicotine dependence; Z79.82 Long term (current) use of aspirin
CPT/HCPCS: 36415; 80053; 81003; 83605; 85025; 87636; 96360; 96361; 99285

== ENCOUNTER 2023-04-28 10:33 | Emergency (ER) | payer MEDICARE ==
--- NOTE | 2023-04-28 10:46 | ED ---
Fall HPI - General Chief Complaint: Fall Stated Complaint: Fall Time Seen by Provider: 04/28/23 10:35 Source: EMS, RN notes reviewed, old records reviewed Mode of arrival: EMS Limitations: no limitations - History of Present Illness Initial Comments: This is a 88-year-old male to the ER for evaluation today. Patient is coming in from assisted helpful living site for evaluation of fall follow-up debility weakness unable to provide history. Patient is brought to the ER with a do not code not resuscitate order and patient presents to the ER for evaluation regards to being found down with decreased responsiveness. 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 Fall Witnessed: no Place Fall Occurred: home Loss of Consciousness: none Prolonged Down Time?: no Symptoms Prior to Fall: none Severity scale (1-10): 1 Quality: burning Associated Symptoms: denies - Related Data Home Medications Medication Instructions Recorded Confirmed allopurinoL [Zyloprim] 300 mg PO DAILY 01/27/14 04/28/23 Tamsulosin HCl [Flomax] 0.4 mg PO DAILY 01/05/21 04/28/23 Acetaminophen Tab [Tylenol] 500 - 1,000 mg PO Q6HR PRN 03/31/23 04/28/23 Ferrous Sulfate [Iron (65 MG 325 mg PO Q2D 03/31/23 04/28/23 Elemental)] Loperamide [Imodium] 2 - 4 mg PO QID PRN 03/31/23 04/28/23 Magnesium Oxide [Mag-Ox] 400 mg PO DAILY 03/31/23 04/28/23 Melatonin 5 mg PO HS 03/31/23 04/28/23 Potassium Chloride ER [K-Dur 10] 10 meq PO BID 03/31/23 04/28/23 Psyllium Husk 100% [Metamucil 6 gm PO BID PRN 03/31/23 04/28/23 Packet] Sertraline [Zoloft] 50 mg PO DAILY 03/31/23 04/28/23 Aspirin 81 mg PO DAILY 04/28/23 04/28/23 Cholestyramine (with Sugar) 4 gm PO DIRECTED 04/28/23 04/28/23 [Cholestyramine Powder] Diclofenac Gel 3% 1 applic TOPICAL BID 04/28/23 04/28/23 Donepezil [Aricept] 10 mg PO DAILY 04/28/23 04/28/23 Ondansetron Odt [Zofran Odt] 4 mg PO Q8HR PRN 04/28/23 04/28/23 Sulfamethox-Tmp 800-160Mg [Bactrim 1 tab PO Q12HR 04/28/23 04/28/23 DS 800-160 mg] Previous Rx's Medication Instructions Recorded Atorvastatin [Lipitor] 40 mg PO DAILY #30 tab 04/07/23 Clopidogrel [Plavix] 75 mg PO DAILY #30 tab 04/07/23 Furosemide [Lasix] 40 mg PO DAILY #30 tab 04/07/23 Metoprolol Succinate (ER) [Toprol 12.5 mg PO DAILY #30 tab 04/07/23 XL] amLODIPine [Norvasc] 2.5 mg PO DAILY #30 tab 04/07/23 Allergies Allergy/AdvReac Type Severity Reaction Status Date / Time No Known Allergies Allergy Verified 04/28/23 13:15 Review of Systems ROS Statement: Those systems with pertinent positive or pertinent negative responses have been documented in the HPI. ROS Other: All systems not noted in ROS Statement are negative. Past Medical History Past Medical History: Atrial Fibrillation, Cancer, COPD, CVA/TIA, Dementia, Hyperlipidemia, Hypertension, Osteoarthritis (OA), Renal Disease, Sleep Apnea/CPAP/BIPAP, Syncope Additional Past Medical History / Comment(s): PT CAME TO ER WITH SYNCOPAL AND NEAR SYNCOPAL EPISODES. PT HAS PACEMAKER DUE. TO BRADYCARDA. SKIN CA, KIDNEY STONES, PT HAS SLEEP APNEA AND HAS A CPAP MACHINE THAT HE SAID HE NO LONGER NEEDS. 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 bilateral knee replacement, pacemaker WITH NEWEST DEVICE CHANGE IN 2009. Past Anesthesia/Blood Transfusion Reactions: No Reported Reaction Type of Cardiac Device: Permanent Pacemaker Device Placement Date:: 2009 Past Psychological History: No Psychological Hx Reported Smoking Status: Former smoker Past Alcohol Use History: None Reported Past Drug Use History: None Reported - Past Family History Father Family Medical History: Cancer, CVA/TIA, Diabetes Mellitus Additional Family Medical History / Comment(s): FATHER OF LUNG CANCER AT AGE 82YRS. Mother Family Medical History: Coronary Artery Disease (CAD) Additional Family Medical History / Comment(s): MOTHER AT AGE 72 YRS. General Exam Limitations: altered mental status, physical limitation General appearance: alert, lethargic, obtunded, in distress Head exam: Present: atraumatic, normocephalic, normal inspection Eye exam: Present: normal appearance, PERRL, EOMI. Absent: scleral icterus, conjunctival injection, periorbital swelling ENT exam: Present: normal exam, mucous membranes moist Neck exam: Present: normal inspection. Absent: tenderness, meningismus, lymphadenopathy Respiratory exam: Present: normal lung sounds bilaterally. Absent: respiratory distress, wheezes, rales, rhonchi, stridor Cardiovascular Exam: Present: regular rate, normal rhythm, normal heart sounds. Absent: systolic murmur, diastolic murmur, rubs, gallop, clicks GI/Abdominal exam: Present: soft, normal bowel sounds. Absent: distended, tenderness, guarding, rebound, rigid Extremities exam: Present: normal inspection, full ROM, normal capillary refill. Absent: tenderness, pedal edema, joint swelling, calf tenderness Back exam: Present: normal inspection Neurological exam: Present: alert, oriented X3, CN II-XII intact Psychiatric exam: Present: normal affect, normal mood Skin exam: Present: warm, dry, intact, normal color. Absent: rash Course Vital Signs 04/28/23 04/28/23 04/28/23 10:37 10:51 11:39 Temperature 96.8 F L Pulse Rate 93 70 Respiratory 16 22 Rate Blood Pressure 118/75 108/82 O2 Sat by Pulse 95 92 L Oximetry 04/28/23 12:01 Temperature Pulse Rate 70 Respiratory 18 Rate Blood Pressure 119/68 O2 Sat by Pulse 97 Oximetry - Reevaluation(s) Reevaluation #1: 04/28/23 12:45 Medical records reviewed Reevaluation #2: 04/28/23 12:46 Patient has no change in symptoms here in the ER Reevaluation #3: 04/28/23 12:46 Patient informed of results and questions answered Reevaluation #4: 04/28/23 12:46 Was pt. sent in by a medical professional or institution (Dr., PA, CORRECTIONAL THERAPY TEACHER, urgent care, hospital, or senior living...) When possible be specific @ -no Did you speak to anyone other than the patient for history (EMS, parent, family, police, friend...)? What history was obtained from this source @ -no Did you review nursing and triage notes (agree or disagree)? Why? @ -agree Are old charts reviewed (outside hosp., previous admission, EMS record, old EKG, old radiological studies, urgent care reports/EKG's, senior living records)? Report findings @ -yes Differential Diagnosis (chest pain, altered mental status, abdominal pain women, abdominal pain men, vaginal bleeding, weakness, fever, dyspnea, syncope, headache, dizziness, GI bleed, back pain, seizure, CVA, palpatations, mental health, musculoskeletal)? @ -prior EKG interpreted by me (3pts min.). @ -yes X-rays interpreted by me (1pt min.). @ -yes negative for acute disease CT interpreted by me (1pt min.). @ -Yes negative for acute disease U/S interpreted by me (1pt. min.). @ -no What testing was considered but not performed or refused? (CT, X-rays, U/S, labs)? Why? @ -none What meds were considered but not given or refused? Why? @ -none Did you discuss the management of the patient with other professionals (professionals i.e. BHAVESH Vogt, CORRECTIONAL THERAPY TEACHER, lab, RT, psych nurse, director of social services, customer service teller, teacher, fire information officer, showcase maker)? Give summary @ -no Was smoking cessation discussed for >3mins.? @ -no Were there social determinants of health that impacted care today? How? (Homelessness, low income, unemployed, alcoholism, drug addiction, transportation, low edu. Level, literacy, decrease access to med. care, prison, rehab)? @ -none Was there de-escalation of care discussed even if they declined (Discuss DNR or withdrawal of care, Hospice)? DNR status @ -no What co-morbidities impacted this encounter? (DM, HTN, Smoking, COPD, CAD, Cancer, CVA, ARF, Chemo, Hep., AIDS, mental health diagnosis, sleep apnea, morbid obesity)? @ -none Was patient admitted / discharged? Hospital course, mention meds given and route, prescriptions, significant lab abnormalities, going to OR and other pertinent info. @ - 88 male to the ER after being found down, patient is unable to provide any history here in the emergency department and currently has no family at bedside, patient will transition to hospice care Admitted Was critical care preformed (if so, how long)? @ -no Diagnosis/symptom? @ -Weakness and altered mental status Undiagnosed new problem with uncertain prognosis? @ -no Drug Therapy requiring intensive monitoring for toxicity (Heparin, Nitro, Insulin, Cardizem)? @ -no Were any procedures done? @ -no Acute, or Chronic, or Acute on Chronic? @ -Acute Uncomplicated (without systemic symptoms) or Complicated (systemic symptoms)? @ -Complicated Side effects of treatment? @ -no Exacerbation, Progression, or Severe Exacerbation? @ -exacerbation Poses a threat to life or bodily function? How? (Chest pain, USA, MA, pneumonia, PE, COPD, DKA, ARF, appy, cholecystitis, CVA, Diverticulitis, Homicidal, Suicidal, threat to staff... and all critical care pts) @ -yes with severe extremes of age Reevaluation #5: 04/28/23 12:47 Differential Altered Mental Status: Hypoglycemia, DKA, hypercapnia, ETOH, overdose, CO poisoning, trauma, myxedema coma, HTN encephalopathy, infection, encephalitis, psychosis, intercranial hemorrhage, hepatic encephalopathy, meningitis, CVA, this is not meant to be an all-inclusive list - Consultations Consultation #1: Spoke with sound who agrees to see this patient Medical Decision Making - Medical Decision Making 88 male to the ER after being found down, patient is unable to provide any history here in the emergency department and currently has no family at bedside, patient will transition to hospice care - EKG Data -: EKG Interpreted by Me (EKG is a 76 QRS 163 QTc 456) - Radiology Data Radiology results: report reviewed (CT brain and C-spine are negative for acute disease), image reviewed Disposition Clinical Impression: Fall, Altered mental state Disposition: ADMITTED IP TO THIS [facility] Condition: Serious Is patient prescribed a controlled substance at d/c from ED?: No Time of Disposition: 13:00
[2023-04-28 11:04] VITALS: TEMP 96.8
[2023-04-28] MEDS: LORazepam 2 MG/ML INJ IV STA (11:07)
[2023-04-28] MEDS: MORPHINE SULFATE 2 MG/ML SYRINGE IVP STA (11:16)
[2023-04-28 12:00] VITALS: PULSE 70
[2023-04-28 12:27] VITALS: BP 119/68; RESP 18
[2023-04-28] MEDS ORDERED: NALOXONE 0.4 MG/ML 1 ML VIAL IV PRN (12:51)
[2023-04-28] MEDS: SODIUM CHLORIDE 0.9% 1,000 ML IV STA (13:02)
[2023-04-28] MEDS ORDERED: MORPHINE SULFATE 4 MG/ML SYRINGE IV PRN (13:09)
[2023-04-28] MEDS ORDERED: LORazepam 2 MG/ML INJ IV PRN (13:09)
--- NOTE | 2023-04-28 13:15 | XR ---
EXAMINATION TYPE: XR chest 1V portable DATE OF EXAM: 04/28/2023 Comparison: 04/06/2023 Clinical History: 88-year-old male weak Findings: Left anterior chest wall pacemaker generator with right ventricular lead. Heart mildly enlarged. Hype rinflation. Diffuse menstrual density. [id number] left greater than right pleural effusions pa rtially layering. Impression: CHF with ongoing pulmonary vascular congestion. Small to moderate left greater than right partially l ayering pleural effusions on the supine view. Background COPD.
--- NOTE | 2023-04-28 14:33 | CT ---
EXAMINATION TYPE: CT brain alyx wo con DATE OF EXAM: 04/28/2023 COMPARISON: 03/31/2023 HISTORY: Fall CT DLP: 1282.7 mGycm, Automated exposure control for dose reduction was used. CONTRAST: None CT of the brain is performed utilizing 3 mm thick sections through the posterior fossa and 3 mm thick sections through the remaining calvarium. Study is performed within 24 hours of arrival to the hospital. No abnormal hyperdensity is present to suggest an acute intracranial hemorrhage. No mass lesion is evident. No acute infarcts are evident. Old white matter changes are evident on the left. Ventricles and sulci are prominent for the patient age. Paranasal sinuses and mastoid air cells within the [id number] are clear. IMPRESSIONS: 1. Atrophy. Some chronic appearing white matter ischemic change may be present, Greater on the left 2. No acute intracranial process radiographically apparent. Follow-up MRI can be performed as clinica lly indicated. CT cervical spine. COMPARISON: None CT of the cervical spine is performed in the axial plane at 2 mm thick sections. Reconstructed image s in the coronal, and sagittal plane are reviewed on the computer. No acute fractures are evident. There is a mild grade 1 spondylolisthesis of C7 anterior T1 Degenerative disc changes present throughout the cervical spine. Prevertebral space is normal. Anteri or vertebral body spurring C4-C7 is present. Vertebral body heights are preserved. No spinal canal stenosis is evident. Multilevel foraminal stenosis. IMPRESSION: 1. No acute osseous abnormality. 2. Chronic changes including degenerative disc changes and foraminal stenosis. 3. Grade 1 spondylolisthesis of C7 on T1. MRI can be performed if additional evaluation is required.
== END 2023-04-28 15:07 | disposition hospice, inpatient (51) ==
LOC: EC 10:33 → 5NMEDONC 13:11 → INTOOBSV 13:11 → UNDOADMOB 13:11 → EC 15:07 → UNDODISIN 15:07 → UNDODISOB 15:07
DX: R53.1 Weakness (principal); R53.81 Other malaise; F03.90 Unspecified dementia, unspecified severity, without behavioral disturbance, psychotic disturbance, mood disturbance, and anxiety; I48.91 Unspecified atrial fibrillation; I10 Essential (primary) hypertension; J44.9 Chronic obstructive pulmonary disease, unspecified; Z87.891 Personal history of nicotine dependence; Z79.899 Other long term (current) drug therapy; Z79.82 Long term (current) use of aspirin; Z79.02 Long term (current) use of antithrombotics/antiplatelets; Z51.5 Encounter for palliative care; Z95.0 Presence of cardiac pacemaker; Z86.73 Personal history of transient ischemic attack (TIA), and cerebral infarction without residual deficits; Z86.14 Personal history of Methicillin resistant Staphylococcus aureus infection; Z66 Do not resuscitate
CPT/HCPCS: 99285; 96365; 96375; 93005; 71045; 72125; 70450; J2060; J2270

== ENCOUNTER 2023-04-28 14:05 | Inpatient (IN) | payer MEDICAID, MEDICARE ==
[2023-04-28] MEDS ORDERED: ACETAMINOPHEN SUPPOSITORY 650 MG SUPP RECTAL PRN (14:45)
[2023-04-28] MEDS ORDERED: GLYCOPYRROLATE 0.2 MG/ML 2 ML VIAL IVP PRN (14:45)
[2023-04-28] MEDS ORDERED: ONDANSETRON 4 MG/2 ML VIAL IVP PRN (14:45)
[2023-04-28] MEDS ORDERED: ARTIFICIAL TEARS-HYPROMELLOSE DROPS 15 ML BTL BOTH EYES PRN (14:45)
[2023-04-28] MEDS ORDERED: DRY MOUTH SPRAY 44.3 SPRAY/44.3 ML SPRAY MUCOUS MEM PRN (14:45)
[2023-04-28] MEDS ORDERED: ATROPINE OPHTH SOLN 1% 5ML BTL SUBLINGUAL PRN (14:45)
[2023-04-28] MEDS ORDERED: MORPHINE SULFATE 4 MG/ML SYRINGE IV PRN (14:45)
--- NOTE | 2023-04-28 14:50 | P.HPIM ---
History of Present Illness H&P Date: 04/28/23 History of Presenting Illness: Patient is a very pleasant 88-year-old mle with a past medical history of CAD with permanent pacemaker secondary to symptomatic bradycardia, hypertension, hyperlipidemia, atrial fibrillation, COPD not home oxygen dependent and History of CVA with right-sided deficit/mild weakness and mild speech impairment/stuttering. He is known to our services and recently discharged on 04/07/2023 after hospitalization for acute blood loss anemia due to hemothorax, recurrent episodes/falls, and acute hypoxic respiratory failure secondary to large pleural effusion and diastolic heart failure exacerbation. Patient presented to the emergency department today via EMS from [facility] where patient was reportedly found down on the ground unresponsive with agonal respirations. Respirations were reportedly assisted via BVM and supplemental oxygen and patient was transferred to the ER for evaluation. Upon arrival to the ER vital signs were completed showing patient's blood pressure 118/75, heart rate 93, respiratory rate 16, temp 96.8 F and SpO2 of 95% on 15 L nonrebreather. Patient with multiple abrasions/bruising and skin tears. Patient was admitted under our services and calls immediately placed to patient's daughters, Katty and Meagan. Discussed patient's condition with his daughters via telephone and per their request, no treatment including labs or CAT scans to be completed forthgoing and patient to be placed on comfort measures only. Notified [facility] hospice team and patient admitted to inpatient hospice. Comfort measures initiated at this time. Review of systems: Unable to complete ROS secondary to patient's minimally responsive state. Physical exam: Vital signs reviewed. General: Patient appears in moderate distress. He is covered with abrasions/bruising and skin tears. Frail and thin build, patient minimally responsive awakening to verbal/tactile stimuli only stuttering, unable to form w ords or answer questions at this time. Derm: Skin warm and dry, and pallor. Patient with multiple bruises, abrasions, and skin tears to anterior surface of chest and abdomen. Multiple bruises, abrasions, and skin tears to bilateral upper and lower extremities. Large skin tear right arm/elbow, skin tear to thoracic region of patient's back, and multiple skin tears on chest. Head: Normocephalic and symmetric. Multiple abrasions to forehead, dried blood right ear Eyes: Pupils equal, round, and reactive 2:1, no lid lag, and anicteric sclera Mouth: no lip lesions, mucus membranes dry Cardiovascular: regular rate and rhythm with normal S1S2, systolic murmur, positive posterior tibial pulses bilaterally, and cap refill < [address] left anterior chest. Lungs: Respirations even, regular, and unlabored on 5 L O2 via nasal cannula. Lungs CTA bilaterally, no rhonchi, no rales, no wheezing, and no accessory muscle usage. Abdominal: soft, no apparent distress upon palpation Ext: No gross muscle atrophy, no edema, no contractures. Multiple bruises, abrasions, and skin tears but no obvious deformities noted. Neuro/psych: Patient minimally responsive. Assessment and Plan of Care: Encounter for hospice admission Unwitnessed fall at home with loss of consciousness History of Recurrent Syncopal episodes/falls History of Orthostatic hypotension History of CAD with permanent pacemaker secondary to symptomatic bradycardia Hypertension Hyperlipidemia Paroxysmal atrial fibrillation COPD not home oxygen dependent History of CVA with right-sided deficit/mild weakness -Comfort measures only. -Symptomatic care and pain management. -Tylenol suppository 650 mg rectally every 4 hours as needed for fever and/or mild pain. -Artificial teardrops to bilateral eyes every 2 hours as needed for dry eyes. -Scopolamine patch. -Order placed for sublingual atropine drops and Robinul for excess secretions. -Zofran as needed for nausea and/or vomiting. -Initiate morphine infusion 1 mg/h and titrate as needed to maintain patient's comfort. -Morphine 4 mg IVP every 15 minutes as needed for severe uncontrolled breakthrough pain. -Ativan 1 mg IVP every 6 hours as needed for agitation or acute anxiety. CODE STATUS: DNR/DNI, Comfort measures only Discussed with: Patient's daughter Meagan and patient's niece at bedside Nica Patient was seen independently by Nurse Practitioner. This document was prepared using [employer] dictation software. Please allow for errors in deputy sheriff [id number] handler while rare they do occur. Past Medical History Past Medical History: Atrial Fibrillation, Cancer, COPD, CVA/TIA, Dementia, Hyperlipidemia, Hypertension, Osteoarthritis (OA), Renal Disease, Sleep Apnea/CPAP/BIPAP, Syncope Additional Past Medical History / Comment(s): PT CAME TO ER WITH SYNCOPAL AND NEAR SYNCOPAL EPISODES. PT HAS PACEMAKER DUE. TO BRADYCARDA. SKIN CA, KIDNEY STONES, PT HAS SLEEP APNEA AND HAS A CPAP MACHINE THAT HE SAID HE NO LONGER NEEDS. 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 bilateral knee replacement, pacemaker WITH NEWEST DEVICE CHANGE IN 2009. Past Anesthesia/Blood Transfusion Reactions: No Reported Reaction Type of Cardiac Device: Permanent Pacemaker Device Placement Date:: 2009 Past Psychological History: No Psychological Hx Reported Smoking Status: Former smoker Past Alcohol Use History: None Reported Past Drug Use History: None Reported - Past Family History Father Family Medical History: Cancer, CVA/TIA, Diabetes Mellitus Additional Family Medical History / Comment(s): FATHER OF LUNG CANCER AT AGE 82YRS. Mother Family Medical History: Coronary Artery Disease (CAD) Additional Family Medical History / Comment(s): MOTHER AT AGE 72 YRS. Medications and Allergies Home Medications Medication Instructions Recorded Confirmed Type allopurinoL [Zyloprim] 300 mg PO DAILY 01/27/14 04/28/23 History Tamsulosin HCl [Flomax] 0.4 mg PO DAILY 01/05/21 04/28/23 History Acetaminophen Tab [Tylenol] 500 - 1,000 mg PO Q6HR PRN 03/31/23 04/28/23 History Ferrous Sulfate [Iron (65 MG 325 mg PO Q2D 03/31/23 04/28/23 History Elemental)] Loperamide [Imodium] 2 - 4 mg PO QID PRN 03/31/23 04/28/23 History Magnesium Oxide [Mag-Ox] 400 mg PO DAILY 03/31/23 04/28/23 History Melatonin 5 mg PO HS 03/31/23 04/28/23 History Potassium Chloride ER [K-Dur 10] 10 meq PO BID 03/31/23 04/28/23 History Psyllium Husk 100% [Metamucil 6 gm PO BID PRN 03/31/23 04/28/23 History Packet] Sertraline [Zoloft] 50 mg PO DAILY 03/31/23 04/28/23 History Atorvastatin [Lipitor] 40 mg PO DAILY #30 tab 04/07/23 04/28/23 Rx Clopidogrel [Plavix] 75 mg PO DAILY #30 tab 04/07/23 04/28/23 Rx Furosemide [Lasix] 40 mg PO DAILY #30 tab 04/07/23 04/28/23 Rx Metoprolol Succinate (ER) [Toprol 12.5 mg PO DAILY #30 tab 04/07/23 04/28/23 Rx XL] amLODIPine [Norvasc] 2.5 mg PO DAILY #30 tab 04/07/23 04/28/23 Rx Aspirin 81 mg PO DAILY 04/28/23 04/28/23 History Cholestyramine (with Sugar) 4 gm PO DIRECTED 04/28/23 04/28/23 History [Cholestyramine Powder] Diclofenac Gel 3% 1 applic TOPICAL BID 04/28/23 04/28/23 History Donepezil [Aricept] 10 mg PO DAILY 04/28/23 04/28/23 History Ondansetron Odt [Zofran Odt] 4 mg PO Q8HR PRN 04/28/23 04/28/23 History Sulfamethox-Tmp 800-160Mg [Bactrim 1 tab PO Q12HR 04/28/23 04/28/23 History DS 800-160 mg] Allergies Allergy/AdvReac Type Severity Reaction Status Date / Time No Known Allergies Allergy Verified 04/28/23 13:15 Physical Exam Vitals: Intake and Output 04/27/23 04/28/23 04/28/23 22:59 06:59 14:59 Other: Weight 72 kg
[2023-04-28] MEDS ORDERED: SCOPOLAMINE 1 MG/72 HR PATCH TRANSDERM SCH (15:00)
[2023-04-28] MEDS: MORPHINE SULFATE (100 MG/2 ML) 100 MG in SODIUM CHLORIDE 0.9% 100 ML IV SCH (15:53)
[2023-04-28 16:11] VITALS: PULSE 70
[2023-04-28] MEDS: LORazepam 2 MG/ML INJ IV PRN (17:07)
[2023-04-28 19:36] VITALS: BP 107/67; RESP 15
[2023-04-29] MEDS: LORazepam 2 MG/ML INJ IV PRN (09:26)
--- NOTE | 2023-04-29 13:46 | P.PN ---
Subjective Progress Note Date: 04/29/23 Hospital course: Patient is a very pleasant 88-year-old mle with a past medical history of CAD with permanent pacemaker secondary to symptomatic bradycardia, hypertension, hyperlipidemia, atrial fibrillation, COPD not home oxygen dependent and History of CVA with right-sided deficit/mild weakness and mild speech impairment/stuttering. He is known to our services and recently discharged on 04/07/2023 after hospitalization for acute blood loss anemia due to hemothorax, recurrent episodes/falls, and acute hypoxic respiratory failure secondary to large pleural effusion and diastolic heart failure exacerbation. Patient presented to the emergency department [place] [facility] [place] found down on the ground unresponsive with agonal respirations. Respirations were reportedly assisted via BVM and supplemental oxygen and patient was transferred to the ER for evaluation. Upon arrival to the ER vital signs were completed showing patient's blood pressure 118/75, heart rate 93, respiratory rate 16, temp 96.8 F and SpO2 of 95% on 15 L nonrebreather. Patient with multiple abrasions/bruising and skin tears. Patient was admitted under our services and calls immediately placed to patient's daughters, Katty and Meagan. Discussed patient's condition with his daughters via telephone and per their request, no treatment including labs or CAT scans to be completed forthgoing and patient to be placed on comfort measures only. Patient admitted to inpatient hospice. Physical exam: Patient seen and fully evaluated at bedside. He appeared to be resting somewhat comfortably but was a little fidgety at times. Patient's daughter Katty and other family members present at bedside at this time. Patient remains on hospice care with morphine infusing at 4 mg/h at this time. General: Patient is covered with abrasions/bruising and skin tears. Frail and thin build, patient minimally responsive awakening to verbal/tactile stimuli only stuttering, unable to form words or answer questions at this time. Derm: Skin warm and dry, and pallor. Patient with multiple bruises, abrasions, and skin tears to anterior surface of chest and abdomen. Multiple bruises, abrasions, and skin tears to bilateral upper and lower extremities. Large skin tear right arm/elbow, skin tear to thoracic region of patient's back, and multiple skin tears on chest. Head: Normocephalic and symmetric. Multiple abrasions to forehead and nose Eyes: no lid lag, and anicteric sclera Mouth: no lip lesions, mucus membranes dry Cardiovascular: regular rate and rhythm with normal S1S2, systolic murmur, positive posterior tibial pulses bilaterally, and cap refill < [address] left anterior chest. Lungs: Respirations even, regular, and unlabored with no accessory muscle usage. Abdominal: soft, no apparent distress upon palpation. Triplett catheter in place. Ext: No gross muscle atrophy, no edema, no contractures. Multiple bruises, abrasions, and skin tears but no obvious deformities noted. Neuro/psych: Patient minimally responsive, slightly fidgety at times. Assessment and Plan of Care: Unwitnessed fall at home with loss of consciousness History of Recurrent Syncopal episodes/falls History of Orthostatic hypotension History of CAD with permanent pacemaker secondary to symptomatic bradycardia Hypertension Hyperlipidemia Paroxysmal atrial fibrillation COPD not home oxygen dependent History of CVA with right-sided deficit/mild weakness -Comfort measures only. Patient admitted to inpatient hospice -Symptomatic care and pain management. -Tylenol suppository 650 mg rectally every 4 hours as needed for fever and/or mild pain. -Artificial teardrops to bilateral eyes every 2 hours as needed for dry eyes. -Scopolamine patch. -Sublingual atropine drops and Robinul for excess secretions. -Zofran as needed for nausea and/or vomiting. -Continue morphine infusion 4 mg/h and titrate as needed to maintain patient's comfort. Morphine infusion currently running at 4 mg/h. -Morphine 4 mg IVP every 15 minutes as needed for severe uncontrolled breakthrough pain. -Ativan 1 mg IVP every 6 hours as needed for agitation or acute anxiety. CODE STATUS: DNR/DNI, Comfort measures only Patient was seen independently by Nurse Practitioner. This document was prepared using [employer] dictation software. Please allow for errors in medical records receptionist while rare they do occur. Objective - Vital Signs Vital signs: Vital Signs Temp Pulse 70 04/28/23 19:30 Resp 15 04/28/23 19:30 BP 107/67 04/28/23 19:30 Pulse Ox 98 04/28/23 19:30 FiO2 Intake & Output 04/28/23 04/29/23 04/29/23 18:59 06:59 18:59 Intake Total 3.332 Output Total 700 Balance 3.332 -700 Weight 72.575 kg 72.575 kg Intake: Intake, IV Titration 3.332 Amount Morphine Sulfate (100 mg/ 3.332 2 ml) 100 mg In Sodium Chloride 0.9% 100 ml @ 1 MG/HR 1.02 mls/hr IV . Q24H [facility] Rx#:[id number] Output: Urine 700 Other: Voiding Method Indwelling Catheter Indwelling Catheter
[2023-04-29] MEDS: MORPHINE SULFATE (100 MG/2 ML) 100 MG in SODIUM CHLORIDE 0.9% 100 ML IV SCH ×2 (15:20→18:14)
[2023-04-30] MEDS: LORazepam 2 MG/ML INJ IV PRN (09:35)
[2023-04-30] MEDS: MORPHINE SULFATE (100 MG/2 ML) 100 MG in SODIUM CHLORIDE 0.9% 100 ML IV SCH (12:31)
--- NOTE | 2023-04-30 13:58 | P.PN ---
Subjective Progress Note Date: 04/30/23 Hospital Course: Patient is a very pleasant 88-year-old mle with a past medical history of CAD with permanent pacemaker secondary to symptomatic bradycardia, hypertension, hyperlipidemia, atrial fibrillation, COPD not home oxygen dependent and History of CVA with right-sided deficit/mild weakness and mild speech impairment/stuttering. He is known to our services and recently discharged on 04/07/2023 after hospitalization for acute blood loss anemia due to hemothorax, recurrent episodes/falls, and acute hypoxic respiratory failure secondary to large pleural effusion and diastolic heart failure exacerbation. Patient presented to the emergency department today via EMS from [facility] [place] where patient was reportedly found down on the ground unresponsive with agonal respirations. Respirations were reportedly assisted via BVM and supplemental oxygen and patient was transferred to the ER for evaluation. Upon arrival to the ER vital signs were completed showing patient's blood pressure 118/75, heart rate 93, respiratory rate 16, temp 96.8 F and SpO2 of 95% on 15 L nonrebreather. Patient with multiple abrasions/bruising and skin tears. Patient was admitted under our services and calls immediately placed to patient's daughters, Katty and Meagan. Discussed patient's condition with his daughters via telephone and per their request, no treatment including labs or CAT scans to be completed forthgoing and patient to be placed on comfort measures only. Patient admitted to inpatient hospice. On morphine drip. Subjective: Patient examined. Continues to be resting comfortably. Family at bedside. Pertinent positives and negatives as discussed above, a complete review of systems was performed and all other systems are negative. Vitals Signs Reviewed. General: Not in acute distress Head: Normocephalic and symmetric. Multiple abrasions to forehead and nose Eyes: no lid lag, and anicteric sclera Mouth: no lip lesions, mucus membranes dry Cardiovascular: regular rate and rhythm with normal S1S2, systolic murmur Lungs: Respirations even, regular, and unlabored with no accessory muscle usage. Abdominal: Nondistended, Triplett catheter in place. Ext: No gross muscle atrophy, no edema, no contractures Neuro/psych: Patient minimally responsive Data Reviewed Today: Pertinent Labs: No new labs Imaging: No new imaging Assessment and Plan: Unwitnessed fall at home with loss of consciousness History of Recurrent Syncopal episodes/falls History of Orthostatic hypotension History of CAD with permanent pacemaker secondary to symptomatic bradycardia Hypertension Hyperlipidemia Paroxysmal atrial fibrillation COPD not home oxygen dependent History of CVA with right-sided deficit/mild weakness -Comfort measures only. Patient admitted to inpatient hospice -Symptomatic care and pain management. -Tylenol suppository 650 mg rectally every 4 hours as needed for fever and/or mild pain. -Artificial teardrops to bilateral eyes every 2 hours as needed for dry eyes. -Scopolamine patch. -Sublingual atropine drops and Robinul for excess secretions. -Zofran as needed for nausea and/or vomiting. -Continue morphine infusion and titrate as needed to maintain patient's comfort -Morphine 4 mg IVP every 15 minutes as needed for severe uncontrolled breakthrough pain. -Ativan 1 mg IVP every 6 hours as needed for agitation or acute anxiety. Patient expected to during this hospitalization. Objective - Vital Signs Vital signs: Vital Signs Temp Pulse 70 04/28/23 19:30 Resp 15 04/28/23 19:30 BP 107/67 04/28/23 19:30 Pulse Ox 98 04/28/23 19:30 FiO2 Intake & Output 04/29/23 04/30/23 04/30/23 18:59 06:59 18:59 Intake Total 80.019 0 77.248 Balance 80.019 0 77.248 Intake: Intake, IV Titration 80.019 77.248 Amount Morphine Sulfate (100 mg/ 80.019 77.248 2 ml) 100 mg In Sodium Chloride 0.9% 100 ml @ 1 MG/HR 1.02 mls/hr IV . Q24H [facility] Rx#:[id number] Oral 0 Other: Voiding Method Indwelling Catheter Indwelling Catheter Indwelling Catheter
--- NOTE | 2023-04-30 16:00 | P.DS ---
Providers Date of admission: 04/28/23 15:07 Expected date of discharge: 04/30/23 Attending physician: Chely Dickinson DO Primary care physician: Asher Argueta MD Hospital Course: Discharge Diagnosis: Unwitnessed fall at home with loss of consciousness History of Recurrent Syncopal episodes/falls History of Orthostatic hypotension History of CAD with permanent pacemaker secondary to symptomatic bradycardia Hypertension Hyperlipidemia Paroxysmal atrial fibrillation COPD not home oxygen dependent History of CVA with right-sided deficit/mild weakness Hospital Course: Patient is a very pleasant 88-year-old mle with a past medical history of CAD with permanent pacemaker secondary to symptomatic bradycardia, hypertension, hyperlipidemia, atrial fibrillation, COPD not home oxygen dependent and History of CVA with right-sided deficit/mild weakness and mild speech impairment/stuttering. He is known to our services and recently discharged on 04/07/2023 after hospitalization for acute blood loss anemia due to hemothorax, recurrent episodes/falls, and acute hypoxic respiratory failure secondary to large pleural effusion and diastolic heart failure exacerbation. Patient presented to the emergency department today via EMS from [facility] [place] where patient was reportedly found down on the ground unresponsive with agonal respirations. Respirations were reportedly assisted via BVM and supplemental oxygen and patient was transferred to the ER for evaluation. Upon arrival to the ER vital signs were completed showing patient's blood pressure 118/75, heart rate 93, respiratory rate 16, temp 96.8 F and SpO2 of 95% on 15 L nonrebreather. Patient with multiple abrasions/bruising and skin tears. Patient was admitted under our services and calls immediately placed to patient's daughters, Katty and Meagan. Discussed patient's condition with his daughters via telephone and per their request, no treatment including labs or CAT scans to be completed forthgoing and patient to be placed on comfort measures only. Patient admitted to inpatient hospice. On morphine drip. Patient at 1522 on 04/30/2023. Patient Condition at Discharge: Stable Plan - Discharge Summary Discharge Rx Participant: No New Discharge Prescriptions: No Action allopurinoL [Zyloprim] 300 mg PO DAILY Tamsulosin HCl [Flomax] 0.4 mg PO DAILY Acetaminophen Tab [Tylenol] 500 - 1,000 mg PO Q6HR PRN PRN Reason: Pain Psyllium Husk 100% [Metamucil Packet] 6 gm PO BID PRN PRN Reason: Diarrhea Melatonin 5 mg PO HS Atorvastatin [Lipitor] 40 mg PO DAILY #30 tab amLODIPine [Norvasc] 2.5 mg PO DAILY #30 tab Aspirin 81 mg PO DAILY Donepezil [Aricept] 10 mg PO DAILY Sulfamethox-Tmp 800-160Mg [Bactrim DS 800-160 mg] 1 tab PO Q12HR Sertraline [Zoloft] 50 mg PO DAILY Potassium Chloride ER [K-Dur 10] 10 meq PO BID Magnesium Oxide [Mag-Ox] 400 mg PO DAILY Loperamide [Imodium] 2 - 4 mg PO QID PRN PRN Reason: Diarrhea Ferrous Sulfate [Iron (65 MG Elemental)] 325 mg PO Q2D Clopidogrel [Plavix] 75 mg PO DAILY #30 tab Metoprolol Succinate (ER) [Toprol XL] 12.5 mg PO DAILY #30 tab Furosemide [Lasix] 40 mg PO DAILY #30 tab Diclofenac Gel 3% 1 applic TOPICAL BID Cholestyramine (with Sugar) [Cholestyramine Powder] 4 gm PO DIRECTED Ondansetron Odt [Zofran Odt] 4 mg PO Q8HR PRN PRN Reason: Nausea And Vomiting Discharge Medication List allopurinoL [Zyloprim] 300 mg PO DAILY 01/27/14 [History] Tamsulosin HCl [Flomax] 0.4 mg PO DAILY 01/05/21 [History] Acetaminophen Tab [Tylenol] 500 - 1,000 mg PO Q6HR PRN 03/31/23 [History] Ferrous Sulfate [Iron (65 MG Elemental)] 325 mg PO Q2D 03/31/23 [History] Loperamide [Imodium] 2 - 4 mg PO QID PRN 03/31/23 [History] Magnesium Oxide [Mag-Ox] 400 mg PO DAILY 03/31/23 [History] Melatonin 5 mg PO HS 03/31/23 [History] Potassium Chloride ER [K-Dur 10] 10 meq PO BID 03/31/23 [History] Psyllium Husk 100% [Metamucil Packet] 6 gm PO BID PRN 03/31/23 [History] Sertraline [Zoloft] 50 mg PO DAILY 03/31/23 [History] Atorvastatin [Lipitor] 40 mg PO DAILY #30 tab 04/07/23 [Rx] Clopidogrel [Plavix] 75 mg PO DAILY #30 tab 04/07/23 [Rx] Furosemide [Lasix] 40 mg PO DAILY #30 tab 04/07/23 [Rx] Metoprolol Succinate (ER) [Toprol XL] 12.5 mg PO DAILY #30 tab 04/07/23 [Rx] amLODIPine [Norvasc] 2.5 mg PO DAILY #30 tab 04/07/23 [Rx] Aspirin 81 mg PO DAILY 04/28/23 [History] Cholestyramine (with Sugar) [Cholestyramine Powder] 4 gm PO DIRECTED 04/28/23 [History] Diclofenac Gel 3% 1 applic TOPICAL BID 04/28/23 [History] Donepezil [Aricept] 10 mg PO DAILY 04/28/23 [History] Ondansetron Odt [Zofran Odt] 4 mg PO Q8HR PRN 04/28/23 [History] Sulfamethox-Tmp 800-160Mg [Bactrim DS 800-160 mg] 1 tab PO Q12HR 04/28/23 [History] Follow up Appointment(s)/Referral(s): Asher Argueta MD [Primary Care Provider] - 1 Week
== END 2023-04-30 18:20 | disposition expired | DRG 951 ==
LOC: EC 14:05 → 5NMEDONC 15:07 → UNDOADMIN 15:15 → 5NMEDONC 15:15
PROVIDERS: ADMIT Internal Medicine; ATTEND Internal Medicine
DX: Z51.5 Encounter for palliative care (principal); I69.351 Hemiplegia and hemiparesis following cerebral infarction affecting right dominant side; F03.94 Unspecified dementia, unspecified severity, with anxiety; I50.32 Chronic diastolic (congestive) heart failure; I11.0 Hypertensive heart disease with heart failure; J44.9 Chronic obstructive pulmonary disease, unspecified; Z66 Do not resuscitate; I48.0 Paroxysmal atrial fibrillation; I25.10 Atherosclerotic heart disease of native coronary artery without angina pectoris; E78.5 Hyperlipidemia, unspecified; I69.323 Fluency disorder following cerebral infarction; S00.31XA Abrasion of nose, initial encounter; S00.81XA Abrasion of other part of head, initial encounter; G47.30 Sleep apnea, unspecified; I95.1 Orthostatic hypotension; M19.90 Unspecified osteoarthritis, unspecified site; Z79.82 Long term (current) use of aspirin; Z79.02 Long term (current) use of antithrombotics/antiplatelets; Z79.899 Other long term (current) drug therapy; Z87.442 Personal history of urinary calculi; Z95.0 Presence of cardiac pacemaker; Z87.891 Personal history of nicotine dependence; Z96.653 Presence of artificial knee joint, bilateral; Z86.14 Personal history of Methicillin resistant Staphylococcus aureus infection; W19.XXXA Unspecified fall, initial encounter; Y92.009 Unspecified place in unspecified non-institutional (private) residence as the place of occurrence of the external cause